=== PATIENT | male | born 1985 | race American Indian/Alaskan Native ===

== ENCOUNTER 2020-07-16 05:36 | Emergency (ER) | payer OTHER, SELFPAY ==
[2020-07-16 05:41] VITALS: BP 124/83; PULSE 118; RESP 18; TEMP 36.4; O2SAT 97; BMI 37.6
--- NOTE | 2020-07-16 06:39 | ED_ITS ---
HPI - Extremity Problem General Chief complaint: Extremity Injury, Upper Stated complaint: THUMB INJURY Time Seen by Provider: 07/16/20 06:39 Source: patient Mode of arrival: ambulatory Limitations: no limitations History of Present Illness MD Complaint: other (L thumb pain) Onset (ago): day(s) (yesterday) Pain Consistency: constant Location: left Quality: aching Radiation: none Relieving factors: nothing Exacerbating factors: range of motion Associated symptoms: denies other symptoms Context: other (states he fell a couple of days ago but didn't notice his thumb hurt til today) Related Data Previous Rx's Medication Instructions Recorded cyclobenzaprine 10 mg PO TID PRN #14 tab 07/16/20 ibuprofen 600 mg PO Q6H PRN #30 tab 07/16/20 Allergies Allergy/AdvReac Type Severity Reaction Status Date / Time morphine [MORPHINE] Allergy Mild BUMPS AND Verified 07/16/20 05:46 ITCHINESS NEAR IV SITE AFTER ADMINISTRATION, (IV) blisters penicillin V Allergy Unknown Unknown Verified 07/16/20 05:46 Penicillins Allergy Unknown UNKNOWN Verified 07/16/20 05:46 Review of Systems Review of Systems: Constitutional : No Fever, No Chills ENT/Mouth : No Ear Pain, No Hoarseness, No sore throat Eyes: No Eye Pain, No Swelling, No Redness, No Foreign Body Cardiovascular : No Chest Pain, No SOB Respiratory : No Cough, No Dyspnea Gastrointestinal : No Nausea, No Vomiting, No Diarrhea, No abdominal Pain Genitourinary : No Dysuria, No Hematuria Musculoskeletal : positive joint pain, No Myalgias, positive Joint Swelling Skin : No Skin lacerations, No rash Neuro : No Weakness, No Numbness, No Loss of Consciousness All other systems reviewed and are negative [facility] Past Medical History Medical History Asthma Bronchitis DVT (deep venous thrombosis) Hypertension Kidney stones Pulmonary emboli Substance abuse Social History Social History (Updated 07/16/20 @ 06:47 by Adrienne Crespo DO) Alcohol intake: never Smoking Status: Never smoker Advance Directives: No Physical Exam Vital Signs: Vital Signs: Vital Signs Temp Pulse Resp BP Pulse Ox 07/16/20 05:41 97.5 F 118 H 18 124/83 97 Body Mass Index 37.6 Appearance: Alert. Oriented X3. No acute distress. was snoring loudly and very sleepy had to be woken up Eyes: Pupils equal, round and reactive to light. ENT: Pharynx normal. Neck: Normal inspection. Neck supple. CVS: Normal heart rate and rhythm. Pulses normal. Respiratory: No respiratory distress. Breath sounds normal. Abdomen: Soft and nontender. Skin: Skin warm and dry. Normal skin color. Normal skin turgor. Extremities: No lower extremity edema. No calf ttp L thumb on thenar eminence swelling and mild ttp, no skin changes, distal NV intact Neuro: Oriented X 3. No motor deficit. No sensory deficit. Course Course Course Narrative: xray correlates with findings on PE will splint and refer to orthopedics Procedures Orthopedic Splinting/Casting Injury #1: Side: left Upper Extremity Injury Location: wrist and hand Upper Extremity Immobilizer: thumb spica Additional Comments: NV intact post splint MDM - Extremity (Nontraumatic) MDM Narrative Medical decision making narrative: isolated L thumb injury after a fall - can move thumb but pain is over his thenar eminence, NV intact, no signs of infectino, xray ordered Discharge Plan Discharge Clinical Impression: Fracture of phalanx of digit of hand Qualifiers: Encounter type: initial encounter Fracture type: closed Qualified Code(s): S62.609A - Fracture of unspecified phalanx of unspecified finger, initial encounter for closed fracture Patient Disposition: Home, Self-Care Instructions: Thumb Fracture (ED) Additional Instructions: wear splint until released Prescriptions: New cyclobenzaprine 10 mg tablet 10 mg PO TID PRN (Reason: muscle spasm) Qty: 14 RF: 0 ibuprofen 600 mg tablet 600 mg PO Q6H PRN (Reason: pain) Qty: 30 RF: 0 Referrals: David Street MD [Physician] - 10 days Stand Alone Forms: Work/School Release
--- NOTE | 2020-07-16 06:40 | XR_ITS ---
EXAMINATION: XR HAND, LEFT CLINICAL INFORMATION: Pain COMPARISON: 01/15/2017 TECHNIQUE: PA, lateral, and oblique views of the left hand. FINDINGS: There is cortical irregularity at the base of the proximal phalanx of the thumb, along the ulnar aspect, suspicious for acute fracture in the proper clinical setting. Articular alignment throughout the hand is maintained. No significant focal soft tissue abnormality is identified. IMPRESSION: Cortical irregularity at the base of the proximal phalanx of the thumb, suspicious for acute fracture.
== END 2020-07-16 07:32 | disposition home or self-care (01) ==
PROVIDERS: Emergency Provider Emergency Medicine; PCP Internal Medicine
DX: S62.502A Fracture of unspecified phalanx of left thumb, initial encounter for closed fracture (principal); W19.XXXA Unspecified fall, initial encounter; I10 Essential (primary) hypertension; Y93.9 Activity, unspecified; Y92.019 Unspecified place in single-family (private) house as the place of occurrence of the external cause; Y99.9 Unspecified external cause status
CPT/HCPCS: 29125; 73130; 99283; 99284

== ENCOUNTER → 2020-07-22 13:43 | Outpatient (BNVA) | payer OTHER, SELFPAY | PROVIDERS: PCP Internal Medicine; Referring Provider Internal Medicine; Visit Provider Physician Assistant | DX: S62.512D Displaced fracture of proximal phalanx of left thumb, subsequent encounter for fracture with routine healing (principal) | CPT/HCPCS: 99212 ==

== ENCOUNTER 2020-08-21 12:09 | Outpatient (REF) | payer OTHER, SELFPAY | END 2020-08-21 12:10 | disposition home or self-care (01) | LOC: HO.LAB 12:09 | PROVIDERS: Visit Provider Internal Medicine | DX: Z20.828 Contact with and (suspected) exposure to other viral communicable diseases (principal) | CPT/HCPCS: C9803; U0003 ==

== ENCOUNTER 2020-09-17 12:36 | Outpatient (REF) | payer OTHER, SELFPAY | END 2020-09-17 12:37 | disposition home or self-care (01) | LOC: HO.LAB 12:36 | PROVIDERS: Visit Provider Internal Medicine | DX: Z20.828 Contact with and (suspected) exposure to other viral communicable diseases (principal) | CPT/HCPCS: C9803; U0003 ==

== ENCOUNTER 2021-01-24 13:40 | Emergency (ER) | payer OTHER, SELFPAY ==
[2021-01-24 14:14] VITALS: BP 135/94; PULSE 85; RESP 18; TEMP 36.4; O2SAT 99; BMI 36.2
--- NOTE | 2021-01-24 14:35 | ED.EYEPROB ---
HPI - Eye Problem General Chief complaint: Eye Problems Stated complaint: red eyes, no pain Time Seen by Provider: 01/24/21 14:19 Source: patient Mode of arrival: ambulatory Limitations: no limitations History of Present Illness HPI Narrative: 35 y/o male presenting with bilateral red eyes for the last 3 days with acute onset of green discharge that started this morning. He states the redness started in the right eye and then quickly spread to the left. Both eyes burn on the inner portion. He denies foreign body sensation. No vision changes. Increased watering throughout the day. 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 No one else with similar symptoms. chief complaint: eye redness Onset (ago): day(s) (3) Onset description: gradual Duration: constant Location: both eyes Eye Symptoms: burning and redness Place: home and work Mechanism: none If Pain, Quality: burning Associated symptoms: none Treatments Prior to Arrival: irrigated eye Related Data Patient tetanus UTD: Yes Previous Rx's Medication Instructions Recorded cyclobenzaprine 10 mg PO TID PRN #14 tab 07/16/20 ibuprofen 600 mg PO Q6H PRN #30 tab 07/16/20 cetirizine [Zyrtec] 10 mg PO DAILY #14 tab 01/24/21 erythromycin 0.5 inch OPHTHALMIC-LEFT TID #3.5 g 01/24/21 erythromycin 0.5 inch OPHTHALMIC-RIGHT TID #3.5 01/24/21 g Allergies Allergy/AdvReac Type Severity Reaction Status Date / Time morphine [MORPHINE] Allergy Mild BUMPS AND Verified 01/24/21 14:16 ITCHINESS NEAR IV SITE AFTER ADMINISTRATION, (IV) blisters penicillin V Allergy Unknown Unknown Verified 01/24/21 14:16 Penicillins Allergy Unknown UNKNOWN Verified 01/24/21 14:16 Review of Systems Review of Systems: Constitutional: No Fever, No Chills ENT/Mouth: No sore throat, No Rhinorrhea, No Swallowing Difficulty Eyes: No Eye Pain, No Swelling, + Redness, +discharge, No vision changes Cardiovascular: No SOB, Respiratory: No Cough Skin: No Skin Lesions, No rash Neuro: No Headache PMFSH Past Medical History Attestation statement: The following information was validated with the patient. Medical History Asthma Bronchitis DVT (deep venous thrombosis) Hypertension Kidney stones Pulmonary emboli Substance abuse Social History Social History Alcohol intake: never Smoking Status: Never smoker Advance Directives: Yes Advance Directives Information Provided: No Advance Directives on File: No Physical Exam Vital Signs: Vital Signs: Last Vital Signs Temp 97.6 F 01/24/21 14:14 Pulse 85 01/24/21 14:14 Resp 18 01/24/21 14:14 BP 135/94 H 01/24/21 14:14 Pulse Ox 99 01/24/21 14:14 Body Mass Index 36.2 Appearance: Alert. Oriented X3. No acute distress. Eyes: bilateral scleral injection and conjunctval injection, equal, round and reactive to light, EOMI. VA noted. ENT: Pharynx normal. Neck: Normal inspection. Neck supple. CVS: Normal heart rate and rhythm. Respiratory: No respiratory distress. Skin: Skin warm and dry. Normal skin color. Normal skin turgor. No rashes. Extremities: No lower extremity edema. Neuro: Oriented X 3. Non-focal Course Course Course Narrative: 35 y/o male presenting with bilateral injection of sclera and conjunctiva w/ green discharge consistent with bacterial conjunctivitis. No FB. No trauma. Will treat with antibiotic ointment and start antihistamine for possible confounding allergy symptoms. Pt agreeable with plan and is stable for discharge. Critical Care Time Critical Care Time Critical Care Time: No Discharge Plan Discharge Clinical Impression: Conjunctivitis Qualifiers: Conjunctivitis type: acute Acute conjunctivitis type: bacterial Laterality: bilateral Qualified Code(s): H10.33 - Unspecified acute conjunctivitis, bilateral Patient Disposition: Home, Self-Care Instructions: Conjunctivitis (ED) Additional Instructions: Use the prescribed antibiotic ointment as directed for at least 1 week. Use one tube per eye. Do not cross contaminate. Use warm compresses to your eyes in the mornings to help with the discharge. Wear protective eyewear at work. Follow up with your doctor in 1 week. If you have worsening symptoms despite treatment, come back to the ER for further evaluation. Prescriptions: New erythromycin 5 mg/gram (0.5 %) ointment 0.5 inch ophthalmic-Left TID Qty: 3.5 RF: 0 erythromycin 5 mg/gram (0.5 %) ointment 0.5 inch ophthalmic-Right TID Qty: 3.5 RF: 0 cetirizine [Zyrtec] 10 mg tablet 10 mg PO DAILY Qty: 14 RF: 0 No Action cyclobenzaprine 10 mg tablet 10 mg PO TID PRN (Reason: muscle spasm) Qty: 14 RF: 0 ibuprofen 600 mg tablet 600 mg PO Q6H PRN (Reason: pain) Qty: 30 RF: 0
== END 2021-01-24 15:00 | disposition home or self-care (01) ==
PROVIDERS: Emergency Provider Emergency Medicine; PCP Internal Medicine
DX: H10.33 Unspecified acute conjunctivitis, bilateral (principal); J45.909 Unspecified asthma, uncomplicated; F19.10 Other psychoactive substance abuse, uncomplicated; Z86.718 Personal history of other venous thrombosis and embolism; Z86.711 Personal history of pulmonary embolism; Z87.442 Personal history of urinary calculi
CPT/HCPCS: 99283

== ENCOUNTER 2021-02-04 18:16 | Emergency (ER) | payer OTHER, SELFPAY ==
[2021-02-04 18:57] VITALS: BP 146/101; PULSE 99; RESP 16; TEMP 36.9; O2SAT 100; BMI 34.8
--- NOTE | 2021-02-04 19:20 | ED_ITS ---
HPI - Dental/Oral General Chief complaint: Dental/Oral Stated complaint: Dental Pain Time Seen by Provider: 02/04/21 19:20 Source: patient Mode of arrival: ambulatory Limitations: no limitations History of Present Illness HPI Narrative: States extensive history of dental problems this scheduled to have 7 tooth extracted his left lower molar which is partially chip is given him more pain. He has an appointment coming up in 2 days for extraction. Denies any jaw swelling, rash, difficulty swallowing or discharge. MD Complaint: tooth pain Location: Tooth # (Number 19 and 18) Onset (ago): day(s) Severity: severe Relieving factors: other (He has tried taking ibuprofen [id number] and helps minimally) Exacerbating factors: chewing Context: history of dental caries Treatment prior to arrival: none Related Data Previous Rx's Medication Instructions Recorded cyclobenzaprine 10 mg PO TID PRN #14 tab 07/16/20 ibuprofen 600 mg PO Q6H PRN #30 tab 07/16/20 cetirizine [Zyrtec] 10 mg PO DAILY #14 tab 01/24/21 erythromycin 0.5 inch OPHTHALMIC-LEFT TID #3.5 g 01/24/21 erythromycin 0.5 inch OPHTHALMIC-RIGHT TID #3.5 01/24/21 g clindamycin HCl 300 mg PO BID 10 Days #20 cap 02/04/21 ibuprofen 800 mg PO Q8H PRN #30 tab 02/04/21 oxycodone 5 mg PO Q8H PRN 3 Days #10 tab 02/04/21 Allergies Allergy/AdvReac Type Severity Reaction Status Date / Time morphine [MORPHINE] Allergy Mild BUMPS AND Verified 01/24/21 14:16 ITCHINESS NEAR IV SITE AFTER ADMINISTRATION, (IV) blisters penicillin V Allergy Unknown Unknown Verified 01/24/21 14:16 Penicillins Allergy Unknown UNKNOWN Verified 01/24/21 14:16 Review of Systems Review of Systems: Constitutional: No Weight loss, No Fever, No Chills, No Night Sweats, No Fatigue, No Malaise ENT/Mouth: No Hearing loss, No Ear Pain, No Nasal Congestion, No Sinus Pain, No Hoarseness, No sore throat, No Rhinorrhea, No Swallowing Difficulty Eyes: No Eye Pain, No Swelling, No Redness, No Foreign Body, No Discharge Cardiovascular: No Chest Pain, No SOB, No Dyspnea on Exertion, No Orthopnea, No Edema, No Palpitations Respiratory: No Cough, No Sputum, No Wheezing, No Smoke Exposure, No Dyspnea Gastrointestinal: Negative Genitourinary: Negative Musculoskeletal: No joint pain, No Myalgias, No Joint Swelling Skin: No Skin Lesions, No rash Neuro: No Weakness, No Numbness, No Paresthesias, No Loss of Consciousness, No Dizziness, No Headache Psych: No Anxiety/Panic, No Depression, No SI/HI/AH/VH, No Social Issues Heme/Lymph: No Bruising, No Bleeding,No Lymphadenopathy Endocrine: No Polyuria, No Polydipsia, No Temperature Intolerance Yes all other systems are reviewed and are negative [facility] Past Medical History Medical History Asthma Bronchitis DVT (deep venous thrombosis) Hypertension Kidney stones Pulmonary emboli Substance abuse Social History Social History Alcohol intake: never Smoking Status: Current every day smoker Use of substances other than those prescribed or required for medical reasons: No Substance Use Type: Marijuana Advance Directives: No Advance Directives Information Provided: No Physical Exam Vital Signs: Vital Signs: Last Vital Signs Temp 98.4 F 02/04/21 18:57 Pulse 99 02/04/21 18:57 Resp 16 02/04/21 18:57 BP 146/101 H 02/04/21 18:57 Pulse Ox 100 02/04/21 18:57 Body Mass Index 34.8 Reviewed Const: General: cooperative HENMT: Head: Yes normal to inspection Ears: hearing grossly normal bilaterally Teeth image: 1. Diffuse extensive decay 18. Partially ship and almost fully eroded. Eyes: General: appearance normal, both eyes and all related structures Neck: Thyroid: Thyroid normal Course Course Course Narrative: Mass pat reviewed no concern pattern. MDM - Dental/Oral Differential Diagnosis Differential diagnosis: Likely dental caries, toothache, dental abscess and fracture of tooth; Unlikely gingival abscess and aphthous ulcer Discharge Plan Discharge Clinical Impression: Toothache Patient Disposition: Home, Self-Care Instructions: Toothache (ED) Additional Instructions: Follow-up with dentist as planned Take medications as prescribed Return if any concerns worsening symptoms Thank you Prescriptions: New ibuprofen 800 mg tablet 800 mg PO Q8H PRN (Reason: pain) Qty: 30 RF: 0 oxycodone 5 mg tablet 5 mg PO Q8H PRN (Reason: pain) 3 Days Qty: 10 RF: 0 clindamycin HCl 300 mg capsule 300 mg PO BID 10 Days Qty: 20 RF: 0 No Action cyclobenzaprine 10 mg tablet 10 mg PO TID PRN (Reason: muscle spasm) Qty: 14 RF: 0 ibuprofen 600 mg tablet 600 mg PO Q6H PRN (Reason: pain) Qty: 30 RF: 0 erythromycin 5 mg/gram (0.5 %) ointment 0.5 inch ophthalmic-Left TID Qty: 3.5 RF: 0 erythromycin 5 mg/gram (0.5 %) ointment 0.5 inch ophthalmic-Right TID Qty: 3.5 RF: 0 cetirizine [Zyrtec] 10 mg tablet 10 mg PO DAILY Qty: 14 RF: 0 Referrals: ED Physician,Generic [Emergency Provider] - 2 days (Your dentist as scheduled)
== END 2021-02-04 19:39 | disposition home or self-care (01) ==
PROVIDERS: Emergency Provider Internal Medicine; PCP Internal Medicine
DX: K08.89 Other specified disorders of teeth and supporting structures (principal); I10 Essential (primary) hypertension; Z86.711 Personal history of pulmonary embolism; F17.200 Nicotine dependence, unspecified, uncomplicated; F12.90 Cannabis use, unspecified, uncomplicated
CPT/HCPCS: 99283; 99284

== ENCOUNTER 2021-05-07 11:46 | Outpatient (REF) | payer OTHER, SELFPAY ==
[2021-05-07 12:19] LABS: COVID-19 Test Negative (Negative)
== END 2021-05-07 11:47 | disposition home or self-care (01) ==
LOC: HO.LAB 11:46
PROVIDERS: PCP Internal Medicine; Visit Provider Internal Medicine
DX: Z20.822 Contact with and (suspected) exposure to COVID-19 (principal)
CPT/HCPCS: 36415; 87635; C9803

== ENCOUNTER 2021-07-02 17:12 | Emergency (ER) | payer OTHER, SELFPAY ==
--- NOTE | ~2021-07-02 | XR_ITS ---
EXAMINATION: XR CHEST CLINICAL INFORMATION: Chest wall pain COMPARISON: Chest CT on 08/08/2018 TECHNIQUE: 2 views of the chest were obtained. FINDINGS: No significant abnormality is noted involving the heart, lungs, mediastinum, bony thorax or soft tissues. XR/XR chest 2V IMPRESSION: Unremarkable examination.
[2021-07-02 18:04] VITALS: BP 140/92; PULSE 93; RESP 18; TEMP 36.6; O2SAT 98; BMI 37.6
--- NOTE | 2021-07-02 18:46 | ECG_ITS ---
Test Reason : WEAK Blood Pressure : / mmHG Vent. Rate : 073 BPM Atrial Rate : 073 BPM P-R Int : 142 ms QRS Dur : 106 ms QT Int : 386 ms P-R-T Axes : 023 013 034 degrees QTc Int : 425 ms Normal sinus rhythm Normal ECG When compared with ECG of 06-JUL-2016 10:45, No significant change was found Referred By: Kenan Flower Electronically Signed By:OLIVER EDMONDSON
--- NOTE | 2021-07-02 18:57 | ED_ITS ---
HPI - General Adult General Chief complaint: General Medical Stated complaint: body weakness Time Seen by Provider: 07/02/21 18:44 Source: patient Limitations: no limitations History of Present Illness HPI narrative: This is a 35-year-old male with a history what he says was a blood clot in his lungs about 7 years ago with associated fluid in his chest. The patient said he was on blood thinners for 3 years but is not on blood thinners anymore. States that since yesterday he has had a feeling of weakness, also chills and sweats, and has had pain in his left posterior lower chest/mid back area. He said he did fall about 3 weeks ago and injured his tailbone area but did not have any pain where he has it now. He denies any fever per se. He has had some cough but he is a smoker. He has not been immunized for COVID. Denies any recent known COVID exposure. Denies any pain or swelling in his legs. He states he has been vomiting since yesterday, has not had a bowel movement. He has been able to hold down some water today. He denies abdominal pain Related Data Previous Rx's Medication Instructions Recorded cyclobenzaprine 10 mg tablet 10 mg PO TID PRN #14 tab 07/16/20 ibuprofen 600 mg tablet 600 mg PO Q6H PRN #30 tab 07/16/20 cetirizine 10 mg tablet (Zyrtec) 10 mg PO DAILY #14 tab 01/24/21 erythromycin 5 mg/gram (0.5 %) eye 0.5 inch OPHTHALMIC-LEFT TID #3.5 g 01/24/21 ointment erythromycin 5 mg/gram (0.5 %) eye 0.5 inch OPHTHALMIC-RIGHT TID #3.5 01/24/21 ointment g clindamycin HCl 300 mg capsule 300 mg PO BID 10 Days #20 cap 02/04/21 ibuprofen 800 mg tablet 800 mg PO Q8H PRN #30 tab 02/04/21 oxycodone 5 mg tablet 5 mg PO Q8H PRN 3 Days #10 tab 02/04/21 Allergies Allergy/AdvReac Type Severity Reaction Status Date / Time morphine [MORPHINE] Allergy Mild BUMPS AND Verified 01/24/21 14:16 ITCHINESS NEAR IV SITE AFTER ADMINISTRATION, (IV) blisters penicillin V Allergy Unknown Unknown Verified 01/24/21 14:16 Penicillins Allergy Unknown UNKNOWN Verified 01/24/21 14:16 Review of Systems Review of Systems: Yes all other systems are reviewed and are negative Constitutional: Constitutional: Reports as per HPI, Reports chills, Reports excessive sweating, Denies fever(s), Denies headache(s) and Reports lethargy Comments: Sweats Eyes: Eyes: Reports as per HPI and Reports no additional eye complaints ENT: Reports system reviewed and no additional complaints, except as documented, Reports as per HPI, Denies headache(s), Denies nasal congestion, Denies nasal discharge and Denies sore throat Cardiovascular: Cardiovascular: Reports as per HPI, Denies chest pain and Denies dyspnea Respiratory: Respiratory: Reports as per HPI, Reports cough and Denies dyspnea Gastrointestinal: Gastrointestinal: Reports as per HPI, Denies abdominal pain, Denies diarrhea and Reports vomiting Genitourinary: Genitourinary: Reports as per HPI, Denies hematuria, Denies dysuria and Denies urinary frequency Musculoskeletal: Musculoskeletal: Reports back pain (Left-sided, CVA area) and Denies numbness Integumentary/Breasts: Skin/Breast: Reports as per HPI and Denies rash Neurologic: Reports as per HPI, Denies headache(s), Denies focal weakness, Denies numbness and Denies Sensory deficit (Neuro) Psychiatric: Psychiatric: Reports no additional psychiatric complaints and Reports as per HPI Endocrine: Endocrine: Reports no additional endocrine complaints, Reports as per HPI and Reports excessive sweating Hematologic/Lymphatic: Hematologic/Lymphatic: Reports no additional hematologic/lymphatic complaints, Reports as per HPI and Reports other (No peripheral edema) [facility] Past Medical History Medical History Asthma Bronchitis DVT (deep venous thrombosis) Hypertension Kidney stones Pulmonary emboli Substance abuse Social History Social History Alcohol intake: never Substance Use Type: Marijuana Advance Directives: No Advance Directives Information Provided: No Physical Exam Vital Signs: Vital Signs: Last Vital Signs Temp 99.7 F 07/02/21 20:29 Pulse 88 07/02/21 20:29 Resp 19 07/02/21 20:29 BP 136/83 07/02/21 20:29 Pulse Ox 98 07/02/21 20:29 Body Mass Index 37.6 Const: Other: Patient not acutely ill appearing, is diaphoretic General: cooperative, no acute distress and alert Nutritional Appearance: body habitus not average (Moderately obese) Orientation/consciousness: patient oriented x3 HENMT: Head: Yes normal to inspection Eyes: General: appearance normal, both eyes and all related structures Eyelids: Yes eyelids normal Conjunctivae: conjunctivae normal Pupils: Equal, round and reactive pupils present Neck: Neck: Yes normal visual inspection and Yes supple Chest: Chest palpation & inspection: normal inspection of the chest Resp: Effort & Inspection: normal respiratory effort Auscultation: clear to auscultation bilaterally Cardio: Rate: regular rate Rhythm: regular rhythm Heart sounds: S1 normal heart sound present, S2 normal heart sound present, no gallops, no murmurs and no rubs GI: Palpation (GI): Soft to palpation, nontender and Other GI palpation findings present (Non-distended) Auscultation: normal bowel sounds Skin: General skin exam: no rashes or lesions noted Neuro: General: patient oriented x3, no focal motor deficits and CN's II-XI intact bilaterally Cranial nerves: Yes Equal, round and reactive pupils present Cognition (Neuro): normal cognition Motor exam (neuro): 5/5 motor strength present throughout Sensory Exam: No Sensory deficit (Neuro) Extrem: General: Yes normal to inspection and Yes no pedal edema Psych: Appearance: grossly normal Affect: normal affect Medical Decision Making MDM Narrative Medical decision making narrative: Patient with malaise, weakness chills, and some focal left back pain. Patient automotive had a recurrence of pulmonary embolism/pleural effusion that he had 7 years ago. Patient was diaphoretic consistent with a viral syndrome. COVID test was positive. Chest x-ray negative, EKG normal. Urinalysis negative for any evidence of infection. White blood cell count and platelets mildly low, likely due to COVID. Pulse oximetry normal. Patient is moderately obese, is a smoker, has some risk for more severe COVID, but at this point has no evidence of acute pulmonary disease, can monitor himself at home Lab Data Result diagrams: 07/02/21 19:19 07/02/21 19:19 Labs: Lab Results 07/02/21 07/02/21 07/02/21 Range/Units 19:19 19:19 19:19 WBC 4.5 L (4.8-10.8) X10*3/uL RBC 5.74 (4.60-5.80) X10*6/uL Hgb 17.6 (14.0-18.0) g/dl Hct 51.9 (42-52) % MCV 90.4 (80-98) fL MCH 30.7 (27.0-33.0) pg MCHC 33.9 (31.0-36.0) g/dl RDW 12.9 (11.0-16.0) % Plt Count 157 L (160-400) X10*3/uL MPV 10.2 (9.4-12.4) fL Immature Gran % (Auto) 0.7 H (0.0-0.4) % Neut % (Auto) 60.9 (45-73) % Lymph % (Auto) 18.9 L (20-40) % [place] % (Auto) 18.9 H (2-11) % Eos % (Auto) 0.2 (0-4) % Baso % (Auto) 0.4 (0-2) % Lymph # (Auto) 0.8 L (1.2-4.9) X10*3/uL [place] # (Auto) 0.8 (0.1-1.2) X10*3/uL Eos # (Auto) 0.0 (0.0-0.4) X10*3/uL Baso # (Auto) 0.0 (0.0-0.2) X10*3/uL Abs Immat Gran (auto) 0.03 (0.00-0.03) X10*3/uL Absolute Neuts (auto) 2.7 (2.0-8.3) X10*3/uL Absolute Nucleated RBC 0.000 (0.0-0.012) X10*3/uL Nucleated RBC % (auto) 0.0 (0.0-0.2) /100WBC D-Dimer 380 NG/ML Sodium 137 (135-145) mmol/L Potassium 4.1 (3.3-5.1) mmol/L Chloride 101 (96-108) mmol/L Carbon Dioxide 25 (22-29) mmol/L Anion Gap 15 (12-20) BUN 12 (9-16) mg/dL Creatinine 1.05 (0.5-1.4) mg/dL Estim Creat Clear Calc 129.5 Estimated GFR > 60 Random Glucose 94 (60-115) mg/dL Calcium 9.3 (8.4-10.2) mg/dL Total Bilirubin 0.3 (0.0-1.0) mg/dL AST 34 (5-37) U/L ALT 38 (0-40) U/L Alkaline Phosphatase 61 (39-117) U/L Total Protein 7.9 (6.5-8.0) g/dL Albumin 4.7 (3.5-5.0) g/dL Urine Color Urine Appearance Urine pH (5.0-8.0) Ur Specific [place] (1.005-1.025) Urine Protein (NEG-TRACE) MG/DL Urine Glucose (UA) (NEG) MG/DL Urine Ketones (NEG) MG/DL Urine Blood (NEG) Urine Nitrite (NEG) Ur Leukocyte Esterase (NEG) Urine RBC (0) /HPF Urine WBC (0-4) /HPF Ur Squamous Epith Cells /LPF Urine Bacteria /LPF Urine Mucus /LPF COVID-19 (AGATHA) (Negative) COVID-19 Clin Com 07/02/21 07/02/21 Range/Units 19:19 19:19 WBC (4.8-10.8) X10*3/uL RBC (4.60-5.80) X10*6/uL Hgb (14.0-18.0) g/dl Hct (42-52) % MCV (80-98) fL MCH (27.0-33.0) pg MCHC (31.0-36.0) g/dl RDW (11.0-16.0) % Plt Count (160-400) X10*3/uL MPV (9.4-12.4) fL Immature Gran % (Auto) (0.0-0.4) % Neut % (Auto) (45-73) % Lymph % (Auto) (20-40) % [place] % (Auto) (2-11) % Eos % (Auto) (0-4) % Baso % (Auto) (0-2) % Lymph # (Auto) (1.2-4.9) X10*3/uL [place] # (Auto) (0.1-1.2) X10*3/uL Eos # (Auto) (0.0-0.4) X10*3/uL Baso # (Auto) (0.0-0.2) X10*3/uL Abs Immat Gran (auto) (0.00-0.03) X10*3/uL Absolute Neuts (auto) (2.0-8.3) X10*3/uL Absolute Nucleated RBC (0.0-0.012) X10*3/uL Nucleated RBC % (auto) (0.0-0.2) /100WBC D-Dimer NG/ML Sodium (135-145) mmol/L Potassium (3.3-5.1) mmol/L Chloride (96-108) mmol/L Carbon Dioxide (22-29) mmol/L Anion Gap (12-20) BUN (9-16) mg/dL Creatinine (0.5-1.4) mg/dL Estim Creat Clear Calc Estimated GFR Random Glucose (60-115) mg/dL Calcium (8.4-10.2) mg/dL Total Bilirubin (0.0-1.0) mg/dL AST (5-37) U/L ALT (0-40) U/L Alkaline Phosphatase (39-117) U/L Total Protein (6.5-8.0) g/dL Albumin (3.5-5.0) g/dL Urine Color YELLOW Urine Appearance CLEAR Urine pH 6.0 (5.0-8.0) Ur Specific [place] >= 1.030 H (1.005-1.025) Urine Protein TRACE (NEG-TRACE) MG/DL Urine Glucose (UA) NEG (NEG) MG/DL Urine Ketones >=80 (NEG) MG/DL Urine Blood 1+ H (NEG) Urine Nitrite NEG (NEG) Ur Leukocyte Esterase NEG (NEG) Urine RBC 1-4 (0) /HPF Urine WBC 0-2 (0-4) /HPF Ur Squamous Epith Cells TRACE /LPF Urine Bacteria NONE /LPF Urine Mucus 1+ /LPF COVID-19 (AGATHA) Positive A (Negative) COVID-19 Clin Com See Note ECG Data Attestation: I personally reviewed and interpreted this ECG as follows: Interpretation: Sinus rhythm with a rate of 73. No ST elevation depression. Normal QRS axis. Normal EKG. Discharge Plan Discharge Clinical Impression: COVID-19 Patient Disposition: Home, Self-Care Instructions: COVID-19 (Coronavirus Disease 2019) (ED) Additional Instructions: Drink plenty of fluids. Use Tylenol and/or ibuprofen for fever and aches. Your pulse oximetry and chest x-ray are normal today. Consider buying a pulse oximeter so you can check your oxygen level daily. Quarantine for 14 days. Return for any new or worsened symptoms such as shortness of breath, severe dizziness, low oxygen levels (below 92%) Prescriptions: No Action cyclobenzaprine 10 mg tablet 10 mg PO TID PRN (Reason: muscle spasm) Qty: 14 RF: 0 ibuprofen 600 mg tablet 600 mg PO Q6H PRN (Reason: pain) Qty: 30 RF: 0 erythromycin 5 mg/gram (0.5 %) ointment 0.5 inch ophthalmic-Left TID Qty: 3.5 RF: 0 erythromycin 5 mg/gram (0.5 %) ointment 0.5 inch ophthalmic-Right TID Qty: 3.5 RF: 0 cetirizine [Zyrtec] 10 mg tablet 10 mg PO DAILY Qty: 14 RF: 0 ibuprofen 800 mg tablet 800 mg PO Q8H PRN (Reason: pain) Qty: 30 RF: 0 oxycodone 5 mg tablet 5 mg PO Q8H PRN (Reason: pain) 3 Days Qty: 10 RF: 0 clindamycin HCl 300 mg capsule 300 mg PO BID 10 Days Qty: 20 RF: 0 Interventions: ED Discharge Assessment Last Done: 07/02/21 20:30 Discharge Date/Time: 07/02/21 20:40
[2021-07-02 19:03] VITALS: BP 157/88; PULSE 86; RESP 16; TEMP 36.8; O2SAT 96
[2021-07-02 19:34] LABS: MANUAL DIFF FLAG NO
[2021-07-02 19:35] LABS: Basophils Percent Auto 0.4 % (0-2); Eosinophils Percent Auto 0.2 % (0-4); Hematocrit 51.9 % (42-52); Hemoglobin 17.6 g/dl (14.0-18.0); Imm Gran Abs Auto 0.03 X10*3/uL (0.00-0.03); Imm Gran Pct Auto 0.7 % (0.0-0.4); Lymphocytes Absolute Auto 0.8 X10*3/uL (1.2-4.9); Lymphocytes Percent Auto 18.9 % (20-40); Mean Corpuscular HGB Conc 33.9 g/dl (31.0-36.0); Mean Corpuscular Hemoglobin 30.7 pg (27.0-33.0); Mean Corpuscular Volume 90.4 fL (80-98); Mean Platelet Volume 10.2 fL (9.4-12.4); Monocytes Absolute Auto 0.8 X10*3/uL (0.1-1.2); Monocytes Percent Auto 18.9 % (2-11); Neutrophils Absolute Auto 2.7 X10*3/uL (2.0-8.3); Neutrophils Percent Auto 60.9 % (45-73); Platelet Count 157 X10*3/uL (160-400); Red Blood Count 5.74 X10*6/uL (4.60-5.80); Red Cell Distribution Width 12.9 % (11.0-16.0); White Blood Count 4.5 X10*3/uL (4.8-10.8)
[2021-07-02 19:37] LABS: Appearance Urine CLEAR; Color Urine YELLOW; Glucose Urine UA NEG (NEG); Leukocyte Esterase Urine NEG (NEG); Nitrite Urine NEG (NEG); Specific Gravity - Urine >= 1.030 (1.005-1.025); UACC Culture Trigger NO; Urine Blood 1+ (NEG); Urine Ketones >=80 MG/DL (NEG); Urine Protein TRACE MG/DL (NEG-TRACE)
[2021-07-02 19:43] LABS: D Dimer 380 NG/ML
[2021-07-02 19:46] LABS: COVID-19 Test Positive (Negative)
[2021-07-02 19:49] LABS: Alanine Aminotransferase 38 U/L (0-40); Albumin Level 4.7 g/dL (3.5-5.0); Alkaline Phosphatase 61 U/L (39-117); Anion Gap 15 (12-20); Aspartate Amino Transferase 34 U/L (5-37); Bilirubin Total 0.3 mg/dL (0.0-1.0); Blood Urea Nitrogen 12 mg/dL (9-16); Calcium 9.3 mg/dL (8.4-10.2); Carbon Dioxide 25 mmol/L (22-29); Chloride 101 mmol/L (96-108); Creatinine Clr Calc Pharmacy 129.5; Estimated Glomerular Filt Rate > 60; Glucose Random 94 mg/dL (60-115); Potassium 4.1 mmol/L (3.3-5.1); Sodium 137 mmol/L (135-145); Total Protein 7.9 g/dL (6.5-8.0)
[2021-07-02 19:51] LABS: Mucus Urine 1+ /LPF; Squamous Epithelial Cell Urine TRACE /LPF; WBC Urine 0-2 /HPF (0-4)
[2021-07-02 20:29] VITALS: BP 136/83; PULSE 88; RESP 19; TEMP 37.6; O2SAT 98
== END 2021-07-02 20:40 | disposition home or self-care (01) ==
PROVIDERS: Emergency Provider Emergency Medicine; PCP Internal Medicine
DX: U07.1 COVID-19 (principal); M79.10 Myalgia, unspecified site; Z79.01 Long term (current) use of anticoagulants; Z79.899 Other long term (current) drug therapy
CPT/HCPCS: 36415; 71046; 80053; 81001; 85025; 85379; 87635; 93005; 99283

== ENCOUNTER 2021-12-07 16:58 | Emergency (ER) | payer OTHER, SELFPAY ==
--- NOTE | ~2021-12-07 | US_ITS ---
EXAMINATION: US VENOUS ULTRASOUND WITH DOPPLER LOWER EXTREMITY, RIGHT CLINICAL INFORMATION: Pain and swelling. History of previous DVT. COMPARISON: Previous exam March 2016 TECHNIQUE: Ultrasound of the deep veins is performed from the hip to the calf with compression sonography and color and pulse Doppler assessment. Spectral analysis with color-flow imaging is performed. FINDINGS: There is normal venous compression and respiratory variation and augmented flow. The visualized common femoral vein, superficial femoral vein, profunda femoral vein, popliteal vein, and the trifurcation region shows no evidence of deep venous thrombosis. There is no significant popliteal fossa cyst. US/US venous duplex LE RT IMPRESSION: No DVT demonstrated in the right lower extremity.
--- NOTE | ~2021-12-07 | XR_ITS ---
EXAMINATION: RIGHT ANKLE, RIGHT FOOT CLINICAL INFORMATION: Right ankle and foot pain and swelling COMPARISON: Right ankle and foot 12/13/2019 TECHNIQUE: 3 views right foot, 2 views right ankle FINDINGS: Compared to the prior exam there is been no interval change once again noted are degenerative changes in the ankle with old healed lateral malleolus fracture and subchondral cyst formation in the lateral talar dome consistent with old healed osteochondral defect. Again, no interval change when compared to the prior study. No acute fracture. The remainder of the foot is unremarkable. XR/XR foot RT 2V IMPRESSION: No acute finding, old healed fibular fracture, stable changes of osteochondral defect lateral talus.
--- NOTE | ~2021-12-07 | XR_ITS ---
EXAMINATION: RIGHT ANKLE, RIGHT FOOT CLINICAL INFORMATION: Right ankle and foot pain and swelling COMPARISON: Right ankle and foot 12/13/2019 TECHNIQUE: 3 views right foot, 2 views right ankle FINDINGS: Compared to the prior exam there is been no interval change once again noted are degenerative changes in the ankle with old healed lateral malleolus fracture and subchondral cyst formation in the lateral talar dome consistent with old healed osteochondral defect. Again, no interval change when compared to the prior study. No acute fracture. The remainder of the foot is unremarkable. XR/XR ankle RT 2V IMPRESSION: No acute finding, old healed fibular fracture, stable changes of osteochondral defect lateral talus.
[2021-12-07 17:04] VITALS: BP 128/88; PULSE 113; RESP 20; TEMP 36; O2SAT 96; BMI 37.3
[2021-12-07 18:34] VITALS: BP 136/88; PULSE 88; RESP 17; TEMP 36.5
--- NOTE | 2021-12-07 19:01 | ED.LOWEXIN ---
HPI - Extremity Injury (Lower) General Chief Complaint: Extremity Injury, Lower Stated Complaint: ankle pain/swollen Time Seen by Provider: 12/07/21 18:35 Source: patient Mode of arrival: ambulatory Limitations: no limitations History of Present Illness HPI Narrative: Patient is a 36-year-old male with a past medical history of right ankle fracture, DVT, PE. Reportedly sustained a right ankle fracture 7 years ago in 2 weeks later developed a DVT to the right leg and PE for which he was on anticoagulants for 1 year. He is presenting today for evaluation of right ankle/ foot swelling and pain. He reports chronic swelling since his fracture 7 years ago. However over the past 3 days he has noticed an increase in the severity of pain and swelling. In addition he is having pain that extends into his calf and is made worse with dorsiflexion of the foot. He denies any headache, dizziness, lightheadedness, chest pain, palpitations, shortness of breath, dyspnea on exertion, numbness or tingling at the extremities. Denies any precipitating injury. Related Data Previous Rx's Medication Instructions Recorded cyclobenzaprine 10 mg tablet 10 mg PO TID PRN #14 tab 07/16/20 ibuprofen 600 mg tablet 600 mg PO Q6H PRN #30 tab 07/16/20 cetirizine 10 mg tablet (Zyrtec) 10 mg PO DAILY #14 tab 01/24/21 erythromycin 5 mg/gram (0.5 %) eye 0.5 inch OPHTHALMIC-LEFT TID #3.5 g 01/24/21 ointment erythromycin 5 mg/gram (0.5 %) eye 0.5 inch OPHTHALMIC-RIGHT TID #3.5 01/24/21 ointment g clindamycin HCl 300 mg capsule 300 mg PO BID 10 Days #20 cap 02/04/21 ibuprofen 800 mg tablet 800 mg PO Q8H PRN #30 tab 02/04/21 oxycodone 5 mg tablet 5 mg PO Q8H PRN 3 Days #10 tab 02/04/21 Allergies Allergy/AdvReac Type Severity Reaction Status Date / Time morphine [MORPHINE] Allergy Mild BUMPS AND Verified 12/07/21 17:07 ITCHINESS NEAR IV SITE AFTER ADMINISTRATION, (IV) blisters penicillin V Allergy Unknown Unknown Verified 12/07/21 17:07 Penicillins Allergy Unknown UNKNOWN Verified 12/07/21 17:07 Review of Systems Review of Systems: Constitutional : No Fever, No Chills ENT/Mouth : No Ear Pain, No Nasal Congestion, No sore throat Eyes: No Eye Pain, No Swelling, No Redness Cardiovascular : No Chest Pain, No SOB Respiratory : No Cough, No Sputum, No Dyspnea Gastrointestinal : No Nausea, No Vomiting, No Diarrhea, No Hematochezia, No Melena Genitourinary : No Dysuria, No Urinary Frequency, No Hematuria Musculoskeletal : No Myalgias Skin : No Skin Lesions, No rash Musculoskeletal: Positive right ankle pain, positive right foot pain and positive right leg pain. Neuro : No Weakness, No Numbness, No Paresthesias, No Dizziness, No Headache Heme/Lymph: No Lymphadenopathy Endocrine : No Polyuria, No Polydipsia ? All other systems reviewed and are negative [facility] Past Medical History Medical History Asthma Bronchitis DVT (deep venous thrombosis) Hypertension Kidney stones Pulmonary emboli Substance abuse Social History Social History Alcohol intake: never Substance Use Type: Marijuana Advance Directives: No Advance Directives Information Provided: No Physical Exam Vital Signs: Vital Signs: Last Vital Signs Temp 97.7 F 12/07/21 18:34 Pulse 88 12/07/21 18:34 Resp 17 12/07/21 18:34 BP 136/88 12/07/21 18:34 Pulse Ox 96 12/07/21 17:04 BMI result Body Mass Index 37.3 Vital signs have been reviewed as normal and appeared to be correct. Blood pressure normal.? Heart rate normal.? Respiration rate normal. Temperature normal.? Oxygen saturation normal. Appearance: Alert.?Oriented to person, place and time. No acute distress.?Normal affect. Eyes: Pupils equal, round and reactive to light.? ENT: Pharynx normal.?? Neck: Normal inspection.? Neck supple.?? CVS: Heart sounds normal. Normal heart rate and rhythm.? Pulses normal.?? Respiratory: No respiratory distress.? Lung sounds clear to auscultation bilaterally?? Abdomen: Soft and non-tender. Normoactive bowel sounds. No pulsatile mass.?? Skin: Skin warm and dry.? Normal skin color.? Normal skin turgor.?? Extremities: Nonpitting edema of the right ankle and right foot with some erythema, palpable 2+ DP/PT pulse. Mild tenderness to the right calf. Neuro: Moves all extremities spontaneously. Sensation intact bilaterally. CN II-XII intact. No focal neuro deficits. Ambulates with steady antalgic gait.. Course Course Course Narrative: Patient is a 36-year-old male being evaluated for acute on chronic right ankle/foot pain. Obtain x-ray to exclude acute fracture dislocation. Given his history of DVT and PE with complaints of calf pain, will obtain ultrasound of the lower extremity to exclude DVT. Patient is well-appearing, nontoxic, no tachycardia, hypoxia, was prox suggest possible pulmonary embolism. I did discuss with patient that should the imaging results be normal he will need to follow up outpatient with his primary care provider as is expressing frustration about chronic pain to his ankle. Reevaluation(s) Reevaluation #1: X-ray of the right foot and ankle reveals no acute findings an old healed fibular fracture and stable changes of osteochondral defect of the lateral talus. Went to bedside to evaluate patient, and patient was not present. Hospital gown was on the chair. Noted by nursing staff to have walked out of the department about 20 minutes ago. Patient left against medical advice. Time: 21:26 MDM - Extremity Injury (Lower) Medical Records Attestation: I reviewed the patient's medical records. Imaging Data xr R foot/ ankle: Radiologist's impression: FINDINGS: Compared to the prior exam there is been no interval change once again noted are degenerative changes in the ankle with old healed lateral malleolus fracture and subchondral cyst formation in the lateral talar dome consistent with old healed osteochondral defect. Again, no interval change when compared to the prior study. No acute fracture. The remainder of the foot is unremarkable.? XR/XR foot RT 2V IMPRESSION: No acute finding, old healed fibular fracture, stable changes of osteochondral defect lateral talus.? Discharge Plan Discharge Clinical Impression: Acute leg pain, Ankle pain, chronic Patient Disposition: Left Against Medical Advice Prescriptions: No Action cyclobenzaprine 10 mg tablet 10 mg PO TID PRN (Reason: muscle spasm) Qty: 14 0RF ibuprofen 600 mg tablet 600 mg PO Q6H PRN (Reason: pain) Qty: 30 0RF erythromycin 5 mg/gram (0.5 %) ointment 0.5 inch ophthalmic-Left TID Qty: 3.5 0RF erythromycin 5 mg/gram (0.5 %) ointment 0.5 inch ophthalmic-Right TID Qty: 3.5 0RF cetirizine [Zyrtec] 10 mg tablet 10 mg PO DAILY Qty: 14 0RF ibuprofen 800 mg tablet 800 mg PO Q8H PRN (Reason: pain) Qty: 30 0RF oxycodone 5 mg tablet 5 mg PO Q8H PRN (Reason: pain) 3 Days Qty: 10 0RF clindamycin HCl 300 mg capsule 300 mg PO BID 10 Days Qty: 20 0RF
== END 2021-12-07 22:15 | disposition left against medical advice (07) ==
PROVIDERS: Emergency Provider Internal Medicine; PCP Internal Medicine
DX: M79.604 Pain in right leg (principal); R60.0 Localized edema; Z79.899 Other long term (current) drug therapy
CPT/HCPCS: 73600; 73620; 93971; 99284

== ENCOUNTER 2022-02-15 15:22 | Emergency (ER) | payer OTHER, SELFPAY ==
--- NOTE | ~2022-02-15 | XR_ITS ---
EXAMINATION: XR TOES, RIGHT CLINICAL INFORMATION: Swelling and bruising of the great toe COMPARISON: None TECHNIQUE: 3 views of the right toes were obtained. FINDINGS: There is a fracture along the dorsal base of the distal phalanx of the great toe with minimal dorsal and medial displacement of the fracture fragment. The remainder of the bones are intact. Joint spaces are preserved. Mild soft tissue swelling over the DIP joint. There is also mild lateral soft tissue swelling. XR/XR toe RT min 2V IMPRESSION: Mildly displaced fracture along the dorsal base of the distal phalanx of the great toe with minimal dorsal and medial displacement of the fracture fragment.
[2022-02-15 15:29] VITALS: BP 168/99; PULSE 97; RESP 18; TEMP 36.8; O2SAT 97; BMI 37.3
== END 2022-02-15 20:36 | disposition left against medical advice (07) ==
PROVIDERS: Emergency Provider Emergency Medicine; PCP Internal Medicine
DX: S99.921A Unspecified injury of right foot, initial encounter (principal); X58.XXXA Exposure to other specified factors, initial encounter; Y93.66 Activity, soccer; Y92.9 Unspecified place or not applicable; Y99.9 Unspecified external cause status
CPT/HCPCS: 73660; 99283

== ENCOUNTER 2022-07-22 18:46 | Emergency (ER) | payer OTHER, SELFPAY ==
[2022-07-22 20:12] VITALS: BP 129/82; PULSE 115; RESP 18; TEMP 36.7; O2SAT 96; BMI 37.3
== END 2022-07-23 01:41 | disposition left against medical advice (07) ==
LOC: HO.ED 07-23 01:35
PROVIDERS: Emergency Provider Emergency Medicine
DX: M54.50 Low back pain, unspecified (principal)
CPT/HCPCS: 99281

== ENCOUNTER 2022-07-24 09:34 | Emergency (ER) | payer OTHER, SELFPAY ==
--- NOTE | ~2022-07-24 | CT_ITS ---
EXAMINATION: CT ABDOMEN AND PELVIS WITH CONTRAST CLINICAL INFORMATION: Question rectal versus pilonidal abscess or cyst. COMPARISON: February 03, 2017 TECHNIQUE: Multidetector volumetric images were obtained from the superior aspect of the liver through the pubic symphysis following administration 85 mL of Omnipaque 350 intravenous contrast. Sagittal and coronal reformatted images were obtained on the technologist's workstation. Oral contrast: No This CT examination was performed using dose optimization techniques as appropriate, variously including the following: *Automated exposure control *Adjustment of mA and/or kV according to patient size (this includes techniques or standardized protocols for targeted exams where dose is matched to indication/reason for exam; i.e. extremities or head) *Use of iterative reconstruction technique DLP: 706 mGy-cm FINDINGS: LUNG BASES: There is some mild atelectatic change seen left lower lobe. No pleural or pericardial effusion. LIVER, GALLBLADDER, AND BILIARY TREE: The liver is normal in size, shape, and attenuation. No focal hepatic lesion or biliary ductal dilatation is present. The gallbladder is unremarkable with no evidence of radiopaque gallstones, gallbladder wall thickening, or obvious pericholecystic inflammatory changes. PANCREAS: Unremarkable. SPLEEN: Unremarkable. ADRENAL GLANDS: Unremarkable. KIDNEYS AND URETERS: The kidneys are normal in size, shape, and attenuation. No hydronephrosis, hydroureter, or calculi seen. No perinephric stranding. BLADDER: Decompressed. GASTROINTESTINAL TRACT: The small and large bowel are unremarkable. The appendix is unremarkable. No pericolonic inflammatory change. No free air or free fluid. ABDOMINAL WALL: No significant hernia is appreciated. Posterior midline superior gluteal fold. There is a 3.4 x 3.0 x 3.6 cm lesion with some fat infiltration around it and with liquid region measuring approximately 2 cm in diameter. There is rim enhancement. This has the appearance of a pilonidal cyst/abscess. LYMPH NODES: No lymphadenopathy appreciated. VASCULAR: Unremarkable. PELVIC VISCERA: Unremarkable. OSSEOUS STRUCTURES: No suspicious destructive bony lesions identified. CT/CT abdomen pelvis w IV con IMPRESSION: Pilonidal cyst/abscess measuring 2.6 cm in maximum dimension. Fleischner guidelines were followed.
[2022-07-24 09:41] VITALS: BP 142/84; PULSE 86; O2SAT 97
[2022-07-24 09:43] VITALS: BP 134/83; PULSE 82; RESP 20; O2SAT 99; BMI 25.8
--- NOTE | 2022-07-24 10:08 | ED_ITS ---
HPI - General Adult General Chief complaint: General Medical Stated complaint: hemorrhoid Time Seen by Provider: 07/24/22 09:39 Source: patient Mode of arrival: ambulatory History of Present Illness HPI narrative: 36-year-old male with a past medical history of asthma, bronchitis, DVT/PE, hypertension, renal stones, substance abuse, presenting to the ED complaining rectal pain since Wednesday. States pain has been increasing, with difficulty sitting or lying on his back. States painful BMs and urination. Denies bleeding at site, known trauma, rectal bleeding, melena, abdominal pain, nausea/vomiting, fever Onset (ago): day(s) Related Data Previous Rx's Medication Instructions Recorded cyclobenzaprine 10 mg tablet 10 mg PO TID PRN muscle spasm #14 07/16/20 tabs ibuprofen 600 mg tablet 600 mg PO Q6H PRN pain #30 tabs 07/16/20 cetirizine 10 mg tablet (Zyrtec) 10 mg PO DAILY #14 tabs 01/24/21 erythromycin 5 mg/gram (0.5 %) eye 0.5 inch ophthalmic-Left TID #3.5 01/24/21 ointment grams erythromycin 5 mg/gram (0.5 %) eye 0.5 inch ophthalmic-Right TID #3.5 01/24/21 ointment grams clindamycin HCl 300 mg capsule 300 mg PO BID 10 days #20 caps 02/04/21 ibuprofen 800 mg tablet 800 mg PO Q8H PRN pain #30 tabs 02/04/21 oxycodone 5 mg tablet 5 mg PO Q8H PRN pain 3 days #10 02/04/21 tabs cephalexin 500 mg capsule 500 mg PO QID 7 days #28 caps 07/24/22 doxycycline hyclate 100 mg tablet 100 mg PO BID 7 days #14 tabs 07/24/22 ketorolac 10 mg tablet 10 mg PO TID PRN pain 5 days #15 07/24/22 tabs naproxen 500 mg tablet 500 mg PO BID PRN pain 10 days #20 07/24/22 tabs Allergies Allergy/AdvReac Type Severity Reaction Status Date / Time morphine [MORPHINE] Allergy Mild BUMPS AND Verified 12/07/21 17:07 ITCHINESS NEAR IV SITE AFTER ADMINISTRATION, (IV) blisters penicillin V Allergy Unknown Unknown Verified 12/07/21 17:07 Penicillins Allergy Unknown UNKNOWN Verified 12/07/21 17:07 Review of Systems Review of Systems: Constitutional: No Fever, No Chills, No Fatigue, No Malaise ENT/Mouth: No Ear Pain, No Nasal Congestion, No Sinus Pain, No Hoarseness, No sore throat, No Swallowing Difficulty Eyes: No Eye Pain, No Swelling, No Redness, No Vision Changes Cardiovascular: No Chest Pain, No SOB, No Edema, No Palpitations Respiratory: No Cough, No Sputum, No Dyspnea Gastrointestinal: No Nausea, No Vomiting, No Diarrhea, No Constipation, No Abd ominal pain, No Hematochezia, No Melena Genitourinary: +rectal pain,No irregular bleeding, No Dysuria, No Urinary Frequency, No Hematuria, No Urinary Incontinence/retention, No Flank Pain, No Urinary Flow Changes, No Hesitancy Musculoskeletal: No joint pain, No Myalgias, No Joint Swelling Skin: No Skin Lesions, No rash Neuro: No Weakness, No Dizziness, No Headache Yes all other systems are reviewed and are negative Constitutional: Constitutional: Reports as per [facility] Past Medical History Attestation statement: The following information was validated with the patient. Medical History Asthma Bronchitis DVT (deep venous thrombosis) Hypertension Kidney stones Pulmonary emboli Substance abuse Social History Social History Alcohol intake: never Substance Use Type: Marijuana Advance Directives: No Advance Directives Information Provided: No Physical Exam ED Vital Signs: Vital Signs - 24 hr 07/24/22 09:43 07/24/22 14:35 Temperature 98.3 F Pulse Rate 82 59 Respiratory Rate 20 18 Blood Pressure 134/83 136/77 Pulse Oximetry 99 99 Oxygen Delivery Method Room Air BMI result Body Mass Index 25.8 Const General: cooperative, healthy appearing and no acute distress Orientation/consciousness: patient oriented x3 Limitations: no limitations HENMT Head: Yes normal to inspection and Yes atraumatic Ears: hearing grossly normal bilaterally General nose exam: Normal external nose present Face and sinus: Yes normal facial exam Eyes General: appearance normal, both eyes and all related structures EOM: EOMs intact bilaterally Neck Neck: Yes normal visual inspection and Yes no meningeal signs Resp Effort & Inspection: normal respiratory effort and no respiratory distress Cardio Rate: regular rate Heart sounds: S1 normal heart sound present and S2 normal heart sound present GI Other: + indurated area noted to left superior buttock with small area of fluctuance. No pointing, no appreciable cellulitis or drainage. Very tender to palpation. No rectal involvement Inspection: Yes normal to inspection Palpation (GI): Soft to palpation, nontender, no guarding and not rigid Rectal Exam - Male: Yes normal sphincter tone, No Laceration(s) present (GI) and No hemorrhoids General: Yes no CVA tenderness Back/Spine/Pelvis Back: no CVA tenderness Skin Rashes: no rashes Wounds: no wounds Neuro General: patient oriented x3, tone normal and no meningeal signs Gait exam (Neuro): Normal gait present Extrem General: Yes normal to inspection Course Course Course Narrative: -no leukocytosis. Labs otherwise unremarkable. UA negative -1450--we have called [facility] [address]x enquiring about CT read, they report radiologist or reading study now -1520--called [place] again. Patient understandably aggravated >1544--patient aggravated, still no CT read, we have reached at [facility] multiple times. Patient would like to be discharged. 1600--CT abdomen pelvis w IV con IMPRESSION: Pilonidal cyst/abscess measuring 2.6 cm in maximum dimension.? ? Fleischner guidelines were followed. >> patient agreeable to needle aspiration. Successfully extracted 8 cc of pus drainage. Area actively draining at this time. Discussed worrisome signs and symptoms, need for continued drainage/warm compresses and close follow-up/re-evaluation in 2 days Procedures Abscess I/D Site: back Local Anesthetic: lidocaine 1% Amount of anesthesia used (mL): 3 Technique: needle aspiration Amount of fluid expressed (mL): 8 Sent for culture/gram staining?: No Irrigation: No Packing used?: none Complications: pain Medical Decision Making MDM Narrative Medical decision making narrative: 36-year-old male with a past medical history of asthma, bronchitis, DVT/PE, hypertension, renal stones, substance abuse, presenting to the ED complaining rectal pain since Wednesday. On exam vital signs stable, NAD, abdomen soft/nontender, noted indurated area with small area of fluctuance to left superior buttock, no appreciable rectal involvement or hemorrhoids. Concern for pilonial cyst vs deeper abscess vs fistula. No appreciable rectal involvement. Low suspicion for intra-abdominal pathology Plan: Labs, lactic/blood cultures, CT Medical Records Medical records reviewed: Yes I reviewed the patient's medical records. Lab Data Lab results reviewed: Yes I reviewed the patient's lab results. Result diagrams: 07/24/22 10:12 07/24/22 10:12 Labs: Lab Results 07/24/22 07/24/22 07/24/22 Range/Units 10:12 10:12 10:12 WBC 10.2 (4.8-10.8) X10*3/uL RBC 5.08 (4.60-5.80) X10*6/uL Hgb 15.7 (14.0-18.0) g/dl Hct 46.3 (42.0-52.0) % MCV 91.1 (80.0-98.0) fL MCH 30.9 (27.0-33.0) pg MCHC 33.9 (31.0-36.0) g/dl RDW 12.5 (11.0-16.0) % Plt Count 218 (160-400) X10*3/uL MPV 9.8 (9.4-12.4) fL Immature Gran % (Auto) 0.4 (0.0-0.4) % Neut % (Auto) 69.4 (45-73) % Lymph % (Auto) 19.3 L (20-40) % [place] % (Auto) 8.8 (2-11) % Eos % (Auto) 1.7 (0-4) % Baso % (Auto) 0.4 (0-2) % Lymph # (Auto) 2.0 (1.2-4.9) X10*3/uL [place] # (Auto) 0.9 (0.1-1.2) X10*3/uL Eos # (Auto) 0.2 (0.0-0.4) X10*3/uL Baso # (Auto) 0.0 (0.0-0.2) X10*3/uL Abs Immat Gran (auto) 0.04 H (0.00-0.03) X10*3/uL Absolute Neuts (auto) 7.1 (2.0-8.3) x10*3/uL Absolute Nucleated RBC 0.000 (0.0-0.012) X10*3/uL Nucleated RBC % (auto) 0.0 (0.0-0.2) /100WBC PT 12.7 (10.0-13.1) SEC INR 1.1 (0.9-1.1) Sodium 140 (135-145) mmol/L Potassium 3.7 (3.3-5.1) mmol/L Chloride 105 (96-108) mmol/L Carbon Dioxide 24 (22-29) mmol/L Anion Gap 15 (12-20) BUN 12 (9-16) mg/dL Creatinine 0.91 (0.5-1.4) mg/dL Estim Creat Clear Calc 114.7 Estimated GFR > 60 Random Glucose 124 H (60-115) mg/dL Lactic Acid (0.5-2.0) mmol/L Calcium 9.1 (8.4-10.2) mg/dL Total Bilirubin 0.9 (0.0-1.0) mg/dL Direct Bilirubin 0.3 (0.0-0.5) mg/dL AST 11 D (5-37) U/L ALT 11 (0-40) U/L Alkaline Phosphatase 55 (39-117) U/L Total Protein 6.8 (6.5-8.0) g/dL Albumin 4.1 (3.5-5.0) g/dL Urine Color Urine Appearance Urine pH (5.0-9.0) Ur Specific [place] (1.005-1.025) Urine Protein (Neg-Trace) mg/dL Urine Glucose (UA) (Negative) mg/dL Urine Ketones (Negative) mg/dL Urine Blood (Negative) Urine Nitrite (Negative) Ur Leukocyte Esterase (Negative) 07/24/22 07/24/22 Range/Units 10:12 14:52 WBC (4.8-10.8) X10*3/uL RBC (4.60-5.80) X10*6/uL Hgb (14.0-18.0) g/dl Hct (42.0-52.0) % MCV (80.0-98.0) fL MCH (27.0-33.0) pg MCHC (31.0-36.0) g/dl RDW (11.0-16.0) % Plt Count (160-400) X10*3/uL MPV (9.4-12.4) fL Immature Gran % (Auto) (0.0-0.4) % Neut % (Auto) (45-73) % Lymph % (Auto) (20-40) % [place] % (Auto) (2-11) % Eos % (Auto) (0-4) % Baso % (Auto) (0-2) % Lymph # (Auto) (1.2-4.9) X10*3/uL [place] # (Auto) (0.1-1.2) X10*3/uL Eos # (Auto) (0.0-0.4) X10*3/uL Baso # (Auto) (0.0-0.2) X10*3/uL Abs Immat Gran (auto) (0.00-0.03) X10*3/uL Absolute Neuts (auto) (2.0-8.3) x10*3/uL Absolute Nucleated RBC (0.0-0.012) X10*3/uL Nucleated RBC % (auto) (0.0-0.2) /100WBC PT (10.0-13.1) SEC INR (0.9-1.1) Sodium (135-145) mmol/L Potassium (3.3-5.1) mmol/L Chloride (96-108) mmol/L Carbon Dioxide (22-29) mmol/L Anion Gap (12-20) BUN (9-16) mg/dL Creatinine (0.5-1.4) mg/dL Estim Creat Clear Calc Estimated GFR Random Glucose (60-115) mg/dL Lactic Acid 0.8 (0.5-2.0) mmol/L Calcium (8.4-10.2) mg/dL Total Bilirubin (0.0-1.0) mg/dL Direct Bilirubin (0.0-0.5) mg/dL AST (5-37) U/L ALT (0-40) U/L Alkaline Phosphatase (39-117) U/L Total Protein (6.5-8.0) g/dL Albumin (3.5-5.0) g/dL Urine Color Yellow Urine Appearance Clear Urine pH 6.5 (5.0-9.0) Ur Specific [place] >= 1.030 H (1.005-1.025) Urine Protein Negative (Neg-Trace) mg/dL Urine Glucose (UA) Negative (Negative) mg/dL Urine Ketones Negative (Negative) mg/dL Urine Blood Negative (Negative) Urine Nitrite Negative (Negative) Ur Leukocyte Esterase Negative (Negative) Discharge Plan Discharge Clinical Impression: Pilonidal abscess Patient Disposition: Home, Self-Care Instructions: Pilonidal Cyst (ED), Abscess (ED), Abscess Follow-up (ED) Additional Instructions: Your blood work was reassuring Your CT scan demonstrates a pilonidal cyst/abscess, this was aspirated in the emergency department, it is normal for to continue draining at home. APPLY WARM COMPRESSES AT HOME. WARM BATHS TO HELP DRAIN AREA. YOU NEED TO FOLLOW-UP IN 2 DAYS FOR RE-EVALUATION Doxycycline and Keflex are antibiotics, please take as prescribed Ketorolac as an anti-inflammatory/pain medication, take with food In addition take Tylenol If area begins to grow, turns to a mike, is draining, you have fever, redness to the area return to the emergency department You should follow-up with a general surgeon Prescriptions: New ketorolac 10 mg tablet 10 mg PO TID PRN (Reason: pain) 5 Days Qty: 15 0RF cephalexin 500 mg capsule 500 mg PO QID 7 Days Qty: 28 0RF doxycycline hyclate 100 mg tablet 100 mg PO BID 7 Days Qty: 14 0RF naproxen 500 mg tablet 500 mg PO BID PRN (Reason: pain) 10 Days Qty: 20 0RF No Action cyclobenzaprine 10 mg tablet 10 mg PO TID PRN (Reason: muscle spasm) Qty: 14 0RF ibuprofen 600 mg tablet 600 mg PO Q6H PRN (Reason: pain) Qty: 30 0RF erythromycin 5 mg/gram (0.5 %) ointment 0.5 inch ophthalmic-Left TID Qty: 3.5 0RF erythromycin 5 mg/gram (0.5 %) ointment 0.5 inch ophthalmic-Right TID Qty: 3.5 0RF cetirizine [Zyrtec] 10 mg tablet 10 mg PO DAILY Qty: 14 0RF ibuprofen 800 mg tablet 800 mg PO Q8H PRN (Reason: pain) Qty: 30 0RF oxycodone 5 mg tablet 5 mg PO Q8H PRN (Reason: pain) 3 Days Qty: 10 0RF clindamycin HCl 300 mg capsule 300 mg PO BID 10 Days Qty: 20 0RF Referrals: [facility] General Surgeons [Provider Group] - 10 days Erickson Srinivasan MD [Primary Care Provider] - 2 days Mohini Hearn PA [Emergency Midlevel Provider] - 2 days (FOR RE-EVALUATION) Stand Alone Forms: Work/School Release
[2022-07-24] MEDS: 0.9 % Sodium Chloride 1,000 ML 999 ML IV (10:17)
[2022-07-24] MEDS: Ketorolac Tromethamine 15 MG/ML VIAL IVPUSH ×2 (10:18→15:12)
[2022-07-24 10:20] LABS: MANUAL DIFF FLAG NO
[2022-07-24 10:22] LABS: Basophils Percent Auto 0.4 % (0-2); Eosinophils Absolute Auto 0.2 X10*3/uL (0.0-0.4); Eosinophils Percent Auto 1.7 % (0-4); Hematocrit 46.3 % (42.0-52.0); Hemoglobin 15.7 g/dl (14.0-18.0); Imm Gran Abs Auto 0.04 X10*3/uL (0.00-0.03); Imm Gran Pct Auto 0.4 % (0.0-0.4); Lymphocytes Percent Auto 19.3 % (20-40); Mean Corpuscular HGB Conc 33.9 g/dl (31.0-36.0); Mean Corpuscular Hemoglobin 30.9 pg (27.0-33.0); Mean Corpuscular Volume 91.1 fL (80.0-98.0); Mean Platelet Volume 9.8 fL (9.4-12.4); Monocytes Absolute Auto 0.9 X10*3/uL (0.1-1.2); Monocytes Percent Auto 8.8 % (2-11); Neutrophils Absolute Auto 7.1 x10*3/uL (2.0-8.3); Neutrophils Percent Auto 69.4 % (45-73); Platelet Count 218 X10*3/uL (160-400); Red Blood Count 5.08 X10*6/uL (4.60-5.80); Red Cell Distribution Width 12.5 % (11.0-16.0); White Blood Count 10.2 X10*3/uL (4.8-10.8)
[2022-07-24 10:46] LABS: INTERNATIONAL NORM RATIO 1.1 (0.9-1.1); Prothrombin Time 12.7 SEC (10.0-13.1)
[2022-07-24 12:07] LABS: Alanine Aminotransferase 11 U/L (0-40); Albumin Level 4.1 g/dL (3.5-5.0); Alkaline Phosphatase 55 U/L (39-117); Anion Gap 15 (12-20); Aspartate Amino Transferase 11 U/L (5-37); Bilirubin Direct 0.3 mg/dL (0.0-0.5); Bilirubin Total 0.9 mg/dL (0.0-1.0); Blood Urea Nitrogen 12 mg/dL (9-16); Calcium 9.1 mg/dL (8.4-10.2); Carbon Dioxide 24 mmol/L (22-29); Chloride 105 mmol/L (96-108); Creatinine Clr Calc Pharmacy 114.7; Estimated Glomerular Filt Rate > 60; Glucose Random 124 mg/dL (60-115); Potassium 3.7 mmol/L (3.3-5.1); Sodium 140 mmol/L (135-145); Total Protein 6.8 g/dL (6.5-8.0)
[2022-07-24] MEDS: iohexoL 350 MG/ML 100 ML INFUS..BTL 85 ML IV (12:17)
[2022-07-24 12:23] LABS: Lactic Acid 0.8 mmol/L (0.5-2.0)
[2022-07-24 14:35] VITALS: BP 136/77; PULSE 59; RESP 18; TEMP 36.8; O2SAT 99
[2022-07-24 15:03] LABS: Appearance Urine Clear; Color Urine Yellow; Glucose Urine UA Negative (Negative); Leukocyte Esterase Urine Negative (Negative); Nitrite Urine Negative (Negative); PH 6.5 (5.0-9.0); Specific Gravity - Urine >= 1.030 (1.005-1.025); Urine Blood Negative (Negative); Urine Ketones Negative (Negative); Urine Protein Negative (Neg-Trace)
[2022-07-24] MEDS: traMADoL HCL 50 MG TABLET PO (15:12)
== END 2022-07-24 16:41 | disposition home or self-care (01) ==
PROVIDERS: Physician Assistant; Emergency Provider Emergency Medicine; PCP Internal Medicine
DX: L05.01 Pilonidal cyst with abscess (principal)
CPT/HCPCS: 10080; 10160; 36415; 74177; 80048; 80076; 81003; 83605; 85025; 85610; 87040; 96361; 96374; 96376; 99283; 99284; J1885; Q9967

== ENCOUNTER 2023-01-03 23:06 | Emergency (ER) | payer OTHER, SELFPAY ==
--- NOTE | ~2023-01-03 | XR_ITS ---
EXAMINATION: XR FOOT, RIGHT CLINICAL INFORMATION: Right foot pain. COMPARISON: Right foot x-ray of 12/07/2021 TECHNIQUE: AP, lateral, and oblique views of the right foot. FINDINGS: There is no evidence of acute fracture or dislocation in the right foot. No focal erosion. No dystrophic soft tissue calcifications. Osteoarthritic changes are noted at the ankle joint. Normal osseous mineralization. XR/XR foot RT min 3V IMPRESSION: No evidence of acute fracture or dislocation. No soft tissue calcifications. Osteoarthritic changes at the ankle joint.
[2023-01-03 23:24] VITALS: BP 145/113; PULSE 105; RESP 18; TEMP 36.7; O2SAT 97; BMI 35.9
--- NOTE | 2023-01-04 03:23 | ED_ITS ---
HPI - Extremity Problem General Chief complaint: Extremity Problem Stated complaint: R foot pain, no injury Time Seen by Provider: 01/04/23 03:04 Source: patient Mode of arrival: ambulatory Limitations: no limitations History of Present Illness HPI Narrative: Patient with chronic right foot pain after surgery 8 year ago patient stand for long hours now complaining of pain right callus patient been to different do ctors for the same Related Data Previous Rx's Medication Instructions Recorded cyclobenzaprine 10 mg tablet 10 mg PO TID PRN muscle spasm #14 07/16/20 tabs ibuprofen 600 mg tablet 600 mg PO Q6H PRN pain #30 tabs 07/16/20 cetirizine 10 mg tablet (Zyrtec) 10 mg PO DAILY #14 tabs 01/24/21 erythromycin 5 mg/gram (0.5 %) eye 0.5 inch ophthalmic-Left TID #3.5 01/24/21 ointment grams erythromycin 5 mg/gram (0.5 %) eye 0.5 inch ophthalmic-Right TID #3.5 01/24/21 ointment grams clindamycin HCl 300 mg capsule 300 mg PO BID 10 days #20 caps 02/04/21 ibuprofen 800 mg tablet 800 mg PO Q8H PRN pain #30 tabs 02/04/21 oxycodone 5 mg tablet 5 mg PO Q8H PRN pain 3 days #10 02/04/21 tabs cephalexin 500 mg capsule 500 mg PO QID 7 days #28 caps 07/24/22 doxycycline hyclate 100 mg tablet 100 mg PO BID 7 days #14 tabs 07/24/22 ketorolac 10 mg tablet 10 mg PO TID PRN pain 5 days #15 07/24/22 tabs naproxen 500 mg tablet 500 mg PO BID PRN pain 10 days #20 07/24/22 tabs Allergies Allergy/AdvReac Type Severity Reaction Status Date / Time morphine [MORPHINE] Allergy Mild BUMPS AND Verified 01/03/23 23:31 ITCHINESS NEAR IV SITE AFTER ADMINISTRATION, (IV) blisters penicillin V Allergy Unknown Unknown Verified 01/03/23 23:31 Penicillins Allergy Unknown UNKNOWN Verified 01/03/23 23:31 Review of Systems Review of Systems: Yes all other systems are reviewed and are negative PMFSH Past Medical History Medical History Asthma Bronchitis DVT (deep venous thrombosis) Hypertension Kidney stones Pulmonary emboli Substance abuse Social History Social History Alcohol intake: never Substance Use Type: Marijuana Advance Directives: No Physical Exam Vital Signs: Vital Signs: Last Vital Signs Temp 98.0 F 01/03/23 23:24 Pulse 105 H 01/03/23 23:24 Resp 18 01/03/23 23:24 BP 145/113 H 01/03/23 23:24 Pulse Ox 97 01/03/23 23:24 O2 Del Method Room Air 01/03/23 23:24 BMI result Body Mass Index 35.9 Extrem: Ankle/foot/toe images: 1. Clear fluid-filled callus no signs of inflammation or infection patient does have a flatfoot Medical Decision Making Medical Decision Making MDM Narrative: Patient with flatfoot with chronic right foot pain x-ray negative discharge patient home advised to not to stand for hours take ibuprofen for pain Discharge Plan Discharge Clinical Impression: Chronic pain in right foot Patient Disposition: Home, Self-Care Instructions: Flatfoot (DC) Additional Instructions: Follow-up with exercise equipment specialist Avoid standing for long hours Prescriptions: No Action cyclobenzaprine 10 mg tablet 10 mg PO TID PRN (Reason: muscle spasm) Qty: 14 0RF ibuprofen 600 mg tablet 600 mg PO Q6H PRN (Reason: pain) Qty: 30 0RF erythromycin 5 mg/gram (0.5 %) ointment 0.5 inch ophthalmic-Left TID Qty: 3.5 0RF erythromycin 5 mg/gram (0.5 %) ointment 0.5 inch ophthalmic-Right TID Qty: 3.5 0RF cetirizine [Zyrtec] 10 mg tablet 10 mg PO DAILY Qty: 14 0RF ibuprofen 800 mg tablet 800 mg PO Q8H PRN (Reason: pain) Qty: 30 0RF oxycodone 5 mg tablet 5 mg PO Q8H PRN (Reason: pain) 3 Days Qty: 10 0RF clindamycin HCl 300 mg capsule 300 mg PO BID 10 Days Qty: 20 0RF ketorolac 10 mg tablet 10 mg PO TID PRN (Reason: pain) 5 Days Qty: 15 0RF cephalexin 500 mg capsule 500 mg PO QID 7 Days Qty: 28 0RF doxycycline hyclate 100 mg tablet 100 mg PO BID 7 Days Qty: 14 0RF naproxen 500 mg tablet 500 mg PO BID PRN (Reason: pain) 10 Days Qty: 20 0RF Referrals: Rikc Tatum DPM [Physician] - 2 days
--- NOTE | 2023-01-04 04:08 | PC.NURSE ---
D/C'd by . I did not witness.
== END 2023-01-04 04:09 | disposition home or self-care (01) ==
PROVIDERS: Emergency Provider Internal Medicine
DX: M79.671 Pain in right foot (principal); Z79.899 Other long term (current) drug therapy
CPT/HCPCS: 73630; 99282; 99283

== ENCOUNTER 2023-04-13 16:55 | Inpatient (IN) | payer OTHER, SELFPAY ==
[2023-04-13] VITALS (18 sets, daily range): BP systolic 84–148; BP diastolic 46–102; PULSE 90–118; RESP 17–33; TEMP 32–38.8; O2SAT 90–100; BMI 22.9; BMI 30.9
--- NOTE | ~2023-04-13 | XR_ITS ---
EXAMINATION: XR CHEST CLINICAL INFORMATION: Intubated COMPARISON: Chest radiograph 04/13/2023 6:[address] chest 04/13/2023 7:52 PM TECHNIQUE: Frontal view of the chest was obtained. FINDINGS: Since the prior study patient has intubated with ET tube present 4.5 cm above the micki. An NG tube is present with its tip below the diaphragm beyond the [id number]-meet. There is worsening of consolidation at the right lung base. Blunting of the left costophrenic angle is again noted no pleural effusion was seen at the time of the prior CT scan. Increased retrocardiac density correlates with infiltrate seen on the CT scan of the left lung base on the study earlier [facility] XR/XR chest 1V IMPRESSION: ET tube 4.5 cm above the micki. NG tube below diaphragm. Worsening of consolidation at the right lung base with continued left basilar consolidation.
--- NOTE | ~2023-04-13 | CT_ITS ---
EXAMINATION: CT CHEST WITHOUT CONTRAST CLINICAL INFORMATION: Hypoxia after chest compressions with question of acute injury COMPARISON: Chest radiograph earlier today, CT abdomen pelvis 07/24/2022, CTA chest 08/08/2018 TECHNIQUE: Multidetector volumetric CT imaging of the chest was done. Axial MIP volume rendering provided. Sagittal and coronal reformatted images were obtained. This CT examination was performed using dose optimization techniques as appropriate, variously including the following: *Automated exposure control *Adjustment of mA and/or kV according to patient size (this includes techniques or standardized protocols for targeted exams where dose is matched to indication/reason for exam; i.e. extremities or head) *Use of iterative reconstruction technique DLP: 654 mGy-cm FINDINGS: LUNGS: Bibasilar consolidation/atelectasis is present, left greater than right. MEDIASTINUM: The mediastinum is unremarkable aside from the presence of an ET tube about 4 cm above the micki. CORONARY ARTERY CALCIFICATION: None visualized on this study. PLEURA: There is no pleural effusion. No pleural mass or thickening. AXILLA: No lymphadenopathy. UPPER ABDOMEN: Unremarkable. OSSEOUS STRUCTURES: Unremarkable. No ribs fractures are seen. No sternal fracture is detected. Some minimal degenerative changes are present in the spine. CT/CT chest wo IV con IMPRESSION: Bibasilar consolidation/atelectasis, left greater than right. Fleischner guidelines were followed.
--- NOTE | ~2023-04-13 | XR_ITS ---
EXAMINATION: XR CHEST CLINICAL INFORMATION: Hypoxia. COMPARISON: 04/13/2023 TECHNIQUE: Frontal view of the chest was obtained. FINDINGS: Low lung volumes. Endotracheal tube tip terminates approximately 5 cm above the micki. Enteric catheter terminates in the stomach. Left neck central venous catheter with tip in the distal SVC. There are small bilateral pleural effusions. Left basilar atelectasis. Cardiac silhouette is accentuated by low lung volumes but otherwise stable. XR/XR chest 1V IMPRESSION: Small bilateral pleural effusions.
--- NOTE | ~2023-04-13 | US_ITS ---
EXAMINATION: US VENOUS ULTRASOUND WITH DOPPLER LOWER EXTREMITY, BILATERAL CLINICAL INFORMATION: Right lower extremity pain COMPARISON: Left leg DVT study 12/07/2021, right leg DVT study 03/30/2016 TECHNIQUE: Ultrasound of the deep veins is performed from the hip to the calf with compression sonography and color and pulse Doppler assessment. Spectral analysis with color-flow imaging is performed. FINDINGS: RIGHT: Thrombus is present in the posterior tibial vein extending into the popliteal vein, femoral vein and distal common femoral vein consistent with acute DVT. The profunda femoris vein is patent. The peroneal vein is not seen. LEFT: Thrombus is present in the peroneal veins as well as the profunda femoris vein and the distal common femoral. The femoral vein and popliteal vein are free of thrombus. US/US venous duplex LE BI IMPRESSION: Moderately extensive DVT both lower extremities.
--- NOTE | ~2023-04-13 | XR_ITS ---
EXAMINATION: XR CHEST CLINICAL INFORMATION: Acute hypoxia COMPARISON: 07/02/2021 TECHNIQUE: Frontal view of the chest was obtained. FINDINGS: No significant abnormality is noted involving the heart, lungs, mediastinum, bony thorax or soft tissues. Again seen is some chronic mild blunting of the left costophrenic angle, unchanged from prior. XR/XR chest 1V IMPRESSION: No acute intrathoracic disease.
--- NOTE | ~2023-04-13 | XR_ITS ---
EXAMINATION: XR CHEST CLINICAL INFORMATION: Central line placement COMPARISON: 04/13/2023 TECHNIQUE: Frontal view of the chest was obtained. FINDINGS: Endotracheal tube tip lies approximately 5 cm above the micki. Enteric tube courses into the stomach. Left IJ central line tip lies in the region of the upper SVC. Lung volumes are symmetric. Streaky left basilar opacity favors atelectasis. Mild residual patchy opacity at the right lung base, decreased from prior. No evidence of pneumothorax or significant pleural effusion. The cardiomediastinal contour is unremarkable. No acute osseous findings are seen. XR/XR chest 1V IMPRESSION: Left IJ central line tip in the region of the upper SVC. Streaky left basilar opacity favoring atelectasis. Mild residual patchy right basilar opacity, decreased from prior.
--- NOTE | ~2023-04-13 | CT_ITS ---
EXAMINATION: CT HEAD WITHOUT CONTRAST CLINICAL INFORMATION: Difficulty hearing and difficulties with vision. COMPARISON: No similar priors. TECHNIQUE: Contiguous axial imaging was performed from the skull base to vertex without intravenous administration of contrast. This CT examination was performed using dose optimization techniques as appropriate, variously including the following: *Automated exposure control *Adjustment of mA and/or kV according to patient size (this includes techniques or standardized protocols for targeted exams where dose is matched to indication/reason for exam; i.e. extremities or head) *Use of iterative reconstruction technique DLP: 649 mGy-cm FINDINGS: There is no evidence of acute intracranial hemorrhage or edematous territorial infarction. There is no abnormal attenuation within the brain parenchyma. Garcia-white matter differentiation is preserved. The ventricles are normal in size and configuration. No evidence for obstructive hydrocephalus. No abnormal mass effect or midline shift. No extra-axial fluid collections. Prominent CSF space abutting the right posterior cerebellar hemisphere. Low lying right cerebellar tonsil. Right posterior soft tissue thickening/hematoma along the scalp vertex. No calvarial fracture. Mucosal thickening of the paranasal sinuses. No air-fluid levels. Opacification of several ethmoid air cells. The mastoids and middle ear cavities are clear. CT/CT head/brain wo IV con IMPRESSION: 1. No evidence of acute intracranial hemorrhage or edematous territorial infarction. 2. Nonspecific prominence of the CSF space adjacent to the right cerebellar hemisphere that could represent a small arachnoid cyst versus subdural hygroma/chronic hematoma. 3. Low lying right cerebellar tonsil that could be seen with Chiari I malformation. Correlation with MRI of brain and cervical spine could be obtained as clinically indicated. 4. Paranasal sinus disease. 5. Hematoma and soft tissue thickening in the scalp at the level of the right posterior vertex.
--- NOTE | 2023-04-13 17:23 | ECG_ITS ---
Test Reason : CP Blood Pressure : / mmHG Vent. Rate : 114 BPM Atrial Rate : 114 BPM P-R Int : 136 ms QRS Dur : 100 ms QT Int : 342 ms P-R-T Axes : 051 038 042 degrees QTc Int : 471 ms Sinus tachycardia Otherwise normal ECG When compared with ECG of 02-JUL-2021 18:59, Vent. rate has increased BY [address] elevation is now Present Inferior leads Referred By: Samir Wheat Electronically Signed By:PRASAD ROBERTSON MD
--- NOTE | 2023-04-13 17:34 | ED.GENADULT ---
HPI - General Adult General Chief complaint: Overdose Stated complaint: od, used fentanyl, slightly combative, per ems Time Seen by Provider: 04/13/23 17:09 Source: patient and EMS Mode of arrival: EMS Limitations: other (Hearing loss) History of Present Illness HPI narrative: 37-year-old male presents with apparent overdose on fentanyl. Patient was at home when he took oral fentanyl. He became unresponsive. Friend/family started CPR after given 4 mg of Narcan. E/police responded given additional 4 mg. Here, patient is complaining of hearing loss, vision loss. Symptoms are severe. There is no clear relieving or exacerbating features. Patient is complaining of severe nausea vomiting. Denies any abdominal pain, chest pain or shortness of breath. Patient's history is limited to mental status related issues as well as hearing and vision loss reported. There are no reports of trauma, falls or injuries. Related Data Home Medications Medication Instructions Recorded Confirmed Unobtainable 04/13/23 04/13/23 Allergies Allergy/AdvReac Type Severity Reaction Status Date / Time morphine [MORPHINE] Allergy Mild BUMPS AND Verified 01/03/23 23:31 ITCHINESS NEAR IV SITE AFTER ADMINISTRATION, (IV) blisters penicillin V Allergy Unknown Unknown Verified 01/03/23 23:31 Penicillins Allergy Unknown UNKNOWN Verified 01/03/23 23:31 Review of Systems Review of Systems: CONSTITUTIONAL: Denies weight loss, fever and chills. HEENT: + changes in vision and hearing. RESPIRATORY: Denies SOB and cough. CV: Denies palpitations no CP. GI: Denies abdominal pain, +nausea, vomiting - diarrhea. : Denies dysuria and urinary frequency. MSK: Denies myalgia and joint pain. SKIN: Denies rash and pruritus. NEUROLOGICAL: Denies headache and syncope. PSYCHIATRIC: Denies recent changes in mood. Denies anxiety and depression. All other ROS are negative unless in HPI PMFSH Past Medical History Medical History Asthma Bronchitis DVT (deep venous thrombosis) Hypertension Kidney stones Pulmonary emboli Substance abuse Social History Social History Alcohol intake: current Alcohol intake frequency: holidays/special occasions only Smoked in Last 30 Days: Yes Use of substances other than those prescribed or required for medical reasons: Yes Substance Use Type: Marijuana Substance Use Type Other:: fentanyl Advance Directives: No Advance Directives Information Provided: No Physical Exam ED Vital Signs: Vital Signs - 24 hr 04/13/23 17:10 04/13/23 18:20 04/13/23 19:36 Temperature 97.4 F Pulse Rate 107 H 114 H 117 H Respiratory Rate 18 18 18 Blood Pressure 123/67 139/100 H 145/68 H Pulse Oximetry 90 L 97 97 Oxygen Delivery Method Nasal Cannula Nasal Cannula Mechanical Ventilation Fraction of Inspired Oxygen 50 04/13/23 20:20 04/13/23 19:29 04/13/23 19:29 Temperature Pulse Rate 116 H 118 H Respiratory Rate 33 H 25 H Blood Pressure 139/100 H 148/65 H Pulse Oximetry 99 99 Oxygen Delivery Method Fraction of Inspired Oxygen 45 04/13/23 19:59 04/13/23 20:01 04/13/23 20:04 Temperature Pulse Rate 107 H 106 H 107 H Respiratory Rate 18 17 18 Blood Pressure 101/56 L 93/56 L 108/51 L Pulse Oximetry 94 94 Oxygen Delivery Method Mechanical Ventilation Mechanical Ventilation Mechanical Ventilation Fraction of Inspired Oxygen 04/13/23 20:07 04/13/23 20:11 04/13/23 20:16 Temperature Pulse Rate 106 H 106 H 106 H Respiratory Rate 18 18 18 Blood Pressure 90/54 L 100/47 L 100/54 L Pulse Oximetry 94 Oxygen Delivery Method Mechanical Ventilation Mechanical Ventilation Mechanical Ventilation Fraction of Inspired Oxygen 04/13/23 20:21 04/13/23 20:26 04/13/23 20:31 Temperature Pulse Rate 104 H 102 H 104 H Respiratory Rate 18 18 18 Blood Pressure 106/49 L 106/46 L 100/50 L Pulse Oximetry 94 94 95 Oxygen Delivery Method Mechanical Ventilation Mechanical Ventilation Mechanical Ventilation Fraction of Inspired Oxygen 04/13/23 20:36 04/13/23 23:23 04/13/23 23:41 Temperature 101.8 F H Pulse Rate 105 H 103 H Respiratory Rate 18 18 Blood Pressure 117/63 138/99 H Pulse Oximetry 92 99 Oxygen Delivery Method Mechanical Ventilation Mechanical Ventilation Fraction of Inspired Oxygen 45 04/13/23 23:55 04/14/23 00:01 Temperature Pulse Rate 90 89 Respiratory Rate Blood Pressure 84/55 L 64/46 L Pulse Oximetry Oxygen Delivery Method Fraction of Inspired Oxygen BMI result Body Mass Index 30.9 GEN: Well developed, + acute distress, alert, oriented HEENT: Normocephalic, atraumatic, normal external ears, nose appears normal, no oropharyngeal edema or exudates Eyes: Normal to appearance Neck: Supple, no lymphadenopathy Respiratory: - Talks in complete sentences, + respiratory distress, clear to auscultation bilaterally Cardiovascular: Tachy, Regular rate and rhythm, no murmurs rubs or gallops Abdomen: Soft, nontender, nondistended, no guarding, no rebound Back: No CVA tenderness Extremities: No clubbing cyanosis or edema Neurologic: No focal neurologic deficits, cranial nerves 2-12 intact, strength is 5/5 bilaterally Skin: No rash Course Reevaluation(s) Reevaluation #1: Patient has had multiple episodes of what appears to be coffee-ground emesis. He has received Protonix 80 mg IV, Zofran. Protonix drips has been ordered. Patient is becoming increasingly agitated. I have ordered Haldol 5 mg IM to assist with his agitation which may also assist with his nausea. Will give a dose of Reglan as well. Patient has a history of PE. He is hypoxic and tachycardic. Patient would benefit for a CT angiogram of the chest. I am also requesting a CT of the head due to complaints of loss of hearing and vision. He has no other focal neurologic deficits. We continue to try to verbally redirect the patient. He continues to increase his agitation level. Time: 18:16 Reevaluation #2: Patient is becoming increasingly agitated. He is having tangential thoughts. He appears to have components of paranoia. He believes the staff is experimenting on him. Patient will very much benefit from Ativan 2 mg IV. His oxygen saturation does appear to be somewhat improving. Patient continues to yell at the top of his long. He is certainly affecting the generalized therapeutic milieu of the emergency department as well as his own care at this time. Time: 18:30 Reevaluation #3: Patient has a significantly elevated lactic acid, [place] [address], although this is likely an acute stress reaction, patient certainly could have aspirated. Will eval CXR. Will give IVF bolus 30 cc/kg bolus. Activated Sepsis Alert Time: 18:40 Additional Reevaluation(s): 1842: Patient cannot have a CT angiogram of the chest due to acute kidney can anticoagulated the patient in any event due to multiple episodes of coffee-ground emesis. Will order a noncontrast CT at this time. 1846: Patient continues to have increased agitation, difficult to redirect, increasing confusion, requiring multiple staff members attention. High of order Zyprexa and attempt to continue to calmed the patient down in order to assist us with further managing his medical care. 1912: Patient has required constant supervision by provider as well as multiple nursing. Patient is clearly not redirectable. Zyprexa, Haldol and Ativan have not improved his situation. Patient will require significant sedation, airway protection, at this time, significant concerns for acute rhabdomyolysis due to significant diaphoresis, constant muscle contracture. 1922: intubated, Fentanyl and propofol ordered. Will also order paralytic. ORdered CPK concern for rhabdo, giving propofol 100 mg and fentanyl 100 mg now 2007: Patient is paralyzed, sedated, hemodynamically stable, doing much better he has returned from CT scan. Repeat x-ray post intubation has been ordered. 2132, spoke with Aline Noyola, not next of kin, mother of their son, son is 12. Next of kin would be sibling or mother She doesn't know how to contact them except possibly social media. 0 hypotensive, needs pressors and central line [id number] pose with patient's mother and was given verbal consent to transfer to another facility. Her name is Yina. He will phone number is [phone] Patient's hypotension persists. Ordering another L of fluid. uptitrating levophed. Discussed with for transfer accepted, then a bed opened up in [facility]. Discussed with Dr. Walden. Medications Administered Generic Name Dose Route Start Last Admin Trade Name Freq PRN Reason Stop Dose Admin Pantoprazole Sodium 80 mg/ 100 mls @ 10 mls/hr 04/13/23 18:00 04/13/23 23:51 Sodium Chloride IV 8 mg/hr .Q10H SRINIVASA 10 mls/hr Administration 8 MG/HR Fentanyl 1,000 mcg in 100 mls @ 0 mls/hr 04/13/23 19:00 04/13/23 19:29 Sublimaze/Ns IVCONT 25 mcg/hr .Q0M SRINIVASA 2.5 mls/hr Administration Protocol Per Protocol Propofol 1,000 mg in 100 mls @ 0 mls/hr 04/13/23 19:00 04/13/23 19:29 Diprivan IVCONT 30 mcg/kg/min .Q0M SRINIVASA 12.67 mls/hr Administration Protocol Per Protocol Norepinephrine Bitartrate 8 mg in 250 mls @ 0 mls/hr 04/13/23 22:15 04/14/23 00:01 Levophed IV 0.07 mcg/kg/min .Q0M SRINIVASA 9.24 mls/hr Titration Protocol Per Protocol Vecuronium Ruth 7.04 mg 04/13/23 19:25 04/13/23 19:34 Vecuronium Ruth 10 Mg Vial 0.1 mg/kg (7.04 mg) 7.04 mg IVPUSH Administration Q2H PRN agitation Discontinued Medications Generic Name Dose Route Start Last Admin Trade Name Freq PRN Reason Stop Dose Admin Etomidate 20 mg 04/13/23 19:02 04/13/23 19:17 Etomidate 20 Mg/10 Ml Vial IVPUSH 04/13/23 19:03 20 mg ONCE ONE Administration Fentanyl 100 mcg 04/13/23 19:27 04/13/23 19:29 Fentanyl Citrate/Pf 100 Mcg/2 Ml Vial IVPUSH 04/13/23 19:28 100 mcg ONCE ONE Administration Protocol Haloperidol Lactate 5 mg 04/13/23 18:13 04/13/23 18:15 Haloperidol Lactate 5 Mg/Ml Vial IM 04/13/23 18:14 5 mg ONCE ONE Administration Sodium Chloride 1,000 mls @ 999 mls/hr 04/13/23 17:30 04/13/23 22:10 Ns IV 04/13/23 18:30 999 mls/hr .Q1H1M SRINIVASA Administration Ceftriaxone Sodium 2 gm/ 50 mls @ 100 mls/hr 04/13/23 18:38 04/13/23 21:00 Sodium Chloride IV 04/13/23 19:07 100 mls/hr ONCE ONE Administration Sodium Chloride 2,112 mls @ 2,112 mls/hr 04/13/23 18:38 04/13/23 21:00 Ns 30 ml/kg infuse over 1 hr (2112 ml) 04/13/23 19:37 2,112 mls/hr IV Administration .Q1H STA Lorazepam 2 mg 04/13/23 18:29 04/13/23 18:33 Lorazepam 2 Mg/Ml Vial IVPUSH 04/13/23 18:30 2 mg ONCE ONE Administration Metoclopramide HCl 10 mg 04/13/23 18:13 04/13/23 18:31 Metoclopramide Hcl 10 Mg/2 Ml Vial IVPUSH 04/13/23 18:14 10 mg ONCE ONE Administration Olanzapine 10 mg 04/13/23 18:45 04/13/23 18:57 Olanzapine 10 Mg Vial IM 04/13/23 18:46 10 mg ONCE ONE Administration Ondansetron HCl 4 mg 04/13/23 17:23 04/13/23 17:48 Ondansetron Hcl 4 Mg/2 Ml Vial IVPUSH 04/13/23 17:24 4 mg ONCE ONE Administration Pantoprazole Sodium 80 mg 04/13/23 17:23 04/13/23 18:00 Pantoprazole Sodium 40 Mg/10 Ml Vial IVPUSH 04/13/23 17:24 80 mg ONCE ONE Administration Propofol 100 mg 04/13/23 19:27 04/13/23 19:29 Propofol 200 Mg/20 Ml Vial IVPUSH 04/13/23 19:28 100 mg ONCE ONE Administration Succinylcholine Chloride 100 mg 04/13/23 18:59 04/13/23 19:18 Succinylcholine Chloride 200 Mg/10 Ml Vial IVPUSH 04/13/23 19:00 100 mg ONCE ONE Administration Procedures Central Line Placement Left IJ: Time Out Performed: Yes Patient Placed on Monitor/Pulse Ox: Yes MD Prep: mask, gown and gloves Central Line Prep: Chlorhexidine scrub Local Anesthetic: lidocaine 1% Amount of anesthesia used (mL): 3 Ultrasound Used for Placement: Yes Central Line Lumen Inserted: triple Post Procedure: sutured in place, good blood return, all ports aspirated, flushed, capped and sterile dressing applied Post Procedure X-Ray: tip of catheter in good position and no pneumothorax seen Patient Tolerated Procedure: well and no complications Complications: none Intubation Time out performed: Yes sedative: Etomidate Mg Given: 20 paralytic: Succinylcholine Mg Given: 100 Laryngoscope: other (Avery scope) ET Tube Size: 7.5 ET Tube Uncuffed: Yes Tube Secured Depth (cm): 22 Tube Secured Location: lips Tube Placement Confirmation: visualized tube passing through cords, equal breath sounds bilaterally, no breath sounds over epigastrium and confirmation by capnometry Patient Tolerated Procedure: well and no complications Intubation Complications: none Medical Decision Making Medical Decision Making [facility] Narrative: 37-year-old male presents with an overdose of fentanyl. Patient received a total of 8 mg Narcan. He is alert, agitated, active nausea vomiting. He is hypoxic and tachycardic. He did have chest compressions. He has had weakness coffee-ground emesis x2 by me. Differential diagnosis: Narcotic withdrawal, narcotic overdose, axis normal dose, peptic ulcer disease, gastritis, coffee-ground emesis, upper GI bleed, agitation, PTSD, depression, anxiety, mood disorder, substance induced mood disorder, personality disorder Plan: CT chest, CT head, chest x-ray, CBC, chemistry, type and screen, PT, PTT, Protonix, antiemetics. Disposition: Patient will likely need to be admitted due to frequent coffee-ground emesis while in the emergency department. Differential Diagnosis Differential Diagnoses: The differential diagnosis associated with the presentation includes (See above) Admission/Observation Consideration of admission/observation: Escalation of care including admission/observation considered Lab Data [facility] Lab Attestation statement: I reviewed the patient's lab results. 04/13/23 17:55 04/13/23 17:55 Labs: Lab Results 04/13/23 04/13/23 04/13/23 Range/Units 17:55 17:55 17:55 WBC 22.1 H (4.8-10.8) X10*3/uL RBC 5.04 (4.60-5.80) X10*6/uL Hgb 15.4 (14.0-18.0) g/dl Hct 50.3 (42.0-52.0) % MCV 99.8 H (80.0-98.0) fL MCH 30.6 (27.0-33.0) pg MCHC 30.6 L (31.0-36.0) g/dl RDW 12.9 (11.0-16.0) % Plt Count 249 (160-400) X10*3/uL MPV 9.8 (9.4-12.4) fL Immature Gran % (Auto) 1.1 H (0.0-0.4) % Neut % (Auto) 87.2 H (45-73) % Lymph % (Auto) 4.1 L (20-40) % [place] % (Auto) 7.3 (2-11) % Eos % (Auto) 0.0 (0-4) % Baso % (Auto) 0.3 (0-2) % Lymph # (Auto) 0.9 L (1.2-4.9) X10*3/uL [place] # (Auto) 1.6 H (0.1-1.2) X10*3/uL Eos # (Auto) 0.0 (0.0-0.4) X10*3/uL Baso # (Auto) 0.1 (0.0-0.2) X10*3/uL Abs Immat Gran (auto) 0.24 H (0.00-0.03) X10*3/uL Absolute Neuts (auto) 19.3 H (2.0-8.3) x10*3/uL Absolute Nucleated RBC 0.000 (0.0-0.012) X10*3/uL Nucleated RBC % (auto) 0.0 (0.0-0.2) /100WBC Smear Tech's Comments VERIFIED PT 12.7 (10.0-13.1) SEC INR 1.1 (0.9-1.1) APTT 32.4 (26.0-36.4) SEC O2 Saturation % ABG pH at Pt Temp (7.35-7.45) ABG pCO2 at Pt Temp (32-45) mmHg ABG pO2 at Pt Temp (83-108) mmHg ABG HCO3 (22-26) mmol/L ABG Base Excess (Actual) mmol/L Sodium 142 (135-145) mmol/L Potassium 5.0 D (3.3-5.1) mmol/L Chloride 98 (96-108) mmol/L Carbon Dioxide 21 L (22-29) mmol/L Anion Gap 28 H (12-20) BUN 28 H (9-16) mg/dL Creatinine 2.36 H (0.5-1.4) mg/dL Estim Creat Clear Calc 42.2 Estimated GFR 31 Random Glucose 91 (60-115) mg/dL Lactic Acid (0.5-2.0) mmol/L Lactic Acid F/U @ 2Hr (0.5-2.0) mmol/L Calcium 9.2 (8.4-10.2) mg/dL Total Bilirubin 0.4 (0.0-1.0) mg/dL AST 214 H (5-37) U/L ALT 273 H (0-40) U/L Alkaline Phosphatase 82 (39-117) U/L Total Creatine Kinase (38-174) U/L Total Protein 7.9 (6.5-8.0) g/dL Albumin 4.4 (3.5-5.0) g/dL Lipase 32 (8-78) U/L Urine Color Urine Appearance Urine pH (5.0-9.0) Ur Specific [place] (1.005-1.025) Urine Protein (Neg-Trace) mg/dL Urine Glucose (UA) (Negative) mg/dL Urine Ketones (Negative) mg/dL Urine Blood (Negative) Urine Nitrite (Negative) Ur Leukocyte Esterase (Negative) Urine RBC (0-2) /HPF Urine WBC (0-5) /HPF Ur Squamous Epith Cells (0-2) /HPF Urine Bacteria (None Seen) Hyaline Casts (0-2) /LPF Urine Opiates Screen (Not Detect) Urine Fentanyl Screen (Not Detect) Ur Barbiturates Screen (Not Detect) Ur Phencyclidine Scrn (Not Detect) Ur Amphetamines Screen (Not Detect) U Benzodiazepines Scrn (Not Detect) Urine Cocaine Screen (Not Detect) U Marijuana (THC) Screen (Not Detect) Ethyl Alcohol < 10 mg/dL Blood Type Antibody Screen 04/13/23 04/13/23 04/13/23 Range/Units 17:55 17:55 20:03 WBC (4.8-10.8) X10*3/uL RBC (4.60-5.80) X10*6/uL Hgb (14.0-18.0) g/dl Hct (42.0-52.0) % MCV (80.0-98.0) fL MCH (27.0-33.0) pg MCHC (31.0-36.0) g/dl RDW (11.0-16.0) % Plt Count (160-400) X10*3/uL MPV (9.4-12.4) fL Immature Gran % (Auto) (0.0-0.4) % Neut % (Auto) (45-73) % Lymph % (Auto) (20-40) % [place] % (Auto) (2-11) % Eos % (Auto) (0-4) % Baso % (Auto) (0-2) % Lymph # (Auto) (1.2-4.9) X10*3/uL [place] # (Auto) (0.1-1.2) X10*3/uL Eos # (Auto) (0.0-0.4) X10*3/uL Baso # (Auto) (0.0-0.2) X10*3/uL Abs Immat Gran (auto) (0.00-0.03) X10*3/uL Absolute Neuts (auto) (2.0-8.3) x10*3/uL Absolute Nucleated RBC (0.0-0.012) X10*3/uL Nucleated RBC % (auto) (0.0-0.2) /100WBC Smear Tech's Comments PT (10.0-13.1) SEC INR (0.9-1.1) APTT (26.0-36.4) SEC O2 Saturation 96.0 % ABG pH at Pt Temp 7.33 L (7.35-7.45) ABG pCO2 at Pt Temp 51 H (32-45) mmHg ABG pO2 at Pt Temp 82 L (83-108) mmHg ABG HCO3 27 H (22-26) mmol/L ABG Base Excess (Actual) 0.9 mmol/L Sodium (135-145) mmol/L Potassium (3.3-5.1) mmol/L Chloride (96-108) mmol/L Carbon Dioxide (22-29) mmol/L Anion Gap (12-20) BUN (9-16) mg/dL Creatinine (0.5-1.4) mg/dL Estim Creat Clear Calc Estimated GFR Random Glucose (60-115) mg/dL Lactic Acid 9.8 H* (0.5-2.0) mmol/L Lactic Acid F/U @ 2Hr (0.5-2.0) mmol/L Calcium (8.4-10.2) mg/dL Total Bilirubin (0.0-1.0) mg/dL AST (5-37) U/L ALT (0-40) U/L Alkaline Phosphatase (39-117) U/L Total Creatine Kinase (38-174) U/L Total Protein (6.5-8.0) g/dL Albumin (3.5-5.0) g/dL Lipase (8-78) U/L Urine Color Urine Appearance Urine pH (5.0-9.0) Ur Specific [place] (1.005-1.025) Urine Protein (Neg-Trace) mg/dL Urine Glucose (UA) (Negative) mg/dL Urine Ketones (Negative) mg/dL Urine Blood (Negative) Urine Nitrite (Negative) Ur Leukocyte Esterase (Negative) Urine RBC (0-2) /HPF Urine WBC (0-5) /HPF Ur Squamous Epith Cells (0-2) /HPF Urine Bacteria (None Seen) Hyaline Casts (0-2) /LPF Urine Opiates Screen (Not Detect) Urine Fentanyl Screen (Not Detect) Ur Barbiturates Screen (Not Detect) Ur Phencyclidine Scrn (Not Detect) Ur Amphetamines Screen (Not Detect) U Benzodiazepines Scrn (Not Detect) Urine Cocaine Screen (Not Detect) U Marijuana (THC) Screen (Not Detect) Ethyl Alcohol mg/dL Blood Type A Positive Antibody Screen NEGATIVE 04/13/23 04/13/23 04/13/23 Range/Units 20:56 20:59 22:19 WBC (4.8-10.8) X10*3/uL RBC (4.60-5.80) X10*6/uL Hgb (14.0-18.0) g/dl Hct (42.0-52.0) % MCV (80.0-98.0) fL MCH (27.0-33.0) pg MCHC (31.0-36.0) g/dl RDW (11.0-16.0) % Plt Count (160-400) X10*3/uL MPV (9.4-12.4) fL Immature Gran % (Auto) (0.0-0.4) % Neut % (Auto) (45-73) % Lymph % (Auto) (20-40) % [place] % (Auto) (2-11) % Eos % (Auto) (0-4) % Baso % (Auto) (0-2) % Lymph # (Auto) (1.2-4.9) X10*3/uL [place] # (Auto) (0.1-1.2) X10*3/uL Eos # (Auto) (0.0-0.4) X10*3/uL Baso # (Auto) (0.0-0.2) X10*3/uL Abs Immat Gran (auto) (0.00-0.03) X10*3/uL Absolute Neuts (auto) (2.0-8.3) x10*3/uL Absolute Nucleated RBC (0.0-0.012) X10*3/uL Nucleated RBC % (auto) (0.0-0.2) /100WBC Smear Tech's Comments PT (10.0-13.1) SEC INR (0.9-1.1) APTT (26.0-36.4) SEC O2 Saturation % ABG pH at Pt Temp (7.35-7.45) ABG pCO2 at Pt Temp (32-45) mmHg ABG pO2 at Pt Temp (83-108) mmHg ABG HCO3 (22-26) mmol/L ABG Base Excess (Actual) mmol/L Sodium (135-145) mmol/L Potassium (3.3-5.1) mmol/L Chloride (96-108) mmol/L Carbon Dioxide (22-29) mmol/L Anion Gap (12-20) BUN (9-16) mg/dL Creatinine (0.5-1.4) mg/dL Estim Creat Clear Calc Estimated GFR Random Glucose (60-115) mg/dL Lactic Acid (0.5-2.0) mmol/L Lactic Acid F/U @ 2Hr 2.4 H* (0.5-2.0) mmol/L Calcium (8.4-10.2) mg/dL Total Bilirubin (0.0-1.0) mg/dL AST (5-37) U/L ALT (0-40) U/L Alkaline Phosphatase (39-117) U/L Total Creatine Kinase 1873 H (38-174) U/L Total Protein (6.5-8.0) g/dL Albumin (3.5-5.0) g/dL Lipase (8-78) U/L Urine Color Yellow Urine Appearance Clear Urine pH 5.5 (5.0-9.0) Ur Specific [place] 1.020 (1.005-1.025) Urine Protein 30 (1+) H (Neg-Trace) mg/dL Urine Glucose (UA) 500 H (Negative) mg/dL Urine Ketones Negative (Negative) mg/dL Urine Blood Negative (Negative) Urine Nitrite Negative (Negative) Ur Leukocyte Esterase Negative (Negative) Urine RBC 0-2 (0-2) /HPF Urine WBC 6-10 H (0-5) /HPF Ur Squamous Epith Cells 0-2 (0-2) /HPF Urine Bacteria None Seen (None Seen) Hyaline Casts 0-2 (0-2) /LPF Urine Opiates Screen (Not Detect) Urine Fentanyl Screen (Not Detect) Ur Barbiturates Screen (Not Detect) Ur Phencyclidine Scrn (Not Detect) Ur Amphetamines Screen (Not Detect) U Benzodiazepines Scrn (Not Detect) Urine Cocaine Screen (Not Detect) U Marijuana (THC) Screen (Not Detect) Ethyl Alcohol mg/dL Blood Type Antibody Screen 04/13/23 Range/Units 22:19 WBC (4.8-10.8) X10*3/uL RBC (4.60-5.80) X10*6/uL Hgb (14.0-18.0) g/dl Hct (42.0-52.0) % MCV (80.0-98.0) fL MCH (27.0-33.0) pg MCHC (31.0-36.0) g/dl RDW (11.0-16.0) % Plt Count (160-400) X10*3/uL MPV (9.4-12.4) fL Immature Gran % (Auto) (0.0-0.4) % Neut % (Auto) (45-73) % Lymph % (Auto) (20-40) % [place] % (Auto) (2-11) % Eos % (Auto) (0-4) % Baso % (Auto) (0-2) % Lymph # (Auto) (1.2-4.9) X10*3/uL [place] # (Auto) (0.1-1.2) X10*3/uL Eos # (Auto) (0.0-0.4) X10*3/uL Baso # (Auto) (0.0-0.2) X10*3/uL Abs Immat Gran (auto) (0.00-0.03) X10*3/uL Absolute Neuts (auto) (2.0-8.3) x10*3/uL Absolute Nucleated RBC (0.0-0.012) X10*3/uL Nucleated RBC % (auto) (0.0-0.2) /100WBC Smear Tech's Comments PT (10.0-13.1) SEC INR (0.9-1.1) APTT (26.0-36.4) SEC O2 Saturation % ABG pH at Pt Temp (7.35-7.45) ABG pCO2 at Pt Temp (32-45) mmHg ABG pO2 at Pt Temp (83-108) mmHg ABG HCO3 (22-26) mmol/L ABG Base Excess (Actual) mmol/L Sodium (135-145) mmol/L Potassium (3.3-5.1) mmol/L Chloride (96-108) mmol/L Carbon Dioxide (22-29) mmol/L Anion Gap (12-20) BUN (9-16) mg/dL Creatinine (0.5-1.4) mg/dL Estim Creat Clear Calc Estimated GFR Random Glucose (60-115) mg/dL Lactic Acid (0.5-2.0) mmol/L Lactic Acid F/U @ 2Hr (0.5-2.0) mmol/L Calcium (8.4-10.2) mg/dL Total Bilirubin (0.0-1.0) mg/dL AST (5-37) U/L ALT (0-40) U/L Alkaline Phosphatase (39-117) U/L Total Creatine Kinase (38-174) U/L Total Protein (6.5-8.0) g/dL Albumin (3.5-5.0) g/dL Lipase (8-78) U/L Urine Color Urine Appearance Urine pH (5.0-9.0) Ur Specific [place] (1.005-1.025) Urine Protein (Neg-Trace) mg/dL Urine Glucose (UA) (Negative) mg/dL Urine Ketones (Negative) mg/dL Urine Blood (Negative) Urine Nitrite (Negative) Ur Leukocyte Esterase (Negative) Urine RBC (0-2) /HPF Urine WBC (0-5) /HPF Ur Squamous Epith Cells (0-2) /HPF Urine Bacteria (None Seen) Hyaline Casts (0-2) /LPF Urine Opiates Screen Not Detected (Not Detect) Urine Fentanyl Screen POSITIVE H (Not Detect) Ur Barbiturates Screen Not Detected (Not Detect) Ur Phencyclidine Scrn Not Detected (Not Detect) Ur Amphetamines Screen Not Detected (Not Detect) U Benzodiazepines Scrn Not Detected (Not Detect) Urine Cocaine Screen POSITIVE H (Not Detect) U Marijuana (THC) Screen POSITIVE H (Not Detect) Ethyl Alcohol mg/dL Blood Type Antibody Screen Independent Interpretation I performed an independent interpretation of an: EKG (sinus tachycardic 114, non specific rate related changes, no STEMI), Plain X-Ray (Possible patchy infiltrates right lung base) and CT Scan Radiology Impression Discussion of test interpretation with radiology: I have reviewed the radiologist's reading. Independent Historian Clinical information obtained from an independent historian. History obtained from or confirmed by: EMS Prescription Management I considered prescription management with: Other (Antiemetics, anxiolytics) Chronic Conditions Patient?s care impacted by: Other (Substance abuse) Social Determinants Patient?s care significantly limited by Social Determinants of Health including: Other Social Determinant of Health (Substance abuse) Critical Care Time Critical Care Time Total Critical Care Time: 220 Attestation: At least 220 minutes of critical care time was provided to the patient in terms of bedside assessment, frequent reassessment, constant bedside visual it is due to excess severe agitation, inability to redirect supple psychoses, substance withdrawal, hypoxia, direction of ancillary staff to provide care, interpretation and medical data, documentation all outside medical procedures. Discharge Plan Discharge Clinical Impression: Drug overdose, Coffee ground emesis, Agitation, Hypoxia, GAYLE (acute kidney injury) Patient Disposition: Still a Patient Prescriptions: No Action Unobtainable
[2023-04-13] MEDS: ondansetron HCL 4 MG/2 ML VIAL IVPUSH (17:48)
[2023-04-13] MEDS: Pantoprazole Sodium 40 MG/10 ML VIAL 80 MG IVPUSH (18:00)
[2023-04-13 18:01] LABS: Basophils Absolute Auto 0.1 X10*3/uL (0.0-0.2); Basophils Percent Auto 0.3 % (0-2); Hematocrit 50.3 % (42.0-52.0); Hemoglobin 15.4 g/dl (14.0-18.0); Imm Gran Abs Auto 0.24 X10*3/uL (0.00-0.03); Imm Gran Pct Auto 1.1 % (0.0-0.4); Lymphocytes Absolute Auto 0.9 X10*3/uL (1.2-4.9); Lymphocytes Percent Auto 4.1 % (20-40); Mean Corpuscular HGB Conc 30.6 g/dl (31.0-36.0); Mean Corpuscular Hemoglobin 30.6 pg (27.0-33.0); Mean Corpuscular Volume 99.8 fL (80.0-98.0); Mean Platelet Volume 9.8 fL (9.4-12.4); Monocytes Absolute Auto 1.6 X10*3/uL (0.1-1.2); Monocytes Percent Auto 7.3 % (2-11); Neutrophils Absolute Auto 19.3 x10*3/uL (2.0-8.3); Neutrophils Percent Auto 87.2 % (45-73); Platelet Count 249 X10*3/uL (160-400); Red Blood Count 5.04 X10*6/uL (4.60-5.80); Red Cell Distribution Width 12.9 % (11.0-16.0); SCAN SMEAR FLAG 1; White Blood Count 22.1 X10*3/uL (4.8-10.8)
--- NOTE | 2023-04-13 18:02 | PC.NURSE ---
md ray aware pt placed on NRB- sat low 90%, skin discoloration with >2 sec cap refill. tachypneic rr 20s-30. pt anxious, tearing up, moving around in bed, reports cannot see well. bp stable. abg attempt to be drawn by rt
[2023-04-13 18:12] LABS: INTERNATIONAL NORM RATIO 1.1 (0.9-1.1); Prothrombin Time 12.7 SEC (10.0-13.1)
[2023-04-13 18:15] LABS: Partial Thromboplastin Time 32.4 SEC (26.0-36.4)
[2023-04-13] MEDS: Haloperidol Lactate 5 MG/ML VIAL IM (18:15)
--- NOTE | 2023-04-13 18:16 | PC.NURSE ---
per ems patient did fentanyl pills and overdosed. Friend started cpr and gave 4mg narcan. Police gave 4mg narcan. changed over into hospital atire. Belongings brought to decon. while changing over patient stating that he was unable to see or hear, that voices sounded muffled. While RN and provider in room patient started to throw up large amount of coffee ground emesis. placed on nasal cannula at 5 liters sating 90%. removing nasal cannula and bedside cardia monitoring. patient had enough episode of projectile vomit with coffee ground emesis. placed back on nasal cannula. Attempting to get out of bed, provider aware. Haldol given per order. Patient restless continuing to pull at lines.
[2023-04-13 18:20] LABS: MANUAL DIFF FLAG SCAN; SLIDE REVIEW VERIFIED
[2023-04-13 18:23] LABS: Alanine Aminotransferase 273 U/L (0-40); Albumin Level 4.4 g/dL (3.5-5.0); Alkaline Phosphatase 82 U/L (39-117); Anion Gap 28 (12-20); Aspartate Amino Transferase 214 U/L (5-37); Bilirubin Total 0.4 mg/dL (0.0-1.0); Blood Urea Nitrogen 28 mg/dL (9-16); Calcium 9.2 mg/dL (8.4-10.2); Carbon Dioxide 21 mmol/L (22-29); Chloride 98 mmol/L (96-108); Creatinine Clr Calc Pharmacy 42.2; Estimated Glomerular Filt Rate 31; Ethanol < 10 mg/dL; Glucose Random 91 mg/dL (60-115); Lipase 32 U/L (8-78); Sodium 142 mmol/L (135-145); Total Protein 7.9 g/dL (6.5-8.0)
[2023-04-13] MEDS: Metoclopramide HCl 10 MG/2 ML VIAL IVPUSH (18:31)
[2023-04-13] MEDS: LORazepam 2 MG/ML VIAL IVPUSH (18:33)
[2023-04-13 18:38] LABS: Lactic Acid 9.8 mmol/L (0.5-2.0)
[2023-04-13] MEDS: OLANZapine 10 MG VIAL IM (18:57)
--- NOTE | 2023-04-13 19:14 | PC.NURSE ---
Patient increasingly agitated, unable to be re-directed, haldol and ativan given with no effect. Diaphoretic and restless. Provider aware and ordered IM zyprexa. Zyprexa given. Respiratory at bedside to assist with intubation. Fentanyl drip running per order, 20 of etomidate given at 7:17pm, 100 succ given at 7:18pm, provider intubated, with respiratory at bedside. 98% on RA.
[2023-04-13] MEDS: Etomidate 20 MG/10 ML VIAL IVPUSH (19:17)
[2023-04-13] MEDS: Succinylcholine Chloride 200 MG/10 ML VIAL 100 MG IVPUSH (19:18)
[2023-04-13] MEDS: propofoL 200 MG/20 ML VIAL 100 MG IVPUSH (19:29)
[2023-04-13] MEDS: propofoL 1,000 MG/100 ML VIAL 12.67 MG IVCONT (19:29)
[2023-04-13] MEDS: fentaNYL citrate/PF 100 MCG/2 ML VIAL IVPUSH (19:29)
[2023-04-13] MEDS: fentaNYL citrate/NS 1,000 MCG/100 ML PLAST..BAG 2.5 MCG IVCONT (19:29)
--- NOTE | 2023-04-13 19:36 | PHA.MEDREC ---
Pharmacy Consult ? Medication Reconciliation Pharmacy has completed the medication reconciliation. Patient intubated, so unable to complete med rec at this time. Called patient's other contact in the system, however no answer and unsure if phone number is still in service. Based off claim history, patient hasn't filled any medication since July 2022.
--- NOTE | 2023-04-13 19:47 | HO.SUDE ---
Pt was being transferred to the ICU prior to the SUDE being completed.
[2023-04-13 19:59] LABS: Reflex Lactate? Lactic Acid Added
[2023-04-13 20:12] LABS: ABG Base Excess 0.9 mmol/L; ABG HCO3 27 mmol/L (22-26); ABG pCO2 51 mmHg (32-45); ABG pH 7.33 (7.35-7.45); ABG pO2 82 mmHg (83-108)
[2023-04-13] MEDS: cefTRIAXone sodium 2 GM in 0.9 % Sodium Chloride 50 ML IV (21:00)
--- NOTE | 2023-04-13 21:07 | MHC.RECOVSUP ---
? Reason for consult:OPI o? Current location:ED10? o? Identified substance use concern:? -? Overdose ? Intervention: o? Community resources provided ? Plan:PT admitted ? Additional information:[facility] wasn't able to meet with this pt as he was irate and had to be subdued. Please follow up with this pt.
[2023-04-13 21:25] LABS: ~Lactic Acid-LAB USE ONLY 2.4 mmol/L (0.5-2.0)
[2023-04-13] MEDS: 0.9 % Sodium Chloride 1,000 ML 999 ML IV (22:10)
[2023-04-13 22:28] LABS: Appearance Urine Clear; Color Urine Yellow; Glucose Urine UA 500 mg/dL (Negative); Leukocyte Esterase Urine Negative (Negative); Nitrite Urine Negative (Negative); PH 5.5 (5.0-9.0); UMIC TRIGGER UACC YES; Urine Blood Negative (Negative); Urine Ketones Negative (Negative); Urine Protein 30 (1+) mg/dL (Neg-Trace)
[2023-04-13 22:32] LABS: Bacteria Urine None Seen (None Seen); Hyaline Casts Urine 0-2 /LPF (0-2); RBC Urine 0-2 /HPF (0-2); Squamous Epithelial Cell Urine 0-2 /HPF (0-2); UACC Culture Trigger YES
[2023-04-13 22:35] LABS: Amphetamine Screen Urine Not Detected (Not Detect); Barbiturates, Urine Not Detected (Not Detect); Benzodiazepines Screen Urine Not Detected (Not Detect); Cannabinoid Screen Urine POSITIVE (Not Detect); Cocaine Screen Urine POSITIVE (Not Detect); Fentanyl, urine POSITIVE (Not Detect); Opiate Screen Urine Not Detected (Not Detect); Phencyclidine Screen Urine Not Detected (Not Detect)
[2023-04-13 23:03] LABS: Reflex Lactate? 2 Y
--- NOTE | 2023-04-13 23:23 | PC.NURSE ---
thus far: md ray notified pt temp 101.8. resp even with ventilator set rate. no sx pain/agitation. more 16fr placed. cory barker placed x3 lumen central line at bedside. iv abx given. fluids have been given as ordered. pt's rn sergey requested protonix gtt from pharmacy- awaiting. pt has x3 piv access. clear yellow urine. urine sample and labs including blood cultures x2 sent.
[2023-04-13] MEDS: Pantoprazole Sodium 80 MG in 0.9 % Sodium Chloride 80 ML 10 MG IV (23:51)
[2023-04-13] MEDS: Norepinephrine Bitartrate/D5W 8 MG/250 ML PLAST..BAG 6.6 MG IV (23:55)
--- NOTE | 2023-04-13 23:56 | PC.NURSE ---
Patient's blood pressure low (84/55), Dr. Wheat notified. Norepinephrine drip initiated, at 0.05mcg/kg/min per protocols. Infusing through central line. Current infusions include: Norepinephrine 0.05 mcg/kg/min Propofol 30 mcg/kg/min Fentanyl 25 mcg/hour Protonix 8 mg/hour Temperature 101.8 F via temperature sensing urinary catheter. [place] Tylenol to be administered. Awaiting ICU bed placement.
[2023-04-14] VITALS (41 sets, daily range): BP systolic 64–136; BP diastolic 46–101; PULSE 83–97; RESP 15–21; TEMP 32–38.7; O2SAT 90–100; BMI 37.1
--- NOTE | 2023-04-14 00:05 | MHC.EDTECH ---
Call out to [email or web address] Spoke to Janak and gave demographics before transferring call to
--- NOTE | 2023-04-14 00:06 | MHC.EDTECH ---
Call out to [facility] @[phone],spoke to Stefano to cancel transfer of patient.
[2023-04-14] MEDS: Lactated Ringers 1,000 ML 999 ML IV (00:11)
[2023-04-14] MEDS: Acetaminophen Supp 650 MG SUPP.RECT PR (00:14)
[2023-04-14] MEDS: propofoL 1,000 MG/100 ML VIAL 16.9 MG IVCONT ×5 (00:25→20:54)
[2023-04-14] MEDS: Clindamycin Phosphate/D5W 600 MG/50 ML PIGGYBACK 100 MG IV (00:38)
[2023-04-14 01:22] LABS: ~Lactic Acid-LAB USE ONLY 2.2 mmol/L (0.5-2.0)
--- NOTE | 2023-04-14 01:46 | P.HPCC_ITS ---
History of Present Illness Date of Service: 04/14/23 Attending physician on admission: Sabas Walden Chief Complaint: Altered mental status, GAYLE, coffee-ground emesis Mr. Mccall? is a 37-year-old male with a past medical history of asthma, bronchitis, DVT, HTN, kidney stones, PE, and substance abuse. ? He was brought in by ambulance after becoming unresponsive at home when he took oral fentanyl.?Family began CPR after giving 4 mg of Narcan.? EMS/police responded an d gave an additional 4 mg of Narcan.? Upon arrival to the ER the patient was complaining of severe hearing and vision loss, nausea and vomiting.? There were no reports of trauma, falls or injuries. On arrival to the emergency room, the patient's blood pressure 123/67, heart rate 107, temp 97.4,? O2 sat 90 on 3 L nasal cannula.?? Laboratory data significant for WBC 22.1? with 87% neutrophils,? CO2 21, BUN 28, creatinine 2.36, lactic acid 9.8, AST 214, ALT 273, total CK 1873.? Urinalysis showed 1+ protein? and was positive for glucose.? Urine drug screen was positive for fentanyl, cocaine, marijuana. Imaging: XR/XR chest 1V - No acute intrathoracic disease. CT/CT chest wo IV con - Bibasilar consolidation/atelectasis, left greater than right. CT/CT head/brain wo IV con -? 1.? No evidence of acute intracranial hemorrhage or edematous territorial infarction. 2.? Nonspecific prominence of the CSF space adjacent to the right cerebellar hemisphere that could represent a small arachnoid cyst versus subdural hygroma/chronic hematoma. 3.? Low lying right cerebellar tonsil that could be seen with Chiari I malformation. Correlation with MRI of brain and cervical spine could be obtained as clinically indicated. 4.? Paranasal sinus disease. 5.? Hematoma and soft tissue thickening in the scalp at the level of the right posterior vertex. ED COURSE: ? The patient had multiple episodes of coffee-ground emesis.? He received Protonix and Zofran ? And was started on Protonix drip.? He became increasingly agitated,? paranoid, confused and was given Ativan,? Zyprexa, and Haldol? with little effect.? He became hypoxic and tachycardic.? He was intubated for airway protection due to the requirement for significant sedation.? He developed a fever? And became hypotensive.? He was given approximately 4100 mL crystalloid per sepsis protocol? He received a dose of ceftriaxone and a dose of clindamycin. The patient was admitted to ICU for management of? altered mental status, opioid overdose, GAYLE, coffee-ground emesis and possible sepsis. Review of Systems Review of Systems: Yes unobtainable due to endotracheal tube PMFSH Past Medical History Medical History Asthma Bronchitis DVT (deep venous thrombosis) Hypertension Kidney stones Pulmonary emboli Substance abuse Social History Social History Alcohol intake: current Alcohol intake frequency: holidays/special occasions only Smoked in Last 30 Days: Yes Use of substances other than those prescribed or required for medical reasons: Yes Substance Use Type: Marijuana Substance Use Type Other:: fentanyl Currently Displaying Signs/Symptoms of Drug Intoxication Withdrawal: No Advance Directives: No Advance Directives Information Provided: No service: No Meds Allergies Allergy/AdvReac Type Severity Reaction Status Date / Time morphine [MORPHINE] Allergy Mild BUMPS AND Verified 01/03/23 23:31 ITCHINESS NEAR IV SITE AFTER ADMINISTRATION, (IV) blisters penicillin V Allergy Unknown Unknown Verified 01/03/23 23:31 Penicillins Allergy Unknown UNKNOWN Verified 01/03/23 23:31 Active Medications: Current Medications Pantoprazole Sodium 80 mg/ (Sodium Chloride) 100 mls @ 10 mls/hr IV .Q10H SRINIVASA Last Admin: 04/13/23 23:51 Dose: 8 mg/hr, 10 mls/hr Fentanyl (Sublimaze/Ns) 1,000 mcg in 100 mls @ 0 mls/hr IVCONT .Q0M SRINIVASA; Protocol Last Admin: 04/13/23 19:29 Dose: 25 mcg/hr, 2.5 mls/hr Propofol (Diprivan) 1,000 mg in 100 mls @ 0 mls/hr IVCONT .Q0M SRINIVASA; Protocol Last Admin: 04/14/23 00:25 Dose: 40 mcg/kg/min, 16.9 mls/hr Norepinephrine Bitartrate (Levophed) 8 mg in 250 mls @ 0 mls/hr IV .Q0M [facility]; Protocol Last Titration: 04/14/23 00:12 Dose: 0.09 mcg/kg/min, 11.88 mls/hr Naloxone HCl (Naloxone Hcl 0.4 Mg/Ml Vial) 0.2 mg IVPUSH Q2M PRN PRN Reason: Excessive sedation or RR < 8 Pharmacy Consult (Consult Rx Perform Med Rec) 1 each MISCELLANE ONCE PRN PRN Reason: Consult order Vecuronium [place] (Vecuronium [place] 10 Mg Vial) 7.04 mg 0.1 mg/kg (7.04 mg) IVPUSH Q2H PRN PRN Reason: agitation Last Admin: 04/13/23 19:34 Dose: 7.04 mg Home Medications Medication Instructions Recorded Confirmed Last Taken Type Unobtainable 04/13/23 04/13/23 Unknown History Physical Exam Vital Signs: Vital Signs: Last Vital Signs Temp 101.7 F H 04/14/23 00:55 Pulse 97 04/14/23 00:55 Resp 18 04/14/23 00:55 BP 127/91 H 04/14/23 00:55 Pulse Ox 100 04/14/23 00:55 O2 Del Method BiPAP 04/14/23 00:55 FiO2 45 04/13/23 23:41 Oxygen Flow Rate 3 04/13/23 17:10 BMI result Body Mass Index 30.9 Const: General: no acute distress HEENT: Head: Yes normocephalic and Yes atraumatic General nose exam: Normal external nose present (Nares patent, septum midline, sinuses nontender bilaterally.) Mouth: Normal oral and palatal mucosa present (No thrush, tongue in midline, mucosa moist.) Throat: Yes other (No erythema, no exudate.) Neck: Neck: Yes supple (no thyromegaly, trachea midline.) Carotids: normal carotid upstroke Resp: Auscultation: clear to auscultation bilaterally (normal work of breathing, no accessory muscle use) Cardio: Jugular venous distension: no JVD Rate: regular rate Rhythm: regular rhythm Heart sounds: no gallops, no murmurs and no rubs Peripheral pulses: Peripheral pulses 2+ throughout GI: Palpation (GI): Soft to palpation (nondistended.) and nontender Extrem: General: Yes capillary refill normal and Yes no clubbing, cyanosis or edema Results Labs 04/13/23 17:55 04/13/23 17:55 Labs: Laboratory Results - last 24 hr 04/13/23 04/13/23 04/13/23 17:55 17:55 17:55 MCV 99.8 H MCH 30.6 MCHC 30.6 L RDW 12.9 Plt Count 249 MPV 9.8 Immature Gran % (Auto) 1.1 H Neut % (Auto) 87.2 H Lymph % (Auto) 4.1 L [place] % (Auto) 7.3 Eos % (Auto) 0.0 Baso % (Auto) 0.3 Lymph # (Auto) 0.9 L [place] # (Auto) 1.6 H Eos # (Auto) 0.0 Baso # (Auto) 0.1 Abs Immat Gran (auto) 0.24 H Absolute Neuts (auto) 19.3 H Absolute Nucleated RBC 0.000 Nucleated RBC % (auto) 0.0 Smear Tech's Comments VERIFIED PT 12.7 INR 1.1 APTT 32.4 O2 Saturation ABG pH at Pt Temp ABG pCO2 at Pt Temp ABG pO2 at Pt Temp ABG HCO3 ABG Base Excess (Actual) Anion Gap 28 H Estim Creat Clear Calc 42.2 Estimated GFR 31 Random Glucose 91 Lactic Acid Lactic Acid F/U @ 2Hr Lactic Acid F/U @ 4Hr Calcium 9.2 Total Bilirubin 0.4 AST 214 H ALT 273 H Alkaline Phosphatase 82 Total Creatine Kinase Total Protein 7.9 Albumin 4.4 Lipase 32 Urine Color Urine Appearance Urine pH Ur Specific [place] Urine Protein Urine Glucose (UA) Urine Ketones Urine Blood Urine Nitrite Ur Leukocyte Esterase Urine RBC Urine WBC Ur Squamous Epith Cells Urine Bacteria Hyaline Casts Urine Opiates Screen Urine Fentanyl Screen Ur Barbiturates Screen Ur Phencyclidine Scrn Ur Amphetamines Screen U Benzodiazepines Scrn Urine Cocaine Screen U Marijuana (THC) Screen Ethyl Alcohol < 10 Blood Type Antibody Screen 04/13/23 04/13/23 04/13/23 17:55 17:55 20:03 MCV MCH MCHC RDW Plt Count MPV Immature Gran % (Auto) Neut % (Auto) Lymph % (Auto) [place] % (Auto) Eos % (Auto) Baso % (Auto) Lymph # (Auto) [place] # (Auto) Eos # (Auto) Baso # (Auto) Abs Immat Gran (auto) Absolute Neuts (auto) Absolute Nucleated RBC Nucleated RBC % (auto) Smear Tech's Comments PT INR APTT O2 Saturation 96.0 ABG pH at Pt Temp 7.33 L ABG pCO2 at Pt Temp 51 H ABG pO2 at Pt Temp 82 L ABG HCO3 27 H ABG Base Excess (Actual) 0.9 Anion Gap Estim Creat Clear Calc Estimated GFR Random Glucose Lactic Acid 9.8 H* Lactic Acid F/U @ 2Hr Lactic Acid F/U @ 4Hr Calcium Total Bilirubin AST ALT Alkaline Phosphatase Total Creatine Kinase Total Protein Albumin Lipase Urine Color Urine Appearance Urine pH Ur Specific [place] Urine Protein Urine Glucose (UA) Urine Ketones Urine Blood Urine Nitrite Ur Leukocyte Esterase Urine RBC Urine WBC Ur Squamous Epith Cells Urine Bacteria Hyaline Casts Urine Opiates Screen Urine Fentanyl Screen Ur Barbiturates Screen Ur Phencyclidine Scrn Ur Amphetamines Screen U Benzodiazepines Scrn Urine Cocaine Screen U Marijuana (THC) Screen Ethyl Alcohol Blood Type A Positive Antibody Screen NEGATIVE 04/13/23 04/13/23 04/13/23 20:56 20:59 22:19 MCV MCH MCHC RDW Plt Count MPV Immature Gran % (Auto) Neut % (Auto) Lymph % (Auto) [place] % (Auto) Eos % (Auto) Baso % (Auto) Lymph # (Auto) [place] # (Auto) Eos # (Auto) Baso # (Auto) Abs Immat Gran (auto) Absolute Neuts (auto) Absolute Nucleated RBC Nucleated RBC % (auto) Smear Tech's Comments PT INR APTT O2 Saturation ABG pH at Pt Temp ABG pCO2 at Pt Temp ABG pO2 at Pt Temp ABG HCO3 ABG Base Excess (Actual) Anion Gap Estim Creat Clear Calc Estimated GFR Random Glucose Lactic Acid Lactic Acid F/U @ 2Hr 2.4 H* Lactic Acid F/U @ 4Hr Calcium Total Bilirubin AST ALT Alkaline Phosphatase Total Creatine Kinase 1873 H Total Protein Albumin Lipase Urine Color Yellow Urine Appearance Clear Urine pH 5.5 Ur Specific [place] 1.020 Urine Protein 30 (1+) H Urine Glucose (UA) 500 H Urine Ketones Negative Urine Blood Negative Urine Nitrite Negative Ur Leukocyte Esterase Negative Urine RBC 0-2 Urine WBC 6-10 H Ur Squamous Epith Cells 0-2 Urine Bacteria None Seen Hyaline Casts 0-2 Urine Opiates Screen Urine Fentanyl Screen Ur Barbiturates Screen Ur Phencyclidine Scrn Ur Amphetamines Screen U Benzodiazepines Scrn Urine Cocaine Screen U Marijuana (THC) Screen Ethyl Alcohol Blood Type Antibody Screen 04/13/23 04/14/23 22:19 01:03 MCV MCH MCHC RDW Plt Count MPV Immature Gran % (Auto) Neut % (Auto) Lymph % (Auto) [place] % (Auto) Eos % (Auto) Baso % (Auto) Lymph # (Auto) [place] # (Auto) Eos # (Auto) Baso # (Auto) Abs Immat Gran (auto) Absolute Neuts (auto) Absolute Nucleated RBC Nucleated RBC % (auto) Smear Tech's Comments PT INR APTT O2 Saturation ABG pH at Pt Temp ABG pCO2 at Pt Temp ABG pO2 at Pt Temp ABG HCO3 ABG Base Excess (Actual) Anion Gap Estim Creat Clear Calc Estimated GFR Random Glucose Lactic Acid Lactic Acid F/U @ 2Hr Lactic Acid F/U @ 4Hr 2.2 H* Calcium Total Bilirubin AST ALT Alkaline Phosphatase Total Creatine Kinase Total Protein Albumin Lipase Urine Color Urine Appearance Urine pH Ur Specific [place] Urine Protein Urine Glucose (UA) Urine Ketones Urine Blood Urine Nitrite Ur Leukocyte Esterase Urine RBC Urine WBC Ur Squamous Epith Cells Urine Bacteria Hyaline Casts Urine Opiates Screen Not Detected Urine Fentanyl Screen POSITIVE H Ur Barbiturates Screen Not Detected Ur Phencyclidine Scrn Not Detected Ur Amphetamines Screen Not Detected U Benzodiazepines Scrn Not Detected Urine Cocaine Screen POSITIVE H U Marijuana (THC) Screen POSITIVE H Ethyl Alcohol Blood Type Antibody Screen Imaging Radiologist's Impressions: Impressions Chest X-Ray 04/13/23 18:35 IMPRESSION: No acute intrathoracic disease. Chest CT 04/13/23 20:07 IMPRESSION: Bibasilar consolidation/atelectasis, left greater than right. Fleischner guidelines were followed. Head CT 04/13/23 20:07 IMPRESSION: 1. No evidence of acute intracranial hemorrhage or edematous territorial infarction. 2. Nonspecific prominence of the CSF space adjacent to the right cerebellar hemisphere that could represent a small arachnoid cyst versus subdural hygroma/chronic hematoma. 3. Low lying right cerebellar tonsil that could be seen with Chiari I malformation. Correlation with MRI of brain and cervical spine could be obtained as clinically indicated. 4. Paranasal sinus disease. 5. Hematoma and soft tissue thickening in the scalp at the level of the right posterior vertex. Chest X-Ray 04/13/23 20:45 IMPRESSION: ET tube 4.5 cm above the micki. NG tube below diaphragm. Worsening of consolidation at the right lung base with continued left basilar consolidation. Chest X-Ray 04/13/23 23:08 IMPRESSION: Left IJ central line tip in the region of the upper SVC. Streaky left basilar opacity favoring atelectasis. Mild residual patchy right basilar opacity, decreased from prior. Assessment and Plan (1) Drug overdose: Status: Acute (2) Coffee ground emesis: Status: Acute (3) Agitation: Status: Acute (4) Hypoxia: Status: Acute (5) GAYLE (acute kidney injury): Status: Acute Plan Assessment: 37-year-old male with a past medical history of asthma, bronchitis, DVT, HTN, kidney stones, PE, and substance abuse admitted to ICU for management of? altered mental status, opioid overdose, GAYLE, coffee-ground emesis and possible sepsis. Plan: Neuro: ? Acute alteration of mental status secondary to substance overdose.? Currently sedated.? Cardiac: ?patient has significant elevated lactic acid, elevated white count?Initially thought to be an acute stress reaction though could be due to consolidation as seen on CT, gayle,? hypotension,? fever and tachycardia. Rhabdo-? patient with elevated CK, no reports of trauma, falls or injuries though he was noted to have significant diaphoresis, constant muscle contracture while in the ER. Received? a total of approx 4 L in the ED.? EKG no significant changes. will? hold fluid hydration for now;? CVP is 15.? Continue to trend CK. Pulmonary: Bibasilar consolidation/atelectasis noted on CT. Empiric antibiotics given in ED.? Renal: GAYLE. Baseline BUN/creat 12/1.05. most likely related to hypoperfusion, nonoliguric.? 4Lgiven in the ER. Continue to check renal induces and urine output. Endo:? No acute issues.? GI: Transaminitis, coffee-ground emesis. OGT to [facility]WS. Cont? Protonix gtt. No CT at this time due to GAYLE. Hold? prophylactic anticoagulation.? Continue to trend LFTs. ID: ? Possible sepsis vs acute stress reaction.? Received ceftriaxone, clindamycin, fluid resuscitation per sepsis protocol in the emergency room. ? Blood cultures pending. Heme/Onc: ?Coffee-ground emesis.? Monitor H&H Psych: Substance abuse disorder. Urine drug screen positive for fentanyl, cocaine,? Marijuana. Prophylaxis:? Protonix Diet: NPO Time Spent With Patient Time: Total time managing care of this patient today ____ minutes.
[2023-04-14] MEDS: propofoL 1,000 MG/100 ML VIAL 21.12 MG IVCONT ×2 (03:16→06:22)
[2023-04-14 04:46] LABS: VBG Base Excess 0.2 mmol/L; VBG HCO3 26 mmol/L (22-26); VBG pCO2 47 mmHg; VBG pH 7.34 (7.32-7.43); VBG pO2 48 mmHg
[2023-04-14 04:58] LABS: Basophils Percent Auto 0.1 % (0-2); Hematocrit 39.9 % (42.0-52.0); Hemoglobin 12.8 g/dl (14.0-18.0); Imm Gran Abs Auto 0.05 X10*3/uL (0.00-0.03); Imm Gran Pct Auto 0.4 % (0.0-0.4); Lymphocytes Absolute Auto 1.8 X10*3/uL (1.2-4.9); Lymphocytes Percent Auto 15.8 % (20-40); MANUAL DIFF FLAG NO; Mean Corpuscular HGB Conc 32.1 g/dl (31.0-36.0); Mean Corpuscular Hemoglobin 30.3 pg (27.0-33.0); Mean Corpuscular Volume 94.5 fL (80.0-98.0); Mean Platelet Volume 10.2 fL (9.4-12.4); Monocytes Absolute Auto 0.8 X10*3/uL (0.1-1.2); Monocytes Percent Auto 6.7 % (2-11); Neutrophils Absolute Auto 8.7 x10*3/uL (2.0-8.3); Platelet Count 165 X10*3/uL (160-400); Red Blood Count 4.22 X10*6/uL (4.60-5.80); Red Cell Distribution Width 12.9 % (11.0-16.0); White Blood Count 11.3 X10*3/uL (4.8-10.8)
[2023-04-14] MEDS: Pantoprazole Sodium 80 MG in 0.9 % Sodium Chloride 80 ML 10 MG IV ×2 (05:08→18:00)
[2023-04-14 05:18] LABS: Alanine Aminotransferase 1379 U/L (0-40); Albumin Level 3.3 g/dL (3.5-5.0); Alkaline Phosphatase 59 U/L (39-117); Anion Gap 17 (12-20); Aspartate Amino Transferase 1938 U/L (5-37); Bilirubin Total 0.4 mg/dL (0.0-1.0); Blood Urea Nitrogen 41 mg/dL (9-16); Carbon Dioxide 24 mmol/L (22-29); Chloride 106 mmol/L (96-108); Creatinine Clr Calc Pharmacy 44.2; Estimated Glomerular Filt Rate 25; Glucose Random 108 mg/dL (60-115); Magnesium 2.1 mg/dL (1.6-2.6); Phosphorus 3.4 mg/dL (2.7-4.5); Potassium 5.4 mmol/L (3.3-5.1); Sodium 142 mmol/L (135-145)
[2023-04-14 07:00] LABS: ABG Refer to POC result
[2023-04-14] MEDS: Midazolam HCl/NS 50 MG/50 ML PLAST..BAG IVCONT (07:35)
[2023-04-14 07:58] LABS: Venous Blood Gas Refer to POC result
[2023-04-14] MEDS: Albuterol/Iprat 2.5/0.5MG 3 ML AMPUL.NEB INHALE ×4 (07:59→19:20)
[2023-04-14] MEDS: Chlorhexidine Gluc Oral Rinse 15 ML MOUTHWASH BUCCAL ×3 (09:36→20:54)
[2023-04-14 12:07] LABS: COVID-19 Test Invalid (Negative); IDNOW Serial# BCCEAD1C
--- NOTE | 2023-04-14 12:31 | PM.CCPN ---
Subjective Subjective Date of Service: 04/14/23 Interval History: 37-year-old came in with cocaine and fentanyl intoxication and apparently displayed a significant delirium and required intubation and is currently on propofol and midazolam drips to maintain sedation but is not requiring any inotrope support and remains in sinus rhythm without acute ST-T changes but bedside echo demonstrating cardiomyopathy with a 35-40% EF and diffuse hypokinesis and evidence of inferior vena caval dilatation and a central venous pressure of approximately 15 so clearly this some cardiac involvement but his chest films do not demonstrate any distinct infiltrate but he does have elevated transaminitis as well as acute renal insufficiency but on the ventilator is oxygen saturations are 90% blood pressure is 120/75 heart rate is 82 in sinus rhythm Critical Care Time (minutes): 45 Physical Exam Vital Signs: Vital Signs: Last Vital Signs Temp 98.9 F 04/14/23 12:00 Pulse 83 04/14/23 12:00 Resp 16 04/14/23 12:00 BP 115/72 04/14/23 12:00 Pulse Ox 90 L 04/14/23 12:00 O2 Del Method Mechanical Ventil ation 04/14/23 12:00 FiO2 45 04/14/23 12:14 Oxygen Flow Rate 3 04/13/23 17:10 BMI result Body Mass Index 37.1 so vital signs are stable bedside echo demonstrating the congestive cardiomyopathy with IVC dilatation and elevated CVP abdomen soft with no organomegaly no peripheral edema no evidence of injection sites that I could see certainly no skin cellulitis Objective Data Labs 04/14/23 04:35 04/14/23 04:35 Labs: Laboratory Results - last 24 hr 04/13/23 04/13/23 04/13/23 17:55 17:55 17:55 WBC 22.1 H RBC 5.04 Hgb 15.4 Hct 50.3 MCV 99.8 H MCH 30.6 MCHC 30.6 L RDW 12.9 Plt Count 249 MPV 9.8 Immature Gran % (Auto) 1.1 H Neut % (Auto) 87.2 H Lymph % (Auto) 4.1 L [place] % (Auto) 7.3 Eos % (Auto) 0.0 Baso % (Auto) 0.3 Lymph # (Auto) 0.9 L [place] # (Auto) 1.6 H Eos # (Auto) 0.0 Baso # (Auto) 0.1 Abs Immat Gran (auto) 0.24 H Absolute Neuts (auto) 19.3 H Absolute Nucleated RBC 0.000 Nucleated RBC % (auto) 0.0 Smear Tech's Comments VERIFIED PT 12.7 INR 1.1 APTT 32.4 O2 Saturation ABG pH at Pt Temp ABG pCO2 at Pt Temp ABG pO2 at Pt Temp ABG HCO3 ABG Base Excess (Actual) VBG pH VBG pCO2 VBG pO2 VBG HCO3 VBG O2 Saturation VBG Base Excess Sodium 142 Potassium 5.0 D Chloride 98 Carbon Dioxide 21 L Anion Gap 28 H BUN 28 H Creatinine 2.36 H Estim Creat Clear Calc 42.2 Estimated GFR 31 Random Glucose 91 Lactic Acid Lactic Acid F/U @ 2Hr Lactic Acid F/U @ 4Hr Calcium 9.2 Phosphorus Magnesium Total Bilirubin 0.4 AST 214 H ALT 273 H Alkaline Phosphatase 82 Total Creatine Kinase Total Protein 7.9 Albumin 4.4 Lipase 32 Urine Color Urine Appearance Urine pH Ur Specific [place] Urine Protein Urine Glucose (UA) Urine Ketones Urine Blood Urine Nitrite Ur Leukocyte Esterase Urine RBC Urine WBC Ur Squamous Epith Cells Urine Bacteria Hyaline Casts Urine Opiates Screen Urine Fentanyl Screen Ur Barbiturates Screen Ur Phencyclidine Scrn Ur Amphetamines Screen U Benzodiazepines Scrn Urine Cocaine Screen U Marijuana (THC) Screen Ethyl Alcohol < 10 COVID-19 (AGATHA) COVID-19 Clin Com Blood Type Antibody Screen 04/13/23 04/13/23 04/13/23 17:55 17:55 20:03 WBC RBC Hgb Hct MCV MCH MCHC RDW Plt Count MPV Immature Gran % (Auto) Neut % (Auto) Lymph % (Auto) [place] % (Auto) Eos % (Auto) Baso % (Auto) Lymph # (Auto) [place] # (Auto) Eos # (Auto) Baso # (Auto) Abs Immat Gran (auto) Absolute Neuts (auto) Absolute Nucleated RBC Nucleated RBC % (auto) Smear Tech's Comments PT INR APTT O2 Saturation 96.0 ABG pH at Pt Temp 7.33 L ABG pCO2 at Pt Temp 51 H ABG pO2 at Pt Temp 82 L ABG HCO3 27 H ABG Base Excess (Actual) 0.9 VBG pH VBG pCO2 VBG pO2 VBG HCO3 VBG O2 Saturation VBG Base Excess Sodium Potassium Chloride Carbon Dioxide Anion Gap BUN Creatinine Estim Creat Clear Calc Estimated GFR Random Glucose Lactic Acid 9.8 H* Lactic Acid F/U @ 2Hr Lactic Acid F/U @ 4Hr Calcium Phosphorus Magnesium Total Bilirubin AST ALT Alkaline Phosphatase Total Creatine Kinase Total Protein Albumin Lipase Urine Color Urine Appearance Urine pH Ur Specific [place] Urine Protein Urine Glucose (UA) Urine Ketones Urine Blood Urine Nitrite Ur Leukocyte Esterase Urine RBC Urine WBC Ur Squamous Epith Cells Urine Bacteria Hyaline Casts Urine Opiates Screen Urine Fentanyl Screen Ur Barbiturates Screen Ur Phencyclidine Scrn Ur Amphetamines Screen U Benzodiazepines Scrn Urine Cocaine Screen U Marijuana (THC) Screen Ethyl Alcohol COVID-19 (AGATHA) COVID-19 June [employer] Com Blood Type A Positive Antibody Screen NEGATIVE 04/13/23 04/13/23 04/13/23 20:56 20:59 22:19 WBC RBC Hgb Hct MCV MCH MCHC RDW Plt Count MPV Immature Gran % (Auto) Neut % (Auto) Lymph % (Auto) [place] % (Auto) Eos % (Auto) Baso % (Auto) Lymph # (Auto) [place] # (Auto) Eos # (Auto) Baso # (Auto) Abs Immat Gran (auto) Absolute Neuts (auto) Absolute Nucleated RBC Nucleated RBC % (auto) Smear Tech's Comments PT INR APTT O2 Saturation ABG pH at Pt Temp ABG pCO2 at Pt Temp ABG pO2 at Pt Temp ABG HCO3 ABG Base Excess (Actual) VBG pH VBG pCO2 VBG pO2 VBG HCO3 VBG O2 Saturation VBG Base Excess Sodium Potassium Chloride Carbon Dioxide Anion Gap BUN Creatinine Estim Creat Clear Calc Estimated GFR Random Glucose Lactic Acid Lactic Acid F/U @ 2Hr 2.4 H* Lactic Acid F/U @ 4Hr Calcium Phosphorus Magnesium Total Bilirubin AST ALT Alkaline Phosphatase Total Creatine Kinase 1873 H Total Protein Albumin Lipase Urine Color Yellow Urine Appearance Clear Urine pH 5.5 Ur Specific [place] 1.020 Urine Protein 30 (1+) H Urine Glucose (UA) 500 H Urine Ketones Negative Urine Blood Negative Urine Nitrite Negative Ur Leukocyte Esterase Negative Urine RBC 0-2 Urine WBC 6-10 H Ur Squamous Epith Cells 0-2 Urine Bacteria None Seen Hyaline Casts 0-2 Urine Opiates Screen Urine Fentanyl Screen Ur Barbiturates Screen Ur Phencyclidine Scrn Ur Amphetamines Screen U Benzodiazepines Scrn Urine Cocaine Screen U Marijuana (THC) Screen Ethyl Alcohol COVID-19 (AGATHA) COVID-19 June [employer] Com Blood Type Antibody Screen 04/13/23 04/14/23 04/14/23 22:19 01:03 04:35 WBC 11.3 H RBC 4.22 L Hgb 12.8 L Hct 39.9 L D MCV 94.5 D MCH 30.3 MCHC 32.1 RDW 12.9 Plt Count 165 D MPV 10.2 Immature Gran % (Auto) 0.4 Neut % (Auto) 77.0 H Lymph % (Auto) 15.8 L [place] % (Auto) 6.7 Eos % (Auto) 0.0 Baso % (Auto) 0.1 Lymph # (Auto) 1.8 [place] # (Auto) 0.8 Eos # (Auto) 0.0 Baso # (Auto) 0.0 Abs Immat Gran (auto) 0.05 H Absolute Neuts (auto) 8.7 H Absolute Nucleated RBC 0.000 Nucleated RBC % (auto) 0.0 Smear Tech's Comments PT INR APTT O2 Saturation ABG pH at Pt Temp ABG pCO2 at Pt Temp ABG pO2 at Pt Temp ABG HCO3 ABG Base Excess (Actual) VBG pH VBG pCO2 VBG pO2 VBG HCO3 VBG O2 Saturation VBG Base Excess Sodium Potassium Chloride Carbon Dioxide Anion Gap BUN Creatinine Estim Creat Clear Calc Estimated GFR Random Glucose Lactic Acid Lactic Acid F/U @ 2Hr Lactic Acid F/U @ 4Hr 2.2 H* Calcium Phosphorus Magnesium Total Bilirubin AST ALT Alkaline Phosphatase Total Creatine Kinase Total Protein Albumin Lipase Urine Color Urine Appearance Urine pH Ur Specific [place] Urine Protein Urine Glucose (UA) Urine Ketones Urine Blood Urine Nitrite Ur Leukocyte Esterase Urine RBC Urine WBC Ur Squamous Epith Cells Urine Bacteria Hyaline Casts Urine Opiates Screen Not Detected Urine Fentanyl Screen POSITIVE H Ur Barbiturates Screen Not Detected Ur Phencyclidine Scrn Not Detected Ur Amphetamines Screen Not Detected U Benzodiazepines Scrn Not Detected Urine Cocaine Screen POSITIVE H U Marijuana (THC) Screen POSITIVE H Ethyl Alcohol COVID-19 (AGATHA) COVID-19 June [employer] Com Blood Type Antibody Screen 04/14/23 04/14/23 04/14/23 04:35 04:37 09:10 WBC RBC Hgb Hct MCV MCH MCHC RDW Plt Count MPV Immature Gran % (Auto) Neut % (Auto) Lymph % (Auto) [place] % (Auto) Eos % (Auto) Baso % (Auto) Lymph # (Auto) [place] # (Auto) Eos # (Auto) Baso # (Auto) Abs Immat Gran (auto) Absolute Neuts (auto) Absolute Nucleated RBC Nucleated RBC % (auto) Smear Tech's Comments PT INR APTT O2 Saturation ABG pH at Pt Temp ABG pCO2 at Pt Temp ABG pO2 at Pt Temp ABG HCO3 ABG Base Excess (Actual) VBG pH 7.34 VBG pCO2 47 VBG pO2 48 VBG HCO3 26 VBG O2 Saturation 76.0 VBG Base Excess 0.2 Sodium 142 Potassium 5.4 H Chloride 106 Carbon Dioxide 24 Anion Gap 17 BUN 41 H Creatinine 2.82 H Estim Creat Clear Calc 44.2 Estimated GFR 25 Random Glucose 108 Lactic Acid Lactic Acid F/U @ 2Hr Lactic Acid F/U @ 4Hr Calcium 8.0 L D Phosphorus 3.4 Magnesium 2.1 Total Bilirubin 0.4 AST 1938 H ALT 1379 H Alkaline Phosphatase 59 Total Creatine Kinase 1865 H Total Protein 6.0 L Albumin 3.3 L Lipase Urine Color Urine Appearance Urine pH Ur Specific [place] Urine Protein Urine Glucose (UA) Urine Ketones Urine Blood Urine Nitrite Ur Leukocyte Esterase Urine RBC Urine WBC Ur Squamous Epith Cells Urine Bacteria Hyaline Casts Urine Opiates Screen Urine Fentanyl Screen Ur Barbiturates Screen Ur Phencyclidine Scrn Ur Amphetamines Screen U Benzodiazepines Scrn Urine Cocaine Screen U Marijuana (THC) Screen Ethyl Alcohol COVID-19 (AGATHA) Invalid COVID-19 Clin Com See Note Blood Type Antibody Screen Progress Note: A&P Assessment and plan (1) COVID-19: Status: Acute (2) Drug overdose: Status: Acute (3) Coffee ground emesis: Status: Acute (4) Delirium: Status: Acute (5) Toxic encephalopathy: Status: Acute (6) Congestive cardiomyopathy: Status: Acute (7) GAYLE (acute kidney injury): Status: Acute (8) Hypoxia: Status: Acute (9) Agitation: Status: Acute Plan the plan is to allow him obviously to withdraw from his chronic habits while maintaining a combination of midazolam and propofol drips Quality Stroke Does the patient have a stroke diagnosis?: No VTE Prior VTE?: No VTE Risk Level:: Medical - moderate - high VTE Device Contraindication: N/A - Device Ordered VTE Drug Contraindication: Treatment Not Indicated
[2023-04-14 12:34] LABS: COVID-19 Test Invalid (Negative); IDNOW Serial# 55D5AD1C
--- NOTE | 2023-04-14 12:38 | MHC.CLN ---
PT IS INTUBATED AND SEDATED TF RUNNING AT [facility] NSG REPORTED TOLERATING TF AT THIS TIME RECOMMEND JEVITY AT MAX GOAL RATE 65ML/HR WITH 30ML PROSOURCE X1 PER DAY AND 240ML FWF Q 6 HRS TO PROVIDE 1714KCALS (2160KCLAS WITH SEDATION; 30KCALS/KG), 84G PROTEIN (1.2G/KG), 2263ML TOTAL WATER FROM FOMRULA AND FLUSHES (31ML/KG) MONITOR TOLERANCE, RESIDUALS AND LYTES
--- NOTE | 2023-04-14 13:09 | MHC.CM.PN ---
Attempted to meet with patient in regards to discharge planning. Patient is currently intubated/vented in ICU. Patient's emergency contact listed is Aline Moyer. I spoke with Aline via telephone at [phone]. Aline is the mother of patient's 12 year old son. Patient's father 1 year ago. Patient's mother lives in [facility]. Patient currently does not have a PCP or HCP. Patient has not received any Covid vaccines. Aline will be in the ICU around 5pm tonight. Aline is going to actively pursue drug treatment for patient. She has requested to speak to Recovery Team for resources. Sae from Recovery Team is aware and will meet with Aline when she is on-site. Continue to monitor for d/c needs.
[2023-04-14] MEDS: vancomycin HCL 1,500 MG in 0.9 % Sodium Chloride 500 ML 333.33 MG IV (17:38)
[2023-04-15] VITALS (31 sets, daily range): BP systolic 93–157; BP diastolic 51–83; PULSE 34–91; RESP 15–21; TEMP 32–38.6; O2SAT 91–99; BMI 38.1
[2023-04-15] MEDS: propofoL 1,000 MG/100 ML VIAL 16.9 MG IVCONT ×4 (01:02→20:24)
[2023-04-15] MEDS: Midazolam HCl/NS 50 MG/50 ML PLAST..BAG IVCONT ×2 (01:14→19:56)
[2023-04-15] MEDS: Pantoprazole Sodium 80 MG in 0.9 % Sodium Chloride 80 ML 10 MG IV ×3 (03:43→21:20)
[2023-04-15 04:27] LABS: VBG Base Excess 4.6 mmol/L; VBG HCO3 29 mmol/L (22-26); VBG pCO2 44 mmHg; VBG pH 7.42 (7.32-7.43); VBG pO2 54 mmHg
[2023-04-15 04:56] LABS: MANUAL DIFF FLAG NO
[2023-04-15 04:57] LABS: Basophils Percent Auto 0.2 % (0-2); Eosinophils Percent Auto 0.4 % (0-4); Hemoglobin 11.2 g/dl (14.0-18.0); Imm Gran Abs Auto 0.05 X10*3/uL (0.00-0.03); Imm Gran Pct Auto 0.5 % (0.0-0.4); Lymphocytes Absolute Auto 1.7 X10*3/uL (1.2-4.9); Lymphocytes Percent Auto 17.2 % (20-40); Mean Corpuscular Hemoglobin 30.6 pg (27.0-33.0); Mean Corpuscular Volume 95.6 fL (80.0-98.0); Mean Platelet Volume 10.6 fL (9.4-12.4); Monocytes Absolute Auto 0.6 X10*3/uL (0.1-1.2); Monocytes Percent Auto 6.2 % (2-11); Neutrophils Absolute Auto 7.6 x10*3/uL (2.0-8.3); Neutrophils Percent Auto 75.5 % (45-73); Platelet Count 115 X10*3/uL (160-400); Red Blood Count 3.66 X10*6/uL (4.60-5.80); Red Cell Distribution Width 13.3 % (11.0-16.0); White Blood Count 10.1 X10*3/uL (4.8-10.8)
[2023-04-15 05:22] LABS: Alanine Aminotransferase 1043 U/L (0-40); Albumin Level 2.9 g/dL (3.5-5.0); Alkaline Phosphatase 46 U/L (39-117); Anion Gap 11 (12-20); Aspartate Amino Transferase 525 U/L (5-37); Bilirubin Total 0.4 mg/dL (0.0-1.0); Blood Urea Nitrogen 33 mg/dL (9-16); Calcium 8.6 mg/dL (8.4-10.2); Carbon Dioxide 25 mmol/L (22-29); Chloride 111 mmol/L (96-108); Creatinine Clr Calc Pharmacy 69.4; Estimated Glomerular Filt Rate 42; Glucose Random 95 mg/dL (60-115); Magnesium 2.4 mg/dL (1.6-2.6); Phosphorus 2.4 mg/dL (2.7-4.5); Potassium 4.1 mmol/L (3.3-5.1); Sodium 143 mmol/L (135-145); Total Protein 5.3 g/dL (6.5-8.0)
[2023-04-15 05:42] LABS: Venous Blood Gas Refer to POC result
[2023-04-15] MEDS: Albuterol/Iprat 2.5/0.5MG 3 ML AMPUL.NEB INHALE ×4 (07:52→20:20)
[2023-04-15] MEDS: Chlorhexidine Gluc Oral Rinse 15 ML MOUTHWASH BUCCAL ×3 (08:17→19:56)
[2023-04-15] MEDS: propofoL 1,000 MG/100 ML VIAL 12.67 MG IVCONT ×2 (08:17→13:35)
[2023-04-15 08:31] LABS: INTERNATIONAL NORM RATIO 1.2 (0.9-1.1); Prothrombin Time 13.3 SEC (10.0-13.1)
[2023-04-15 08:34] LABS: Partial Thromboplastin Time 31.1 SEC (26.0-36.4)
[2023-04-15 08:53] LABS: Procalcitonin 1.38 ng/mL
[2023-04-15 09:02] LABS: Erythrocyte Sedimentation Rate 16 MM/HR (0-15)
--- NOTE | 2023-04-15 13:37 | MHC.CM.PN ---
Pt continues on ventilatory support to allow for withdrawal symptoms to subside. Once extubated, pt can participate in CM assessment for d/c planning needs. CM to follow.
--- NOTE | 2023-04-15 14:10 | PM.CCPN ---
Subjective Subjective Date of Service: 04/15/23 Interval History: A 37-year-old morbidly obese male polysubstance abuser came in with cocaine and fentanyl toxicity the toe clearly encephalopathic required intubation has remained so but the in it may here are his persistent temperatures exceeding 101 degrees and we probably have 1 contaminated blood culture out of 2 with a full set of repeat cultures now pending and it is growing Staph epidermidis so it it is presumptive on my end that this is an infection that requires ongoing treatment we gave him only 1 dose of vancomycin yesterday until we got back to species He came in a now only encephalopathic but he had acute kidney injury clearly an acute lung injury as well but current FiO2 requirement 45% still over 10 L minute ventilatory requirement but he also at evidence of a diffuse cardiomyopathy with an ejection fraction approximating 35% of also in a presumed cardiotoxicity related to the cocaine more presumably He also had some visible physiologic indicators of withdrawal so he remains on midazolam and propofol comfortably sedated at this point uncomplicated with repairing acute kidney insufficiency persistent temperatures but were doing surveillance cultures and I am going to withhold any antibiotic treatment I think at this point assume the temperatures are related to substance abuse Critical Care Time (minutes): 45 Physical Exam Vital Signs: Vital Signs: Last Vital Signs Temp 101.1 F H 04/15/23 13:00 Pulse 89 04/15/23 13:00 Resp 18 04/15/23 13:00 BP 120/82 04/15/23 13:00 Pulse Ox 93 04/15/23 13:00 O2 Del Method Mechanical Ventil ation 04/15/23 13:00 FiO2 45 04/15/23 13:00 Oxygen Flow Rate 3 04/13/23 17:10 BMI result Body Mass Index 38.1 Current pressure 116/78 for a mean of 88 oxygen saturation 93% and he is in sinus rhythm at a rate of 89 Lungs with no adventitious sounds Abdomen is soft with modest residuals of 100 cc of gastric contents and he is tolerating thus far his oral feedings Bedside echo with persistent diffuse hypokinesis consistent with possible myocardial toxicity of his cocaine Skin intact no cellulitic infection sites Objective Data Labs 04/15/23 04:11 04/15/23 04:11 Labs: Laboratory Results - last 24 hr 04/15/23 04/15/23 04/15/23 04:11 04:11 04:18 WBC 10.1 RBC 3.66 L Hgb 11.2 L Hct 35.0 L MCV 95.6 MCH 30.6 MCHC 32.0 RDW 13.3 Plt Count 115 L D MPV 10.6 Immature Gran % (Auto) 0.5 H Neut % (Auto) 75.5 H Lymph % (Auto) 17.2 L [place] % (Auto) 6.2 Eos % (Auto) 0.4 Baso % (Auto) 0.2 Lymph # (Auto) 1.7 [place] # (Auto) 0.6 Eos # (Auto) 0.0 Baso # (Auto) 0.0 Abs Immat Gran (auto) 0.05 H Absolute Neuts (auto) 7.6 Absolute Nucleated RBC 0.000 Nucleated RBC % (auto) 0.0 ESR PT INR APTT VBG pH 7.42 VBG pCO2 44 VBG pO2 54 VBG HCO3 29 H VBG O2 Saturation 85.0 VBG Base Excess 4.6 Sodium 143 Potassium 4.1 D Chloride 111 H Carbon Dioxide 25 Anion Gap 11 L BUN 33 H Creatinine 1.82 H Estim Creat Clear Calc 69.4 Estimated GFR 42 Random Glucose 95 Calcium 8.6 D Phosphorus 2.4 L Magnesium 2.4 Total Bilirubin 0.4 AST 525 H ALT 1043 H Alkaline Phosphatase 46 Total Creatine Kinase 922 H Total Protein 5.3 L Albumin 2.9 L Procalcitonin 04/15/23 04/15/23 04/15/23 07:06 07:20 07:20 WBC RBC Hgb Hct MCV MCH MCHC RDW Plt Count MPV Immature Gran % (Auto) Neut % (Auto) Lymph % (Auto) [place] % (Auto) Eos % (Auto) Baso % (Auto) Lymph # (Auto) [place] # (Auto) Eos # (Auto) Baso # (Auto) Abs Immat Gran (auto) Absolute Neuts (auto) Absolute Nucleated RBC Nucleated RBC % (auto) ESR 16 H PT 13.3 H INR 1.2 H APTT 31.1 VBG pH VBG pCO2 VBG pO2 VBG HCO3 VBG O2 Saturation VBG Base Excess Sodium Potassium Chloride Carbon Dioxide Anion Gap BUN Creatinine Estim Creat Clear Calc Estimated GFR Random Glucose Calcium Phosphorus Magnesium Total Bilirubin AST ALT Alkaline Phosphatase Total Creatine Kinase Total Protein Albumin Procalcitonin 1.38 Microbiology Microbiology Results: Microbiology 04/13/23 23:00 Urine Catheterized - Straight Catheter Urine Culture - Final No growth. 07/11/23 20:56 Blood - Venous Blood Culture - Preliminary Coag negative Staphylococcus 04/13/23 20:56 Blood - Venous Blood Culture - Preliminary No growth after 24 hours. 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
[2023-04-16] VITALS (33 sets, daily range): BP systolic 96–152; BP diastolic 60–108; PULSE 78–102; RESP 11–23; TEMP 34.8–39.3; O2SAT 90–98; BMI 38.7
[2023-04-16] MEDS: propofoL 1,000 MG/100 ML VIAL 16.9 MG IVCONT ×2 (00:15→04:22)
[2023-04-16 04:45] LABS: VBG Base Excess 5.8 mmol/L; VBG HCO3 30 mmol/L (22-26); VBG pCO2 43 mmHg; VBG pH 7.45 (7.32-7.43); VBG pO2 48 mmHg
[2023-04-16 05:30] LABS: Basophils Percent Auto 0.3 % (0-2); Eosinophils Absolute Auto 0.1 X10*3/uL (0.0-0.4); Eosinophils Percent Auto 1.3 % (0-4); Hematocrit 34.7 % (42.0-52.0); Imm Gran Abs Auto 0.07 X10*3/uL (0.00-0.03); Imm Gran Pct Auto 0.7 % (0.0-0.4); Lymphocytes Absolute Auto 1.6 X10*3/uL (1.2-4.9); Lymphocytes Percent Auto 15.7 % (20-40); MANUAL DIFF FLAG SCAN; Mean Corpuscular HGB Conc 31.7 g/dl (31.0-36.0); Mean Corpuscular Hemoglobin 30.8 pg (27.0-33.0); Mean Corpuscular Volume 97.2 fL (80.0-98.0); Mean Platelet Volume 10.5 fL (9.4-12.4); Monocytes Absolute Auto 0.8 X10*3/uL (0.1-1.2); Monocytes Percent Auto 8.1 % (2-11); Neutrophils Absolute Auto 7.6 x10*3/uL (2.0-8.3); Neutrophils Percent Auto 73.9 % (45-73); PLT CLUMP 1; Red Blood Count 3.57 X10*6/uL (4.60-5.80); Red Cell Distribution Width 13.4 % (11.0-16.0); SCAN SMEAR FLAG 1
[2023-04-16 05:42] LABS: White Blood Count 10.2 X10*3/uL (4.8-10.8)
[2023-04-16 06:03] LABS: Alanine Aminotransferase 1006 U/L (0-40); Albumin Level 2.9 g/dL (3.5-5.0); Alkaline Phosphatase 47 U/L (39-117); Aspartate Amino Transferase 325 U/L (5-37); Bilirubin Total 0.7 mg/dL (0.0-1.0); Blood Urea Nitrogen 22 mg/dL (9-16); Calcium 8.2 mg/dL (8.4-10.2); Chloride 109 mmol/L (96-108); Creatinine Clr Calc Pharmacy 100.3; Estimated Glomerular Filt Rate > 60; Glucose Random 113 mg/dL (60-115); Magnesium 2.3 mg/dL (1.6-2.6); Phosphorus 2.4 mg/dL (2.7-4.5); Potassium 3.7 mmol/L (3.3-5.1); Sodium 143 mmol/L (135-145); Total Protein 5.6 g/dL (6.5-8.0)
[2023-04-16 06:20] LABS: SLIDE REVIEW VERIFIED
[2023-04-16 06:33] LABS: Anion Gap 13 (12-20); Carbon Dioxide 25 mmol/L (22-29)
[2023-04-16] MEDS: Albuterol/Iprat 2.5/0.5MG 3 ML AMPUL.NEB INHALE ×4 (07:08→20:20)
[2023-04-16] MEDS: Chlorhexidine Gluc Oral Rinse 15 ML MOUTHWASH BUCCAL ×3 (07:23→21:29)
[2023-04-16] MEDS: Midazolam HCl/NS 50 MG/50 ML PLAST..BAG IVCONT (07:29)
[2023-04-16 07:41] LABS: Venous Blood Gas Refer to POC result
[2023-04-16] MEDS: Lactulose 20 GM/30 ML SOLUTION PO (08:45)
[2023-04-16] MEDS: Linezolid/D5W 600 MG/300 ML PIGGYBACK 300 MG IV ×2 (08:45→21:29)
[2023-04-16] MEDS: Acetaminophen Oral Liquid 650 MG/20.3 ML SOLUTION PO ×4 (08:45→21:29)
[2023-04-16] MEDS: Pantoprazole Sodium 80 MG in 0.9 % Sodium Chloride 80 ML 10 MG IV (08:52)
--- NOTE | 2023-04-16 08:59 | MHC.CLN ---
F/U PT REMAINS INTUBATED AND SEDATED PT RECEIVING JEVITY AT MAX GOAL RATE 65ML/HR WITH 30ML PROSOURCE X1 PER DAY AND 240ML FWF Q 6 HRS PROVIDES 1714KCALS (1937KCALS WITH SEDATION; 27KCALS/KG), 84G PROTEIN (1.1G/KG), 2263ML TOTAL WATER FROM FORMULA AND FLUSHES (31ML/KG) MONITOR TOLERANCE, RESIDUALS AND LYTES
[2023-04-16] MEDS: propofoL 1,000 MG/100 ML VIAL 8.45 MG IVCONT (09:02)
--- NOTE | 2023-04-16 16:24 | P.PNCC_ITS ---
Subjective Subjective Date of Service: 04/16/23 Interval History: 37-year-old polysubstance abuser overdosed on fentanyl and cocaine he was found down requiring of course intubation and brief CPR and they felt some aspiration at that time and has remained on the ventilator FiO2 has been weaned but he is bringing up increasing secretions spiking higher fevers peaking at nearly 103 with very purulent sputum and actually mixed with some hemoptysis with suspect chest x-rays as well and had a sedation holiday which which failed is cognitive function was poor he got highly agitated and were empirically covering the sputum as we await lab results with linezolid meropenem and because he had 1 blood culture positive for Staph epidermidis we covered x1 until we prove that there was no 2nd 3rd or 4th culture bottle that was positive and that the organism was coagulase negative and so only 1 dose of vancomycin had been given Critical Care Time (minutes): 35 Physical Exam Vital Signs: Vital Signs: Last Vital Signs Temp 101.1 F H 04/16/23 16:00 Pulse 91 04/16/23 16:00 Resp 11 L 04/16/23 16:00 BP 125/78 04/16/23 16:00 Pulse Ox 91 L 04/16/23 16:00 O2 Del Method Mechanical Ventil ation 04/16/23 16:00 FiO2 30 04/16/23 16:00 Oxygen Flow Rate 3 04/13/23 17:10 BMI result Body Mass Index 38.7 Still has about an 11 L a minutes ventilatory requirement but FiO2 is now down to 40% Have bedside echo proximally 50% ejection fraction at best may be just a mild reduction of global tiny MARIN consistent with some diminished systolic reserve Abdomen benign no bruits no tenderness no organomegaly Chest with with coarse bibasilar rales Objective Data Labs 04/16/23 04:28 04/16/23 04:28 Labs: Laboratory Results - last 24 hr 04/16/23 04/16/23 04/16/23 04:28 04:28 04:35 WBC 10.2 RBC 3.57 L Hgb 11.0 L Hct 34.7 L MCV 97.2 MCH 30.8 MCHC 31.7 RDW 13.4 Plt Count TNP MPV 10.5 Immature Gran % (Auto) 0.7 H Neut % (Auto) 73.9 H Lymph % (Auto) 15.7 L [place] % (Auto) 8.1 Eos % (Auto) 1.3 Baso % (Auto) 0.3 Lymph # (Auto) 1.6 [place] # (Auto) 0.8 Eos # (Auto) 0.1 Baso # (Auto) 0.0 Abs Immat Gran (auto) 0.07 H Absolute Neuts (auto) 7.6 Absolute Nucleated RBC 0.000 Nucleated RBC % (auto) 0.0 Smear Tech's Comments VERIFIED VBG pH 7.45 H VBG pCO2 43 VBG pO2 48 VBG HCO3 30 H VBG O2 Saturation 81.0 VBG Base Excess 5.8 Sodium 143 Potassium 3.7 Chloride 109 H Carbon Dioxide 25 Anion Gap 13 BUN 22 H Creatinine 1.26 Estim Creat Clear Calc 100.3 Estimated GFR > 60 Random Glucose 113 Calcium 8.2 L Phosphorus 2.4 L Magnesium 2.3 Total Bilirubin 0.7 AST 325 H ALT 1006 H Alkaline Phosphatase 47 Total Protein 5.6 L Albumin 2.9 L Microbiology Microbiology Results: Microbiology 04/13/23 20:56 Blood - Venous Blood Culture - Final Coag negative Staphylococcus 04/15/23 07:18 Blood - Venous Blood Culture - Preliminary No growth after 24 hours. 04/15/23 07:11 Blood - Venous Blood Culture - Preliminary No growth after 24 hours. 04/15/23 15:29 Sputum - Suctioned Gram Stain - Final 04/15/23 15:29 Sputum - Suctioned Sputum Culture - Preliminary Culture in progress. 04/13/23 20:56 Blood - Venous Blood Culture - Preliminary No growth after 48 hours. 04/13/23 23:00 Urine Catheterized - Straight Catheter Urine Culture - Final No growth. Progress Note: A&P Assessment and plan (1) Congestive cardiomyopathy: Status: Acute (2) Toxic encephalopathy: Status: Acute (3) Delirium: Status: Acute (4) COVID-19: Status: Acute (5) Drug overdose: Status: Acute (6) Coffee ground emesis: Status: Acute (7) Agitation: Status: Acute (8) Hypoxia: Status: Acute (9) GAYLE (acute kidney injury): Status: Acute (10) Avulsion fracture of thumb: Status: Acute Plan So the plan is to continue with both linezolid as well as meropenem until we have a more defined species will continue to send of surveillance speech to the laboratory thus far blood cultures have been negative and he still has persistent encephalopathy so we will attempt again in the morning a sedation holiday Quality Stroke Does the patient have a stroke diagnosis?: No VTE Prior VTE?: No VTE Risk Level:: Medical - moderate - high VTE Device Contraindication: N/A - Device Ordered VTE Drug Contraindication: Treatment Not Indicated
[2023-04-16] MEDS: Midazolam HCl/PF 2 MG/2 ML VIAL IVPUSH ×2 (16:30→20:45)
[2023-04-16] MEDS: dexmedeTOMIDidine HCL/NS 400 MCG/100 ML INFUS..BTL 14.85 MCG IVCONT (16:45)
--- NOTE | 2023-04-16 18:43 | PC.NURSE ---
Patient titrated off Versad and Propfol drip. Weaned to PSV 10/5 FiO2 30% tolerating well. Patient became restless, cough and gagging on the ET tube. Precedex started for comfort. Will not extubate today per Dr Walden. Copious amount of vidales sputum. Tube feeds restarted since no extubation. No BM in at least 3 days, Lactulose given. Receving abx. Fever up to 102.6, Tylenol given with good effect. Bed alarm on, safety maintained. See further assessment documentation.
[2023-04-16] MEDS: dexmedeTOMIDidine HCL/NS 400 MCG/100 ML INFUS..BTL 38.61 MCG IVCONT ×2 (20:49→22:43)
[2023-04-16] MEDS: propofoL 1,000 MG/100 ML VIAL 21.38 MG IVCONT ×2 (20:50→22:44)
[2023-04-16] MEDS: bisacodyL 10 MG SUPP.RECT PR (22:43)
[2023-04-17] VITALS (31 sets, daily range): BP systolic 119–151; BP diastolic 78–97; PULSE 77–88; RESP 14–26; TEMP 34.4–39.7; O2SAT 90–97; BMI 38.7
[2023-04-17] MEDS: dexmedeTOMIDidine HCL/NS 400 MCG/100 ML INFUS..BTL 38.61 MCG IVCONT ×11 (00:35→23:34)
[2023-04-17] MEDS: Acetaminophen Oral Liquid 650 MG/20.3 ML SOLUTION PO ×3 (02:45→17:22)
[2023-04-17] MEDS: propofoL 1,000 MG/100 ML VIAL 14.26 MG IVCONT ×2 (03:16→14:41)
[2023-04-17 04:26] LABS: VBG Base Excess 4.8 mmol/L; VBG HCO3 28 mmol/L (22-26); VBG pCO2 40 mmHg; VBG pH 7.46 (7.32-7.43); VBG pO2 48 mmHg
[2023-04-17 04:42] LABS: MANUAL DIFF FLAG NO
[2023-04-17 04:56] LABS: Basophils Percent Auto 0.3 % (0-2); Eosinophils Absolute Auto 0.2 X10*3/uL (0.0-0.4); Eosinophils Percent Auto 1.8 % (0-4); Hematocrit 37.7 % (42.0-52.0); Imm Gran Abs Auto 0.04 X10*3/uL (0.00-0.03); Imm Gran Pct Auto 0.4 % (0.0-0.4); Lymphocytes Absolute Auto 1.8 X10*3/uL (1.2-4.9); Lymphocytes Percent Auto 17.2 % (20-40); Mean Corpuscular HGB Conc 31.8 g/dl (31.0-36.0); Mean Corpuscular Volume 94.3 fL (80.0-98.0); Monocytes Percent Auto 10.1 % (2-11); Neutrophils Absolute Auto 7.2 x10*3/uL (2.0-8.3); Neutrophils Percent Auto 70.2 % (45-73); Red Cell Distribution Width 13.2 % (11.0-16.0); White Blood Count 10.3 X10*3/uL (4.8-10.8)
[2023-04-17 05:08] LABS: Alanine Aminotransferase 705 U/L (0-40); Albumin Level 3.1 g/dL (3.5-5.0); Alkaline Phosphatase 56 U/L (39-117); Anion Gap 13 (12-20); Aspartate Amino Transferase 126 U/L (5-37); Bilirubin Total 0.8 mg/dL (0.0-1.0); Blood Urea Nitrogen 18 mg/dL (9-16); Calcium 8.7 mg/dL (8.4-10.2); Carbon Dioxide 27 mmol/L (22-29); Chloride 109 mmol/L (96-108); Creatinine Clr Calc Pharmacy 120.2; Estimated Glomerular Filt Rate > 60; Glucose Random 124 mg/dL (60-115); Magnesium 2.3 mg/dL (1.6-2.6); Sodium 145 mmol/L (135-145); Total Protein 6.1 g/dL (6.5-8.0)
[2023-04-17 05:15] LABS: Venous Blood Gas Refer to POC result
[2023-04-17 05:22] LABS: Mean Platelet Volume 10.5 fL (9.4-12.4); Platelet Count 84 X10*3/uL (160-400)
[2023-04-17] MEDS: Pantoprazole Sodium 40 MG/10 ML VIAL IVPUSH ×2 (05:57→16:22)
[2023-04-17] MEDS: Albuterol/Iprat 2.5/0.5MG 3 ML AMPUL.NEB INHALE ×4 (07:18→20:38)
[2023-04-17] MEDS: Lactulose 20 GM/30 ML SOLUTION PO (08:26)
[2023-04-17] MEDS: Chlorhexidine Gluc Oral Rinse 15 ML MOUTHWASH BUCCAL ×3 (08:26→19:56)
[2023-04-17] MEDS: Linezolid/D5W 600 MG/300 ML PIGGYBACK 300 MG IV ×2 (08:26→20:01)
[2023-04-17] MEDS: propofoL 1,000 MG/100 ML VIAL 28.51 MG IVCONT (10:08)
--- NOTE | 2023-04-17 15:19 | P.PNCC_ITS ---
Subjective Subjective Date of Service: 04/17/23 Interval History: Same issue we we gave him a sedation holiday and he clearly was encephalopathic very combative confused never regain cognitive function he but he did awaken Nonfocal neurologically The laboratory did return Staph aureus from the sputum and therefore going to stop the meropenem given 1 synergistic dose of vancomycin but all but maintain linezolid as his main treatment Abdomen is benign no tenderness no organomegaly Chest with coarse bibasilar rales no other adventitious sounds A left IV site he definitely has an area of phlebitis there and his left upper extremity so treatment here is just to keep the antibiotics that we do have an just pull out that line which we did Critical Care Time (minutes): 35 Physical Exam Vital Signs: Vital Signs: Last Vital Signs Temp 102.0 F H 04/17/23 15:00 Pulse 80 04/17/23 15:00 Resp 14 04/17/23 15:00 BP 122/83 04/17/23 15:00 Pulse Ox 92 04/17/23 15:00 O2 Del Method Mechanical Ventil ation 04/17/23 15:00 FiO2 30 04/17/23 15:00 Oxygen Flow Rate 3 04/13/23 17:10 BMI result Body Mass Index 38.7 So examination remains unchanged cognitive function still absent definitely encephalopathic left upper extremity area of phlebitis otherwise no changes in exam Objective Data Labs 04/17/23 04:11 04/17/23 04:11 Labs: Laboratory Results - last 24 hr 04/17/23 04/17/23 04/17/23 04:11 04:11 04:14 WBC 10.3 RBC 4.00 L Hgb 12.0 L Hct 37.7 L MCV 94.3 MCH 30.0 MCHC 31.8 RDW 13.2 Plt Count 84 L D MPV 10.5 Immature Gran % (Auto) 0.4 Neut % (Auto) 70.2 Lymph % (Auto) 17.2 L [place] % (Auto) 10.1 Eos % (Auto) 1.8 Baso % (Auto) 0.3 Lymph # (Auto) 1.8 [place] # (Auto) 1.0 Eos # (Auto) 0.2 Baso # (Auto) 0.0 Abs Immat Gran (auto) 0.04 H Absolute Neuts (auto) 7.2 Absolute Nucleated RBC 0.000 Nucleated RBC % (auto) 0.0 VBG pH 7.46 H VBG pCO2 40 VBG pO2 48 VBG HCO3 28 H VBG O2 Saturation 80.0 VBG Base Excess 4.8 Sodium 145 Potassium 4.0 Chloride 109 H Carbon Dioxide 27 Anion Gap 13 BUN 18 H Creatinine 1.06 Estim Creat Clear Calc 120.2 Estimated GFR > 60 Random Glucose 124 H Calcium 8.7 D Phosphorus 3.0 Magnesium 2.3 Total Bilirubin 0.8 AST 126 H ALT 705 H Alkaline Phosphatase 56 Total Protein 6.1 L Albumin 3.1 L Microbiology Microbiology Results: Microbiology 04/15/23 15:29 Sputum - Suctioned Gram Stain - Final 04/15/23 15:29 Sputum - Suctioned Sputum Culture - Preliminary Staphylococcus aureus 04/15/23 07:18 Blood - Venous Blood Culture - Preliminary No growth after 48 hours. 04/15/23 07:11 Blood - Venous Blood Culture - Preliminary No growth after 48 hours. 04/13/23 20:56 Blood - Venous Blood Culture - Final Coag negative Staphylococcus 04/13/23 20:56 Blood - Venous Blood Culture - Preliminary No growth after 48 hours. 04/13/23 23:00 Urine Catheterized - Straight Catheter Urine Culture - Final No growth. Progress Note: A&P Assessment and plan (1) Congestive cardiomyopathy: Status: Acute (2) Toxic encephalopathy: Status: Acute (3) Delirium: Status: Acute (4) COVID-19: Status: Acute (5) Drug overdose: Status: Acute (6) Coffee ground emesis: Status: Acute (7) Agitation: Status: Acute (8) Hypoxia: Status: Acute (9) GAYLE (acute kidney injury): Status: Acute (10) Avulsion fracture of thumb: Status: Acute Plan Plan is antibiotics inclusive of linezolid and 1 synergistic dose of vancomycin today and meropenem can be discontinued and will re-attempt sedation wean again in the morning Quality Stroke Does the patient have a stroke diagnosis?: No VTE Prior VTE?: No VTE Risk Level:: Medical - moderate - high VTE Device Contraindication: N/A - Device Ordered VTE Drug Contraindication: Treatment Not Indicated
[2023-04-17] MEDS: vancomycin HCL 1,500 MG in 0.9 % Sodium Chloride 500 ML 333.33 MG IV (16:23)
[2023-04-17] MEDS: propofoL 1,000 MG/100 ML VIAL 21.38 MG IVCONT (20:30)
[2023-04-17] MEDS: Acetaminophen Supp 650 MG SUPP.RECT PR (22:08)
[2023-04-18] VITALS (31 sets, daily range): BP systolic 109–189; BP diastolic 72–104; PULSE 65–113; RESP 18–32; TEMP 35–39.3; O2SAT 90–97; BMI 38.2
[2023-04-18] MEDS: propofoL 1,000 MG/100 ML VIAL 21.38 MG IVCONT ×2 (00:40→03:42)
[2023-04-18] MEDS: dexmedeTOMIDidine HCL/NS 400 MCG/100 ML INFUS..BTL 38.61 MCG IVCONT ×4 (01:58→08:42)
[2023-04-18 05:11] LABS: VBG Base Excess 2.6 mmol/L; VBG HCO3 27 mmol/L (22-26); VBG pCO2 40 mmHg; VBG pH 7.43 (7.32-7.43); VBG pO2 41 mmHg
[2023-04-18 05:13] LABS: Venous Blood Gas Refer to POC result
[2023-04-18 05:46] LABS: MANUAL DIFF FLAG NO
[2023-04-18 05:48] LABS: Basophils Percent Auto 0.2 % (0-2); Eosinophils Absolute Auto 0.3 X10*3/uL (0.0-0.4); Eosinophils Percent Auto 2.6 % (0-4); Hematocrit 36.3 % (42.0-52.0); Hemoglobin 11.7 g/dl (14.0-18.0); Imm Gran Abs Auto 0.08 X10*3/uL (0.00-0.03); Imm Gran Pct Auto 0.6 % (0.0-0.4); Lymphocytes Absolute Auto 1.6 X10*3/uL (1.2-4.9); Lymphocytes Percent Auto 12.5 % (20-40); Mean Corpuscular HGB Conc 32.2 g/dl (31.0-36.0); Mean Corpuscular Hemoglobin 30.3 pg (27.0-33.0); Monocytes Absolute Auto 1.4 X10*3/uL (0.1-1.2); Monocytes Percent Auto 10.5 % (2-11); Neutrophils Absolute Auto 9.7 x10*3/uL (2.0-8.3); Neutrophils Percent Auto 73.6 % (45-73); Red Blood Count 3.86 X10*6/uL (4.60-5.80); Red Cell Distribution Width 13.1 % (11.0-16.0); White Blood Count 13.2 X10*3/uL (4.8-10.8)
[2023-04-18 05:55] LABS: Platelet Count 77 X10*3/uL (160-400)
[2023-04-18 06:06] LABS: Alanine Aminotransferase 380 U/L (0-40); Albumin Level 2.8 g/dL (3.5-5.0); Alkaline Phosphatase 54 U/L (39-117); Anion Gap 13 (12-20); Aspartate Amino Transferase 51 U/L (5-37); Bilirubin Total 0.9 mg/dL (0.0-1.0); Blood Urea Nitrogen 18 mg/dL (9-16); Calcium 8.7 mg/dL (8.4-10.2); Carbon Dioxide 25 mmol/L (22-29); Chloride 107 mmol/L (96-108); Estimated Glomerular Filt Rate > 60; Glucose Random 119 mg/dL (60-115); Magnesium 2.2 mg/dL (1.6-2.6); Phosphorus 3.7 mg/dL (2.7-4.5); Potassium 4.1 mmol/L (3.3-5.1); Sodium 141 mmol/L (135-145); Total Protein 5.7 g/dL (6.5-8.0)
[2023-04-18] MEDS: Pantoprazole Sodium 40 MG/10 ML VIAL IVPUSH (06:11)
[2023-04-18] MEDS: Albuterol/Iprat 2.5/0.5MG 3 ML AMPUL.NEB INHALE ×4 (07:39→19:28)
[2023-04-18] MEDS: propofoL 1,000 MG/100 ML VIAL 14.26 MG IVCONT (08:08)
[2023-04-18] MEDS: Linezolid/D5W 600 MG/300 ML PIGGYBACK 300 MG IV ×2 (08:08→21:29)
[2023-04-18] MEDS: Chlorhexidine Gluc Oral Rinse 15 ML MOUTHWASH BUCCAL (08:08)
[2023-04-18] MEDS: Lactulose 20 GM/30 ML SOLUTION PO (08:08)
[2023-04-18] MEDS: Midazolam HCl/PF 2 MG/2 ML VIAL IVPUSH ×2 (09:15→20:13)
--- NOTE | 2023-04-18 12:49 | P.PNCC_ITS ---
Subjective Subjective Date of Service: 04/18/23 Interval History: 37-year-old polysubstance abuser was found down with toxicology positive for cocaine and fentanyl brief CPR and intubation ensued with some witnessed aspiration and he was just extubated this morning because he had restored cognitive function for the 1st time still displayed some delirium 24 hours ago he had high spiking temperatures and left shift on his white count with positive procalcitonin and ventrally the very purulence sputum grew methicillin- resistant Staph aureus and repaired his antibiotics down he remains only on linezolid laboratory shows daily improving liver function tests resolved acute kidney insufficiency a but he has thrombocytopenia so it pared down most of his medicines almost all of which could be associated with thrombocytopenia except the linezolid he was down to a 10 L minute ventilation and FiO2 of 40% but had lots of secretions were and he has got a very very good cough he had excellent tidal volume and respiratory rate with a very appropriate ratio good vital capacity reserve and so he was comfortably extubated Critical Care Time (minutes): 35 Physical Exam Vital Signs: Vital Signs: Last Vital Signs Temp 99.3 F 04/18/23 12:00 Pulse 94 04/18/23 12:01 Resp 23 H 04/18/23 12:01 BP 127/101 H 04/18/23 12:00 Pulse Ox 90 L 04/18/23 12:00 O2 Del Method Nasal Cannula 04/18/23 12:00 O2 Flow Rate 8 04/18/23 12:00 FiO2 40 04/18/23 10:00 Oxygen Flow Rate 3 04/13/23 17:10 BMI result Body Mass Index 38.2 he is awake alert following commands seemingly appropriate cognitive function and nonfocal neurologically bedside echo shows a mild diffuse hypokinesis approximating 50% ejection fraction bibasilar infiltrates with bibasilar rales and a consistent with his aspiration pneumonitis abdomen is benign no tenderness no organomegaly skin is intact with no acrocyanosis no areas of wound opening or cellulitis Objective Data Labs 04/18/23 05:01 04/18/23 05:00 Labs: Laboratory Results - last 24 hr 04/18/23 04/18/23 04/18/23 04:59 05:00 05:01 WBC 13.2 H RBC 3.86 L Hgb 11.7 L Hct 36.3 L MCV 94.0 MCH 30.3 MCHC 32.2 RDW 13.1 Plt Count 77 L MPV 11.0 Immature Gran % (Auto) 0.6 H Neut % (Auto) 73.6 H Lymph % (Auto) 12.5 L [place] % (Auto) 10.5 Eos % (Auto) 2.6 Baso % (Auto) 0.2 Lymph # (Auto) 1.6 [place] # (Auto) 1.4 H Eos # (Auto) 0.3 Baso # (Auto) 0.0 Abs Immat Gran (auto) 0.08 H Absolute Neuts (auto) 9.7 H Absolute Nucleated RBC 0.000 Nucleated RBC % (auto) 0.0 VBG pH 7.43 VBG pCO2 40 VBG pO2 41 VBG HCO3 27 H VBG O2 Saturation 68.0 VBG Base Excess 2.6 Sodium 141 Potassium 4.1 Chloride 107 Carbon Dioxide 25 Anion Gap 13 BUN 18 H Creatinine 0.91 Estim Creat Clear Calc 140.0 Estimated GFR > 60 Random Glucose 119 H Calcium 8.7 Phosphorus 3.7 Magnesium 2.2 Total Bilirubin 0.9 AST 51 H ALT 380 H Alkaline Phosphatase 54 Total Protein 5.7 L Albumin 2.8 L Microbiology Microbiology Results: Microbiology 04/15/23 15:29 Sputum - Suctioned Gram Stain - Final 04/15/23 15:29 Sputum - Suctioned Sputum Culture - Final Methicillin Res Staph Aureus 04/15/23 07:18 Blood - Venous Blood Culture - Preliminary No growth after 48 hours. 04/15/23 07:11 Blood - Venous Blood Culture - Preliminary No growth after 48 hours. 04/13/23 20:56 Blood - Venous Blood Culture - Final Coag negative Staphylococcus 04/13/23 20:56 Blood - Venous Blood Culture - Preliminary No growth after 48 hours. 04/13/23 23:00 Urine Catheterized - Straight Catheter Urine Culture - Final No growth. Progress Note: A&P Assessment and plan (1) Congestive cardiomyopathy: Status: Acute (2) Toxic encephalopathy: Status: Acute (3) Delirium: Status: Acute (4) COVID-19: Status: Acute (5) Drug overdose: Status: Acute (6) Coffee ground emesis: Status: Acute (7) Agitation: Status: Acute (8) Hypoxia: Status: Acute (9) GAYLE (acute kidney injury): Status: Acute (10) Avulsion fracture of thumb: Status: Acute Plan meeting all criteria he was successfully extubated doing well without any distress or difficulty will await a swallow exam in the morning Quality Stroke Does the patient have a stroke diagnosis?: No VTE Prior VTE?: No VTE Risk Level:: Medical - moderate - high VTE Device Contraindication: N/A - Device Ordered VTE Drug Contraindication: Treatment Not Indicated
[2023-04-18 15:13] LABS: OBS Int Ctl Valid YES; OBS1 POSITIVE (NEGATIVE)
[2023-04-18] MEDS: dexmedeTOMIDidine HCL/NS 400 MCG/100 ML INFUS..BTL 29.38 MCG IVCONT (21:48)
[2023-04-19] VITALS (22 sets, daily range): BP systolic 105–180; BP diastolic 76–111; PULSE 72–102; RESP 16–24; TEMP 35.6–38.6; O2SAT 92–99; BMI 37.8
[2023-04-19] MEDS: dexmedeTOMIDidine HCL/NS 400 MCG/100 ML INFUS..BTL 44.06 MCG IVCONT ×4 (00:12→06:22)
[2023-04-19] MEDS: Midazolam HCl/PF 2 MG/2 ML VIAL IVPUSH (00:55)
--- NOTE | 2023-04-19 03:06 | HO.SKINPHOTO ---
Location: Left buttocks Category: Deep tissue injury Stage: Length: Width: Depth: cm Location: Gluteal folds Category: Stage: Length: Width: Depth: cm
[2023-04-19 04:52] LABS: VBG Base Excess 1.3 mmol/L; VBG HCO3 23 mmol/L (22-26); VBG pCO2 28 mmHg; VBG pH 7.51 (7.32-7.43); VBG pO2 48 mmHg
[2023-04-19 04:56] LABS: MANUAL DIFF FLAG NO
[2023-04-19 04:58] LABS: Basophils Percent Auto 0.2 % (0-2); Eosinophils Absolute Auto 0.1 X10*3/uL (0.0-0.4); Eosinophils Percent Auto 1.1 % (0-4); Hematocrit 36.4 % (42.0-52.0); Hemoglobin 11.9 g/dl (14.0-18.0); Imm Gran Abs Auto 0.08 X10*3/uL (0.00-0.03); Imm Gran Pct Auto 0.6 % (0.0-0.4); Lymphocytes Absolute Auto 1.3 X10*3/uL (1.2-4.9); Lymphocytes Percent Auto 9.5 % (20-40); Mean Corpuscular HGB Conc 32.7 g/dl (31.0-36.0); Mean Corpuscular Volume 91.7 fL (80.0-98.0); Mean Platelet Volume 10.6 fL (9.4-12.4); Monocytes Absolute Auto 1.3 X10*3/uL (0.1-1.2); Monocytes Percent Auto 9.8 % (2-11); Neutrophils Absolute Auto 10.4 x10*3/uL (2.0-8.3); Neutrophils Percent Auto 78.8 % (45-73); Red Blood Count 3.97 X10*6/uL (4.60-5.80); Red Cell Distribution Width 12.6 % (11.0-16.0); White Blood Count 13.2 X10*3/uL (4.8-10.8)
[2023-04-19 05:02] LABS: Platelet Count 81 X10*3/uL (160-400)
[2023-04-19 05:20] LABS: Alanine Aminotransferase 239 U/L (0-40); Alkaline Phosphatase 55 U/L (39-117); Anion Gap 14 (12-20); Aspartate Amino Transferase 40 U/L (5-37); Blood Urea Nitrogen 20 mg/dL (9-16); Calcium 8.8 mg/dL (8.4-10.2); Carbon Dioxide 22 mmol/L (22-29); Chloride 108 mmol/L (96-108); Creatinine Clr Calc Pharmacy 160.3; Estimated Glomerular Filt Rate > 60; Glucose Random 112 mg/dL (60-115); Magnesium 2.1 mg/dL (1.6-2.6); Phosphorus 2.6 mg/dL (2.7-4.5); Potassium 3.7 mmol/L (3.3-5.1); Sodium 140 mmol/L (135-145); Total Protein 6.2 g/dL (6.5-8.0)
[2023-04-19 05:24] LABS: Venous Blood Gas Refer to POC result
[2023-04-19] MEDS: Albuterol/Iprat 2.5/0.5MG 3 ML AMPUL.NEB INHALE ×4 (07:39→19:21)
[2023-04-19] MEDS: Linezolid/D5W 600 MG/300 ML PIGGYBACK 300 MG IV ×2 (08:01→21:05)
--- NOTE | 2023-04-19 09:46 | MHC.CM.PN ---
Pt has been extubated and is very conversant. States he feels better and is hoping to d/c to home soon. Discussed CARE team visit for possible assistance w/substance usage. Pt somewhat receptive. Reminded pt he needs to choose a PCP w/his payor [place]. D/C : return to home w/outpt services.
--- NOTE | 2023-04-19 10:19 | MHC.CLN ---
RE: CONSULT PT WITH INCREASED NUTRITION RISK R/T PRESSURE INJURY DIET ADVANCED TO REGULAR PT MAY BENEFIT FROM HIGH PROTEIN NUTRITION SUPPLEMENT TO PROMOTE WOUND HEALING RECOMMEND ENSURE MAX BID TO PROVIDE 350KCALS, 60G PROTEIN MONITOR PO INTAKE CLOSELY SEE ALSO FULL CLINICAL NUTRITION ASSESSMENT
[2023-04-19] MEDS: Omeprazole 40 MG CAPSULE.DR PO (10:29)
--- NOTE | 2023-04-19 11:12 | P.PNCC_ITS ---
Subjective Subjective Date of Service: 04/19/23 Interval History: 37-year-old gentleman with underlying history of asthma, DVT/PE in 2021, currently not on anticoagulation, hypertension, renal calculi, and polysubstance abuse admitted on 04/13/2023 with alteration of mental status after fentanyl ingestion with brief CPR by family before ER evaluation and good response to Narcan from EMS. In ER required intubation for airway protection and ventilatory support. Hospital course significant for development of bloody in-line and oral secretion, treated with PPI, newly noted reduced ejection fraction on bedside echocardiogram, with official echo pending, and MRSA pneumonia, now on linez olid. Extubated on 04/18/2023. No events overnight. Passed bedside swallow evaluation. Critical Care Time (minutes): 0 Physical Exam Vital Signs: Vital Signs: Last Vital Signs Temp 101.2 F H 04/19/23 10:00 Pulse 83 04/19/23 10:00 Resp 20 04/19/23 10:00 BP 105/84 04/19/23 10:00 Pulse Ox 95 04/19/23 10:00 O2 Del Method Nasal Cannula 04/19/23 10:00 O2 Flow Rate 2 04/19/23 10:00 FiO2 40 04/18/23 10:00 Oxygen Flow Rate 3 04/13/23 17:10 BMI result Body Mass Index 37.8 Const: General: no acute distress, alert and awake Eyes: Sclerae: sclerae normal EOM: EOMs intact bilaterally Neck: Neck: Yes no lymphadenopathy, Yes trachea midline and Yes supple Resp: Effort & Inspection: normal respiratory effort and no respiratory distress Auscultation: clear to auscultation bilaterally Cardio: Rate: regular rate Rhythm: regular rhythm Heart sounds: no gallops, no murmurs and no rubs GI: Palpation (GI): Soft to palpation and Other GI palpation findings present ( Nontender) Auscultation: normal bowel sounds Extrem: General: Yes no pedal edema, No clubbing and No cyanosis Objective Data Labs 04/19/23 04:44 04/19/23 04:44 Labs: Laboratory Results - last 24 hr 04/18/23 04/19/23 04/19/23 14:09 04:42 04:44 WBC 13.2 H RBC 3.97 L Hgb 11.9 L Hct 36.4 L MCV 91.7 MCH 30.0 MCHC 32.7 RDW 12.6 Plt Count 81 L MPV 10.6 Immature Gran % (Auto) 0.6 H Neut % (Auto) 78.8 H Lymph % (Auto) 9.5 L [place] % (Auto) 9.8 Eos % (Auto) 1.1 Baso % (Auto) 0.2 Lymph # (Auto) 1.3 [place] # (Auto) 1.3 H Eos # (Auto) 0.1 Baso # (Auto) 0.0 Abs Immat Gran (auto) 0.08 H Absolute Neuts (auto) 10.4 H Absolute Nucleated RBC 0.000 Nucleated RBC % (auto) 0.0 VBG pH 7.51 H VBG pCO2 28 VBG pO2 48 VBG HCO3 23 VBG O2 Saturation 80.0 VBG Base Excess 1.3 Sodium Potassium Chloride Carbon Dioxide Anion Gap BUN Creatinine Estim Creat Clear Calc Estimated GFR Random Glucose Calcium Phosphorus Magnesium Total Bilirubin AST ALT Alkaline Phosphatase Total Protein Albumin Stool Occult Blood POSITIVE 04/19/23 04:44 WBC RBC Hgb Hct MCV MCH MCHC RDW Plt Count MPV Immature Gran % (Auto) Neut % (Auto) Lymph % (Auto) [place] % (Auto) Eos % (Auto) Baso % (Auto) Lymph # (Auto) [place] # (Auto) Eos # (Auto) Baso # (Auto) Abs Immat Gran (auto) Absolute Neuts (auto) Absolute Nucleated RBC Nucleated RBC % (auto) VBG pH VBG pCO2 VBG pO2 VBG HCO3 VBG O2 Saturation VBG Base Excess Sodium 140 Potassium 3.7 Chloride 108 Carbon Dioxide 22 Anion Gap 14 BUN 20 H Creatinine 0.79 Estim Creat Clear Calc 160.3 Estimated GFR > 60 Random Glucose 112 Calcium 8.8 Phosphorus 2.6 L Magnesium 2.1 Total Bilirubin 1.0 AST 40 H ALT 239 H Alkaline Phosphatase 55 Total Protein 6.2 L Albumin 3.0 L Stool Occult Blood Microbiology Microbiology Results: Microbiology 04/13/23 20:56 Blood - Venous Blood Culture - Final No growth after 5 days. 04/15/23 15:29 Sputum - Suctioned Gram Stain - Final 04/15/23 15:29 Sputum - Suctioned Sputum Culture - Final Methicillin Res Staph Aureus 04/15/23 07:18 Blood - Venous Blood Culture - Preliminary No growth after 48 hours. 04/15/23 07:11 Blood - Venous Blood Culture - Preliminary No growth after 48 hours. 04/13/23 20:56 Blood - Venous Blood Culture - Final Coag negative Staphylococcus 04/13/23 23:00 Urine Catheterized - Straight Catheter Urine Culture - Final No growth. Progress Note: A&P Assessment and plan (1) MRSA pneumonia: Status: Acute (2) Congestive cardiomyopathy: Status: Acute (3) Toxic encephalopathy: Status: Acute (4) Polysubstance abuse: Status: Acute Plan Assessment: 37-year-old gentleman with out of hospital aspiration after fentanyl ingestion with brief CPR and Narcan by EMS, arrived with a pulse, but required intubation for airway protection, with hospital course significant for MRSA pneumonia and acute hypoxic respiratory failure Plan: Neuro: No acute issues. Cardiac: Newly noted to reduced ejection fraction bedside echo, formal echo is pending. Pulmonary: Acute hypoxic respiratory failure secondary to aspiration with development number [id number] pneumonia requiring intubation, extubated on 04/18/2023. Continue to titrate off supplemental oxygen as tolerated. Renal: No acute issues. Endo: No acute issues. GI: No acute issues. ID: MRSA pneumonia, now on linezolid, will continue for total of 10-14 days of MRSA coverage. Now day 6. Heme/Onc: Thrombocytopenia, likely sepsis related, improving. Psych: No acute issues. Miscellaneous: No acute issues. Prophylaxis: Pneumatic compression Diet: Regular Quality Stroke Does the patient have a stroke diagnosis?: No VTE Prior VTE?: No VTE Risk Level:: Medical - moderate - high VTE Device Contraindication: N/A - Device Ordered VTE Drug Contraindication: Treatment Not Indicated
[2023-04-19] MEDS: Acetaminophen 325 MG TABLET 975 MG PO ×2 (11:45→18:09)
--- NOTE | 2023-04-19 14:44 | HO.WOUND ---
Addendum entered by Ani Edward 04/19/23 15:21: Area on right buttock including blisters measured 3cm x 3.7cm x 0.1cm. Original Note: Wound Care Consult Reason for consult: Blisters intergluteal folds, DTI to sacrum Patient was in bed at the time of consult. Patient has 2 wound areas. Unsure if the blisters were due to fluid overload. Foam border and zinc barrier cream removed from both areas. First area was on his coccyx /intergluteal cleft extending onto the left inner buttock. This area has a DTI with a cluster of 5 blisters . There was a small area on the intergluteal cleft that was actually draining a very small amount of serosanguineous drainage. This area was all red granular tissue. Other blisters were still intact. Whole area including blisters measured 4.5cm x 3.5cm x 0.1cm. No odor, undermining or tunneling. Wound area cleansed with sea clens wound cleanser. Zinc oxide barrier cream applied to to periwound and on top of intact blisters. Alginate ag cut to wound size and placed on wound bed. Skin prepped periwound and foam border applied. Second area was located on his right buttock. Small area of 5 blisters, 2 of which had popped. Moderate amount of serosanguineous drainage. Wound bed appearance was large red granulation tissue. Partial thickness. Wound edges attached. No undermining or tunneling. No odor. 3 blisters still intact. Wound was cleansed with sea clens wound cleanser. Zinc oxide barrier cream applied to intact blisters and periwound. Alginate ag applied to open weeping areas. Covered with a foam border. Recommendation: Patient seems capable of repositioning self in bed but may need to be reminded to reposition more frequently to avoid further breakdown of area. And make sure patient is intaking a good amount of protein to last repairer helper in the recovery of the wounds. For the wounds, cleanse both areas with sea clens wound cleanser or normal saline. Apply zinc oxide barrier cream to periwound and intact blisters. Cut alginate ag to open weeping areas. Cover with foam border. Change daily. If there are any changes or questions regarding the wound, please feel free and reconsult wound care. And if patient is still in need for wound care services upon discharge, an appt can be made outpatient with the wound care clinic.
[2023-04-19] MEDS: amLODIPine Besylate 5 MG TABLET PO (15:05)
[2023-04-19] MEDS: hydrALAZINE HCl 20 MG/ML VIAL 5 MG IVPUSH (15:06)
[2023-04-19] MEDS: Melatonin 3 MG TABLET 6 MG PO (22:34)
[2023-04-19] MEDS: OLANZapine 5 MG TABLET PO (23:42)
[2023-04-20] VITALS (9 sets, daily range): BP systolic 130–179; BP diastolic 82–108; PULSE 89–118; RESP 16–20; TEMP 35.9–36.2; O2SAT 97–99; BMI 36.1
[2023-04-20] MEDS: Omeprazole 40 MG CAPSULE.DR PO (06:23)
--- NOTE | 2023-04-20 07:00 | CA_ITS ---
Transthoracic Echocardiogram Patient (Last, First, Middle): Julius Mccall, Gender: Male Date of : 1985 Age: 37 Procedure Date: 04/20/2023 Procedure Type: Transthoracic Echocardiogram [place] [facility] [place]: 175.26 cm Weight: 115.67 kg BSA: 2.29 m2 Heart Rate: 108 bpm BP: 105 / 84 mmHg Rip Sawyer: SB Referring MD: Yoseph Waters MD Symptoms: CHF Study Quality: Adequate ECG Rhythm: Sinus Conclusions: - Normal left ventricular cavity size. There is mildly increased left ventricular wall thickness. The left ventricular systolic function is hyperdynamic. The visually estimated ejection fraction is >70%. - E/E prime ratio is between 8 and 15 consistent with indeterminate filling pressures. - Normal right ventricular cavity size and systolic function. - The left atrium is normal in size. The right atrium is normal in size. - Elevated velocity across the aortic valve due to hyperdynamic LV function, no obvious LVOT obstruction or evidence of aortic stenosis. - There is mild dilatation of the sinuses of Valsalva measuring 3.80 cm and mild dilatation of the ascending aorta measuring 4.30 cm. Findings Left Ventricle Normal left ventricular cavity size. There is mildly increased left ventricular wall thickness. The left ventricular systolic function is hyperdynamic. The visually estimated ejection fraction is >70%. Diastolic function is indeterminate on the basis of available data. Spectral Doppler is indicative of an impaired relaxation filling pattern. E/E prime ratio is between 8 and 15 consistent with indeterminate filling pressures. Right Ventricle Normal right ventricular cavity size and systolic function. Atria The left atrium is normal in size. The right atrium is normal in size. Aortic Valve The aortic valve structure and function is likely normal. There is mild thickening of the aortic valve. There is no aortic valve regurgitation. Elevated velocity across the aortic valve due to hyperdynamic LV function, no obvious LVOT obstruction or evidence of aortic stenosis. Mitral Valve Normal mitral valve structure and function. There is no mitral valve regurgitation. There is no mitral valve stenosis. Pulmonic Valve The pulmonic valve is likely normal. Tricuspid Valve Normal tricuspid valve structure and function. Tricuspid regurgitation envelope is inadequate for calculation of right ventricular systolic pressure. Indeterminate right atrial pressure. Great Vessels There is mild dilatation of the sinuses of Valsalva measuring 3.80 cm and mild dilatation of the ascending aorta measuring 4.30 cm. The visualized portions of the pulmonary artery and branches are normal. Venous The inferior vena cava was not well visualized. Pericardium/Pleural There is no evidence of pericardial effusion. Prior Study Comparison No prior study available for comparison. Measurements 2D Linear Measurements IVSd: 1.10 0.6-0.9/0.6-1.0 cm LVIDd: 5.80 3.9-5.3/4.2-5.9 cm LVIDd Index: 2.53 2.4-3.2/2.2-3.1 cm/m2 LVIDs: 4.40 2.0-3.6 cm LVPWd: 1.10 0.7-1.1 cm LA Diam: 3.90 2.7-3.8/3.0-4.0 cm LAIDs Index: 1.70 1.5-2.3 cm/m2 LV Mass: 329.56 67-162/88-224 g LV Mass Index: 143.91 43-95/49-115 g/m2 LVOT Diam: 2.30 3.0+(-)1.3 cm 2D Systolic Function EF 4C: 59.10 >55% Mitral Valve MV Pk E: 0.88 MV PK A: 1.15 MV Decel Time: 146.00 E/A: 0.80 E'Lateral: 9.25 E'Medial: 5.66 E/E' Med: 15.60 E/E' Lat: 9.50 PHT: 43.00 MVA PHT: 5.12 Decel [place]: 6.02 Aortic Valve AoV Pk [place]: 3.05 AoV Mn Kiel: 2.32 AoV VTI: 0.46 AoV Pk Grad: 37.00 Aov Mn Grad: 24.00 SYD Cont.VTI: 2.12 LVOT LVOT Pk [place]: 1.49 LVOT Mn Kiel: 1.01 LVOT VTI: 0.24 LVOT Pk Grad: 9.00 LVOT Mn Grad: 5.00 LVOT Diam: 2.30 LVOT Area: 4.15 Diastolic Function MV Pk E: 0.88 MV Pk A: 1.15 E/A: 0.80 E'Medial: 5.66 E/E' Med: 15.60 E' Laterial: 9.25 E/E' Lat: 9.50 Right Ventricle TAPSE (mm): 30.00 TVS' Kiel: 16.00 Great Vessels Aorta Sinus of Valsalva: 3.80 2.0-3.5 cm Ao Asc: 4.30 2.1-3.4 cm Pulmonary Valve PV Pk Kiel: 1.75 Peak PV Grad: 12.00 Updated in Other Vendor System with Status of Final Carlos Bashir MD electronically signed on 04/20/2023 9:18:02 PM with status of Final
[2023-04-20 07:26] LABS: Basophils Percent Auto 0.3 % (0-2); Eosinophils Absolute Auto 0.2 X10*3/uL (0.0-0.4); Eosinophils Percent Auto 1.5 % (0-4); Hematocrit 40.3 % (42.0-52.0); Hemoglobin 13.4 g/dl (14.0-18.0); Imm Gran Abs Auto 0.07 X10*3/uL (0.00-0.03); Imm Gran Pct Auto 0.6 % (0.0-0.4); Lymphocytes Absolute Auto 1.5 X10*3/uL (1.2-4.9); MANUAL DIFF FLAG SCAN; Mean Corpuscular HGB Conc 33.3 g/dl (31.0-36.0); Mean Corpuscular Hemoglobin 30.1 pg (27.0-33.0); Mean Corpuscular Volume 90.6 fL (80.0-98.0); Monocytes Absolute Auto 1.1 X10*3/uL (0.1-1.2); Neutrophils Absolute Auto 8.9 x10*3/uL (2.0-8.3); Neutrophils Percent Auto 75.6 % (45-73); PLT CLUMP 1; Red Blood Count 4.45 X10*6/uL (4.60-5.80); Red Cell Distribution Width 12.5 % (11.0-16.0); SCAN SMEAR FLAG 1
[2023-04-20 07:28] LABS: Albumin Level 3.2 g/dL (3.5-5.0); Anion Gap 16 (12-20); Blood Urea Nitrogen 20 mg/dL (9-16); Calcium 8.6 mg/dL (8.4-10.2); Carbon Dioxide 21 mmol/L (22-29); Chloride 107 mmol/L (96-108); Estimated Glomerular Filt Rate > 60; Glucose Random 107 mg/dL (60-115); Phosphorus 3.1 mg/dL (2.7-4.5); Potassium 3.3 mmol/L (3.3-5.1); Sodium 141 mmol/L (135-145)
[2023-04-20] MEDS: Albuterol/Iprat 2.5/0.5MG 3 ML AMPUL.NEB INHALE ×4 (08:00→19:33)
[2023-04-20 08:22] LABS: Platelet Count 116 X10*3/uL (160-400); White Blood Count 11.8 X10*3/uL (4.8-10.8)
[2023-04-20 08:23] LABS: SLIDE REVIEW VERIFIED
[2023-04-20] MEDS: Linezolid/D5W 600 MG/300 ML PIGGYBACK 300 MG IV (09:06)
[2023-04-20] MEDS: amLODIPine Besylate 5 MG TABLET PO (09:06)
--- NOTE | 2023-04-20 11:55 | P.PNIM_ITS ---
Subjective Subjective Date of Service: 04/20/23 Interval History: head pain Physical Exam Vital Signs: Vital Signs: Last Vital Signs Temp 96.8 F 04/20/23 11:27 Pulse 118 H 04/20/23 11:42 Resp 20 04/20/23 11:42 BP 149/82 H 04/20/23 11:27 Pulse Ox 97 04/20/23 11:27 O2 Del Method Room Air 04/20/23 11:27 O2 Flow Rate 2 04/20/23 04:00 FiO2 40 04/18/23 10:00 Oxygen Flow Rate 3 04/13/23 17:10 BMI result Body Mass Index 36.1 General: AO X 3, no acute distress Resp: CTA bilateral, no accessory muscles used CVS: S1,S2,RRR GI: soft, non tender, non distended Neuro: motor grossly intact, alert Psych: paranoid delusions Objective Data Active Medications Acetaminophen (Acetaminophen 325 Mg Tablet) 975 mg PO Q6H PRN PRN Reason: Fever Last Admin: 04/19/23 18:09 Dose: 975 mg Documented By: AMINTA Albuterol/Ipratropium (Albuterol/Iprat 2.5/0.5mg 3 Ml Ampul.Neb) 3 ml INHALE RQ4H WHILE AWAKE ON LICENSE OF [facility] Last Admin: 04/20/23 11:40 Dose: 3 ml Documented By: CHON Amlodipine Besylate (Amlodipine Besylate 5 Mg Tablet) 5 mg PO DAILY ON LICENSE OF [facility]; Protocol Last Admin: 04/20/23 09:06 Dose: 5 mg Documented By: YOHANA Linezolid (Zyvox/D5w) 600 mg in 300 mls @ 300 mls/hr IV Q12H ON LICENSE OF [facility] Last Infusion: 04/20/23 10:16 Dose: 0 mls/hr Documented By: YOHANA Melatonin (Melatonin 3 Mg Tablet) 6 mg PO BEDTIME PRN PRN Reason: insomnia Last Admin: 04/19/23 22:34 Dose: 6 mg Documented By: SHARON Omeprazole (Omeprazole 40 Mg Capsule.) 40 mg PO DAILY@0630 ON LICENSE OF [facility] Last Admin: 04/20/23 06:23 Dose: 40 mg Documented By: SHARON Labs 04/20/23 06:42 04/20/23 06:42 Labs: Laboratory Results - last 24 hr 04/20/23 04/20/23 06:42 06:42 MCV 90.6 MCH 30.1 MCHC 33.3 RDW 12.5 Plt Count 116 L D MPV Not Reportable Immature Gran % (Auto) 0.6 H Neut % (Auto) 75.6 H Lymph % (Auto) 13.0 L [place] % (Auto) 9.0 Eos % (Auto) 1.5 Baso % (Auto) 0.3 Lymph # (Auto) 1.5 [place] # (Auto) 1.1 Eos # (Auto) 0.2 Baso # (Auto) 0.0 Abs Immat Gran (auto) 0.07 H Absolute Neuts (auto) 8.9 H Absolute Nucleated RBC 0.000 Nucleated RBC % (auto) 0.0 Smear Tech's Comments VERIFIED Anion Gap 16 Estim Creat Clear Calc 166.0 Estimated GFR > 60 Random Glucose 107 Calcium 8.6 Phosphorus 3.1 Magnesium 2.0 Albumin 3.2 L Microbiology Microbiology Results: Microbiology 04/15/23 07:18 Blood Culture - Final Blood - Venous No growth after 5 days. 04/15/23 07:11 Blood Culture - Final Blood - Venous No growth after 5 days. Assessment and Plan (1) Polysubstance abuse: Status: Acute Plan 37M PMH mild intermittent asthma, dvt/pe 2021 not on AC, htn, polysubstance dependence presented with ams after fentanyl overdose, was intubated and in ICU, noted to be septic with mrsa in sputum, extubated 04/18/23. Acute toxic metabolic encephalopathy and acute hypoxic respiratory failure secondary to fentanyl overdose Resolved Sepsis due to MRSA pneumonia Continue Zyvox, follow-up Infectious Disease Noted to have reduced EF on bedside echo Follow-up repeat Hypertension Amlodipine Polysubstance dependence No signs of withdrawal Paranoid delusions ? Acute ICU delirium DVT prophylaxis with Lovenox Full code reason for continued hospitalization:awaiting defervesence Time Spent With Patient Time: Total time managing care of this patient today ____ minutes. Quality Stroke Does the patient have a stroke diagnosis?: No VTE Prior VTE?: No VTE Risk Level:: Medical - moderate - high VTE Device Contraindication: N/A - Device Ordered VTE Drug Contraindication: Treatment Not Indicated
[2023-04-20] MEDS: Enoxaparin Sodium 40 MG/0.4 ML SYRINGE SUBCUT (12:51)
[2023-04-20] MEDS: LORazepam 2 MG/ML VIAL 1 MG IVPUSH (16:02)
[2023-04-20] MEDS: Doxycycline Monohydrate 100 MG CAPSULE PO (17:28)
[2023-04-20] MEDS: OLANZapine 10 MG TABLET PO (20:23)
[2023-04-20] MEDS: Acetaminophen 325 MG TABLET 975 MG PO (22:52)
[2023-04-20] MEDS: Melatonin 3 MG TABLET 6 MG PO (22:52)
[2023-04-21] VITALS (8 sets, daily range): BP systolic 142–178; BP diastolic 75–115; PULSE 90–108; RESP 14–20; TEMP 35.9–36.6; O2SAT 96–98; BMI 35.2; BMI 34.7
[2023-04-21 06:22] LABS: Hematocrit 35.8 % (42.0-52.0); Hemoglobin 11.8 g/dl (14.0-18.0); Mean Corpuscular Hemoglobin 29.8 pg (27.0-33.0); Mean Corpuscular Volume 90.4 fL (80.0-98.0); Mean Platelet Volume 10.4 fL (9.4-12.4); Platelet Count 176 X10*3/uL (160-400); Red Blood Count 3.96 X10*6/uL (4.60-5.80); Red Cell Distribution Width 12.5 % (11.0-16.0); White Blood Count 10.2 X10*3/uL (4.8-10.8)
[2023-04-21 06:31] LABS: Anion Gap 15 (12-20); Blood Urea Nitrogen 19 mg/dL (9-16); Carbon Dioxide 22 mmol/L (22-29); Chloride 106 mmol/L (96-108); Creatinine Clr Calc Pharmacy 159.6; Estimated Glomerular Filt Rate > 60; Glucose Fasting 105 mg/dL (60-99); Potassium 3.2 mmol/L (3.3-5.1); Sodium 140 mmol/L (135-145)
[2023-04-21] MEDS: Doxycycline Monohydrate 100 MG CAPSULE PO ×2 (06:41→17:55)
[2023-04-21] MEDS: Omeprazole 40 MG CAPSULE.DR PO (06:41)
[2023-04-21 06:54] LABS: HBc Num1 0.25 S/CO (0.00-0.79); Hepatitis B Core Antibody Nonreactive (Nonreactive); ~HepC Num1 0.13 S/CO (0.00-0.79); ~Hepatitis C Antibody Nonreactive (Nonreactive)
[2023-04-21 06:58] LABS: HBS Num1 99.24 mIU/mL (0-7.99); HIV AB/AG Nonreactive (Nonreactive); HIV Num 1 0.19 S/CO (0.00-0.99); Hepatitis B Surface Antigen Negative (Negative); ~Hepatitis B Surface Antibody REACTIVE (Nonreactive)
[2023-04-21] MEDS: Potassium Chloride ER 20 MEQ TAB.ER.PRT 40 MEQ PO (08:14)
[2023-04-21] MEDS: amLODIPine Besylate 5 MG TABLET PO (08:14)
--- NOTE | 2023-04-21 08:33 | HO.PM.IMPN ---
Subjective Subjective Date of Service: 04/21/23 Interval History: rle pain Physical Exam Vital Signs: Vital Signs: Last Vital Signs Temp 97.8 F 04/21/23 07:25 Pulse 100 04/21/23 07:25 Resp 19 04/21/23 07:25 BP 153/91 H 04/21/23 07:25 Pulse Ox 97 04/21/23 07:25 O2 Del Method Room Air 04/21/23 07:25 O2 Flow Rate 2 04/20/23 04:00 FiO2 40 04/18/23 10:00 Oxygen Flow Rate 3 04/13/23 17:10 BMI result Body Mass Index 35.2 General: AO X 3, no acute distress Resp: CTA bilateral, no accessory muscles used CVS: S1,S2,RRR GI: soft, non tender, non distended Neuro: motor grossly intact, alert Psych: appropriate affect, appropriate insight Objective Data Active Medications Acetaminophen (Acetaminophen 325 Mg Tablet) 975 mg PO Q6H PRN PRN Reason: Fever Last Admin: 04/20/23 22:52 Dose: 975 mg Documented By: ALEE Amlodipine Besylate (Amlodipine Besylate 5 Mg Tablet) 5 mg PO DAILY [facility]; Protocol Last Admin: 04/21/23 08:14 Dose: 5 mg Documented By: ANJELICA Doxycycline Monohydrate (Doxycycline Monohydrate 100 Mg Capsule) 100 mg PO Q12H [facility] Last Admin: 04/21/23 06:41 Dose: 100 mg Documented By: ALEE Enoxaparin Sodium (Enoxaparin Sodium 40 Mg/0.4 Ml Syringe) 40 mg SUBCUT Q24H [facility] Last Admin: 04/20/23 12:51 Dose: 40 mg Documented By: YOHANA Melatonin (Melatonin 3 Mg Tablet) 6 mg PO BEDTIME PRN PRN Reason: insomnia Last Admin: 04/20/23 22:52 Dose: 6 mg Documented By: ALEE Omeprazole (Omeprazole 40 Mg Capsule.) 40 mg PO DAILY@0630 [facility] Last Admin: 04/21/23 06:41 Dose: 40 mg Documented By: ALEE Labs 04/21/23 06:08 04/21/23 06:08 Labs: Laboratory Results - last 24 hr 04/21/23 04/21/23 04/21/23 06:08 06:08 06:08 MCV 90.4 MCH 29.8 MCHC 33.0 RDW 12.5 Plt Count 176 D MPV 10.4 Absolute Nucleated RBC 0.000 Nucleated RBC % (auto) 0.0 Anion Gap 15 Estim Creat Clear Calc 159.6 Estimated GFR > 60 Fasting Glucose 105 H Calcium 9.0 Hep Bs Antigen Negative Hep Bs Antibody REACTIVE Hep B Core Total Ab Nonreactive Hepatitis C Ab (EIA) Nonreactive HIV 1&2 Ab/P24 Ag 4thGn Nonreactive Microbiology Microbiology Results: Microbiology 04/15/23 07:18 Blood Culture - Final Blood - Venous No growth after 5 days. 04/15/23 07:11 Blood Culture - Final Blood - Venous No growth after 5 days. Assessment and Plan (1) Polysubstance abuse: Status: Acute Plan 37M PMH mild intermittent asthma, dvt/pe 2021 not on AC, htn, polysubstance dependence presented with ams after fentanyl overdose, was intubated and in ICU, noted to be septic with mrsa in sputum, extubated 04/18/23. Acute toxic metabolic encephalopathy and acute hypoxic respiratory failure secondary to fentanyl overdose Resolved rle pain with history of dvt/pe (provoked) check RLE US Sepsis due to MRSA pneumonia ID appreciated, changed to po doxy Noted to have reduced EF on bedside echo repeat echo shows normal EF Hypertension Amlodipine Polysubstance dependence No signs of withdrawal Paranoid delusions ? Acute ICU delirium appears better today DVT prophylaxis with Lovenox Full code reason for continued hospitalization: placement Time Spent With Patient Time: Total time managing care of this patient today ____ minutes. Quality Stroke Does the patient have a stroke diagnosis?: No VTE Prior VTE?: No VTE Risk Level:: Medical - moderate - high VTE Device Contraindication: N/A - Device Ordered VTE Drug Contraindication: Treatment Not Indicated
--- NOTE | 2023-04-21 10:24 | MHC.CM.PN ---
Per ROUNDS discussion, Patient is medically cleared for dc today to STR/SNF.CM has updated the referral to [facility] SNF and await their response on their ability to accept Patient, pending [employer] auth. CM will follow.
--- NOTE | 2023-04-21 11:58 | MHC.CM.PN ---
Broad SNF search has been initiated and has been made aware that there are no SNF bed offers yet. CM will follow.
--- NOTE | 2023-04-21 12:12 | MHC.CLN ---
F/U: PT WITH INCREASED NUTRITION RISK R/T PRESSURE INJURY PO 50% AVG DIET RX: REGULAR-APPROPRIATE PT RECEIVING ENSURE MAX BID TO PROVIDE 350KCALS, 60G PROTEIN MONITOR PO INTAKE CLOSELY
[2023-04-21] MEDS: Enoxaparin Sodium 40 MG/0.4 ML SYRINGE SUBCUT (12:13)
[2023-04-21 14:12] LABS: Hemoglobin 12.8 g/dl (14.0-18.0); Mean Corpuscular HGB Conc 32.8 g/dl (31.0-36.0); Mean Corpuscular Hemoglobin 29.8 pg (27.0-33.0); Mean Corpuscular Volume 90.9 fL (80.0-98.0); Mean Platelet Volume 10.2 fL (9.4-12.4); Platelet Count 202 X10*3/uL (160-400); Red Blood Count 4.29 X10*6/uL (4.60-5.80); Red Cell Distribution Width 12.6 % (11.0-16.0); White Blood Count 11.1 X10*3/uL (4.8-10.8)
[2023-04-21 14:21] LABS: INTERNATIONAL NORM RATIO 1.4 (0.9-1.1); Prothrombin Time 16.1 SEC (10.0-13.1)
[2023-04-21 14:24] LABS: PTT Heparin Drip 35.6 SEC (53-77.9)
--- NOTE | 2023-04-21 14:34 | HO.SUDE ---
Met with pt in 459 to follow up after pt was admitted following accidental overdose on 04/13/23. Pt sitting in bed, awake, alert, easily engages in conversation, tearful. Pt help seeking in regards to substance use. Pt reports alcohol use, 10+ nips daily as well as pressed pills containing fentanyl, $30 daily, [place], both x 1 year. Pt reports alcohol use began increasing 2 years ago after father and has been drinking current amount for about the past year. Pt denies hx overdose. Pt reports he did not receive pressed pills from different source, unsure why overdose occurred as pt had been using this amount for quite some time. Pt denies hx DAISY treatment in the past and is open to medications and inpatient treatment. Discussed medications for AUD and OUD, pt overwhelmed with information and becomes tangential. D/c plan for pt to go to STR, encouraged pt to follow up with [facility] facilities while in STR. In regard to medications, pt provided with written resources to review. Pt provided with t/w contact information if questions arise prior to next check in. Denies other questions or concerns at this time.
[2023-04-21] MEDS: Heparin Sodium,Porcine/1/2NS 25,000 UNIT/250 ML IV.SOLN 14.94 UNIT IVCONT (15:04)
--- NOTE | 2023-04-21 16:06 | W.PM.IDCN ---
History of Present Illness Data of Consult Service Date: 04/21/23 Requesting physician: Barrett Garcia Primary Care Provider: Unknown Physician HPI Reason for consult: MRSA sputum He presents with cough and shortness of breath. He has MRSA sputum. He is not on oxygen. Review of Systems Review of Systems: Yes all other systems are reviewed and are negative [facility] Past Medical History Medical History Asthma Bronchitis DVT (deep venous thrombosis) Hypertension Kidney stones Pulmonary emboli Substance abuse Family History Family history: reviewed and not pertinent Social History Social History Alcohol intake: current Alcohol intake frequency: holidays/special occasions only Smoked in Last 30 Days: Yes Use of substances other than those prescribed or required for medical reasons: Yes Substance Use Type: Marijuana Substance Use Type Other:: fentanyl Currently Displaying Signs/Symptoms of Drug Intoxication Withdrawal: No Advance Directives: No Advance Directives Information Provided: No service: No Meds Allergies Allergy/AdvReac Type Severity Reaction Status Date / Time morphine [MORPHINE] Allergy Mild BUMPS AND Verified 01/03/23 23:31 ITCHINESS NEAR IV SITE AFTER ADMINISTRATION, (IV) blisters penicillin V Allergy Unknown Unknown Verified 01/03/23 23:31 Penicillins Allergy Unknown UNKNOWN Verified 01/03/23 23:31 Active Medications: Current Medications Acetaminophen (Acetaminophen 325 Mg Tablet) 975 mg PO Q6H PRN PRN Reason: Fever Last Admin: 04/20/23 22:52 Dose: 975 mg Amlodipine Besylate (Amlodipine Besylate 5 Mg Tablet) 5 mg PO DAILY [facility]; Protocol Last Admin: 04/21/23 08:14 Dose: 5 mg Doxycycline Monohydrate (Doxycycline Monohydrate 100 Mg Capsule) 100 mg PO Q12H [facility] Last Admin: 04/21/23 06:41 Dose: 100 mg Heparin Sodium (Porcine) (Heparin Sodium,Porcine 5,000 Unit/Ml Vial) 4,300 unit 40 unit/kg (4300 unit) IVPUSH PROTOCOL BOLUS PRN; Protocol PRN Reason: 40 unit/kg - Heparin Protocol Heparin Sodium (Porcine) (Heparin Sodium,Porcine 5,000 Unit/Ml Vial) 8,500 unit 80 unit/kg (8500 unit) IVPUSH PROTOCOL BOLUS PRN; Protocol PRN Reason: 80 unit/kg - Heparin Protocol Heparin Sodium/Sodium Chloride (Heparin Sodium,Porcine/1/2ns) 25,000 unit in 250 mls @ 0 mls/hr IVCONT .Q0M [facility]; Protocol Last Admin: 04/21/23 15:04 Dose: 14 units/kg/hr, 14.94 mls/hr Melatonin (Melatonin 3 Mg Tablet) 6 mg PO BEDTIME PRN PRN Reason: insomnia Last Admin: 04/20/23 22:52 Dose: 6 mg Omeprazole (Omeprazole 40 Mg Capsule.Dr) 40 mg PO DAILY@0630 [facility] Last Admin: 04/21/23 06:41 Dose: 40 mg Home Medications Medication Instructions Recorded Confirmed Last Taken Type Unobtainable 04/13/23 04/13/23 Unknown History Physical Exam Vital Signs: Vital Signs: Last Vital Signs Temp 97.9 F 04/21/23 15:32 Pulse 99 04/21/23 15:32 Resp 14 04/21/23 15:32 BP 158/90 H 04/21/23 15:32 Pulse Ox 98 04/21/23 15:32 O2 Del Method Room Air 04/21/23 15:32 O2 Flow Rate 2 04/20/23 04:00 FiO2 40 04/18/23 10:00 Oxygen Flow Rate 3 04/13/23 17:10 BMI result Body Mass Index 34.7 Const: General: cooperative HEENT: Head: Yes normal to inspection Face and sinus: Yes normal facial exam Mouth: Normal oral and palatal mucosa present Teeth and gingiva: dentition normal Eyes: General: appearance normal, both eyes and all related structures Pupils: Equal, round and reactive pupils present Resp: Effort & Inspection: normal respiratory effort Cardio: Rate: regular rate Rhythm: regular rhythm GI: Palpation (GI): Soft to palpation and nontender : General: Yes no CVA tenderness Back/Spine/Pelvis: Back: no CVA tenderness Skin: General skin exam: no rashes or lesions noted Neuro: General: moves all extremities Cranial nerves: Yes Equal, round and reactive pupils present Extrem: General: Yes normal to inspection Psych: Appearance: grossly normal Results Labs 04/21/23 14:04 04/21/23 06:08 Labs: Short CBC 04/21/23 04/21/23 Range/Units 06:08 14:04 WBC 10.2 11.1 H (4.8-10.8) X10*3/uL Hgb 11.8 L 12.8 L (14.0-18.0) g/dl Hct 35.8 L 39.0 L (42.0-52.0) % Plt Count 176 D 202 (160-400) X10*3/uL BMP 04/21/23 06:08 Sodium 140 Potassium 3.2 L Chloride 106 Carbon Dioxide 22 BUN 19 H Creatinine 0.76 Calcium 9.0 Microbiology Microbiology Results: Microbiology 04/15/23 07:18 Blood - Venous Blood Culture - Final No growth after 5 days. 04/15/23 07:11 Blood - Venous Blood Culture - Final No growth after 5 days. 04/13/23 20:56 Blood - Venous Blood Culture - Final No growth after 5 days. 04/15/23 15:29 Sputum - Suctioned Gram Stain - Final 04/15/23 15:29 Sputum - Suctioned Sputum Culture - Final Methicillin Res Staph Aureus 04/13/23 20:56 Blood - Venous Blood Culture - Final Coag negative Staphylococcus 04/13/23 23:00 Urine Catheterized - Straight Catheter Urine Culture - Final No growth. Assessment and Plan (1) MRSA pneumonia: Status: Acute He has MRSA in sputum and some basilar infiltrate. He has no oxygen requirements. He may have some element of MRSA pneumonia. (2) Toxic encephalopathy: Status: Acute Plan Would give po Doxycycline 100 mg po bid for 14 days. Time Spent With Patient Time: Total time managing care of this patient today ____ minutes.
[2023-04-21] MEDS: Acetaminophen 325 MG TABLET 975 MG PO (17:55)
[2023-04-21] MEDS: Melatonin 3 MG TABLET 6 MG PO (22:04)
[2023-04-21 22:12] LABS: PTT Heparin Drip 45.2 SEC (53-77.9)
[2023-04-21] MEDS: Heparin Sodium,Porcine 5,000 UNIT/ML VIAL 4300 UNIT IVPUSH (23:15)
[2023-04-22] MEDS: Heparin Sodium,Porcine/1/2NS 25,000 UNIT/250 ML IV.SOLN 17.07 UNIT IVCONT ×2 (05:57→15:33)
[2023-04-22 06:59] LABS: Hematocrit 36.9 % (42.0-52.0); Hematocrit 37.1 % (42.0-52.0); Hemoglobin 12.2 g/dl (14.0-18.0); Hemoglobin 12.3 g/dl (14.0-18.0); Mean Corpuscular HGB Conc 33.1 g/dl (31.0-36.0); Mean Corpuscular HGB Conc 33.2 g/dl (31.0-36.0); Mean Corpuscular Hemoglobin 30.4 pg (27.0-33.0); Mean Corpuscular Volume 90.7 fL (80.0-98.0); Mean Corpuscular Volume 91.6 fL (80.0-98.0); Mean Platelet Volume 10.1 fL (9.4-12.4); Mean Platelet Volume 9.8 fL (9.4-12.4); Platelet Count 244 X10*3/uL (160-400); Platelet Count 255 X10*3/uL (160-400); Red Blood Count 4.05 X10*6/uL (4.60-5.80); Red Blood Count 4.07 X10*6/uL (4.60-5.80); Red Cell Distribution Width 12.5 % (11.0-16.0); White Blood Count 10.5 X10*3/uL (4.8-10.8); White Blood Count 10.8 X10*3/uL (4.8-10.8)
[2023-04-22 07:03] LABS: INTERNATIONAL NORM RATIO 1.3 (0.9-1.1); Prothrombin Time 14.9 SEC (10.0-13.1)
[2023-04-22 07:05] LABS: Anion Gap 12 (12-20); Blood Urea Nitrogen 18 mg/dL (9-16); Calcium 8.8 mg/dL (8.4-10.2); Carbon Dioxide 25 mmol/L (22-29); Chloride 108 mmol/L (96-108); Creatinine Clr Calc Pharmacy 162.9; Estimated Glomerular Filt Rate > 60; Glucose Fasting 106 mg/dL (60-99); Potassium 3.5 mmol/L (3.3-5.1); Sodium 141 mmol/L (135-145)
[2023-04-22 07:05] LABS: PTT Heparin Drip 31.3 SEC (53-77.9)
--- NOTE | 2023-04-22 08:07 | PM.CNGS ---
History of Present Illness Consult details Consult date: 04/21/23 Reason for consult: other (DVT) Narrative: Complex 37-year-old gentleman presents for evaluation regarding DVT. He originally presented to the hospital over a week ago where he was found down secondary to polysubstance abuse. He had been treated in the ICU and subsequently transferred to the floor. He interestingly was close to being discharged to rehab and was discovered to have right leg swelling. He underwent venous duplex and was found to have an acute DVT. Upon discussion with him he actually does have a prior history of DVT. About 8 years ago he had a basketball injury and after which he was casted. Subsequent to that he did develop a DVT. He now presents to us for vascular evaluation. Review of Systems Constitutional: Constitutional: Reports as per HPI ENT: Reports system reviewed and no additional complaints, except as documented Cardiovascular: Cardiovascular: Denies chest pain, Denies chest pain at rest and Denies chest pain with activity Respiratory: Respiratory: Denies chest congestion and Denies cough Gastrointestinal: Gastrointestinal: Reports no additional gastrointestinal complaints Musculoskeletal: Musculoskeletal: Denies abnormal gait Integumentary/Breasts: Skin/Breast: Reports pruritus and Denies wounds Neurologic: Reports system reviewed and no additional complaints, except as documented and Denies abnormal gait Psychiatric: Psychiatric: Denies no additional psychiatric complaints [facility] Past Medical History Medical History (Updated 04/22/23 @ 08:08 by Benjy Killian MD) Asthma Bronchitis DVT (deep venous thrombosis) Hypertension Kidney stones Pulmonary emboli Substance abuse Family History Family history: reviewed and not pertinent Social History Social History Alcohol intake: current Alcohol intake frequency: holidays/special occasions only Smoked in Last 30 Days: Yes Use of substances other than those prescribed or required for medical reasons: Yes Substance Use Type: Marijuana Substance Use Type Other:: fentanyl Currently Displaying Signs/Symptoms of Drug Intoxication Withdrawal: No Advance Directives: No Advance Directives Information Provided: No service: No Meds Allergies Allergy/AdvReac Type Severity Reaction Status Date / Time morphine [MORPHINE] Allergy Mild BUMPS AND Verified 01/03/23 23:31 ITCHINESS NEAR IV SITE AFTER ADMINISTRATION, (IV) blisters penicillin V Allergy Unknown Unknown Verified 01/03/23 23:31 Penicillins Allergy Unknown UNKNOWN Verified 01/03/23 23:31 Active Medications: Current Medications Acetaminophen (Acetaminophen 325 Mg Tablet) 975 mg PO Q6H PRN PRN Reason: Fever Last Admin: 04/21/23 17:55 Dose: 975 mg Amlodipine Besylate (Amlodipine Besylate 5 Mg Tablet) 5 mg PO DAILY [facility]; Protocol Last Admin: 04/21/23 08:14 Dose: 5 mg Doxycycline Monohydrate (Doxycycline Monohydrate 100 Mg Capsule) 100 mg PO Q12H [facility] Last Admin: 04/22/23 05:56 Dose: Not Given Heparin Sodium (Porcine) (Heparin Sodium,Porcine 5,000 Unit/Ml Vial) 4,300 unit 40 unit/kg (4300 unit) IVPUSH PROTOCOL BOLUS PRN; Protocol PRN Reason: 40 unit/kg - Heparin Protocol Last Admin: 04/21/23 23:15 Dose: 4,300 unit Heparin Sodium (Porcine) (Heparin Sodium,Porcine 5,000 Unit/Ml Vial) 8,500 unit 80 unit/kg (8500 unit) IVPUSH PROTOCOL BOLUS PRN; Protocol PRN Reason: 80 unit/kg - Heparin Protocol Heparin Sodium/Sodium Chloride (Heparin Sodium,Porcine/1/2ns) 25,000 unit in 250 mls @ 0 mls/hr IVCONT .Q0M [facility]; Protocol Last Admin: 04/22/23 05:57 Dose: 16 units/kg/hr, 17.07 mls/hr Melatonin (Melatonin 3 Mg Tablet) 6 mg PO BEDTIME PRN PRN Reason: insomnia Last Admin: 04/21/23 22:04 Dose: 6 mg Omeprazole (Omeprazole 40 Mg Michael.) 40 mg PO DAILY@0630 [facility] Last Admin: 04/22/23 05:56 Dose: Not Given Home Medications Medication Instructions Recorded Confirmed Last Taken Type Unobtainable 04/13/23 04/13/23 Unknown History Physical Exam Vital Signs: Vital Signs: Last Vital Signs Temp 97.7 F 04/21/23 23:44 Pulse 95 04/21/23 23:44 Resp 15 04/21/23 23:44 BP 142/90 H 04/21/23 23:44 Pulse Ox 98 04/21/23 23:44 O2 Del Method Room Air 04/21/23 23:44 O2 Flow Rate 2 04/20/23 04:00 FiO2 40 04/18/23 10:00 Oxygen Flow Rate 3 04/13/23 17:10 BMI result Body Mass Index 34.7 Const: General: cooperative, healthy appearing and comfortable Orientation/consciousness: oriented to person, oriented to place and oriented to time Neck: Carotids: no bruits Chest: Chest palpation & inspection: normal inspection of the chest and normal palpation of entire chest wall Resp: Effort & Inspection: normal respiratory effort and able to speak in complete sentences Cardio: Rate: regular rate Heart sounds: S1 normal heart sound present and S2 normal heart sound present Peripheral pulses: Peripheral pulses 2+ throughout GI: Inspection: Yes normal to inspection Skin: Other: +2 edema, right>left General skin exam: dry skin Neuro: General: oriented to person, oriented to place and oriented to time Extrem: Right lower extremity: full ROM, normal capillary refill and edema Left lower extremity: full ROM, normal capillary refill and edema Psych: Mental Status: mental status grossly normal Results Labs 04/22/23 06:33 04/22/23 06:33 Labs: Abnormal lab results 04/21/23 04/21/23 04/21/23 Range/Units 14:04 14:04 21:34 WBC 11.1 H (4.8-10.8) X10*3/uL RBC 4.29 L (4.60-5.80) X10*6/uL Hgb 12.8 L (14.0-18.0) g/dl Hct 39.0 L (42.0-52.0) % PT 16.1 H (10.0-13.1) SEC INR 1.4 H (0.9-1.1) aPTT Heparin Protocol 35.6 L 45.2 L D (53-77.9) SEC BUN (9-16) mg/dL Fasting Glucose (60-99) mg/dL 04/22/23 04/22/23 04/22/23 Range/Units 06:33 06:33 06:33 WBC (4.8-10.8) X10*3/uL RBC 4.07 L 4.05 L (4.60-5.80) X10*6/uL Hgb 12.2 L 12.3 L (14.0-18.0) g/dl Hct 36.9 L 37.1 L (42.0-52.0) % PT (10.0-13.1) SEC INR (0.9-1.1) aPTT Heparin Protocol (53-77.9) SEC BUN 18 H (9-16) mg/dL Fasting Glucose 106 H (60-99) mg/dL 04/22/23 04/22/23 Range/Units 06:35 06:36 WBC (4.8-10.8) X10*3/uL RBC (4.60-5.80) X10*6/uL Hgb (14.0-18.0) g/dl Hct (42.0-52.0) % PT 14.9 H (10.0-13.1) SEC INR 1.3 H (0.9-1.1) aPTT Heparin Protocol 31.3 L D (53-77.9) SEC BUN (9-16) mg/dL Fasting Glucose (60-99) mg/dL Short CBC 04/21/23 04/22/23 04/22/23 Range/Units 14:04 06:33 06:33 WBC 11.1 H 10.8 10.5 (4.8-10.8) X10*3/uL Hgb 12.8 L 12.2 L 12.3 L (14.0-18.0) g/dl Hct 39.0 L 36.9 L 37.1 L (42.0-52.0) % Plt Count 202 244 255 (160-400) X10*3/uL BMP 04/22/23 06:33 Sodium 141 Potassium 3.5 Chloride 108 Carbon Dioxide 25 BUN 18 H Creatinine 0.74 Calcium 8.8 Urine 04/13/23 Range/Units 22:19 Urine Color Yellow Urine Appearance Clear Urine pH 5.5 (5.0-9.0) Ur Specific [place] 1.020 (1.005-1.025) Urine Protein 30 (1+) H (Neg-Trace) mg/dL Urine Glucose (UA) 500 H (Negative) mg/dL All other labs normal. Imaging Additional studies: Imaging reviewed of venous ultrasound which was positive for DVT. Written report and images were reviewed. Assessment and Plan (1) DVT (deep venous thrombosis): Status: Acute Plan In short patient has a DVT. He will require mechanical venous thrombectomy, right possible left. Risks benefits complications of the procedure were discussed in detail with the patient. He agreed and consented. We will schedule him for tomorrow. Will maintain on a heparin drip for now. Case was discussed with the hospitalist team along with interventional team. Thank you for allowing us to assist in his care. If there are any questions or concerns please do not hesitate to contact us. Time Spent With Patient Time: Total time managing care of this patient today __60__ minutes.Please note over 60 minutes was required for the care of this patient between chart review, reviewing of images, discussion with the hospitalist team, coordination of interventional services. Procedures Date of Service Date of Service: 04/22/23
--- NOTE | 2023-04-22 10:13 | MHC.CM.PN ---
Per ROUNDS discussion, Patient is not yet medically cleared for dc (new DVT); [facility] is following.
[2023-04-22 10:23] VITALS: BP 157/89; PULSE 88; RESP 16; TEMP 36.5; O2SAT 97
[2023-04-22 10:38] VITALS: BP 153/94; PULSE 95; RESP 16; O2SAT 97
--- NOTE | 2023-04-22 10:52 | W.PM.OPN ---
Operative Note Operative Note Date of Service: 04/22/23 Narrative: Angiogram report from [facility] Preoperative diagnosis: DVT Postoperative diagnosis: Same Procedure: 1. Ultrasound-guided right popliteal vein access 2. Inferior vena cavogram 3. Percutaneous transluminal venous mechanical thrombectomy (70609) 4. Plasty of right superficial femoral and popliteal vein 5. Radiologic supervision and interpretation Surgeon:Benjy Killian M.D., FACS, RPVI Supervisor Riprap Placing:None Anesthesia: Local with moderate conscious sedation. Total intraservice moderate sedation time was 114 minutes. I monitored the patient's level of consciousness and physiologic status continuously throughout the procedure. Specimens:none Drains:none Estimated blood loss: Less than 10 ml Implant: None Indications: 37-year-old gentleman who originally presented to the hospital for polysubstance abuse and overdose was treated in the hospital and ICU for several days. He yesterday close to discharge noted that his right leg was swollen and uncomfortable. He subsequently underwent an ultrasound which was positive for DVT. Due to the clot burden he now presents for mechanical thrombectomy The patient has signed the informed consent after reviewing risks, complications, benefits, and alternatives previously discussed with the patient. The patient was given the opportunity to ask any additional questions or voice any concerns. All questions were answered to the patient's satisfaction. Procedure in detail: Patient was brought to the angiography suite prior to which a time-out was called for patient identification and site verification. Bilateral popliteal fossa were prepped and draped in the standard surgical fashion. Under ultrasound guidance right popliteal vein was punctured with micro puncture needle and wire. Subsequently a precision 4 Iranian sheath was then placed. Glidewire Advantage was advanced to the level the inferior vena cava. We then inserted a 6 Iranian sheath. Through this we performed right lower extremity venogram and we advanced up into the cava and performed a vena cavogram. At this time 8000 units of systemic heparin was administered. After 5 minutes of circulation time we brought in the clot treat for sheath over the wire system. It was noted at the puncture site there was a high-grade stenosis. We had to initially plasty the superficial femoral vein and popliteal vein with an 8 x 60 balloon and subsequently a 10 x 40 balloon. Then placed the clot retriever sheath and exposed the self expanding Nitinol mesh funnel to facilitate clot removal and large-bore side port rapid aspiration. Once this was accomplished we then advanced over the wire clot tree bur catheter within its neck in all coring element and braided collection bag. We brought it up into the vena cava past the right lower extremity occlusion and extracted back. We did 3 passes of this the main angle of the catheter was placed at 12:00 o'clock then 03:00 o'clock and finally 09:00 o'clock. After each subsequent pass the clot was removed and it was flushed clear and brought into the area of concern again. Completion vena cavogram demonstrated an excellent result with excellent flow through these superficial femoral vein and iliac vein. Catheter wire sheath was then removed. Direct pressure was held for 10 minutes. Stitch was placed at the puncture site. Epi fix was used as a sterile dressing. Interpretation of films: 1. Ultrasound demonstrates appropriate right popliteal vein puncture. Image was saved 2. Vena cavogram demonstrates appropriate caliber vena cava with minimal clot 3. Iliac vein along with superficial vein demonstrated significant clot burden throughout. 4. Completion venous runoff study demonstrated resolution of clot with excellent venous flow. Conclusion: 1. Successful right lower extremity percutaneous transluminal venous mechanical thrombectomy 2. Anticoagulation status: Resume anticoagulation of heparin immediately and may resume long-term anticoagulation This note is constructed using voice recognition software. While every effort has been made to ensure accuracy, principal trainer errors may have been included. Thank you for allowing me to participate in the care of your patient. Yours sincerely, Benjy Killian MD, FACS, R.P.V.I.
[2023-04-22 11:00] VITALS: BP 169/89; PULSE 87; RESP 16; TEMP 36.2; O2SAT 99
--- NOTE | 2023-04-22 11:14 | HO.PM.IMPN ---
Subjective Subjective Date of Service: 04/22/23 Interval History: feeling better after clot exctraction Physical Exam Vital Signs: Vital Signs: Last Vital Signs Temp 97.1 F 04/22/23 11:00 Pulse 87 04/22/23 11:00 Resp 16 04/22/23 11:00 BP 169/89 H 04/22/23 11:00 Pulse Ox 99 04/22/23 11:00 O2 Del Method Room Air 04/22/23 11:00 O2 Flow Rate 2 04/20/23 04:00 FiO2 40 04/18/23 10:00 Oxygen Flow Rate 3 04/13/23 17:10 BMI result Body Mass Index 34.7 General: AO X 3, no acute distress Resp: CTA bilateral, no accessory muscles used CVS: S1,S2,RRR GI: soft, non tender, non distended Neuro: motor grossly intact, alert Psych: appropriate affect, appropriate insight Objective Data Active Medications Acetaminophen (Acetaminophen 325 Mg Tablet) 975 mg PO Q6H PRN PRN Reason: Fever Last Admin: 04/21/23 17:55 Dose: 975 mg Documented By: ANJELICA Amlodipine Besylate (Amlodipine Besylate 5 Mg Tablet) 5 mg PO DAILY [facility]; Protocol Last Admin: 04/21/23 08:14 Dose: 5 mg Documented By: ANJELICA Apixaban (Apixaban 5 Mg Tablet) 10 mg PO BID [facility] Stop: 04/29/23 09:01 Doxycycline Monohydrate (Doxycycline Monohydrate 100 Mg Capsule) 100 mg PO Q12H [facility] Last Admin: 04/22/23 05:56 Dose: Not Given Documented By: ALEE Non-Admin Reason: Medication Discontinued Heparin Sodium (Porcine) (Heparin Sodium,Porcine 5,000 Unit/Ml Vial) 4,300 unit 40 unit/kg (4300 unit) IVPUSH PROTOCOL BOLUS PRN; Protocol PRN Reason: 40 unit/kg - Heparin Protocol Last Admin: 04/21/23 23:15 Dose: 4,300 unit Documented By: ALEE Heparin Sodium (Porcine) (Heparin Sodium,Porcine 5,000 Unit/Ml Vial) 8,500 unit 80 unit/kg (8500 unit) IVPUSH PROTOCOL BOLUS PRN; Protocol PRN Reason: 80 unit/kg - Heparin Protocol Heparin Sodium/Sodium Chloride (Heparin Sodium,Porcine/1/2ns) 25,000 unit in 250 mls @ 0 mls/hr IVCONT .Q0M [facility]; Protocol Stop: 04/22/23 21:00 Last Admin: 04/22/23 05:57 Dose: 16 units/kg/hr, 17.07 mls/hr Documented By: ALEE Co-signed By: CAPRICE Melatonin (Melatonin 3 Mg Tablet) 6 mg PO BEDTIME PRN PRN Reason: insomnia Last Admin: 04/21/23 22:04 Dose: 6 mg Documented By: ALEE Omeprazole (Omeprazole 40 Mg Capsule.Dr) 40 mg PO DAILY@0630 [facility] Last Admin: 04/22/23 05:56 Dose: Not Given Documented By: ALEE Non-Admin Reason: NPO Labs 04/22/23 06:33 04/22/23 06:33 Labs: Laboratory Results - last 24 hr 04/21/23 04/21/23 04/21/23 14:04 14:04 21:34 MCV 90.9 MCH 29.8 MCHC 32.8 RDW 12.6 Plt Count 202 MPV 10.2 Absolute Nucleated RBC 0.000 Nucleated RBC % (auto) 0.0 PT 16.1 H INR 1.4 H aPTT Heparin Protocol 35.6 L 45.2 L D Anion Gap Estim Creat Clear Calc Estimated GFR Fasting Glucose Calcium 04/22/23 04/22/23 04/22/23 06:33 06:33 06:33 MCV 90.7 91.6 MCH 30.0 30.4 MCHC 33.1 33.2 RDW 12.5 12.5 Plt Count 244 255 MPV 9.8 10.1 Absolute Nucleated RBC 0.000 0.000 Nucleated RBC % (auto) 0.0 0.0 PT INR aPTT Heparin Protocol Anion Gap 12 Estim Creat Clear Calc 162.9 Estimated GFR > 60 Fasting Glucose 106 H Calcium 8.8 04/22/23 04/22/23 06:35 06:36 MCV MCH MCHC RDW Plt Count MPV Absolute Nucleated RBC Nucleated RBC % (auto) PT 14.9 H INR 1.3 H aPTT Heparin Protocol 31.3 L D Anion Gap Estim Creat Clear Calc Estimated GFR Fasting Glucose Calcium Assessment and Plan (1) Polysubstance abuse: Status: Acute Plan 37M PMH mild intermittent asthma, dvt/pe 2021 not on AC, htn, polysubstance dependence presented with ams after fentanyl overdose, was intubated and in ICU, noted to be septic with mrsa in sputum, extubated 04/18/23. Acute toxic metabolic encephalopathy and acute hypoxic respiratory failure secondary to fentanyl overdose Resolved acute bilateral DVT (recurrent) s/p clot extraction 04/22/23 on iv heparin, transition back to eliquis 10mg bid for 1 week then 5mg bid indefinitely Sepsis due to MRSA pneumonia ID appreciated, changed to po doxy Noted to have reduced EF on bedside echo repeat echo shows normal EF Hypertension Amlodipine Polysubstance dependence No signs of withdrawal Paranoid delusions ? Acute ICU delirium appears better today DVT prophylaxis with Lovenox Full code reason for continued hospitalization: monitor post thrombectomy Time Spent With Patient Time: Total time managing care of this patient today ____ minutes. Quality Stroke Does the patient have a stroke diagnosis?: No VTE Prior VTE?: No VTE Risk Level:: Medical - moderate - high VTE Device Contraindication: N/A - Device Ordered VTE Drug Contraindication: Treatment Not Indicated
[2023-04-22 11:47] VITALS: BP 172/96; PULSE 87; RESP 16; TEMP 36.7; O2SAT 98
[2023-04-22] MEDS: amLODIPine Besylate 5 MG TABLET PO (12:07)
[2023-04-22] MEDS: Acetaminophen 325 MG TABLET 975 MG PO ×2 (13:02→20:59)
[2023-04-22 13:32] LABS: PTT Heparin Drip 53.8 SEC (53-77.9)
--- NOTE | 2023-04-22 14:21 | MHC.RECOVRN ---
This scientific writer met with patient, who was admitted for accidental overdose. Pt was resting quietly, watching t.v. Pt reports reviewed addiction/recovery supports, interested in MOUD. This scientific writer and pt discussed naltexone, vivitrol injection, suboxone, sublocade injection. Pt reports currently no cravings, no withdrawals. Pt is interested in Naltrexone/BOYD INJ however has concerns about issues with pain control related to broken ankly. Pt is also interested in BUP/Sublocade. Pt would like to consider options further. 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 Pt reports goal of abstinence, states ex is supportive of recovery. Pt reports is focused on physical health now, would like to think further about MOUD options. Pt requesting nicotine patch, states smokes 1 pack daily. RN aware.
[2023-04-22 15:46] VITALS: BP 134/77; PULSE 81; RESP 18; TEMP 36; O2SAT 97
--- NOTE | 2023-04-22 17:16 | PC.NURSE ---
Assume the morning shift at 700am pt off unit: surgery. PttHD 31.3 from 6:35am. no changes made as pt was off unit. Per Pacu nurse to nurse report the Heparin drip was pause during the procedure and restarted at 10:25, 16u/kg. PttHD 53.8 at 12:54 after pt returned to unit. No change needed per heparin protocol.
[2023-04-22] MEDS: Doxycycline Monohydrate 100 MG CAPSULE PO (17:46)
[2023-04-22 20:00] VITALS: BP 153/83; PULSE 88; RESP 18; TEMP 36.5; O2SAT 97
[2023-04-22] MEDS: Apixaban 5 MG TABLET 10 MG PO (20:57)
[2023-04-22] MEDS: Melatonin 3 MG TABLET 6 MG PO (21:02)
[2023-04-23] VITALS: BP 150/78; PULSE 89; RESP 18; TEMP 36.6; O2SAT 97
[2023-04-23 03:23] VITALS: BP 127/76; PULSE 78; RESP 17; TEMP 37; O2SAT 98
[2023-04-23] MEDS: Omeprazole 40 MG CAPSULE.DR PO (05:53)
[2023-04-23] MEDS: Doxycycline Monohydrate 100 MG CAPSULE PO ×2 (05:53→17:43)
[2023-04-23 06:00] VITALS: BMI 35.1
[2023-04-23 07:11] LABS: Hematocrit 37.8 % (42.0-52.0); Hemoglobin 12.4 g/dl (14.0-18.0); Mean Corpuscular HGB Conc 32.8 g/dl (31.0-36.0); Mean Corpuscular Hemoglobin 29.7 pg (27.0-33.0); Mean Corpuscular Volume 90.6 fL (80.0-98.0); Mean Platelet Volume 9.8 fL (9.4-12.4); Platelet Count 330 X10*3/uL (160-400); Red Blood Count 4.17 X10*6/uL (4.60-5.80); Red Cell Distribution Width 12.3 % (11.0-16.0); White Blood Count 11.5 X10*3/uL (4.8-10.8)
[2023-04-23 07:28] LABS: Anion Gap 12 (12-20); Blood Urea Nitrogen 17 mg/dL (9-16); Calcium 9.1 mg/dL (8.4-10.2); Carbon Dioxide 24 mmol/L (22-29); Chloride 106 mmol/L (96-108); Creatinine Clr Calc Pharmacy 159.3; Estimated Glomerular Filt Rate > 60; Glucose Fasting 114 mg/dL (60-99); Potassium 3.5 mmol/L (3.3-5.1); Sodium 138 mmol/L (135-145)
[2023-04-23 07:30] VITALS: BP 143/80; PULSE 67; RESP 20; TEMP 36.6; O2SAT 99
--- NOTE | 2023-04-23 08:39 | HO.PM.IMPN ---
Subjective Subjective Date of Service: 04/23/23 Interval History: feeling better after clot exctraction Physical Exam Vital Signs: Vital Signs: Last Vital Signs Temp 97.8 F 04/23/23 07:30 Pulse 67 04/23/23 07:30 Resp 20 04/23/23 07:30 BP 143/80 H 04/23/23 07:30 Pulse Ox 99 04/23/23 07:30 O2 Del Method Room Air 04/23/23 07:30 O2 Flow Rate 2 04/20/23 04:00 FiO2 40 04/18/23 10:00 Oxygen Flow Rate 3 04/13/23 17:10 BMI result Body Mass Index 35.1 General: AO X 3, no acute distress Resp: CTA bilateral, no accessory muscles used CVS: S1,S2,RRR GI: soft, non tender, non distended Neuro: motor grossly intact, alert Psych: appropriate affect, appropriate insight Objective Data Active Medications Acetaminophen (Acetaminophen 325 Mg Tablet) 975 mg PO Q6H PRN PRN Reason: Fever Last Admin: 04/22/23 20:59 Dose: 975 mg Documented By: CAPRICE Amlodipine Besylate (Amlodipine Besylate 5 Mg Tablet) 5 mg PO DAILY [facility]; Protocol Last Admin: 04/22/23 12:07 Dose: 5 mg Documented By: ANJELICA Apixaban (Apixaban 5 Mg Tablet) 10 mg PO BID [facility] Stop: 04/29/23 09:01 Last Admin: 04/22/23 20:57 Dose: 10 mg Documented By: CAPRICE Doxycycline Monohydrate (Doxycycline Monohydrate 100 Mg Capsule) 100 mg PO Q12H [facility] Last Admin: 04/23/23 05:53 Dose: 100 mg Documented By: CAPRICE Melatonin (Melatonin 3 Mg Tablet) 6 mg PO BEDTIME PRN PRN Reason: insomnia Last Admin: 04/22/23 21:02 Dose: 6 mg Documented By: CAPRICE Omeprazole (Omeprazole 40 Mg Capsule.) 40 mg PO DAILY@0630 [facility] Last Admin: 04/23/23 05:53 Dose: 40 mg Documented By: CAPRICE Labs 04/23/23 06:28 04/23/23 06:28 Labs: Laboratory Results - last 24 hr 04/22/23 04/22/23 04/23/23 12:54 19:19 06:28 MCV 90.6 MCH 29.7 MCHC 32.8 RDW 12.3 Plt Count 330 D MPV 9.8 Absolute Nucleated RBC 0.000 Nucleated RBC % (auto) 0.0 aPTT Heparin Protocol 53.8 D 48.0 L Anion Gap Estim Creat Clear Calc Estimated GFR Fasting Glucose Calcium 04/23/23 06:28 MCV MCH MCHC RDW Plt Count MPV Absolute Nucleated RBC Nucleated RBC % (auto) aPTT Heparin Protocol Anion Gap 12 Estim Creat Clear Calc 159.3 Estimated GFR > 60 Fasting Glucose 114 H Calcium 9.1 Assessment and Plan (1) Polysubstance abuse: Status: Acute Plan 37M PMH mild intermittent asthma, dvt/pe 2021 not on AC, htn, polysubstance dependence presented with ams after fentanyl overdose, was intubated and in ICU, noted to be septic with mrsa in sputum, extubated 04/18/23. Acute toxic metabolic encephalopathy and acute hypoxic respiratory failure secondary to fentanyl overdose Resolved acute bilateral DVT (recurrent) s/p clot extraction 04/22/23 eliquis 10mg bid for 1 week then 5mg bid indefinitely Sepsis due to MRSA pneumonia ID appreciated, changed to po doxy Noted to have reduced EF on bedside echo repeat echo shows normal EF Hypertension Amlodipine Polysubstance dependence No signs of withdrawal Paranoid delusions ? Acute ICU delirium appears to have resolved Full code reason for continued hospitalization: safe dispo Time Spent With Patient Time: Total time managing care of this patient today ____ minutes. Quality Stroke Does the patient have a stroke diagnosis?: No VTE Prior VTE?: No VTE Risk Level:: Medical - moderate - high VTE Device Contraindication: N/A - Device Ordered VTE Drug Contraindication: Treatment Not Indicated
[2023-04-23] MEDS: Apixaban 5 MG TABLET 10 MG PO (09:03)
[2023-04-23] MEDS: amLODIPine Besylate 5 MG TABLET PO (09:04)
[2023-04-23 09:20] VITALS: BP 143/80; PULSE 67; O2SAT 99
--- NOTE | 2023-04-23 09:33 | HO.VASCPN ---
Subjective Subjective Date of Service: 04/23/23 Patient reports: no new complaints and feels better Interval history: Patient postprocedure day 1 status post mechanical venous thrombectomy. Reports he is doing relatively well. He reported instantaneous relief after the procedure. Noted swelling and discomfort has significantly decreased. He now presents for postprocedure follow-up. Physical Exam Vital Signs: Vital Signs: Last Vital Signs Temp 97.8 F 04/23/23 07:30 Pulse 67 04/23/23 09:20 Resp 20 04/23/23 07:30 BP 143/80 H 04/23/23 09:20 Pulse Ox 99 04/23/23 09:20 O2 Del Method Room Air 04/23/23 07:30 O2 Flow Rate 2 04/20/23 04:00 FiO2 40 04/18/23 10:00 Oxygen Flow Rate 3 04/13/23 17:10 BMI result Body Mass Index 35.1 Const: General: cooperative, healthy appearing and no acute distress Orientation/consciousness: oriented to person, oriented to place and oriented to time HEENT: Head: Yes normal to inspection Neck: Carotids: no bruits Chest: Chest palpation & inspection: normal inspection of the chest Resp: Effort & Inspection: normal respiratory effort and able to speak in complete sentences Auscultation: clear to auscultation bilaterally Cardio: Rate: regular rate Heart sounds: S1 normal heart sound present and S2 normal heart sound present GI: Inspection: Yes normal to inspection Skin: Other: Popliteal fossa minimal hematoma General skin exam: no rashes or lesions noted Wounds: no wounds Neuro: General: oriented to person, oriented to place, oriented to time and CN's II-XI intact bilaterally Extrem: General: Yes normal to inspection, Yes full ROM and Yes no clubbing, cyanosis or edema Psych: Appearance: grossly normal and well kempt Speech and movement: Normal speech and movement present Affect: normal affect Progress Note: A&P Assessment and plan (1) DVT (deep venous thrombosis): Status: Acute Assessment and Plan: In short patient has done extremely well status post right lower extremity mechanical venous thrombectomy. Can resume anticoagulation and may be better served by being on a DOAC. We did discuss routine risk factor modification and the importance of ambulation. He can see me as an outpatient in approximately 2 weeks time. Thank you for allowing us to assist in his care. Time Spent With Patient Time: Total time managing care of this patient today ____ minutes. Procedures Date of Service Date of Service: 04/23/23 Quality Stroke Does the patient have a stroke diagnosis?: No VTE Prior VTE?: No VTE Risk Level:: Medical - moderate - high VTE Device Contraindication: N/A - Device Ordered VTE Drug Contraindication: Treatment Not Indicated
--- NOTE | 2023-04-23 09:52 | PC.NURSE ---
Pt getting up on its own despite safety measures in place, now refusing all safety measure (in room camera, bed alarm) despite education given in regards fall risk. Will continue to educate and monitor.
--- NOTE | 2023-04-23 11:35 | MHC.CM.PN ---
Patient is medically cleared for dc today, to SNF/STR; Patient is accepted at [facility], once we have Jericho bennett. CM will follow.
[2023-04-23 11:48] VITALS: BP 123/66; PULSE 84; RESP 20; TEMP 36.4; O2SAT 98
--- NOTE | 2023-04-23 12:00 | MHC.CLN ---
F/U: PT WITH INCREASED NUTRITION RISK R/T PRESSURE INJURY PO 50-100% DIET RX: REGULAR-APPROPRIATE WILL RE-START ENSURE MAX BID TO PROVIDE 350KCALS, 60G PROTEIN MONITOR PO INTAKE CLOSELY
[2023-04-23] MEDS: Acetaminophen 325 MG TABLET 975 MG PO (12:41)
--- NOTE | 2023-04-23 12:49 | PM.DS ---
DS: Providers Provider Date of Service: 04/23/23 Date of admission: 04/14/23 01:01 Primary care physician: Unknown Physician Consults: 04/19/23 02:54 Consult to Wound Care Routine Consulting Provider: Jeanine Christy Reason for consultation: Buttocks wounds Has provider been notified: Yes 04/20/23 07:57 Consult to Infectious Diseases Routine Consulting Provider: [facility] Infectious Disease Reason for consultation: persistentn fevers, ?MRSA pna 04/21/23 13:18 Consult to Vascular Surgery Routine Consulting Provider: [facility] Vascular Services Reason for consultation: bilateral dvt DS: Diagnosis Discharge Diagnosis (1) DVT (deep venous thrombosis): Status: Acute DS: Summary Hospital Course Hospital Course: from initial hpi: Chief Complaint: Altered mental status, GAYLE, coffee-ground emesis Mr. Mccall is a 37-year-old male with a past medical history of asthma, bronchitis, DVT, HTN, kidney stones, PE, and substance abuse. He was brought in by ambulance after becoming unresponsive at home when he took oral fentanyl. Family began CPR after giving 4 mg of Narcan. EMS/police responded and gave an additional 4 mg of Narcan. Upon arrival to the ER the patient was complaining of severe hearing and vision loss, nausea and vomiting. There were no reports of trauma, falls or injuries. On arrival to the emergency room, the patient's blood pressure 123/67, heart rate 107, temp 97.4, O2 sat 90 on 3 L nasal cannula. Laboratory data significant for WBC 22.1 with 87% neutrophils, CO2 21, BUN 28, creatinine 2.36, lactic acid 9.8, AST 214, ALT 273, total CK 1873. Urinalysis showed 1+ protein and was positive for glucose. Urine drug screen was positive for fentanyl, cocaine, marijuana. Imaging: XR/XR chest 1V - No acute intrathoracic disease. CT/CT chest wo IV con - Bibasilar consolidation/atelectasis, left greater than right. CT/CT head/brain wo IV con - 1. No evidence of acute intracranial hemorrhage or edematous territorial infarction. 2. Nonspecific prominence of the CSF space adjacent to the right cerebellar hemisphere that could represent a small arachnoid cyst versus subdural hygroma/chronic hematoma. 3. Low lying right cerebellar tonsil that could be seen with Chiari I malformation. Correlation with MRI of brain and cervical spine could be obtained as clinically indicated. 4. Paranasal sinus disease. 5. Hematoma and soft tissue thickening in the scalp at the level of the right posterior vertex. ED COURSE: The patient had multiple episodes of coffee-ground emesis. He received Protonix and Zofran And was started on Protonix drip. He became increasingly agitated, paranoid, confused and was given Ativan, Zyprexa, and Haldol with little effect. He became hypoxic and tachycardic. He was intubated for airway protection due to the requirement for significant sedation. He developed a fever And became hypotensive. He was given approximately 4100 mL crystalloid per sepsis protocol He received a dose of ceftriaxone and a dose of clindamycin. The patient was admitted to ICU for management of altered mental status, opioid overdose, GAYLE, coffee-ground emesis and possible sepsis. hospital course: Patient was admitted for acute toxic metabolic encephalopathy and acute hypoxic respiratory failure secondary to fentanyl overdose requiring intubation in the ICU. Course complicated by sepsis due to MRSA pneumonia. Was initially treated with linezolid, was seen by infectious disease recommended completing course with doxycycline. Initially patient noted to have reduced EF likely due to sepsis, on repeat echo later in admission EF had recovered. Patient was eventually extubated. Course complicated by acute ICU delirium with paranoid delusions which resolved by time of discharge. For hypertension was started on amlodipine. Course than complicated by acute bilateral DVT, recurrent, underwent clot extraction on April 22, was started on Eliquis 10 mg b.i.d., to continue until April 29 and then decrease to 5 mg b.i.d. indefinitely. Patient will be discharged home. Time Spent with Patient Time attestation: Total time managing care of this patient today ____ minutes. Discharge coordination time: Greater than 30 minutes Quality: Safe Use of Opioids Does Pt have an Active Cancer Diagnosis on the Problem List?: No Quality: Stroke Does the patient have a stroke diagnosis?: No Physical Exam Vital Signs: Vital Signs: Last Vital Signs Temp 97.5 F 04/23/23 11:48 Pulse 84 04/23/23 11:48 Resp 20 04/23/23 11:48 BP 123/66 04/23/23 11:48 Pulse Ox 98 04/23/23 11:48 O2 Del Method Room Air 04/23/23 11:48 O2 Flow Rate 2 04/20/23 04:00 FiO2 40 04/18/23 10:00 Oxygen Flow Rate 3 04/13/23 17:10 BMI result Body Mass Index 35.1 Const: General: cooperative, healthy appearing and no acute distress Orientation/consciousness: oriented to person, oriented to place and oriented to time HEENT: Head: Yes normal to inspection Neck: Carotids: no bruits Chest: Chest palpation & inspection: normal inspection of the chest Resp: Effort & Inspection: normal respiratory effort and able to speak in complete sentences Auscultation: clear to auscultation bilaterally Cardio: Rate: regular rate Heart sounds: S1 normal heart sound present and S2 normal heart sound present GI: Inspection: Yes normal to inspection Skin: Other: Popliteal fossa minimal hematoma General skin exam: no rashes or lesions noted Wounds: no wounds Neuro: General: oriented to person, oriented to place, oriented to time and CN's II-XI intact bilaterally Extrem: General: Yes normal to inspection, Yes full ROM and Yes no clubbing, cyanosis or edema Psych: Appearance: grossly normal and well kempt Speech and movement: Normal speech and movement present Affect: normal affect DS: Data Data Completed and Pending Labs on day of discharge: Laboratory Results - last 24 hr 04/22/23 04/22/23 04/23/23 12:54 19:19 06:28 WBC 11.5 H RBC 4.17 L Hgb 12.4 L Hct 37.8 L MCV 90.6 MCH 29.7 MCHC 32.8 RDW 12.3 Plt Count 330 D MPV 9.8 Absolute Nucleated RBC 0.000 Nucleated RBC % (auto) 0.0 aPTT Heparin Protocol 53.8 D 48.0 L Sodium Potassium Chloride Carbon Dioxide Anion Gap BUN Creatinine Estim Creat Clear Calc Estimated GFR Fasting Glucose Calcium 04/23/23 06:28 WBC RBC Hgb Hct MCV MCH MCHC RDW Plt Count MPV Absolute Nucleated RBC Nucleated RBC % (auto) aPTT Heparin Protocol Sodium 138 Potassium 3.5 Chloride 106 Carbon Dioxide 24 Anion Gap 12 BUN 17 H Creatinine 0.76 Estim Creat Clear Calc 159.3 Estimated GFR > 60 Fasting Glucose 114 H Calcium 9.1 Discharge Plan Discharge Anticipated Discharge Date/Time: 04/23/23 12:47 Patient Disposition: Home, Self-Care Discharge Diagnosis: overdose mrsa pna, dvt Referrals: [facility] [Outside] - 1 Week Physician,Unknown J [Primary Care Provider] - 1 Week Discharge Medications: New doxycycline monohydrate 100 mg Capsule 100 mg PO Q12H 5 Days Qty: 10 0RF Eliquis DVT-PE Treat 30D Start 5 mg (74 tabs) tablets,dose pack 5 mg PO BID Qty: 74 0RF Rx Instructions: 10mg bid until april 29 then 5mg bid amlodipine 5 mg tablet 5 mg PO DAILY Qty: 30 0RF omeprazole 40 mg capsule,delayed release(DR/EC) 40 mg PO DAILY Qty: 30 0RF Discharge Orders: Discharge Order (Routine); Ordered 04/23/23 Ordered By: Barrett Garcia Diet: Advance to usual diet Activity on Discharge: As tolerated Stand Alone Forms: Patient Portal Discharge page Care Plan Goals: recovery Health Concerns: mrsa pneumonia, dvt Plan of Treatment: eliquis 10mg bid until april 29 then 5mg bid indefinitely, doxy for 5 more days Assessment: see above Patient Instructions: MRSA (Methicillin-Resistant Staphylococcus Aureus) (DC), Deep Vein Thrombosis (DC) Discharge Date/Time: 04/23/23 17:48
[2023-04-23] MEDS: Nicotine 21 MG PATCH.TD24 TRANSDERMA (12:56)
[2023-04-23 15:44] VITALS: BP 115/85; PULSE 101; RESP 18; TEMP 36.6; O2SAT 98
--- NOTE | 2023-04-23 16:04 | MHC.CM.PN ---
CM met with Patient at bedside. Patient is anxiously waiting to dc to [facility], once insurance auth is obtained; CM explained that it can be a lengthy process. Patient is aware to ask for W/E CM in the morning to see if auth is obtained later today.
--- NOTE | 2023-04-26 09:52 | MHC.CM.PN ---
CM received a call from Patient today, stating that he did not wait for insurance auth, as was discussed; he decided to go home last Wednesday, after this CM had left for the day. Patient stated that he now wants to go to [facility]; CM encouraged Patient to come to the ED.
== END 2023-04-23 17:48 | disposition home or self-care (01) | DRG 792 ==
LOC: HO.ED 18:19 → HO.EDOVER 04-14 01:13 → HO.ICU 04-14 01:23 → HO.IMC 04-19 13:11
PROVIDERS: Internal Medicine Cardiovascular Disease; Internal Medicine Pulmonary Disease; Surgery Vascular Surgery; Admitting Provider Nurse Practitioner Family; Emergency Provider Emergency Medicine; Visit Provider Internal Medicine
PROC: 04CM3ZZ Extirpation of Matter from Right Popliteal Artery, Percutaneous Approach (ICD-10-PCS; principal; 2023-04-22 08:00)
DX: T40.411A Poisoning by fentanyl or fentanyl analogs, accidental (unintentional), initial encounter (principal); A41.02 Sepsis due to Methicillin resistant Staphylococcus aureus; J96.01 Acute respiratory failure with hypoxia; J69.0 Pneumonitis due to inhalation of food and vomit; G92.8 Other toxic encephalopathy; J15.212 Pneumonia due to Methicillin resistant Staphylococcus aureus; I82.431 Acute embolism and thrombosis of right popliteal vein; K92.0 Hematemesis; F05 Delirium due to known physiological condition; I82.441 Acute embolism and thrombosis of right tibial vein; I82.452 Acute embolism and thrombosis of left peroneal vein; I10 Essential (primary) hypertension; F19.20 Other psychoactive substance dependence, uncomplicated; I42.0 Dilated cardiomyopathy; M62.82 Rhabdomyolysis; J45.909 Unspecified asthma, uncomplicated; Z20.822 Contact with and (suspected) exposure to COVID-19; Z86.711 Personal history of pulmonary embolism; Z86.718 Personal history of other venous thrombosis and embolism
CPT/HCPCS: 36415; 37187; 70450; 71045; 71250; 76937; 80048; 80053; 80307; 81001; 82040; 82272; 82550; 82803; 83605; 83690; 83735; 84100; 84145; 85025; 85027; 85610; 85652; 85730; 86704; 86706; 86803; 86850; 86900; 86901; 87040; 87070; 87077; 87086; 87147; 87186; 87205; 87340; 87389; 87635; 93005; 93306; 93970; 94002; 94003; 97110; 97116; 97162; 99152; 99153; 99285; C1725; C1757; C1758; C1769; C1887; J0330; J0696; J1643; J1650; J2020; J2060; J2185; J2250; J2251; J2405; J2765; J3010; J3371; Q9957

== ENCOUNTER → 2023-04-13 17:23 | Outpatient (BNV) | payer OTHER, SELFPAY | PROVIDERS: Admitting Provider Nurse Practitioner Family; Emergency Provider Emergency Medicine; Visit Provider Internal Medicine Cardiovascular Disease | DX: R07.9 Chest pain, unspecified (principal) | CPT/HCPCS: 93010 ==

== ENCOUNTER 2023-04-14 01:01 | Outpatient (BNV) | payer OTHER, SELFPAY | END 2023-04-20 07:00 | PROVIDERS: Admitting Provider Nurse Practitioner Family; Emergency Provider Emergency Medicine; Visit Provider Internal Medicine Cardiovascular Disease | DX: I42.0 Dilated cardiomyopathy (principal) | CPT/HCPCS: 93306 ==

== ENCOUNTER → 2023-04-14 01:01 | Outpatient (BNV) | payer OTHER, SELFPAY | PROVIDERS: Admitting Provider Nurse Practitioner Family; Emergency Provider Emergency Medicine; Visit Provider Internal Medicine Pulmonary Disease | DX: J15.212 Pneumonia due to Methicillin resistant Staphylococcus aureus (principal); I42.0 Dilated cardiomyopathy; G92.9 Unspecified toxic encephalopathy; F19.10 Other psychoactive substance abuse, uncomplicated | CPT/HCPCS: 99232 ==

== ENCOUNTER → 2023-04-14 01:01 | Outpatient (BNV) | payer OTHER, SELFPAY | PROVIDERS: Admitting Provider Nurse Practitioner Family; Emergency Provider Emergency Medicine; Visit Provider Surgery Vascular Surgery | DX: I82.401 Acute embolism and thrombosis of unspecified deep veins of right lower extremity (principal) | CPT/HCPCS: 37187; 37224; 76937; 99152; 99223; 99232 ==

== ENCOUNTER → 2023-04-14 01:01 | Outpatient (BNV) | payer OTHER, SELFPAY | PROVIDERS: Admitting Provider Nurse Practitioner Family; Emergency Provider Emergency Medicine; Visit Provider Internal Medicine | DX: F19.10 Other psychoactive substance abuse, uncomplicated (principal) | CPT/HCPCS: 99232; 99233; 99239 ==

== ENCOUNTER → 2023-04-14 01:01 | Outpatient (BNV) | payer OTHER, SELFPAY | PROVIDERS: Admitting Provider Nurse Practitioner Family; Emergency Provider Emergency Medicine; Visit Provider Internal Medicine | DX: J15.212 Pneumonia due to Methicillin resistant Staphylococcus aureus (principal); G92.9 Unspecified toxic encephalopathy | CPT/HCPCS: 99222 ==

== ENCOUNTER → 2023-04-14 01:01 | Outpatient (BNV) | payer OTHER, SELFPAY | PROVIDERS: Admitting Provider Nurse Practitioner Family; Emergency Provider Emergency Medicine; Visit Provider Internal Medicine Cardiovascular Disease | DX: U07.1 COVID-19 (principal); T50.901A Poisoning by unspecified drugs, medicaments and biological substances, accidental (unintentional), initial encounter; K92.0 Hematemesis; R41.0 Disorientation, unspecified; G92.9 Unspecified toxic encephalopathy; I42.0 Dilated cardiomyopathy; N17.9 Acute kidney failure, unspecified; R09.02 Hypoxemia; R45.1 Restlessness and agitation | CPT/HCPCS: 99291 ==

== ENCOUNTER 2023-04-29 13:34 | Outpatient (REF) | payer OTHER, SELFPAY ==
[2023-04-29 16:20] LABS: Alanine Aminotransferase 45 U/L (0-40); Albumin Level 3.7 g/dL (3.5-5.0); Alkaline Phosphatase 66 U/L (39-117); Aspartate Amino Transferase 17 U/L (5-37); Bilirubin Direct 0.1 mg/dL (0.0-0.5); Bilirubin Total 0.3 mg/dL (0.0-1.0); Total Protein 7.6 g/dL (6.5-8.0)
[2023-04-29 21:03] LABS: Fentanyl, urine Not Detected (Not Detect)
[2023-05-03 08:54] LABS: Codeine, Ur NEGATIVE; Hydrocodone, Ur NEGATIVE; Oxycodone, Ur NEGATIVE
[2023-05-03 08:55] LABS: Hydromorphone, Ur NEGATIVE; Morphine, Ur NEGATIVE
[2023-05-03 08:56] LABS: Norhydrocodone, Ur NEGATIVE; Noroxycodone, Ur NEGATIVE; Oxymorphone, Ur NEGATIVE
[2023-05-03 08:57] LABS: Buprenorphine 39 (H)
== END 2023-04-29 13:35 | disposition home or self-care (01) ==
LOC: HO.LAB 13:34
PROVIDERS: Visit Provider Nurse Practitioner Psychiatric/Mental Health
DX: F11.20 Opioid dependence, uncomplicated (principal); Z51.81 Encounter for therapeutic drug level monitoring; Z79.899 Other long term (current) drug therapy
CPT/HCPCS: 36415; 80076; 80305; 80307; 80348; 80362; 80364; 80365; 99202

== ENCOUNTER 2023-04-29 13:34 | Outpatient (AMB) | payer OTHER, SELFPAY ==
--- NOTE | 2023-04-29 13:39 | A.OFFVIS_ITS ---
Intake Vital Signs 04/29/23 13:48 BP 126/82 Blood Pressure Location Lt radial Position Sitting Pulse 101 H Pulse Source Pulse Oximeter Pulse Oximetry (%) 99 Oxygen Delivery Method Room Air Intake Visit Reasons: MAT Intake Intake Note: the patient presents for a mat intake Home Sales Consultant Required: No Allergies morphine [MORPHINE] Allergy (Mild, Verified 05/04/23 11:34) BUMPS AND ITCHINESS NEAR IV SITE AFTER ADMINISTRATION, (IV) blisters penicillin V Allergy (Unknown, Verified 05/04/23 11:34) Unknown Penicillins Allergy (Unknown, Verified 05/04/23 11:34) UNKNOWN Do you need a note to return to daycare/school/sports/work: No MAT Intake Nursing Intake Reason for visit: Pt presents as MAT Intake, interested in opiate mark . Pt referred from [facility], admitted for accidental overdose. 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 [employer] What is your current relationship status?: Girlfriend Current PCP: New PCP appt Fall 2022 Referral Source: [facility] Substance Abuse History Substance Abuse History (includes route, frequency and quantity): Oxycodone product (Pt reports 2-3 years prior, started using illicit pressed pills, 10 pills daily at times) Age of first use: 2-3 years ago, when father Social History Children: 12 year old son Do you have a support system?: Girlfriend, Son's mother, Grandmother Current mode of transportation?: None, remined of [facility] transportation services Where are you currently residing?: [place] Drug Use Have you ever shared needles?: No Have you ever belonged to a needle exchange program?: No Do you buy needles at a pharmacy?: No Have you ever overdosed?: Yes Number of lifetime overdoses: 1 Have you ever been hospitalized for an overdose?: Yes Was Naloxone administered?: Yes Details: Hx one OD, presented here at [facility], admitted for OD Recovery History Have you had any periods of recovery?: Yes What is your longest time in recovery?: 04/13/23- present When was the last time you were in recovery?: Currently Have you ever had inpatient treatment for your substance abuse disorder?: No Have you been in an inpatient detoxification program?: No Have you been in an inpatient Rehab/[facility] house?: No Have you been in an outpatient Methadone Maintenance program?: No Have you been in an outpatient Suboxone Maintenance program?: No Have you been in an AA/NA support program?: No Have you had a Recovery Support Filtrose Crusher?: No Have you had Peer Support?: No Details: Pt reports first time accessing recovery treatment Behavioral Health History Do you have a current provider? If so, who?: Pt is currently working with [facility] diagnosis: None History of other addictive behavior: None History of inpatient psychiatric hospitalization? If so, how many? Most Recent? Where?: None History of self harming thoughts?: No History of homicidal or suicidal intentions?: No Medical Conditions Endocarditis?: No Skin Infection: No Seizure related to withdrawal or overdose: No Head or brain injury: No Hepatitis A (if yes, have you been treated?): No Hepatitis B (if yes, have you been treated?): No Hepatitis C (if yes, have you been treated?): No HIV (if yes, have you been treated?): No TB (if yes, have you been treated?): No Other: Yes Do you have any chronic pain conditions?: Broke right ankle 10 yrs ago, chronic ankle pain Details: Current Medications: Omeprazole 40mg Elquiw 5mg PO BID Amlodipine 5mg PO HPI MAT Intake HPI Details Patient presents for intake and evaluation Recently medically admitted for overdose requiring intubation Patient reports no history of treatment, unsure or of medication options. Reviewed different options and agreeable to starting Suboxone. Patient expressing significant guilt related to his son finding him unresponsive. Medical in hospital notes reviewed. Currently engaged with therapist at [facility] who he reports is helping him with housing Substance use history reviewed RN. note. [facility] Medical History Asthma Bronchitis DVT (deep venous thrombosis) Hypertension Kidney stones Pulmonary emboli Substance abuse Social History Alcohol intake: current Alcohol intake frequency: holidays/special occasions only Substance Use Type: Marijuana service: No Review of Systems Const Reports as per HPI and Reports no additional complaints Physical Exam Vital Signs: Last Vital Signs Pulse 101 H 04/29/23 13:48 BP 126/82 04/29/23 13:48 Pulse Ox 99 04/29/23 13:48 Oxygen Delivery Method Room Air 04/29/23 13:48 Const General: cooperative and anxious Orientation/consciousness: patient oriented x3 Neuro General: patient oriented x3 Psych Appearance: well kempt Mental Status: mental status grossly normal Speech and movement: Clear speech present Affect: Anxious affect present Attitude: cooperative Thought process: Normal thought process present Thought content: Normal thought content present Insight: Fair insight present (Psych) Results AMB 14 Panel Urine Drug Screen Urine Marijuana (THC) Positive Last Edit by Kelsey Berg RN on 04/29/23 15:0 4 Urine Cocaine Negative Last Edit by Kelsey Berg RN on 04/29/23 15:04 Urine Morphine Negative Last Edit by Kelsey Berg RN on 04/29/23 15:04 Urine Methamphetamine Negative Last Edit by Kelsey Berg RN on 04/29/23 15:0 4 Urine Amphetamine Negative Last Edit by Kelsey Berg RN on 04/29/23 15:04 Urine Benzodiazepine Negative Last Edit by Kelsey Berg RN on 04/29/23 15:04 Urine Barbiturates Negative Last Edit by Kelsey Berg RN on 04/29/23 15:04 Urine Methadone Positive Last Edit by Kelsey Berg RN on 04/29/23 15:04 Urine Buprenorphine Positive Last Edit by Kelsey Berg RN on 04/29/23 15:04 Urine Tricyclic Antidepressant Negative Last Edit by Kelsey Berg RN on 04/29/23 15:04 Urine MDMA Negative Last Edit by Kelsey Berg RN on 04/29/23 15:04 Urine Oxycodone Negative Last Edit by Kelsey Berg RN on 04/29/23 15:04 Urine Phencyclidine Negative Last Edit by Kelsey Berg RN on 04/29/23 15:04 Urine Propoxyphene Negative Last Edit by Kelsey Berg RN on 04/29/23 15:04 Results Reviewed Results Reviewed: Laboratory Last Values POC Urine Buprenorphine Positive 04/29/23 15:02 POC Urine Morphine Negative 04/29/23 15:02 POC Urine Oxycodone Negative 04/29/23 15:02 POC Urine Methadone Positive 04/29/23 15:02 POC Urine Propoxyphene Negative 04/29/23 15:02 POC Urine Barbiturates Negative 04/29/23 15:02 POC U Tricyclic Antidpr Negative 04/29/23 15:02 POC Urine PCP Negative 04/29/23 15:02 POC Ur Amphetamines Negative 04/29/23 15:02 POC Ur Methamphetamine Negative 04/29/23 15:02 POC Urine MDMA Negative 04/29/23 15:02 POC Ur Benzodiazepine Negative 04/29/23 15:02 POC Urine Cocaine Negative 04/29/23 15:02 POC Ur Marijuana (THC) Positive 04/29/23 15:02 Assessment & Plan Assessment & Plan (1) Opioid use disorder: Code(s): F11.90 - Opioid use, unspecified, uncomplicated Plan: * Suboxone 4 mg b.i.d. ordered * Urine drug screen reviewed with patient, patient denies any methadone use. Reviewed risk of precipitated withdrawal with taking Suboxone after methadone. Patient continues to deny any methadone use. * Follow-up 1 week * Labs ordered Orders: Orders Liver Panel 04/29/23 F11.90 - Opioid use, unspecified, uncomplicated Buprenorphine 04/29/23 F11.90 - Opioid use, unspecified, uncomplicated Fentanyl, urine 04/29/23 F11.90 - Opioid use, unspecified, uncomplicated Opiates GCMS Expanded, Ur 04/29/23 F11.90 - Opioid use, unspecified, uncomplicated AMB 14 Panel Urine Drug Screen 04/29/23 Z51.81 - Encounter for therapeutic drug level monitoring Medications: New buprenorphine-naloxone 4-1 mg (Suboxone) 1 film sublingual BID 14 ea 0RF naloxone 4 mg/actuation (Narcan) spray 1 dose into ONE nostril; alternate nostrils w each dose until help arrives 4 mg intranasal Q2M PRN 2 ea 0RF opioid overdose Coding Level of Care Code New Pt Level 4 (96809) Diagnoses Opioid use disorder F11.90
[2023-04-29 13:48] VITALS: BP 126/82; PULSE 101; O2SAT 99
== END 2023-04-29 14:39 | disposition home or self-care (01) ==
LOC: HO.HCC 13:34
PROVIDERS: Visit Provider Nurse Practitioner Psychiatric/Mental Health
DX: F11.90 Opioid use, unspecified, uncomplicated (principal)
CPT/HCPCS: 99204

== ENCOUNTER 2023-05-04 11:26 | Outpatient (AMB) | payer OTHER, SELFPAY ==
--- NOTE | 2023-05-04 11:26 | MHC.OFFVIS ---
Intake Vital Signs 05/04/23 11:31 Height 5 ft 10 in Weight 235 lb BMI 33.7 Intake Visit Reasons: 2 week post op Thrombectomy Intake Note: Right LE thrombectomy 04/22/23, pt states that bilateral LE pain and swelling. Pt states that legs are tinglings and numb, pt states that he goes for walks and does PT at home. States Left LE gets numb when elevated Accompanied by: Self / Same As Patient Allergies morphine [MORPHINE] Allergy (Mild, Verified 05/04/23 11:34) BUMPS AND ITCHINESS NEAR IV SITE AFTER ADMINISTRATION, (IV) blisters penicillin V Allergy (Unknown, Verified 05/04/23 11:34) Unknown Penicillins Allergy (Unknown, Verified 05/04/23 11:34) UNKNOWN HPI 2 week post op Thrombectomy HPI Details Very complex 37-year-old gentleman presents for follow-up regarding mechanical venous thrombectomy for DVT. He was treated in the hospital for polysubstance abuse and overdose in was in the ICU several days. Close stood being discharged she was discovered to have this DVT. Was successfully treated with right lower extremity percutaneous transluminal venous mechanical thrombectomy. He has been maintained on Eliquis since that time. [facility] Medical History Asthma Bronchitis DVT (deep venous thrombosis) Hypertension Kidney stones Pulmonary emboli Substance abuse Social History Alcohol intake: current Alcohol intake frequency: holidays/special occasions only Substance Use Type: Marijuana service: No Review of Systems Const Reports as per HPI ENT Reports no additional complaints Card Denies chest pain, Denies chest pain at rest and Denies chest pain with activity Resp Denies chest congestion and Denies cough GI Reports no additional complaints Musc Details: pain over varicosities, aching of lower extremities, swelling, cramping, heaviness and tiredness, itching Denies abnormal gait Skin/Breast Reports pruritus and Denies wounds Neuro Reports no additional complaints and Denies abnormal gait Psych Denies no additional complaints Physical Exam Vital Signs: BMI result Body Mass Index 33.7 Const General: cooperative, healthy appearing and comfortable Orientation/consciousness: oriented to person, oriented to place and oriented to time Neck Carotids: no bruits Chest Chest palpation & inspection: normal inspection of the chest and normal palpation of entire chest wall Resp Effort & Inspection: normal respiratory effort and able to speak in complete sentences Cardio Rate: regular rate Heart sounds: S1 normal heart sound present and S2 normal heart sound present Peripheral pulses: Peripheral pulses 2+ throughout GI Inspection: Yes normal to inspection Skin Other: +2 edema General skin exam: dry skin Neuro General: oriented to person, oriented to place and oriented to time Extrem Right lower extremity: full ROM, normal capillary refill and edema Left lower extremity: full ROM, normal capillary refill and edema Psych Mental Status: mental status grossly normal Assessment & Plan Assessment & Plan (1) DVT (deep venous thrombosis): Code(s): I82.409 - Acute embolism and thrombosis of unspecified deep veins of unspecified lower extremity Plan: In short patient is stable from a DVT perspective. Would continue anticoagulation indefinitely. We did discuss routine conservative measures including compression elevation and exercise. The patient is awaiting follow-up and evaluation with primary care. He will follow up with us on an as-needed basis. Thank you for allowing us to assist in his care Coding Level of Care Code Est Pt Level 4 (50775) Diagnoses DVT (deep venous thrombosis) I82.409
[2023-05-04 11:31] VITALS: BMI 33.7
== END 2023-05-04 11:52 | disposition home or self-care (01) ==
PROVIDERS: Visit Provider Surgery Vascular Surgery
DX: I82.401 Acute embolism and thrombosis of unspecified deep veins of right lower extremity (principal)
CPT/HCPCS: 99214

== ENCOUNTER → 2023-05-04 11:30 | Outpatient (BNVA) | payer OTHER, SELFPAY | PROVIDERS: Visit Provider Surgery Vascular Surgery | DX: I82.409 Acute embolism and thrombosis of unspecified deep veins of unspecified lower extremity (principal) | CPT/HCPCS: 99212 ==

== ENCOUNTER 2023-05-05 13:33 | Outpatient (AMB) | payer OTHER, SELFPAY ==
--- NOTE | 2023-05-05 13:39 | A.OFFVIS_ITS ---
Intake Vital Signs 05/05/23 13:43 BP 132/78 Blood Pressure Location Lt radial Position Sitting Pulse 84 Pulse Source Pulse Oximeter Pulse Oximetry (%) 98 Oxygen Delivery Method Room Air Intake Visit Reasons: MAT Visit Intake Note: The patient presents for a mat visit Cell Cleaner Required: No Allergies morphine [MORPHINE] Allergy (Mild, Verified 05/05/23 13:44) BUMPS AND ITCHINESS NEAR IV SITE AFTER ADMINISTRATION, (IV) blisters penicillin V Allergy (Unknown, Verified 05/05/23 13:44) Unknown Penicillins Allergy (Unknown, Verified 05/05/23 13:44) UNKNOWN Do you need a note to return to daycare/school/sports/work: No HPI MAT Visit HPI Details Patient presents for DAISY treatment follow up Tolerating Suboxone dose--did not take dose today. Concerend about becoming addicted to something else . Acknowledged concerns and provided education regarding benefits to taking medication as prescribed, including addressing withdrawal sx and cravings. Patient verbalized understanding. Sleeping well --reporting some anxiety usually before falling asleep. Concerned about his leg and edema and if he will be able to return to work soon. [facility] Medical History Asthma Bronchitis DVT (deep venous thrombosis) Hypertension Kidney stones Pulmonary emboli Substance abuse Social History Alcohol intake: current Alcohol intake frequency: holidays/special occasions only Substance Use Type: Marijuana service: No Review of Systems Const Reports as per HPI and Reports no additional complaints Physical Exam Vital Signs: Last Vital Signs Pulse 84 05/05/23 13:43 BP 132/78 05/05/23 13:43 Pulse Ox 98 05/05/23 13:43 Oxygen Delivery Method Room Air 05/05/23 13:43 Const General: cooperative and anxious Orientation/consciousness: patient oriented x3 Neuro General: patient oriented x3 Psych Appearance: well kempt Mental Status: mental status grossly normal Speech and movement: Clear speech present Affect: Anxious affect present Attitude: cooperative Thought process: Normal thought process present Thought content: Normal thought content present Insight: Fair insight present (Psych) Assessment & Plan Assessment & Plan (1) Opioid use disorder: Code(s): F11.90 - Opioid use, unspecified, uncomplicated Plan: * continue suboxone at 4mg BID * Hydroxyzine 50mg PRN for anxiety and sleep * follow up one week * lab results reviewed via phone with RN Medications: New hydroxyzine HCl 50 mg PO BID PRN 14 tabs 0RF anxiety Refilled buprenorphine-naloxone 4-1 mg (Suboxone) 1 film sublingual BID 14 ea 0RF Discontinued doxycycline monohydrate Discontinued Reason: Patient Completed Course 100 mg PO Q12H 5 days 10 caps 0RF Coding Level of Care Code Est Pt Level 3 (86794) Diagnoses Opioid use disorder F11.90
[2023-05-05 13:43] VITALS: BP 132/78; PULSE 84; O2SAT 98
== END 2023-05-05 14:06 | disposition home or self-care (01) ==
LOC: HO.HCC 13:33
PROVIDERS: Visit Provider Nurse Practitioner Psychiatric/Mental Health
DX: F11.90 Opioid use, unspecified, uncomplicated (principal)
CPT/HCPCS: 99213

== ENCOUNTER → 2023-05-05 13:33 | Outpatient (BNVA) | payer OTHER, SELFPAY | PROVIDERS: Visit Provider Nurse Practitioner Psychiatric/Mental Health | DX: F11.20 Opioid dependence, uncomplicated (principal) | CPT/HCPCS: 99212 ==

== ENCOUNTER 2023-05-11 09:30 | Outpatient (AMB) | payer OTHER, SELFPAY ==
--- NOTE | 2023-05-11 09:40 | MHC.OFFVIS ---
Intake Vital Signs 05/11/23 09:46 BP 118/72 Blood Pressure Location Lt radial Position Sitting Pulse 90 Pulse Source Pulse Oximeter Pulse Oximetry (%) 97 Oxygen Delivery Method Room Air Intake Visit Reasons: MAT Visit Intake Note: the patient presents for a mat visit Brick Dropper Required: No Allergies morphine [MORPHINE] Allergy (Mild, Verified 05/11/23 09:46) BUMPS AND ITCHINESS NEAR IV SITE AFTER ADMINISTRATION, (IV) blisters penicillin V Allergy (Unknown, Verified 05/11/23 09:46) Unknown Penicillins Allergy (Unknown, Verified 05/11/23 09:46) UNKNOWN Do you need a note to return to daycare/school/sports/work: No HPI MAT Visit HPI Details Patient presents for DAISY treatment follow up Doing well with recovery--no opioid use Feels that hydroxyzine has been helpful--only taking at bedtime because it makes him drowsy excited for his son to come home from vacation today engaged in treatment [facility] Medical History Asthma Bronchitis DVT (deep venous thrombosis) Hypertension Kidney stones Pulmonary emboli Substance abuse Social History Alcohol intake: current Alcohol intake frequency: holidays/special occasions only Substance Use Type: Marijuana service: No Review of Systems Const Reports as per HPI and Reports no additional complaints Physical Exam Vital Signs: Last Vital Signs Pulse 90 05/11/23 09:46 BP 118/72 05/11/23 09:46 Pulse Ox 97 05/11/23 09:46 Oxygen Delivery Method Room Air 05/11/23 09:46 Const General: cooperative and anxious Orientation/consciousness: patient oriented x3 Neuro General: patient oriented x3 Psych Appearance: well kempt Mental Status: mental status grossly normal Speech and movement: Clear speech present Affect: Anxious affect present Attitude: cooperative Thought process: Normal thought process present Thought content: Normal thought content present Insight: Fair insight present (Psych) Assessment & Plan Assessment & Plan (1) Opioid use disorder: Code(s): F11.90 - Opioid use, unspecified, uncomplicated Plan: continue suboxone at 4mg BID follow up one week Medications: Refilled buprenorphine-naloxone 4-1 mg (Suboxone) 1 film sublingual BID 14 ea 0RF Coding Level of Care Code Est Pt Level 3 (16351) Diagnoses Opioid use disorder F11.90
[2023-05-11 09:46] VITALS: BP 118/72; PULSE 90; O2SAT 97
== END 2023-05-11 10:11 | disposition home or self-care (01) ==
LOC: HO.HCC 09:30
PROVIDERS: Visit Provider Nurse Practitioner Psychiatric/Mental Health
DX: F11.90 Opioid use, unspecified, uncomplicated (principal)
CPT/HCPCS: 99213

== ENCOUNTER → 2023-05-11 09:30 | Outpatient (BNVA) | payer OTHER, SELFPAY | PROVIDERS: Visit Provider Nurse Practitioner Psychiatric/Mental Health | DX: F11.20 Opioid dependence, uncomplicated (principal) | CPT/HCPCS: 99212 ==

== ENCOUNTER 2023-05-18 08:51 | Outpatient (AMB) | payer OTHER, SELFPAY ==
--- NOTE | 2023-05-18 08:52 | MHC.OFFVIS ---
Intake Vital Signs 05/18/23 08:55 BP 128/74 Blood Pressure Location Lt radial Position Sitting Pulse 78 Pulse Source Pulse Oximeter Pulse Oximetry (%) 97 Oxygen Delivery Method Room Air Intake Visit Reasons: MAT Visit Intake Note: the patient presents for a mat visit Foreign Language Instructor Required: No Allergies morphine [MORPHINE] Allergy (Mild, Verified 05/18/23 08:56) BUMPS AND ITCHINESS NEAR IV SITE AFTER ADMINISTRATION, (IV) blisters penicillin V Allergy (Unknown, Verified 05/18/23 08:56) Unknown Penicillins Allergy (Unknown, Verified 05/18/23 08:56) UNKNOWN Do you need a note to return to daycare/school/sports/work: No HPI MAT Visit HPI Details Patient presents for OUD treatment follow up Sleeping better with Hydroxyzine Anxiety okay during the day Would like to increase suboxone dose--does not feel it is lasting the whole day Discussed developing recovery supports--[facility] Awaiting primary care appt. Concerned about bald spot on his head that was not previously there. Unclear if he sustained any type of injury at time of overdose [facility] Medical History Asthma Bronchitis DVT (deep venous thrombosis) Hypertension Kidney stones Pulmonary emboli Substance abuse Social History Alcohol intake: current Alcohol intake frequency: holidays/special occasions only Substance Use Type: Marijuana service: No Review of Systems Const Reports as per HPI and Reports no additional complaints Physical Exam Vital Signs: Last Vital Signs Pulse 78 05/18/23 08:55 BP 128/74 05/18/23 08:55 Pulse Ox 97 05/18/23 08:55 Oxygen Delivery Method Room Air 05/18/23 08:55 Const General: cooperative and anxious Orientation/consciousness: patient oriented x3 Neuro General: patient oriented x3 Psych Appearance: well kempt Mental Status: mental status grossly normal Speech and movement: Clear speech present Affect: Anxious affect present Attitude: cooperative Thought process: Normal thought process present Thought content: Normal thought content present Insight: Fair insight present (Psych) Assessment & Plan Assessment & Plan (1) Opioid use disorder: Code(s): F11.90 - Opioid use, unspecified, uncomplicated Plan: Increase suboxone dose to 12mg QD follow up one week Medications: New buprenorphine-naloxone 12-3 mg (Suboxone) 1 film buccal Q24H 7 ea 0RF Changed From hydroxyzine HCl 50 mg PO BID PRN 14 tabs 0RF anxiety To hydroxyzine HCl 50 mg PO BEDTIME PRN 30 tabs 1RF anxiety Discontinued buprenorphine-naloxone 4-1 mg (Suboxone) Discontinued Reason: Doctor's Order 1 film sublingual BID 14 ea 0RF Coding Level of Care Code Est Pt Level 4 (38742) Diagnoses Opioid use disorder F11.90
[2023-05-18 08:55] VITALS: BP 128/74; PULSE 78; O2SAT 97
== END 2023-05-18 09:23 | disposition home or self-care (01) ==
LOC: HO.HCC 08:51
PROVIDERS: Visit Provider Nurse Practitioner Psychiatric/Mental Health
DX: F11.90 Opioid use, unspecified, uncomplicated (principal)
CPT/HCPCS: 99214

== ENCOUNTER → 2023-05-18 08:51 | Outpatient (BNVA) | payer OTHER, SELFPAY | PROVIDERS: Visit Provider Nurse Practitioner Psychiatric/Mental Health | DX: F11.20 Opioid dependence, uncomplicated (principal) | CPT/HCPCS: 99212 ==

== ENCOUNTER 2023-05-25 09:31 | Outpatient (AMB) | payer OTHER, SELFPAY ==
--- NOTE | 2023-05-25 09:34 | A.OFFVIS_ITS ---
Intake Intake Visit Reasons: MAT Visit Intake Note: the patient is here for a mat visit Auditing Coder Required: No Allergies morphine [MORPHINE] Allergy (Mild, Verified 05/25/23 09:39) BUMPS AND ITCHINESS NEAR IV SITE AFTER ADMINISTRATION, (IV) blisters penicillin V Allergy (Unknown, Verified 05/25/23 09:39) Unknown Penicillins Allergy (Unknown, Verified 05/25/23 09:39) UNKNOWN Do you need a note to return to daycare/school/sports/work: No HPI MAT Visit HPI Details Patient presents for OUD treatment follow up Would like to increase Subooxone dose --to 8mg BID Increasing stress at home Still engaged in therapy. Concerned about getting in to see primary care as he will be running out of his Eliquis soon. 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 [facility] Medical History Asthma Bronchitis DVT (deep venous thrombosis) Hypertension Kidney stones Pulmonary emboli Substance abuse Social History Alcohol intake: current Alcohol intake frequency: holidays/special occasions only Substance Use Type: Marijuana service: No Review of Systems Const Reports as per HPI and Reports no additional complaints Physical Exam Const General: cooperative and anxious Orientation/consciousness: patient oriented x3 Neuro General: patient oriented x3 Psych Appearance: well kempt Mental Status: mental status grossly normal Speech and movement: Clear speech present Affect: Anxious affect present Attitude: cooperative Thought process: Normal thought process present Thought content: Normal thought content present Insight: Fair insight present (Psych) Assessment & Plan Assessment & Plan (1) Opioid use disorder: Code(s): F11.90 - Opioid use, unspecified, uncomplicated Plan: * Increase suboxone dose to 8 mg b.i.d. * follow up 2 week * Encouraged call office before next appointment if needed Medications: New buprenorphine-naloxone 8-2 mg (Suboxone) 1 film sublingual BID 29 ea 0RF Discontinued buprenorphine-naloxone 12-3 mg (Suboxone) Discontinued Reason: Doctor's Order 1 film buccal Q24H 7 ea 0RF Coding Level of Care Code Est Pt Level 3 (88425) Diagnoses Opioid use disorder F11.90
== END 2023-05-25 09:56 | disposition home or self-care (01) ==
LOC: HO.HCC 09:31
PROVIDERS: PCP Internal Medicine; Visit Provider Nurse Practitioner Psychiatric/Mental Health
DX: F11.90 Opioid use, unspecified, uncomplicated (principal)
CPT/HCPCS: 99213

== ENCOUNTER → 2023-05-25 09:31 | Outpatient (BNVA) | payer OTHER, SELFPAY | PROVIDERS: PCP Internal Medicine; Visit Provider Nurse Practitioner Psychiatric/Mental Health | DX: F11.20 Opioid dependence, uncomplicated (principal) | CPT/HCPCS: 99212 ==

== ENCOUNTER 2023-05-27 11:13 | Outpatient (AMB) | payer OTHER, SELFPAY ==
--- NOTE | 2023-05-27 13:15 | MHC.OFFWIV ---
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 Patient Tobacco Use Status: Current everyday Tobacco user Allergies morphine [MORPHINE] Allergy (Mild, Verified 05/27/23 13:16) BUMPS AND ITCHINESS NEAR IV SITE AFTER ADMINISTRATION, (IV) blisters penicillin V Allergy (Unknown, Verified 05/27/23 13:16) Unknown Penicillins Allergy (Unknown, Verified 05/27/23 13:16) UNKNOWN Do you need a note to return to daycare/school/sports/work: No HPI HPI Comments History of Present Illness Details 1328 37-year-old male history of DVT/PE, bronchitis, asthma, hypertension, kidney stones, substance abuse presents for medication refill on amlodipine 5 mg p.o. daily, Eliquis 5 mg p.o. b.i.d. and his omeprazole 40 mg p.o. daily, patient reports he is unable to get into his PCP until June 29. He reports he is ran out of his medications and needs a refill. Has been on anti coags for while in takes 5 mg p.o. b.i.d.. No medical complaints at this time. Physical exam benign Plan at this time medication refill. I did do a chart review in it does appear as though patient is on Eliquis 5 mg p.o. b.i.d., omeprazole 40 mg p.o. daily and amlodipine 5 mg p.o. daily. [facility] Medical History Asthma Bronchitis DVT (deep venous thrombosis) Hypertension Kidney stones Pulmonary emboli Substance abuse Social History Alcohol intake: current Alcohol intake frequency: holidays/special occasions only Patient Tobacco Use Status: Current everyday Tobacco user Substance Use Type: Marijuana service: No Review of Systems Const Details: Constitutional : No Weight loss, No Fever, No Chills, No Fatigue, No Malaise ENT/Mouth : No sore throat, No Rhinorrhea Eyes: No Eye Pain, No Swelling, No Redness Cardiovascular : No Chest Pain, No SOB, No Dyspnea on Exertion, No Orthopnea, No Edema, No Palpitations Respiratory : No Cough, No Sputum, No Wheezing Gastrointestinal : No Nausea, No Vomiting, No Diarrhea, No Constipation, No abdominal Pain, No Hematochezia, No Melena Genitourinary : No Dysuria, No Urinary Frequency, No Hematuria, Musculoskeletal : No joint pain, No Myalgias, No Joint Swelling Skin : No Skin Lesions, No rash Neuro : No Weakness, No Numbness, No Dizziness, No Headache Psych : No Anxiety/Panic, No Depression All other systems reviewed and are negative All systems reviewed & are unremarkable except as noted in HPI and below Physical Exam Vital Signs: Last Vital Signs Temp 97.7 F 05/27/23 13:16 Pulse 70 05/27/23 13:16 BP 116/80 05/27/23 13:16 Pulse Ox 97 05/27/23 13:16 Oxygen Delivery Method Room Air 05/27/23 13:16 vss Appearance: Alert.? Oriented X3.? No acute distress.? Head: Normocephalic, atraumatic, no step-offs or deformities Eyes: Pupils equal, round and reactive to light.? CVS: Normal heart rate and rhythm.? Pulses normal.? Respiratory: No respiratory distress.? Breath sounds normal.? Skin: Skin warm and dry.? Normal skin color.? Normal skin turgor.? Extremities: No lower extremity edema.? No calf ttp. 5/5 strength to bilateral upper and lower extremities Neuro: Oriented X 3.? No motor deficit.? No sensory deficit. CN 2-12 intact Assessment & Plan Assessment & Plan (1) Medication refill: Code(s): Z76.0 - Encounter for issue of repeat prescription Plan Take your medications as prescribed. If you were prescribed antibiotics today, it is important that you take your medication to their entirety, do not skip any doses, do not finish them early. Follow-up with your primary care provider this week. Return to the emergency department with new or worsening symptoms. Such as fevers, chills, chest pain, shortness of breath, nausea, vomiting, dizziness, headache, vision changes, lethargy In case of emergency call 911 Medications: New apixaban (Eliquis) 5 mg PO BID 60 tabs 0RF 30 days Refilled amlodipine 5 mg PO DAILY 30 tabs 0RF omeprazole 40 mg PO DAILY 30 caps 0RF Coding Level of Care Code Est Pt Level 3 (15155) Diagnoses Medication refill Z76.0
[2023-05-27 13:16] VITALS: BP 116/80; PULSE 70; TEMP 36.5; O2SAT 97
== END 2023-05-27 14:06 | disposition home or self-care (01) ==
PROVIDERS: PCP Nurse Practitioner Family; Visit Provider Physician Assistant
DX: Z76.0 Encounter for issue of repeat prescription (principal)
CPT/HCPCS: 99213

== ENCOUNTER 2023-06-08 09:31 | Outpatient (AMB) | payer OTHER, SELFPAY ==
--- NOTE | 2023-06-08 09:40 | A.OFFVIS_ITS ---
Intake Vital Signs 06/08/23 09:44 BP 126/72 Blood Pressure Location Lt radial Position Sitting Pulse 84 Pulse Source Pulse Oximeter Pulse Oximetry (%) 99 Oxygen Delivery Method Room Air Intake Visit Reasons: MAT Visit Intake Note: the patient presents for a mat visit Robotic Technician Required: No Allergies morphine [MORPHINE] Allergy (Mild, Verified 06/08/23 09:45) BUMPS AND ITCHINESS NEAR IV SITE AFTER ADMINISTRATION, (IV) blisters penicillin V Allergy (Unknown, Verified 06/08/23 09:45) Unknown Penicillins Allergy (Unknown, Verified 06/08/23 09:45) UNKNOWN Do you need a note to return to daycare/school/sports/work: No HPI MAT Visit HPI Details Patient presents for OUD treatment follow up Currently prescribed suboxone 8mg BID Able to be seen in urgent care and got refills on medications Doing well with recovery, almost 2 months since last use. Continues to have follow up with [facility]. PCP appt 06/29 [facility] Medical History Asthma Bronchitis DVT (deep venous thrombosis) Hypertension Kidney stones Pulmonary emboli Substance abuse Social History Alcohol intake: current Alcohol intake frequency: holidays/special occasions only Patient Tobacco Use Status: Current everyday Tobacco user Substance Use Type: Marijuana service: No Review of Systems Const Reports as per HPI and Reports no additional complaints Physical Exam Vital Signs: Last Vital Signs Pulse 84 06/08/23 09:44 BP 126/72 06/08/23 09:44 Pulse Ox 99 06/08/23 09:44 Oxygen Delivery Method Room Air 06/08/23 09:44 Const General: cooperative and anxious Orientation/consciousness: patient oriented x3 Neuro General: patient oriented x3 Psych Appearance: well kempt Mental Status: mental status grossly normal Speech and movement: Clear speech present Affect: Anxious affect present Attitude: cooperative Thought process: Normal thought process present Thought content: Normal thought content present Insight: Fair insight present (Psych) Assessment & Plan Assessment & Plan (1) Opioid use disorder: Code(s): F11.90 - Opioid use, unspecified, uncomplicated Plan: * continue suboxone at current dose * follow up 2 week * Encouraged call office before next appointment if needed Medications: Refilled buprenorphine-naloxone 8-2 mg (Suboxone) 1 film sublingual BID 29 ea 0RF Coding Level of Care Code Est Pt Level 3 (69073) Diagnoses Opioid use disorder F11.90
[2023-06-08 09:44] VITALS: BP 126/72; PULSE 84; O2SAT 99
== END 2023-06-08 09:58 | disposition home or self-care (01) ==
LOC: HO.HCC 09:31
PROVIDERS: PCP Nurse Practitioner Family; Visit Provider Nurse Practitioner Psychiatric/Mental Health
DX: F11.90 Opioid use, unspecified, uncomplicated (principal)
CPT/HCPCS: 99213

== ENCOUNTER → 2023-06-08 09:31 | Outpatient (BNVA) | payer OTHER, SELFPAY | PROVIDERS: PCP Nurse Practitioner Family; Visit Provider Nurse Practitioner Psychiatric/Mental Health | DX: F11.20 Opioid dependence, uncomplicated (principal) | CPT/HCPCS: 99212 ==

== ENCOUNTER 2023-06-21 09:31 | Outpatient (AMB) | payer OTHER, SELFPAY ==
[2023-06-21 09:49] VITALS: BP 128/66; PULSE 96; O2SAT 98
--- NOTE | 2023-06-21 09:49 | A.OFFVIS_ITS ---
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: No Allergies morphine [MORPHINE] Allergy (Mild, Verified 06/21/23 09:50) BUMPS AND ITCHINESS NEAR IV SITE AFTER ADMINISTRATION, (IV) blisters penicillin V Allergy (Unknown, Verified 06/21/23 09:50) Unknown Penicillins Allergy (Unknown, Verified 06/21/23 09:50) UNKNOWN Do you need a note to return to daycare/school/sports/work: No HPI MAT Visit HPI Details Patient presents for follow up Currently prescribed Suboxone 8mg BID--requesting to increase to 8mg TID Reports recurrence over the weekend with cocaine-quite tearful when discussing this Will be having a CSP worker starting with him next week Working [employer] Medical History Asthma Bronchitis DVT (deep venous thrombosis) Hypertension Kidney stones Pulmonary emboli Substance abuse Social History Alcohol intake: current Alcohol intake frequency: holidays/special occasions only Patient Tobacco Use Status: Current everyday Tobacco user Substance Use Type: Marijuana service: No Review of Systems Const Reports as per HPI and Reports no additional complaints Physical Exam Vital Signs: Last Vital Signs Pulse 96 06/21/23 09:49 BP 128/66 06/21/23 09:49 Pulse Ox 98 06/21/23 09:49 Oxygen Delivery Method Room Air 06/21/23 09:49 Const General: cooperative and anxious Orientation/consciousness: patient oriented x3 Neuro General: patient oriented x3 Psych Appearance: well kempt Mental Status: mental status grossly normal Speech and movement: Clear speech present Affect: Anxious affect present Attitude: cooperative Thought process: Normal thought process present Thought content: Normal thought content present Insight: Fair insight present (Psych) Results AMB 14 Panel Urine Drug Screen Urine Marijuana (THC) Positive Last Edit by Yina Luong CMA on 06/21/23 10:11 Urine Cocaine Positive Last Edit by Yina Luong CMA on 06/21/23 10:11 Urine Morphine Negative Last Edit by Yina Luong CMA on 06/21/23 10:11 Urine Methamphetamine Negative Last Edit by Yina Luong CMA on 06/21/23 10:11 Urine Amphetamine Negative Last Edit by Yina Luong CMA on 06/21/23 10:1 1 Urine Benzodiazepine Negative Last Edit by Yina Luong CMA on 06/21/23 10:11 Urine Barbiturates Negative Last Edit by Yina Luong CMA on 06/21/23 10: 11 Urine Methadone Negative Last Edit by Yina Luong CMA on 06/21/23 10:11 Urine Buprenorphine Positive Last Edit by Yina Luong CMA on 06/21/23 10 :11 Urine Tricyclic Antidepressant Negative Last Edit by Yina Luong CMA on 06/21/23 10:11 Urine MDMA Negative Last Edit by Yina Luong CMA on 06/21/23 10:11 Urine Oxycodone Negative Last Edit by Yina Luong CMA on 06/21/23 10:11 Urine Phencyclidine Negative Last Edit by Yina Luong CMA on 06/21/23 10 :11 Urine Propoxyphene Negative Last Edit by Yina Luong CMA on 06/21/23 10: 11 Results Reviewed Results Reviewed: Laboratory Last Values POC Urine Buprenorphine Positive 06/21/23 10:10 POC Urine Morphine Negative 06/21/23 10:10 POC Urine Oxycodone Negative 06/21/23 10:10 POC Urine Methadone Negative 06/21/23 10:10 POC Urine Propoxyphene Negative 06/21/23 10:10 POC Urine Barbiturates Negative 06/21/23 10:10 POC U Tricyclic Antidpr Negative 06/21/23 10:10 POC Urine PCP Negative 06/21/23 10:10 POC Ur Amphetamines Negative 06/21/23 10:10 POC Ur Methamphetamine Negative 06/21/23 10:10 POC Urine MDMA Negative 06/21/23 10:10 POC Ur Benzodiazepine Negative 06/21/23 10:10 POC Urine Cocaine Positive 06/21/23 10:10 POC Ur Marijuana (THC) Positive 06/21/23 10:10 Assessment & Plan Assessment & Plan (1) Opioid use disorder: Code(s): F11.90 - Opioid use, unspecified, uncomplicated Plan: * suboxone dose increased to TID * follow up one week * risk reduction discussion Orders: Orders AMB 14 Panel Urine Drug Screen 06/21/23 Z51.81 - Encounter for therapeutic drug level monitoring Medications: Changed From buprenorphine-naloxone 8-2 mg (Suboxone) 1 film sublingual BID 10 ea 0RF To buprenorphine-naloxone 8-2 mg (Suboxone) 1 film sublingual TID 22 ea 0RF Coding Level of Care Code Est Pt Level 4 (57058) Diagnoses Opioid use disorder F11.90
== END 2023-06-21 10:15 | disposition home or self-care (01) ==
LOC: HO.HCC 09:31
PROVIDERS: PCP Nurse Practitioner Family; Visit Provider Nurse Practitioner Psychiatric/Mental Health
DX: F11.90 Opioid use, unspecified, uncomplicated (principal)
CPT/HCPCS: 99214

== ENCOUNTER → 2023-06-21 09:31 | Outpatient (BNVA) | payer OTHER, SELFPAY | PROVIDERS: PCP Nurse Practitioner Family; Visit Provider Nurse Practitioner Psychiatric/Mental Health | DX: F11.20 Opioid dependence, uncomplicated (principal) | CPT/HCPCS: 80305; 99212 ==

== ENCOUNTER 2023-06-28 09:29 | Outpatient (AMB) | payer OTHER, SELFPAY ==
--- NOTE | 2023-06-28 09:46 | MHC.OFFVIS ---
Intake Vital Signs 06/28/23 10:07 BP 140/100 H Blood Pressure Location Lt brachial Position Sitting Pulse 80 Pulse Oximetry (%) 95 Comment Denies CP, MARCUM, change in vision, SOB, did not take BP med Intake Visit Reasons: mat visit Allergies morphine [MORPHINE] Allergy (Mild, Verified 06/21/23 09:50) BUMPS AND ITCHINESS NEAR IV SITE AFTER ADMINISTRATION, (IV) blisters penicillin V Allergy (Unknown, Verified 06/21/23 09:50) Unknown Penicillins Allergy (Unknown, Verified 06/21/23 09:50) UNKNOWN HPI mat visit HPI Details Pt presents for OUD treatment follow up Currently being prescribed Suboxone 8mg TID (dose increased at last visit) Denies any side effects related to medication, feels much calmer, much better with dose increase Spent time with his son over the wkend PCP appt 06/29 [facility] Medical History Asthma Bronchitis DVT (deep venous thrombosis) Hypertension Kidney stones Pulmonary emboli Substance abuse Social History Alcohol intake: current Alcohol intake frequency: holidays/special occasions only Patient Tobacco Use Status: Current everyday Tobacco user Substance Use Type: Marijuana service: No Review of Systems Const Reports as per HPI and Reports no additional complaints Physical Exam Vital Signs: Last Vital Signs Pulse 80 06/28/23 10:07 BP 140/100 H 06/28/23 10:07 Pulse Ox 95 06/28/23 10:07 Const General: cooperative and anxious Orientation/consciousness: patient oriented x3 Neuro General: patient oriented x3 Psych Appearance: well kempt Mental Status: mental status grossly normal Speech and movement: Clear speech present Affect: Anxious affect present Attitude: cooperative Thought process: Normal thought process present Thought content: Normal thought content present Insight: Fair insight present (Psych) Assessment & Plan Assessment & Plan (1) Opioid use disorder: Code(s): F11.90 - Opioid use, unspecified, uncomplicated Plan: continue suboxone at current dose follow up one week risk reduction discussion Medications: Refilled buprenorphine-naloxone 8-2 mg (Suboxone) 1 film sublingual TID 22 ea 0RF Coding Level of Care Code Est Pt Level 3 (15028) Diagnoses Opioid use disorder F11.90
[2023-06-28 10:07] VITALS: BP 140/100; PULSE 80; O2SAT 95
== END 2023-06-28 09:48 | disposition home or self-care (01) ==
LOC: HO.HCC 09:29
PROVIDERS: PCP Nurse Practitioner Family; Visit Provider Nurse Practitioner Psychiatric/Mental Health
DX: F11.90 Opioid use, unspecified, uncomplicated (principal)
CPT/HCPCS: 99213

== ENCOUNTER → 2023-06-28 09:29 | Outpatient (BNVA) | payer OTHER, SELFPAY | PROVIDERS: PCP Nurse Practitioner Family; Visit Provider Nurse Practitioner Psychiatric/Mental Health | DX: F11.20 Opioid dependence, uncomplicated (principal) | CPT/HCPCS: 99212 ==

== ENCOUNTER 2023-06-29 11:25 | Outpatient (AMB) | payer OTHER, SELFPAY ==
[2023-06-29 11:28] VITALS: BP 140/90; PULSE 74; O2SAT 96; BMI 36.3
--- NOTE | 2023-06-29 11:28 | A.OFFPC_ITS ---
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 Required: No Allergies morphine [MORPHINE] Allergy (Mild, Verified 06/29/23 11:31) BUMPS AND ITCHINESS NEAR IV SITE AFTER ADMINISTRATION, (IV) blisters penicillin V Allergy (Unknown, Verified 06/29/23 11:31) Unknown Penicillins Allergy (Unknown, Verified 06/29/23 11:31) UNKNOWN Medication List - Last Reconciled 06/29/23 by MARICEL Black amlodipine 5 mg PO DAILY apixaban (Eliquis) 5 mg PO BID 30 days buprenorphine-naloxone 8-2 mg (Suboxone) 1 film sublingual TID hydroxyzine HCl 50 mg PO BEDTIME PRN naloxone 4 mg/actuation (Narcan) 4 mg intranasal Q2M PRN omeprazole 40 mg PO DAILY Tobacco use date assessed: 06/29/23 Dental Screening Dental Screen Date: 06/29/23 Did you have a dental visit in the last 12 months?: No Did you have a dental problem in the last 6 months where you did not have access to dental care?: No Was dental information given to patient?: Patient has dentist HPI HPI Comments History of Present Illness Details 37-year-old male new patient presents to [facility] to establish [facility]. Past medical history significant for opiate use disorder, DVT, congestive cardiomyopathy, MRSA pneumonia and GAYLE. Review of the notes patient was admitted to [facility] in April 2023 hospital course noted below. hospital course: Patient was admitted for acute toxic metabolic encephalopathy and acute hypoxic respiratory failure secondary to fentanyl overdose requiring intubation in the ICU. Course complicated by sepsis due to MRSA pneumonia. Was initially treated with linezolid, was seen by infectious disease recommended completing course with doxycycline. Initially patient noted to have reduced EF likely due to sepsis, on repeat echo later in admission EF had recovered. Patient was eventually extubated. Course complicated by acute ICU delirium with paranoid delusions which resolved by time of discharge. For hypertension was started on amlodipine. Course than complicated by acute bilateral DVT, recurrent, underwent clot extraction on April 22, was started on Eliquis 10 mg b.i.d., to continue until April 29 and then decrease to 5 mg b.i.d. indefinitely. Patient will be discharged home. Patient currently following with comprehensive care clinic on Suboxone. Patient requesting referral for eye exam, referral entered. Patient requesting to see rn radiation oncology as he has a right foot lump which he states he initially thought was a callus however it appears to be filled with fluid. On examination patient appears to have a right foot ganglion cyst, referral entered to podiatry. Patient states not currently established with range rider, upon review of the notes patient was previously seen by Dr. Houston for history of pulmonary embolism in 2017. New referral entered to reestablish care with range rider. [facility] Medical History (Updated 06/29/23 @ 12:05 by MARICEL Black) Kidney stones Pulmonary emboli Substance abuse Hypertension Bronchitis DVT (deep venous thrombosis) Asthma Surgical History (Updated 06/29/23 @ 11:51 by MARICEL Black) H/O colonoscopy Family History (Updated 06/29/23 @ 11:53 by MARICEL Black) Father COVID Myocardial infarction Mother Myocardial infarction Sister Stroke Sister Brain aneurysm Social History (Updated 06/29/23 @ 11:54 by MARICEL Black) Housing: Apartment Alcohol intake: never Patient Tobacco Use Status: Current everyday Tobacco user Cigarette Packs Per Day: 0.5 Substance Use Type: Marijuana service: No Current occupational status: unemployed Cognitive needs: No Hearing needs: No Vision needs: No Questionnaire PHQ-9 Over the last 2 weeks, how often have you been bothered by any of the following problems? 1. Little interest or pleasure in doing things: not at all 2. Feeling down, depressed, or hopeless: not at all 3. Trouble falling or staying asleep, or sleeping too much: not at all 4. Feeling tired or having little energy: not at all 5. Poor appetite or overeating: not at all 6. Feeling bad about yourself - or that you are a failure or have let yourself or your family down: not at all 7. Trouble concentrating on things, such as reading the newspaper or watching television: not at all 8. Moving or speaking so slowly that other people could have noticed. Or the opposite - being so fidgety or restless that you have been moving around a lot more than usual: not at all 9. Thoughts that you would be better off or of hurting yourself in some way: not at all Total score: 0 Depression Screening Interpretation: Negative Source: Developed by Drs. Haim Coello, Arminda Hagan, Pradeep Griffin and colleagues, with an educational yesica from [employer]. Thrive Questionnaire Date Thrive assessed: 04/14/23 I am a: Patient What is your living situation today?: I have a steady place to live Within the past 12 months, did the food you bought not last and you didn't have the money to get more?: Never true Within the past 12 months, did you worry whether your food would run out before you got money to buy more?: Never true Do you have trouble paying for medicines?: No Do you have trouble getting transportation to medical appointments?: No Do you have trouble paying your heating and electricity bill?: No Do you have trouble taking care of your child, family member or friend?: No Do you have trouble with day-to-day activities such as bathing, preparing meals, shopping, managing finances, etc.?: No Are you currently unemployed and looking for a job?: No Are you interested in more education?: No AUDIT C Alcohol Use Questionnaire (AUDIT-C) 1. How often do you have a drink containing alcohol?: Never 2. How many drinks containing alcohol do you have on a typical day when you are drinking?: 1 or 2 3. How often do you have six or more drinks on one occasion?: Never Total Score: 0 ANDREW-7 AMB Questionnaire ANDREW-7 Date ANDREW - 7 assessed: 06/29/23 Feeling nervous, anxious, or on edge: 1 = Several days Not being able to stop or control worryin = Not at all Worrying too much about different things: 0 = Not at all Trouble relaxin = Not at all Being so restless that it is hard to sit still: 0 = Not at all Becoming easily annoyed or irritable: 0 = Not at all Feeling afraid as if something awful might happen: 0 = Not at all Total ANDREW-7 score (0-4 normal; 5-9 mild; 10-14 moderate; 15-21 severe): 1 Source: Developed by Drs. Haim Coello, Arminda Hagan, Pradeep Griffin and colleagues, with an educational yesica from [employer]. Review of Systems Const Denies chills, Denies fatigue, Denies fever(s) and Denies poor appetite Eyes Denies no additional complaints ENT Reports Normal hearing present Card Denies chest pain, Denies syncope, Denies rapid heart rate and Denies dyspnea Resp Denies cough and Denies dyspnea GI Denies change in stool character, Denies constipation, Denies diarrhea, Denies nausea and Denies vomiting Denies dysuria, Denies urinary frequency and Denies urinary urgency Neuro Reports Normal hearing present, Denies confusion and Denies syncope Psych Denies confusion Endo Denies fatigue Physical exam (Primary Care) Vital Signs: Last Vital Signs Pulse 74 06/29/23 11:28 BP 140/90 H 06/29/23 11:28 Pulse Ox 96 06/29/23 11:28 Oxygen Delivery Method Room Air 06/29/23 11:28 BMI result Body Mass Index 36.3 Tobacco/Smoking Status: Tobacco use Status Tobacco use date assessed 06/29/23 06/29/23 11:35 Patient Tobacco Use Status Current everyday Tobacco 06/29/23 11:54 PHQ-9: PHQ-9 Score PHQ-9: Total score 0 06/29/23 11:41 Depression Screening Interpretation: Negative Thrive Assessment: Date of Thrive Assessment Date Thrive assessed 04/14/23 06/29/23 11:35 Const General: No confusion Orientation/consciousness: No confusion HENNH Head: Yes normocephalic and Yes atraumatic Eyes Conjunctivae: conjunctivae normal Chest Chest palpation & inspection: normal inspection of the chest Resp Effort & Inspection: normal respiratory effort Auscultation: clear to auscultation bilaterally, no crackles, no rhonchi and no wheezes Cardio Rate: regular rate Rhythm: regular rhythm Heart sounds: S1 normal heart sound present and S2 normal heart sound present GI Inspection: Yes normal to inspection Neuro General: No confusion Cranial nerves: Yes Normal hearing present Extrem General: No edema Assessment and Plan Assessment & Plan (1) GAYLE (acute kidney injury): Code(s): N17.9 - Acute kidney failure, unspecified Plan: Follow-up CMP ordered. (2) DVT (deep venous thrombosis): Code(s): I82.409 - Acute embolism and thrombosis of unspecified deep veins of unspecified lower extremity Plan: Continue on Eliquis 5 mg b.i.d.. Referral entered to reestablish care with Hematology. (3) Ganglion cyst of right foot: Code(s): M67.471 - Ganglion, right ankle and foot Plan: Referral entered to podiatry. (4) Hypertension: Code(s): I10 - Essential (primary) hypertension Plan: Continue on amlodipine 5 mg daily. Blood pressure elevated today at 140/90, blood pressure goal less than 140/90. Patient advised to follow low-salt diet exercise if blood pressure remains elevated discussed increasing amlodipine to 10 mg daily if warranted. Plan Follow-up in 3 months for physical exam. Orders: Orders Complete Blood Count Auto Diff 06/29/23 Z13.0 - Encounter for screening for diseases of the blood and blood-forming organs and certain disorders involving the immune mechanism TSH reflex Free T4 06/29/23 Z13.29 - Encounter for screening for other suspected endocrine disorder Comprehensive [place]. Panel Fast 06/29/23 N17.9 - Acute kidney failure, unspecified Lipid Panel 06/29/23 Z13.220 - Encounter for screening for lipoid disorders Referrals Hematology & Oncology Referral I82.409 - Acute embolism and thrombosis of unspecified deep veins of unspecified lower extremity Ophthalmology Referral Z01.00 - Encounter for examination of eyes and vision without abnormal findings Podiatry Referral M67.471 - Ganglion, right ankle and foot Medications: Changed From apixaban (Eliquis) 5 mg PO BID 30 days 60 tabs 0RF To apixaban (Eliquis) 5 mg PO BID 90 days 180 tabs 1RF Coding Level of Care Code New Pt Level 4 (83226) Diagnoses GAYLE (acute kidney injury) N17.9 DVT (deep venous thrombosis) I82.409 Ganglion cyst of right foot M67.471 Hypertension I10
== END 2023-06-29 12:02 | disposition home or self-care (01) ==
PROVIDERS: PCP Nurse Practitioner Family; Visit Provider Nurse Practitioner Family
DX: N17.9 Acute kidney failure, unspecified (principal); I82.409 Acute embolism and thrombosis of unspecified deep veins of unspecified lower extremity; M67.471 Ganglion, right ankle and foot; I10 Essential (primary) hypertension
CPT/HCPCS: 99204

== ENCOUNTER 2023-07-05 09:37 | Outpatient (AMB) | payer OTHER, SELFPAY ==
--- NOTE | 2023-07-05 09:38 | A.OFFVIS_ITS ---
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 Feeling positive. PFSH Medical History (Updated 07/01/23 @ 11:14 by MARICEL Torres) Kidney stones Pulmonary emboli Substance abuse Hypertension Bronchitis DVT (deep venous thrombosis) Asthma Surgical History (Updated 06/29/23 @ 11:51 by MARICEL Black) H/O colonoscopy Family History (Updated 06/29/23 @ 11:53 by MARICEL Black) Father COVID Myocardial infarction Mother Myocardial infarction Sister Stroke Sister Brain aneurysm Social History (Updated 06/29/23 @ 11:54 by MARICEL Black) Housing: Apartment Alcohol intake: never Patient Tobacco Use Status: Current everyday Tobacco user Cigarette Packs Per Day: 0.5 Substance Use Type: Marijuana service: No Current occupational status: unemployed Cognitive needs: No Hearing needs: No Vision needs: No Review of Systems Const Reports as per HPI and Reports no additional complaints Physical Exam Vital Signs: Last Vital Signs Pulse 82 07/05/23 09:41 BP 128/76 07/05/23 09:41 Pulse Ox 99 07/05/23 09:41 Oxygen Delivery Method Room Air 07/05/23 09:41 Const General: cooperative and anxious Orientation/consciousness: patient oriented x3 Neuro General: patient oriented x3 Psych Appearance: well kempt Mental Status: mental status grossly normal Speech and movement: Clear speech present Affect: Anxious affect present Attitude: cooperative Thought process: Normal thought process present Thought content: Normal thought content present Insight: Fair insight present (Psych) Assessment & Plan Assessment & Plan (1) Opioid use disorder: Code(s): F11.90 - Opioid use, unspecified, uncomplicated Plan: * continue suboxone at current dose * follow up 2 weeks * risk reduction discussion Medications: Refilled buprenorphine-naloxone 8-2 mg (Suboxone) 1 film sublingual TID 42 ea 0RF Coding Level of Care Code Est Pt Level 3 (38817) Diagnoses Opioid use disorder F11.90
[2023-07-05 09:41] VITALS: BP 128/76; PULSE 82; O2SAT 99
== END 2023-07-05 09:54 | disposition home or self-care (01) ==
LOC: HO.HCC 09:37
PROVIDERS: PCP Nurse Practitioner Family; Visit Provider Nurse Practitioner Psychiatric/Mental Health
DX: F11.90 Opioid use, unspecified, uncomplicated (principal)
CPT/HCPCS: 99213

== ENCOUNTER → 2023-07-05 09:37 | Outpatient (BNVA) | payer OTHER, SELFPAY | PROVIDERS: PCP Nurse Practitioner Family; Visit Provider Nurse Practitioner Psychiatric/Mental Health | DX: F11.20 Opioid dependence, uncomplicated (principal); F12.20 Cannabis dependence, uncomplicated; Z72.0 Tobacco use; Z51.81 Encounter for therapeutic drug level monitoring; Z79.899 Other long term (current) drug therapy | CPT/HCPCS: 99212 ==

== ENCOUNTER 2023-08-10 09:00 | Outpatient (AMB) | payer OTHER, SELFPAY ==
--- NOTE | 2023-08-10 09:16 | A.OFFVIS_ITS ---
Intake Vital Signs 08/10/23 09:41 BP 140/87 H Blood Pressure Location Lt brachial Position Sitting Pulse 86 Pulse Source Pulse Oximeter Pulse Oximetry (%) 98 Oxygen Delivery Method Room Air Intake Visit Reasons: MAT Visit Allergies morphine [MORPHINE] Allergy (Mild, Verified 07/05/23 09:42) BUMPS AND ITCHINESS NEAR IV SITE AFTER ADMINISTRATION, (IV) blisters penicillin V Allergy (Unknown, Verified 07/05/23 09:42) Unknown Penicillins Allergy (Unknown, Verified 07/05/23 09:42) UNKNOWN HPI MAT Visit HPI Details Patient presents for follow up Has missed 2 appts due to being ill and moving Living with grandmother at this time, relationship stressors Reports one night of alcohol and cocaine PFSH Medical History (Updated 07/01/23 @ 11:14 by MARICEL Torres) Kidney stones Pulmonary emboli Substance abuse Hypertension Bronchitis DVT (deep venous thrombosis) Asthma Surgical History (Updated 06/29/23 @ 11:51 by MARICEL Black) H/O colonoscopy Family History (Updated 06/29/23 @ 11:53 by MARICEL Black) Father COVID Myocardial infarction Mother Myocardial infarction Sister Stroke Sister Brain aneurysm Social History (Updated 06/29/23 @ 11:54 by MARICEL Black) Housing: Apartment Alcohol intake: never Patient Tobacco Use Status: Current everyday Tobacco user Cigarette Packs Per Day: 0.5 Substance Use Type: Marijuana service: No Current occupational status: unemployed Cognitive needs: No Hearing needs: No Vision needs: No Review of Systems Const Reports as per HPI and Reports no additional complaints Physical Exam Vital Signs: Last Vital Signs Pulse 86 08/10/23 09:41 BP 140/87 H 08/10/23 09:41 Pulse Ox 98 08/10/23 09:41 Oxygen Delivery Method Room Air 08/10/23 09:41 Const General: cooperative and anxious Orientation/consciousness: patient oriented x3 Neuro General: patient oriented x3 Psych Appearance: well kempt Mental Status: mental status grossly normal Speech and movement: Clear speech present Affect: Anxious affect present Attitude: cooperative Thought process: Normal thought process present Thought content: Normal thought content present Insight: Fair insight present (Psych) Assessment & Plan Assessment & Plan (1) Opioid use disorder: Code(s): F11.90 - Opioid use, unspecified, uncomplicated Plan: * continue suboxone at current dose * follow up 2 weeks * risk reduction discussion Medications: Refilled buprenorphine-naloxone 8-2 mg (Suboxone) 1 film sublingual TID 42 ea 0RF Coding Level of Care Code Est Pt Level 3 (55758) Diagnoses Opioid use disorder F11.90
[2023-08-10 09:41] VITALS: BP 140/87; PULSE 86; O2SAT 98
== END 2023-08-10 09:35 | disposition home or self-care (01) ==
PROVIDERS: PCP Nurse Practitioner Family; Visit Provider Nurse Practitioner Psychiatric/Mental Health
DX: F11.90 Opioid use, unspecified, uncomplicated (principal)
CPT/HCPCS: 99213

== ENCOUNTER → 2023-08-10 09:00 | Outpatient (BNVA) | payer OTHER, SELFPAY | PROVIDERS: PCP Nurse Practitioner Family; Visit Provider Nurse Practitioner Psychiatric/Mental Health | DX: F11.20 Opioid dependence, uncomplicated (principal) | CPT/HCPCS: 99212 ==

== ENCOUNTER 2023-08-24 09:01 | Outpatient (REF) | payer OTHER, SELFPAY ==
[2023-08-24 09:53] LABS: MANUAL DIFF FLAG NO
[2023-08-24 10:39] LABS: Basophils Absolute Auto 0.1 X10*3/uL (0.0-0.2); Basophils Percent Auto 0.5 % (0-2); Eosinophils Absolute Auto 0.2 X10*3/uL (0.0-0.4); Eosinophils Percent Auto 1.5 % (0-4); Hemoglobin 15.2 g/dl (14.0-18.0); Imm Gran Abs Auto 0.04 X10*3/uL (0.00-0.03); Imm Gran Pct Auto 0.4 % (0.0-0.4); Lymphocytes Absolute Auto 3.1 X10*3/uL (1.2-4.9); Lymphocytes Percent Auto 29.1 % (20-40); Mean Corpuscular HGB Conc 33.8 g/dl (31.0-36.0); Mean Corpuscular Hemoglobin 29.1 pg (27.0-33.0); Mean Platelet Volume 9.5 fL (9.4-12.4); Monocytes Percent Auto 9.8 % (2-11); Neutrophils Absolute Auto 6.2 x10*3/uL (2.0-8.3); Neutrophils Percent Auto 58.7 % (45-73); Platelet Count 248 X10*3/uL (160-400); Red Blood Count 5.23 X10*6/uL (4.60-5.80); Red Cell Distribution Width 12.8 % (11.0-16.0); White Blood Count 10.6 X10*3/uL (4.8-10.8)
[2023-08-24 11:20] LABS: Alanine Aminotransferase 16 U/L (0-40); Albumin Level 4.5 g/dL (3.5-5.0); Alkaline Phosphatase 63 U/L (39-117); Anion Gap 11 (12-20); Aspartate Amino Transferase 16 U/L (5-37); Bilirubin Total 0.6 mg/dL (0.0-1.0); Blood Urea Nitrogen 16 mg/dL (9-16); Calcium 9.3 mg/dL (8.4-10.2); Carbon Dioxide 27 mmol/L (22-29); Chloride 103 mmol/L (96-108); Cholesterol 235 mg/dL (<200); Estimated Glomerular Filt Rate > 60; Glucose Fasting 98 mg/dL (60-99); HDL Cholesterol 47 mg/dL (>40); LDL Cholesterol Calculated 167 mg/dL (<100); Potassium 3.8 mmol/L (3.3-5.1); Sodium 137 mmol/L (135-145); Total Protein 7.8 g/dL (6.5-8.0); Triglycerides 106 mg/dL (<150)
[2023-08-24 11:25] LABS: TSH reflex Free T4 3.19 uIU/mL (0.32-4.0)
== END 2023-08-24 09:02 | disposition home or self-care (01) ==
LOC: HO.LAB 09:01
PROVIDERS: PCP Nurse Practitioner Family; Visit Provider Nurse Practitioner Family
DX: N17.9 Acute kidney failure, unspecified (principal); F11.20 Opioid dependence, uncomplicated; Z13.29 Encounter for screening for other suspected endocrine disorder; Z13.220 Encounter for screening for lipoid disorders; Z13.0 Encounter for screening for diseases of the blood and blood-forming organs and certain disorders involving the immune mechanism
CPT/HCPCS: 36415; 80053; 80061; 84443; 85025; 99212

== ENCOUNTER 2023-08-24 09:01 | Outpatient (AMB) | payer OTHER, SELFPAY ==
--- NOTE | 2023-08-24 09:12 | MHC.OFFVIS ---
Intake Vital Signs 08/24/23 09:13 BP 110/70 Blood Pressure Location Lt radial Position Sitting Pulse 96 Pulse Source Pulse Oximeter Pulse Oximetry (%) 98 Oxygen Delivery Method Room Air Intake Visit Reasons: MAT Visit Intake Note: the patient presents for a mat visit Wharf Hand Required: No Allergies morphine [MORPHINE] Allergy (Mild, Verified 08/24/23 09:13) BUMPS AND ITCHINESS NEAR IV SITE AFTER ADMINISTRATION, (IV) blisters penicillin V Allergy (Unknown, Verified 08/24/23 09:13) Unknown Penicillins Allergy (Unknown, Verified 08/24/23 09:13) UNKNOWN Do you need a note to return to daycare/school/sports/work: No HPI MAT Visit HPI Details Patient presents for OUD treatment follow up Currently prescribed Suboxone 8mg TID--feels stable on this dose Still residing with his grandmother--thankful for her support. Identifies most recent relationship as a significant trigger and risk for recurrence. Continues to report bilateral leg pain that is impacting his mood as he can't be as active and work as much due to leg pain and discomfort. Encouraged patient to schedule appt with vascular provider to discuss this. [facility] Medical History (Updated 08/25/23 @ 12:21 by Tamanna Vargas CNP) Polysubstance abuse MRSA pneumonia Toxic encephalopathy Delirium GAYLE (acute kidney injury) Hypoxia Agitation Coffee ground emesis Drug overdose COVID-19 Kidney stones Pulmonary emboli Substance abuse Hypertension Bronchitis DVT (deep venous thrombosis) Asthma Surgical History (Updated 06/29/23 @ 11:51 by MARICEL Black) H/O colonoscopy Family History (Updated 06/29/23 @ 11:53 by MARICEL Black) Father COVID Myocardial infarction Mother Myocardial infarction Sister Stroke Sister Brain aneurysm (Updated 06/29/23 @ 11:54 by MARICEL Black) Housing: Apartment Alcohol intake: never Patient Tobacco Use Status: Current everyday Tobacco user Cigarette Packs Per Day: 0.5 Substance Use Type: Marijuana service: No Current occupational status: unemployed Cognitive needs: No Hearing needs: No Vision needs: No Review of Systems Const Reports as per HPI and Reports no additional complaints Physical Exam Vital Signs: Last Vital Signs Pulse 96 08/24/23 09:13 BP 110/70 08/24/23 09:13 Pulse Ox 98 08/24/23 09:13 Oxygen Delivery Method Room Air 08/24/23 09:13 Const General: cooperative and anxious Orientation/consciousness: patient oriented x3 Neuro General: patient oriented x3 Psych Appearance: well kempt Mental Status: mental status grossly normal Speech and movement: Clear speech present Affect: Anxious affect present Attitude: cooperative Thought process: Normal thought process present Thought content: Normal thought content present Insight: Fair insight present (Psych) Assessment & Plan Assessment & Plan (1) Opioid use disorder: Code(s): F11.90 - Opioid use, unspecified, uncomplicated Plan: continue suboxone at current dose 4 week rx provided as patient will be traveling to [place] for 3 weeks relapse prevention discussion Medications: Refilled buprenorphine-naloxone 8-2 mg (Suboxone) 1 film sublingual TID 90 ea 0RF Coding Level of Care Code Est Pt Level 3 (74843) Diagnoses Opioid use disorder F11.90
[2023-08-24 09:13] VITALS: BP 110/70; PULSE 96; O2SAT 98
== END 2023-08-24 10:20 | disposition home or self-care (01) ==
PROVIDERS: PCP Nurse Practitioner Family; Visit Provider Nurse Practitioner Psychiatric/Mental Health
DX: F11.90 Opioid use, unspecified, uncomplicated (principal)
CPT/HCPCS: 99213

== ENCOUNTER 2023-09-20 13:11 | Emergency (ER) | payer OTHER, SELFPAY ==
--- NOTE | ~2023-09-20 | US_ITS ---
EXAMINATION: US VENOUS ULTRASOUND WITH DOPPLER LOWER EXTREMITY, BILATERAL CLINICAL INFORMATION: History of DVT and mechanical thrombectomy COMPARISON: 04/21/2023 lower extremity DVT study TECHNIQUE: Ultrasound of the deep veins is performed from the hip to the calf with compression sonography and color and pulse Doppler assessment. Spectral analysis with color-flow imaging is performed. FINDINGS: RIGHT: Decrease in clot burden with respect to the prior with persistent thrombus in the right mid femoral vein where it is occlusive to distal femoral vein where it is nonocclusive, with some adherent chronic appearing nonocclusive thrombus in the popliteal vein. The common femoral vein and veins of the calf are now patent. There is no significant popliteal fossa cyst. LEFT: There is normal venous compression and respiratory variation and augmented flow. The visualized common femoral vein, superficial femoral vein, profunda femoral vein, popliteal vein, and the trifurcation region shows no evidence of deep venous thrombosis. There is no significant popliteal fossa cyst. US/US venous duplex LE BI IMPRESSION: 1. Decrease in clot burden with respect to the prior with persistent thrombus in the right mid femoral vein where it is occlusive to distal femoral vein where it is nonocclusive, unclear to what extent this may be new or residual from prior with some more chronic appearing nonocclusive thrombus in the popliteal vein. The common femoral vein and veins of the right calf are now patent. 2. No DVT demonstrated in the left lower extremity. The findings and recommendations were discussed with SJ Abdi by telephone at 09/20/2023 5:32 PM and it was ascertained that the content and urgency of the report was understood at the time of direct communication.
[2023-09-20 14:56] VITALS: BP 173/132; PULSE 98; RESP 16; TEMP 36.1; O2SAT 98; BMI 38.9
--- NOTE | 2023-09-20 14:57 | ED_ITS ---
HPI - General Adult General Chief complaint: General Medical Stated complaint: both calfs swelling hx of dvts Related Data Previous Rx's Medication Instructions Recorded naloxone 4 mg/actuation nasal 4 mg intranasal Q2M PRN opioid 04/29/23 spray (Narcan) overdose #2 ea apixaban 5 mg tablet (Eliquis) 5 mg PO BID 90 days #180 tabs 06/29/23 doxycycline hyclate 100 mg tablet 100 mg PO BID #14 tabs 07/01/23 hydroxyzine HCl 50 mg tablet 50 mg PO BEDTIME PRN anxiety #30 08/02/23 tabs amlodipine 5 mg tablet 5 mg PO DAILY #90 tabs 09/21/23 buprenorphine 8 mg-naloxone 2 mg 1 film sublingual TID #90 ea 09/21/23 sublingual film (Suboxone) omeprazole 40 mg capsule,delayed 40 mg PO DAILY #90 caps 09/21/23 release Allergies Allergy/AdvReac Type Severity Reaction Status Date / Time morphine [MORPHINE] Allergy Mild BUMPS AND Verified 08/24/23 09:13 ITCHINESS NEAR IV SITE AFTER ADMINISTRATION, (IV) blisters penicillin V Allergy Unknown Unknown Verified 08/24/23 09:13 Penicillins Allergy Unknown UNKNOWN Verified 08/24/23 09:13 [facility] Past Medical History Medical History (Updated 10/14/23 @ 00:01 by Rigoberto Skelton) Polysubstance abuse MRSA pneumonia Toxic encephalopathy Delirium GAYLE (acute kidney injury) Hypoxia Agitation Coffee ground emesis Drug overdose COVID-19 Kidney stones Pulmonary emboli Substance abuse Hypertension Bronchitis DVT (deep venous thrombosis) Asthma Surgical History (Updated 06/29/23 @ 11:51 by MARICEL Black) H/O colonoscopy Family History Family History (Updated 06/29/23 @ 11:53 by MARICEL Black) Father COVID Myocardial infarction Mother Myocardial infarction Sister Stroke Sister Brain aneurysm Social History Social History (Updated 06/29/23 @ 11:54 by MARICEL Black) Housing: Apartment Alcohol intake: never Comment: Pt refused bed and company w. ambulation Patient Tobacco Use Status: Current everyday Tobacco user Cigarette Packs Per Day: 0.5 Substance Use Type: Marijuana service: No Current occupational status: unemployed Cognitive needs: No Hearing needs: No Vision needs: No Physical Exam ED Vital Signs: Vital Signs - 24 hr 09/20/23 14:56 Temperature 97 F Pulse Rate 98 Respiratory Rate 16 Blood Pressure 173/132 H Pulse Oximetry 98 Oxygen Delivery Method Room Air BMI result Body Mass Index 38.9 Course Course Course Narrative: This is an RME: Additional HPI, ROS, PE not included below will be deferred to primary provider. This is a [id number], DVT/PE on eliquis, bronchitis, asthma, hypertension, kidney stones, substance abuse, presenting to the ER with a complaint of BL calf swelling x several months & right sided dental pain. On eliquis, no missed doses. TTP over bilateral calfs. no cp/sob Plan: Labs, US BL legs 09/20/2023 - 05:34PM - received phone call in regards to ultrasound studies, positive DVT on the right mid to distal femoral artery with residual thrombus. Informed triage nurse to move pt back to be further evaluated. Medical Decision Making Lab Data 09/20/23 16:21 09/20/23 16:21 Labs: Lab Results 09/20/23 Range/Units 16:21 WBC 7.6 (4.8-10.8) X10*3/uL RBC 4.99 (4.60-5.80) X10*6/uL Hgb 14.4 (14.0-18.0) g/dl Hct 43.0 (42.0-52.0) % MCV 86.2 (80.0-98.0) fL MCH 28.9 (27.0-33.0) pg MCHC 33.5 (31.0-36.0) g/dl RDW 13.2 (11.0-16.0) % Plt Count 208 (160-400) X10*3/uL MPV 9.6 (9.4-12.4) fL Immature Gran % (Auto) 0.3 (0.0-0.4) % Neut % (Auto) 55.2 (45-73) % Lymph % (Auto) 33.7 (20-40) % Lander % (Auto) 8.0 (2-11) % Eos % (Auto) 2.4 (0-4) % Baso % (Auto) 0.4 (0-2) % Lymph # (Auto) 2.6 (1.2-4.9) X10*3/uL Lander # (Auto) 0.6 (0.1-1.2) X10*3/uL Eos # (Auto) 0.2 (0.0-0.4) X10*3/uL Baso # (Auto) 0.0 (0.0-0.2) X10*3/uL Abs Immat Gran (auto) 0.02 (0.00-0.03) X10*3/uL Absolute Neuts (auto) 4.2 (2.0-8.3) x10*3/uL Absolute Nucleated RBC 0.000 (0.0-0.012) X10*3/uL Nucleated RBC % (auto) 0.0 (0.0-0.2) /100WBC PT 11.9 (11.1-13.3) SEC INR 1.0 (0.9-1.1) APTT 34.9 (26.0-36.4) SEC Sodium 140 (135-145) mmol/L Potassium 3.7 (3.3-5.1) mmol/L Chloride 105 (96-108) mmol/L Carbon Dioxide 28 (22-29) mmol/L Anion Gap 11 L (12-20) BUN 15 (9-16) mg/dL Creatinine 0.93 (0.5-1.4) mg/dL Estim Creat Clear Calc 141.6 Estimated GFR > 60 Random Glucose 93 (60-115) mg/dL Calcium 8.8 (8.4-10.2) mg/dL Total Bilirubin 0.4 (0.0-1.0) mg/dL Direct Bilirubin 0.1 (0.0-0.5) mg/dL AST 17 (5-37) U/L ALT 15 (0-40) U/L Alkaline Phosphatase 55 (39-117) U/L B-Natriuretic Peptide 22 (<100) pg/mL Total Protein 7.1 (6.5-8.0) g/dL Albumin 4.1 (3.5-5.0) g/dL Discharge Plan Discharge Clinical Impression: Leg pain Patient Disposition: Left W/O Completing Treatment Prescriptions: No Action doxycycline hyclate 100 mg tablet 100 mg PO BID Qty: 14 0RF hydroxyzine HCl 50 mg tablet 50 mg PO BEDTIME PRN (Reason: anxiety) Qty: 30 1RF amlodipine 5 mg tablet 5 mg PO DAILY Qty: 90 0RF omeprazole 40 mg capsule,delayed release(DR/EC) 40 mg PO DAILY Qty: 90 0RF Eliquis 5 mg tablet 5 mg PO BID 90 Days Qty: 180 1RF naloxone [Narcan] 4 mg/actuation spray,non-aerosol 4 mg intranasal Q2M PRN (Reason: opioid overdose) Qty: 2 0RF Rx Instructions: spray 1 dose into ONE nostril; alternate nostrils w each dose until help arrives buprenorphine-naloxone [Suboxone] 8-2 mg film 1 film sublingual TID Qty: 90 0RF Discharge Date/Time: 09/20/23 18:02
[2023-09-20 16:26] LABS: MANUAL DIFF FLAG NO
[2023-09-20 16:33] LABS: Prothrombin Time 11.9 SEC (11.1-13.3)
[2023-09-20 16:36] LABS: Partial Thromboplastin Time 34.9 SEC (26.0-36.4)
[2023-09-20 16:38] LABS: Basophils Percent Auto 0.4 % (0-2); Eosinophils Absolute Auto 0.2 X10*3/uL (0.0-0.4); Eosinophils Percent Auto 2.4 % (0-4); Hemoglobin 14.4 g/dl (14.0-18.0); Imm Gran Abs Auto 0.02 X10*3/uL (0.00-0.03); Imm Gran Pct Auto 0.3 % (0.0-0.4); Lymphocytes Absolute Auto 2.6 X10*3/uL (1.2-4.9); Lymphocytes Percent Auto 33.7 % (20-40); Mean Corpuscular HGB Conc 33.5 g/dl (31.0-36.0); Mean Corpuscular Hemoglobin 28.9 pg (27.0-33.0); Mean Corpuscular Volume 86.2 fL (80.0-98.0); Mean Platelet Volume 9.6 fL (9.4-12.4); Monocytes Absolute Auto 0.6 X10*3/uL (0.1-1.2); Neutrophils Absolute Auto 4.2 x10*3/uL (2.0-8.3); Neutrophils Percent Auto 55.2 % (45-73); Platelet Count 208 X10*3/uL (160-400); Red Blood Count 4.99 X10*6/uL (4.60-5.80); Red Cell Distribution Width 13.2 % (11.0-16.0); White Blood Count 7.6 X10*3/uL (4.8-10.8)
[2023-09-20 16:41] LABS: Alanine Aminotransferase 15 U/L (0-40); Albumin Level 4.1 g/dL (3.5-5.0); Alkaline Phosphatase 55 U/L (39-117); Anion Gap 11 (12-20); Aspartate Amino Transferase 17 U/L (5-37); Bilirubin Direct 0.1 mg/dL (0.0-0.5); Bilirubin Total 0.4 mg/dL (0.0-1.0); Blood Urea Nitrogen 15 mg/dL (9-16); Calcium 8.8 mg/dL (8.4-10.2); Carbon Dioxide 28 mmol/L (22-29); Chloride 105 mmol/L (96-108); Creatinine Clr Calc Pharmacy 141.6; Estimated Glomerular Filt Rate > 60; Glucose Random 93 mg/dL (60-115); Potassium 3.7 mmol/L (3.3-5.1); Sodium 140 mmol/L (135-145); Total Protein 7.1 g/dL (6.5-8.0)
[2023-09-20 16:46] LABS: B Type Natriuretic Peptide 22 pg/mL (<100)
== END 2023-09-20 18:02 | disposition left against medical advice (07) ==
PROVIDERS: Physician Assistant Medical; Emergency Provider Emergency Medicine; PCP Nurse Practitioner Family
DX: R60.0 Localized edema (principal); R06.02 Shortness of breath; Z79.899 Other long term (current) drug therapy; Z79.01 Long term (current) use of anticoagulants; Z86.718 Personal history of other venous thrombosis and embolism
CPT/HCPCS: 36415; 80048; 80076; 83880; 85025; 85610; 85730; 93970; 99281; 99283; 99284

== ENCOUNTER 2023-09-21 09:13 | Outpatient (AMB) | payer OTHER, SELFPAY ==
--- NOTE | 2023-09-21 09:18 | A.OFFVIS_ITS ---
Intake Vital Signs 09/21/23 09:25 BP 170/104 H Blood Pressure Location Lt brachial Position Sitting Pulse 88 Pulse Source Pulse Oximeter Pulse Oximetry (%) 96 Intake Visit Reasons: mat visit Allergies morphine [MORPHINE] Allergy (Mild, Verified 08/24/23 09:13) BUMPS AND ITCHINESS NEAR IV SITE AFTER ADMINISTRATION, (IV) blisters penicillin V Allergy (Unknown, Verified 08/24/23 09:13) Unknown Penicillins Allergy (Unknown, Verified 08/24/23 09:13) UNKNOWN HPI mat visit HPI Details Patient presents for follow up Currently prescribed Suboxone 8mg TID Recently returned from visiting his mother in [place] Will be going back up following PCP appt at the end of the month. Doing well with recovery. Ran out of BP medication 4 days ago PFSH Medical History (Updated 08/25/23 @ 12:21 by Tamanna Vargas CNP) Polysubstance abuse MRSA pneumonia Toxic encephalopathy Delirium GAYLE (acute kidney injury) Hypoxia Agitation Coffee ground emesis Drug overdose COVID-19 Kidney stones Pulmonary emboli Substance abuse Hypertension Bronchitis DVT (deep venous thrombosis) Asthma Surgical History (Updated 06/29/23 @ 11:51 by MARICEL Black) H/O colonoscopy Family History (Updated 06/29/23 @ 11:53 by MARICEL Black) Father COVID Myocardial infarction Mother Myocardial infarction Sister Stroke Sister Brain aneurysm Social History (Updated 06/29/23 @ 11:54 by MARICEL Black) Housing: Apartment Alcohol intake: never Comment: Pt refused bed and company w. ambulation Patient Tobacco Use Status: Current everyday Tobacco user Cigarette Packs Per Day: 0.5 Substance Use Type: Marijuana service: No Current occupational status: unemployed Cognitive needs: No Hearing needs: No Vision needs: No Review of Systems Const Reports as per HPI Physical Exam Vital Signs: Last Vital Signs Pulse 88 09/21/23 09:25 BP 170/104 H 09/21/23 09:25 Pulse Ox 96 09/21/23 09:25 Const General: cooperative and anxious Orientation/consciousness: patient oriented x3 Neuro General: patient oriented x3 Psych Appearance: well kempt Mental Status: mental status grossly normal Speech and movement: Clear speech present Affect: Anxious affect present Attitude: cooperative Thought process: Normal thought process present Thought content: Normal thought content present Insight: Fair insight present (Psych) Assessment & Plan Assessment & Plan (1) Opioid use disorder: Code(s): F11.90 - Opioid use, unspecified, uncomplicated Plan: * continue suboxone at current dose * follow up 8 weeks * BP meds refilled--PCP appt 09/30 Medications: Refilled amlodipine 5 mg PO DAILY 30 tabs 0RF buprenorphine-naloxone 8-2 mg (Suboxone) 1 film sublingual TID 90 ea 0RF omeprazole 40 mg PO DAILY 30 caps 0RF Coding Level of Care Code Est Pt Level 3 (46573) Diagnoses Opioid use disorder F11.90
[2023-09-21 09:25] VITALS: BP 170/104; PULSE 88; O2SAT 96
== END 2023-09-21 10:08 | disposition home or self-care (01) ==
PROVIDERS: PCP Nurse Practitioner Family; Visit Provider Nurse Practitioner Psychiatric/Mental Health
DX: F11.90 Opioid use, unspecified, uncomplicated (principal)
CPT/HCPCS: 99213

== ENCOUNTER → 2023-09-21 09:13 | Outpatient (BNVA) | payer OTHER, SELFPAY | PROVIDERS: PCP Nurse Practitioner Family; Visit Provider Nurse Practitioner Psychiatric/Mental Health | DX: F11.20 Opioid dependence, uncomplicated (principal) | CPT/HCPCS: 99212 ==

== ENCOUNTER 2023-11-16 12:52 | Outpatient (AMB) | payer OTHER, SELFPAY ==
--- NOTE | 2023-11-16 12:55 | A.OFFVISCC_ITS ---
Intake Vital Signs 11/16/23 12:57 BP 130/70 Blood Pressure Location Rt brachial Position Sitting Pulse 71 Pulse Source Pulse Oximeter Pulse Oximetry (%) 98 Oxygen Delivery Method Room Air Intake Visit Reasons: MAT Visit Allergies morphine [MORPHINE] Allergy (Mild, Verified 11/18/23 16:08) BUMPS AND ITCHINESS NEAR IV SITE AFTER ADMINISTRATION, (IV) blisters penicillin V Allergy (Unknown, Verified 11/18/23 16:08) Unknown Penicillins Allergy (Unknown, Verified 11/18/23 16:08) UNKNOWN HPI MAT Visit HPI Details Patient presents for OUD treatment follow up Last appt in September Was unable to see PCP as provider left practice Very focused on his legs (ongoing issue for him) Denies any issues related to recovery, does report cocaine use x3 since last visit. [facility] Medical History Polysubstance abuse MRSA pneumonia Toxic encephalopathy Delirium GAYLE (acute kidney injury) Hypoxia Agitation Coffee ground emesis Drug overdose COVID-19 Kidney stones Pulmonary emboli Substance abuse Hypertension Bronchitis DVT (deep venous thrombosis) Asthma Surgical History H/O colonoscopy Family History (Updated 06/29/23 @ 11:53 by MARICEL Black) Father COVID Myocardial infarction Mother Myocardial infarction Sister Stroke Sister Brain aneurysm Social History Housing: Apartment Alcohol intake: never Comment: Pt refused bed and company w. ambulation Patient Tobacco Use Status: Current everyday Tobacco user Cigarette Packs Per Day: 0.5 Substance Use Type: Marijuana Advance Directives: No Advance Directives Information Provided: No service: No Current occupational status: unemployed Cognitive needs: No Hearing needs: No Vision needs: No Review of Systems Const Reports as per HPI and Reports no additional complaints Physical Exam Vital Signs: Last Vital Signs Pulse 71 11/16/23 12:57 BP 130/70 11/16/23 12:57 Pulse Ox 98 11/16/23 12:57 Oxygen Delivery Method Room Air 11/16/23 12:57 Const General: cooperative and anxious Orientation/consciousness: patient oriented x3 Neuro General: patient oriented x3 Psych Appearance: well kempt Mental Status: mental status grossly normal Speech and movement: Clear speech present Affect: Anxious affect present Attitude: cooperative Thought process: Normal thought process present Thought content: Normal thought content present Insight: Fair insight present (Psych) Assessment & Plan Assessment & Plan (1) Opioid use disorder: Code(s): F11.90 - Opioid use, unspecified, uncomplicated Plan: * continue suboxone at current dose * follow up 4 weeks Medications: Refilled buprenorphine-naloxone 8-2 mg (Suboxone) 1 film sublingual TID 90 ea 0RF Coding Level of Care Code Est Pt Level 3 (67228) Diagnoses Opioid use disorder F11.90
[2023-11-16 12:57] VITALS: BP 130/70; PULSE 71; O2SAT 98
== END 2023-11-16 13:28 | disposition home or self-care (01) ==
PROVIDERS: PCP Nurse Practitioner Family; Visit Provider Nurse Practitioner Psychiatric/Mental Health
DX: F11.90 Opioid use, unspecified, uncomplicated (principal)
CPT/HCPCS: 99213

== ENCOUNTER → 2023-11-16 12:52 | Outpatient (BNVA) | payer OTHER, SELFPAY | PROVIDERS: PCP Nurse Practitioner Family; Visit Provider Nurse Practitioner Psychiatric/Mental Health | DX: F11.20 Opioid dependence, uncomplicated (principal) | CPT/HCPCS: 99212 ==

== ENCOUNTER 2023-11-18 14:54 | Emergency (ER) | payer OTHER, SELFPAY ==
--- NOTE | ~2023-11-18 | US_ITS ---
EXAMINATION: US VENOUS ULTRASOUND WITH DOPPLER LOWER EXTREMITY, BILATERAL CLINICAL INFORMATION: Swelling and pain. History of deep vein thrombosis. COMPARISON: 04/21/2023 and 09/20/2023 TECHNIQUE: Ultrasound of the deep veins is performed from the hip to the calf with compression sonography and color and pulse Doppler assessment. Spectral analysis with color-flow imaging is performed. FINDINGS: RIGHT: Common femoral vein is compressible and exhibits a normal phasic waveform; this suggests that the iliac veins are widely patent above. Within the proximal thigh, the visualized profunda femoris vein is patent and the examined greater saphenous vein and saphenofemoral junction are normal. There is chronic occlusive thrombus in the lumen of the femoral vein of the proximal and mid thigh. This thrombosed vein has a somewhat contracted appearance. The pulsed color Doppler images suggest presence of minimal flow in the femoral vein of the lower thigh. Also, minimal flow is detected within the chronically thrombosed popliteal vein. The posterior tibial vein is normal. The peroneal vein is not adequately visualized for diagnostic assessment. There is edema of the subcutaneous tissues of the leg. No evidence of Neal's cyst. LEFT: Common femoral vein is compressible and exhibits a normal phasic waveform. Within the proximal thigh, the visualized profunda femoris vein is patent and the examined greater saphenous vein and saphenofemoral junction are normal. The superficial femoral vein is patent and compressible in the proximal, mid and distal thigh. The popliteal vein is normal to the level of the trifurcation and the visualized calf veins are compressible. No evidence of Neal's cyst. US/US venous duplex LE IMPRESSION: * No significant change in current imaging abnormalities compared to 09/20/2023. There is extensive, chronic, predominantly occlusive thrombosis of the right femoral and popliteal veins. * No evidence of deep vein thrombosis in the left lower extremity.
[2023-11-18 16:04] VITALS: BP 126/101; PULSE 99; RESP 20; TEMP 36.8; O2SAT 96; BMI 38.7
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
[2023-11-18 17:27] LABS: MANUAL DIFF FLAG NO
--- NOTE | 2023-11-18 17:27 | MHC.EDTECH ---
Patient blood drawn and sent to lab .
[2023-11-18 17:29] LABS: Basophils Absolute Auto 0.1 X10*3/uL (0.0-0.2); Basophils Percent Auto 0.6 % (0-2); Eosinophils Absolute Auto 0.2 X10*3/uL (0.0-0.4); Hematocrit 47.2 % (42.0-52.0); Hemoglobin 15.7 g/dl (14.0-18.0); Imm Gran Abs Auto 0.03 X10*3/uL (0.00-0.03); Imm Gran Pct Auto 0.3 % (0.0-0.4); Lymphocytes Absolute Auto 2.8 X10*3/uL (1.2-4.9); Lymphocytes Percent Auto 27.7 % (20-40); Mean Corpuscular HGB Conc 33.3 g/dl (31.0-36.0); Mean Corpuscular Hemoglobin 29.2 pg (27.0-33.0); Mean Corpuscular Volume 87.7 fL (80.0-98.0); Mean Platelet Volume 9.6 fL (9.4-12.4); Monocytes Absolute Auto 0.9 X10*3/uL (0.1-1.2); Monocytes Percent Auto 8.7 % (2-11); Neutrophils Absolute Auto 6.2 x10*3/uL (2.0-8.3); Neutrophils Percent Auto 60.7 % (45-73); Platelet Count 202 X10*3/uL (160-400); Red Blood Count 5.38 X10*6/uL (4.60-5.80); Red Cell Distribution Width 13.2 % (11.0-16.0); White Blood Count 10.2 X10*3/uL (4.8-10.8)
[2023-11-18 17:36] LABS: INTERNATIONAL NORM RATIO 0.9 (0.9-1.1); Prothrombin Time 11.3 SEC (11.1-13.3)
[2023-11-18 17:46] LABS: Alanine Aminotransferase 22 U/L (0-40); Albumin Level 4.5 g/dL (3.5-5.0); Alkaline Phosphatase 70 U/L (39-117); Anion Gap 13 (12-20); Aspartate Amino Transferase 45 U/L (5-37); Bilirubin Total 0.7 mg/dL (0.0-1.0); Blood Urea Nitrogen 19 mg/dL (9-16); Calcium 9.6 mg/dL (8.4-10.2); Carbon Dioxide 27 mmol/L (22-29); Chloride 103 mmol/L (96-108); Creatinine Clr Calc Pharmacy 113.3; Estimated Glomerular Filt Rate > 60; Glucose Random 97 mg/dL (60-115); Potassium 4.1 mmol/L (3.3-5.1); Sodium 139 mmol/L (135-145); Total Protein 7.9 g/dL (6.5-8.0)
[2023-11-18 23:37] VITALS: BP 125/90; PULSE 92; RESP 16; TEMP 36.6; O2SAT 97
--- NOTE | 2023-11-19 00:14 | PC.NURSE ---
Pt refused meds and walked out without d/c paperwork. Provider Cherie notified.
== END 2023-11-19 00:16 | disposition home or self-care (01) ==
PROVIDERS: Registered Nurse Emergency; Emergency Provider Emergency Medicine
DX: I82.501 Chronic embolism and thrombosis of unspecified deep veins of right lower extremity (principal); F41.9 Anxiety disorder, unspecified; M79.605 Pain in left leg; M79.604 Pain in right leg; R60.0 Localized edema; I10 Essential (primary) hypertension; F17.210 Nicotine dependence, cigarettes, uncomplicated; Z76.0 Encounter for issue of repeat prescription; Z79.01 Long term (current) use of anticoagulants
CPT/HCPCS: 36415; 80053; 85025; 85610; 93970; 99283; 99284

== ENCOUNTER 2023-12-14 09:33 | Outpatient (AMB) | payer OTHER, SELFPAY ==
[2023-12-14 10:05] VITALS: BP 124/82; PULSE 100; O2SAT 96
--- NOTE | 2023-12-14 10:05 | MHC.AM.SUB ---
Intake Vital Signs 12/14/23 10:05 BP 124/82 Blood Pressure Location Lt radial Position Sitting Pulse 100 Pulse Source Pulse Oximeter Pulse Oximetry (%) 96 Oxygen Delivery Method Room Air Intake Visit Reasons: mat visit Intake Note: the patient presents for a mat visit Research Program Internship Required: No Allergies morphine [MORPHINE] Allergy (Mild, Verified 11/18/23 16:08) BUMPS AND ITCHINESS NEAR IV SITE AFTER ADMINISTRATION, (IV) blisters penicillin V Allergy (Unknown, Verified 11/18/23 16:08) Unknown Penicillins Allergy (Unknown, Verified 11/18/23 16:08) UNKNOWN Do you need a note to return to daycare/school/sports/work: No HPI mat visit HPI Details Patient presents for follow up Currently prescribed Suboxone 8mg TID No longer with his partner Staying with his grandmother Will be starting work in [employer] next week. Reports he ran out of his suboxone --unclear why as he received 30 day rx. UDS - buprenorphine Inquired about withdrawal sx, cravings, etc due to not having buprenorphine for several days Patient denies any sx at all, and appears in no distress This ticket writer inquired if patient felt his dose should be adjusted, patient does not wish to at this time, stating he feels he needs them 3x/day. However, patient then stated that he plans to come off of suboxone by the end of the summer. Encouraged patient to work with t/w when he decides to taper., Patient agreeable. [facility] Medical History Polysubstance abuse MRSA pneumonia Toxic encephalopathy Delirium GAYLE (acute kidney injury) Hypoxia Agitation Coffee ground emesis Drug overdose COVID-19 Kidney stones Pulmonary emboli Substance abuse Hypertension Bronchitis DVT (deep venous thrombosis) Asthma Surgical History H/O colonoscopy Family History (Updated 06/29/23 @ 11:53 by MARICEL Black) Father COVID Myocardial infarction Mother Myocardial infarction Sister Stroke Sister Brain aneurysm Social History Housing: Apartment Alcohol intake: never Comment: Pt refused bed and company w. ambulation Patient Tobacco Use Status: Current everyday Tobacco user Cigarette Packs Per Day: 0.5 Substance Use Type: Marijuana service: No Current occupational status: unemployed Cognitive needs: No Hearing needs: No Vision needs: No Review of Systems Const Reports as per HPI and Reports no additional complaints Physical Exam Vital Signs: Last Vital Signs Pulse 100 12/14/23 10:05 BP 124/82 12/14/23 10:05 Pulse Ox 96 12/14/23 10:05 Oxygen Delivery Method Room Air 12/14/23 10:05 Const General: cooperative, healthy appearing and no acute distress Results AMB 14 Panel Urine Drug Screen Urine Marijuana (THC) Positive Last Edit by Yina Luong CMA on 12/14/23 10:07 Urine Cocaine Positive Last Edit by Yina Luong CMA on 12/14/23 10:07 Urine Morphine Negative Last Edit by Yina Luong CMA on 12/14/23 10:07 Urine Methamphetamine Negative Last Edit by Yina Luong CMA on 12/14/23 10:07 Urine Amphetamine Negative Last Edit by Yina Luong CMA on 12/14/23 10:07 Urine Benzodiazepine Negative Last Edit by Yina Luong CMA on 12/14/23 10:07 Urine Barbiturates Negative Last Edit by Yina Luong CMA on 12/14/23 10:07 Urine Methadone Negative Last Edit by Yina Luong CMA on 12/14/23 10:07 Urine Buprenorphine Negative Last Edit by Yina Luong CMA on 12/14/23 10:07 Urine Tricyclic Antidepressant Negative Last Edit by Yina Luong CMA on 12/14/23 10:07 Urine MDMA Negative Last Edit by Yina Luong CMA on 12/14/23 10:07 Urine Oxycodone Negative Last Edit by Yina Luong CMA on 12/14/23 10:07 Urine Phencyclidine Negative Last Edit by Yina Loung CMA on 12/14/23 10:07 Urine Propoxyphene Negative Last Edit by Yina Luong CMA on 12/14/23 10:07 Results Reviewed Results Reviewed: Laboratory Last Values POC Urine Buprenorphine Negative 12/14/23 10:06 POC Urine Morphine Negative 12/14/23 10:06 POC Urine Oxycodone Negative 12/14/23 10:06 POC Urine Methadone Negative 12/14/23 10:06 POC Urine Propoxyphene Negative 12/14/23 10:06 POC Urine Barbiturates Negative 12/14/23 10:06 POC U Tricyclic Antidpr Negative 12/14/23 10:06 POC Urine PCP Negative 12/14/23 10:06 POC Ur Amphetamines Negative 12/14/23 10:06 POC Ur Methamphetamine Negative 12/14/23 10:06 POC Urine MDMA Negative 12/14/23 10:06 POC Ur Benzodiazepine Negative 12/14/23 10:06 POC Urine Cocaine Positive 12/14/23 10:06 POC Ur Marijuana (THC) Positive 12/14/23 10:06 Assessment & Plan Assessment & Plan (1) Opioid use disorder: Code(s): F11.90 - Opioid use, unspecified, uncomplicated Plan: continue suboxone at current dose 1 week with one refill rx follow up 2 weeks Orders: Orders AMB 14 Panel Urine Drug Screen Today Z51.81 - Encounter for therapeutic drug level monitoring Buprenorphine Today F11.90 - Opioid use, unspecified, uncomplicated Medications: Refilled buprenorphine-naloxone 8-2 mg (Suboxone) 1 film sublingual TID 21 ea 1RF Coding Level of Care Code Est Pt Level 4 (87328) Diagnoses Opioid use disorder F11.90
== END 2023-12-14 10:17 | disposition home or self-care (01) ==
PROVIDERS: PCP Nurse Practitioner Family; Visit Provider Nurse Practitioner Psychiatric/Mental Health
DX: Z51.81 Encounter for therapeutic drug level monitoring (principal); F11.90 Opioid use, unspecified, uncomplicated
CPT/HCPCS: 99214

== ENCOUNTER 2023-12-14 09:33 | Outpatient (REF) | payer OTHER, SELFPAY ==
[2023-12-20 08:57] LABS: Buprenorphine NEGATIVE
[2023-12-20 08:58] LABS: Naloxone NEGATIVE; Norbuprenorphine NEGATIVE
== END 2023-12-14 09:34 | disposition home or self-care (01) ==
LOC: HO.LAB 09:33
PROVIDERS: PCP Nurse Practitioner Family; Visit Provider Nurse Practitioner Psychiatric/Mental Health
DX: F11.20 Opioid dependence, uncomplicated (principal); Z51.81 Encounter for therapeutic drug level monitoring; Z79.899 Other long term (current) drug therapy
CPT/HCPCS: 80305; 80348; 80362; 99212

== ENCOUNTER 2023-12-29 13:33 | Outpatient (AMB) | payer MEDICAID, SELFPAY ==
[2023-12-29 13:45] VITALS: BP 130/90; PULSE 107; RESP 18; O2SAT 93
--- NOTE | 2023-12-29 13:45 | MHC.AM.SUB ---
Intake Vital Signs 12/29/23 13:45 BP 130/90 H Blood Pressure Location Lt brachial Position Sitting Respiration 18 Pulse 107 H Pulse Source Pulse Oximeter Pulse Oximetry (%) 93 Intake Visit Reasons: mat visit Allergies morphine [MORPHINE] Allergy (Mild, Verified 11/18/23 16:08) BUMPS AND ITCHINESS NEAR IV SITE AFTER ADMINISTRATION, (IV) blisters penicillin V Allergy (Unknown, Verified 11/18/23 16:08) Unknown Penicillins Allergy (Unknown, Verified 11/18/23 16:08) UNKNOWN HPI mat visit HPI Details Patient presents for follow up. Currently prescribed suboxone 8mg TID Discussed absence of suboxone in last UDS --reports he had been taking more than prescribed due to leg pain and had been without for several days. Patient continues to focus on his leg and and discomfort and edema. This writer technical publications again clarified that these issues are not acute--he reports they have been ongoing for about 12 years since he fractured his ankle. Provided supportive listening, reminded him of urgent care if necessary and upcoming PCP appt Discussed MCGUIRE buprenorphine given recent increased doses of suboxone--patietn requesting time to consider this and do his research. [facility] Medical History Polysubstance abuse MRSA pneumonia Toxic encephalopathy Delirium GAYLE (acute kidney injury) Hypoxia Agitation Coffee ground emesis Drug overdose COVID-19 Kidney stones Pulmonary emboli Substance abuse Hypertension Bronchitis DVT (deep venous thrombosis) Asthma Surgical History H/O colonoscopy Family History (Updated 06/29/23 @ 11:53 by MARICEL Black) Father COVID Myocardial infarction Mother Myocardial infarction Sister Stroke Sister Brain aneurysm Social History Housing: Apartment Alcohol intake: never Comment: Pt refused bed and company w. ambulation Patient Tobacco Use Status: Current everyday Tobacco user Cigarette Packs Per Day: 0.5 Substance Use Type: Marijuana service: No Current occupational status: unemployed Cognitive needs: No Hearing needs: No Vision needs: No Review of Systems Const Reports as per HPI Physical Exam Vital Signs: Last Vital Signs Pulse 107 H 12/29/23 13:45 Resp 18 12/29/23 13:45 BP 130/90 H 12/29/23 13:45 Pulse Ox 93 12/29/23 13:45 Const General: cooperative and no acute distress Nutritional Appearance: overweight Orientation/consciousness: patient oriented x3 Neuro General: patient oriented x3 Extrem Right lower extremity: edema Details: 2+ Left lower extremity: edema Details: pitting and 2+ Assessment & Plan Assessment & Plan (1) Opioid use disorder: Code(s): F11.90 - Opioid use, unspecified, uncomplicated Plan: continue suboxone at current dose follow up 3 weeks Medications: Refilled buprenorphine-naloxone 8-2 mg (Suboxone) 1 film sublingual TID 21 ea 2RF Coding Level of Care Code Est Pt Level 3 (41744) Diagnoses Opioid use disorder F11.90
== END 2023-12-29 14:12 | disposition home or self-care (01) ==
PROVIDERS: PCP Nurse Practitioner Family; Visit Provider Nurse Practitioner Psychiatric/Mental Health
DX: F11.90 Opioid use, unspecified, uncomplicated (principal)
CPT/HCPCS: 99213

== ENCOUNTER → 2023-12-29 13:33 | Outpatient (BNVA) | payer OTHER, SELFPAY | PROVIDERS: PCP Nurse Practitioner Family; Visit Provider Nurse Practitioner Psychiatric/Mental Health | DX: F11.20 Opioid dependence, uncomplicated (principal) | CPT/HCPCS: 99212 ==

== ENCOUNTER 2024-05-04 14:23 | Outpatient (REF) | payer MEDICAID, SELFPAY ==
[2024-05-04 16:00] LABS: MANUAL DIFF FLAG NO
[2024-05-04 16:06] LABS: Basophils Absolute Auto 0.1 X10*3/uL (0.0-0.2); Basophils Percent Auto 0.7 % (0-2); Eosinophils Absolute Auto 0.1 X10*3/uL (0.0-0.4); Hematocrit 44.6 % (42.0-52.0); Hemoglobin 14.8 g/dl (14.0-18.0); Imm Gran Abs Auto 0.04 X10*3/uL (0.00-0.03); Imm Gran Pct Auto 0.4 % (0.0-0.4); Lymphocytes Percent Auto 32.2 % (20-40); Mean Corpuscular HGB Conc 33.2 g/dl (31.0-36.0); Mean Corpuscular Hemoglobin 28.4 pg (27.0-33.0); Mean Corpuscular Volume 85.4 fL (80.0-98.0); Mean Platelet Volume 10.3 fL (9.4-12.4); Monocytes Absolute Auto 0.7 X10*3/uL (0.1-1.2); Neutrophils Absolute Auto 5.3 x10*3/uL (2.0-8.3); Neutrophils Percent Auto 57.7 % (45-73); Platelet Count 220 X10*3/uL (160-400); Red Blood Count 5.22 X10*6/uL (4.60-5.80); Red Cell Distribution Width 13.3 % (11.0-16.0); White Blood Count 9.2 X10*3/uL (4.8-10.8)
[2024-05-04 16:18] LABS: Alanine Aminotransferase 15 U/L (0-40); Albumin Level 4.6 g/dL (3.5-5.0); Alkaline Phosphatase 69 U/L (39-117); Anion Gap 14 (12-20); Aspartate Amino Transferase 22 U/L (5-37); Bilirubin Direct 0.1 mg/dL (0.0-0.5); Bilirubin Total 0.4 mg/dL (0.0-1.0); Blood Urea Nitrogen 26 mg/dL (9-16); Calcium 10.1 mg/dL (8.4-10.2); Carbon Dioxide 22 mmol/L (22-29); Chloride 104 mmol/L (96-108); Estimated Glomerular Filt Rate > 60; Glucose Random 113 mg/dL (60-115); Potassium 4.4 mmol/L (3.3-5.1); Sodium 136 mmol/L (135-145)
[2024-05-04 16:36] LABS: TSH reflex Free T4 2.41 uIU/mL (0.32-4.0)
[2024-05-04 16:41] LABS: Vitamin B12 393 pg/mL (200-900)
[2024-05-05 03:48] LABS: Syphilis Screen Nonreactive (Nonreactive)
[2024-05-05 04:19] LABS: HBS Num1 81.43 mIU/mL (0-7.99); HBc Num1 0.19 S/CO (0.00-0.79); HBsAGNum1 0.26 S/CO (0.00-0.99); HIV AB/AG Nonreactive (Nonreactive); HIV Num 1 0.07 S/CO (0.00-0.99); Hepatitis B Core Antibody Nonreactive (Nonreactive); Hepatitis B Surface Antigen Negative (Negative); ~HepC Num1 0.15 S/CO (0.00-0.79); ~Hepatitis B Surface Antibody REACTIVE (Nonreactive); ~Hepatitis C Antibody Nonreactive (Nonreactive)
[2024-05-05 04:24] LABS: Hepatitis A Antibody IgG Nonreactive (Nonreactive); ~Hepatitis A Antibody IgG 0.69 S/CO (0.00-0.99)
[2024-05-07 09:49] LABS: TS Negative Control Passed; TS Panel A 0; TS Panel B 0; TS Positive Control Passed; TSpotTB Negative (Negative)
== END 2024-05-04 14:24 | disposition home or self-care (01) ==
LOC: HO.HHCL 14:23
PROVIDERS: Family Medicine; Visit Provider Emergency Medicine
DX: I10 Essential (primary) hypertension (principal); F11.20 Opioid dependence, uncomplicated
CPT/HCPCS: 36415; 80048; 80076; 82607; 84443; 85025; 86481; 86704; 86706; 86708; 86780; 86803; 87340; 87389

== ENCOUNTER 2024-05-22 10:33 | Outpatient (AMB) | payer MEDICAID, SELFPAY ==
[2024-05-22 10:34] VITALS: BP 131/88; PULSE 77; BMI 42.3
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
== END 2024-05-22 10:51 | disposition home or self-care (01) ==
PROVIDERS: PCP Nurse Practitioner Family; Visit Provider Surgery
DX: M67.471 Ganglion, right ankle and foot (principal)
CPT/HCPCS: 99204

== ENCOUNTER → 2024-05-22 10:33 | Outpatient (BNVA) | payer MEDICAID, SELFPAY | PROVIDERS: PCP Nurse Practitioner Family; Visit Provider Surgery | DX: M67.471 Ganglion, right ankle and foot (principal); Z79.01 Long term (current) use of anticoagulants | CPT/HCPCS: 99202 ==

== ENCOUNTER → 2024-06-13 11:00 | Outpatient (BNV) | payer MEDICAID, SELFPAY | PROVIDERS: PCP Student in an Organized Health Care Education/Training Program; Visit Provider Internal Medicine | DX: Z86.718 Personal history of other venous thrombosis and embolism (principal); Z86.711 Personal history of pulmonary embolism | CPT/HCPCS: 99204 ==

== ENCOUNTER 2024-08-23 14:32 | Outpatient (REF) | payer MEDICAID, SELFPAY ==
--- NOTE | ~2024-08-23 | XR_ITS ---
EXAMINATION: XR ANKLE, RIGHT CLINICAL INFORMATION: Fracture. Persistent right ankle pain. COMPARISON: Right foot radiographs dated 01/03/2023. TECHNIQUE: AP, lateral, and mortise views of the right ankle. FINDINGS: No acute fracture or dislocation. The ankle mortise is maintained. Osteochondral lesion at the medial talar dome measuring up to 1.5 cm in ML dimension with an associated cortical defect and underlying subchondral cystic change with a depth of approximately 1.7 cm. Small tibiotalar marginal osteophytes. Dorsal calcaneal spur. XR/XR ankle RT min 3V IMPRESSION: 1. Osteochondral lesion at the medial talar dome measuring up to 1.5 cm with underlying subchondral cystic change. 2. Mild tibiotalar osteoarthritis. Electronically signed by: Aly Camara MD 08/23/2024 04:04 PM HORACIO HENDERSON
== END 2024-08-23 14:33 | disposition home or self-care (01) ==
LOC: HO.HHCX 14:32
PROVIDERS: Visit Provider Nurse Practitioner Family
DX: Z87.81 Personal history of (healed) traumatic fracture (principal)
CPT/HCPCS: 73610

== ENCOUNTER 2024-08-23 14:49 | Outpatient (REF) | payer MEDICAID, SELFPAY ==
[2024-08-23 17:00] LABS: Alanine Aminotransferase 17 U/L (0-40); Albumin Level 4.2 g/dL (3.5-5.0); Alkaline Phosphatase 79 U/L (39-117); Anion Gap 14 (12-20); Aspartate Amino Transferase 19 U/L (5-37); Bilirubin Total 0.2 mg/dL (0.0-1.0); Blood Urea Nitrogen 28 mg/dL (9-16); Calcium 9.6 mg/dL (8.4-10.2); Carbon Dioxide 24 mmol/L (22-29); Chloride 108 mmol/L (96-108); Estimated Glomerular Filt Rate 47; Glucose Random 104 mg/dL (60-115); Potassium 4.7 mmol/L (3.3-5.1); Sodium 141 mmol/L (135-145); Total Protein 7.4 g/dL (6.5-8.0)
[2024-08-24 04:43] LABS: HBS Num1 82.19 mIU/mL (0-7.99); HBsAGNum1 0.39 S/CO (0.00-0.99); HIV AB/AG Nonreactive (Nonreactive); HIV Num 1 0.07 S/CO (0.00-0.99); Hepatitis B Surface Antigen Negative (Negative); ~HepC Num1 0.13 S/CO (0.00-0.79); ~Hepatitis B Surface Antibody REACTIVE (Nonreactive); ~Hepatitis C Antibody Nonreactive (Nonreactive)
== END 2024-08-23 14:50 | disposition home or self-care (01) ==
LOC: HO.HHCL 14:49
PROVIDERS: Visit Provider Nurse Practitioner Family
DX: Z00.00 Encounter for general adult medical examination without abnormal findings (principal); Z11.4 Encounter for screening for human immunodeficiency virus [HIV]
CPT/HCPCS: 36415; 80053; 86706; 86803; 87340; 87389

== ENCOUNTER 2024-08-30 15:32 | Outpatient (REF) | payer MEDICAID, SELFPAY ==
[2024-08-30 16:19] LABS: MANUAL DIFF FLAG NO
[2024-08-30 16:22] LABS: Basophils Percent Auto 0.4 % (0-2); Eosinophils Percent Auto 0.4 % (0-4); Hematocrit 45.1 % (42.0-52.0); Hemoglobin 15.2 g/dl (14.0-18.0); Imm Gran Abs Auto 0.04 X10*3/uL (0.00-0.03); Imm Gran Pct Auto 0.4 % (0.0-0.4); Lymphocytes Absolute Auto 1.9 X10*3/uL (1.2-4.9); Lymphocytes Percent Auto 18.4 % (20-40); Mean Corpuscular HGB Conc 33.7 g/dl (31.0-36.0); Mean Corpuscular Hemoglobin 29.6 pg (27.0-33.0); Mean Corpuscular Volume 87.7 fL (80.0-98.0); Mean Platelet Volume 10.3 fL (9.4-12.4); Monocytes Absolute Auto 0.7 X10*3/uL (0.1-1.2); Monocytes Percent Auto 6.3 % (2-11); Neutrophils Absolute Auto 7.7 x10*3/uL (2.0-8.3); Neutrophils Percent Auto 74.1 % (45-73); Platelet Count 237 X10*3/uL (160-400); Red Blood Count 5.14 X10*6/uL (4.60-5.80); Red Cell Distribution Width 13.2 % (11.0-16.0); White Blood Count 10.4 X10*3/uL (4.8-10.8)
[2024-08-30 16:34] LABS: INTERNATIONAL NORM RATIO 0.9 (0.9-1.1)
[2024-08-30 16:52] LABS: Anion Gap 16 (12-20); Blood Urea Nitrogen 22 mg/dL (9-16); Calcium 9.6 mg/dL (8.4-10.2); Carbon Dioxide 24 mmol/L (22-29); Chloride 106 mmol/L (96-108); Estimated Glomerular Filt Rate 47; Glucose Random 120 mg/dL (60-115); Potassium 4.4 mmol/L (3.3-5.1); Sodium 142 mmol/L (135-145)
[2024-08-31 08:18] LABS: HBc Num1 0.06 S/CO (0.00-0.79); HBsAGNum1 0.45 S/CO (0.00-0.99); HIV AB/AG Nonreactive (Nonreactive); HIV Num 1 0.05 S/CO (0.00-0.99); Hepatitis B Core Antibody Nonreactive (Nonreactive); Hepatitis B Surface Antigen Negative (Negative); ~HepC Num1 0.14 S/CO (0.00-0.79); ~Hepatitis B Surface Antibody REACTIVE (Nonreactive); ~Hepatitis C Antibody Nonreactive (Nonreactive)
== END 2024-08-30 15:33 | disposition home or self-care (01) ==
LOC: HO.HHCL 15:32
PROVIDERS: Nurse Practitioner; Visit Provider Nurse Practitioner Family
DX: Z01.818 Encounter for other preprocedural examination (principal); Z11.4 Encounter for screening for human immunodeficiency virus [HIV]; R79.89 Other specified abnormal findings of blood chemistry
CPT/HCPCS: 36415; 80048; 85025; 85610; 85730; 86704; 86706; 86803; 87340; 87389

== ENCOUNTER → 2024-09-07 08:15 | Day surgery (SDC) | payer MEDICAID, SELFPAY ==
--- NOTE | 2024-09-05 15:20 | P.CONAN_ITS ---
HPI - Anesthesia Eval Consult details Narrative: Cx'd DOS d/t +Utox 38yo M for Wide Lateral Excision Lateral Foot Mass Eliquis for Bilateral PE/right lower extremity DVT in 04/22/2015. Bilateral DVT in 04/22/2023 Polysubstance abuse. Suboxone daily, but +cocaine 2023 PMFSH Active Problems Active Problems: All Active Problems Abscess (Acute) Ganglion cyst of right foot (Acute) Hypertension (Acute) Opioid use disorder (Acute) DVT (deep venous thrombosis) (Chronic) Congestive cardiomyopathy (Acute) Avulsion fracture of thumb (Acute) Past Medical History Medical History Polysubstance abuse MRSA pneumonia Toxic encephalopathy Delirium GAYLE (acute kidney injury) Hypoxia Agitation Coffee ground emesis Drug overdose COVID-19 Kidney stones Pulmonary emboli Substance abuse Hypertension Bronchitis DVT (deep venous thrombosis) Asthma Family History Family History Father COVID Myocardial infarction Mother Myocardial infarction Sister Stroke Sister Brain aneurysm Surgical History Surgical History H/O colonoscopy Social History Social History Household Members: Significant Other Housing: Apartment Are you a primary childcare center administrator to a significant other at home: No Do you presently have visiting nurse or other home services: No Alcohol intake: never Comment: Pt refused bed and company w. ambulation Patient Tobacco Use Status: Current everyday Tobacco user Tobacco use type: Cigarette Cigarette Packs Per Day: 0.5 Cigarettes Per Day: 10 Substance Use Type: Marijuana Advance Directives: No Advance Directives Information Provided: No service: No Current occupational status: unemployed Gender identity: Male Cognitive needs: No Hearing needs: No Vision needs: No Meds Allergies Allergy/AdvReac Type Severity Reaction Status Date / Time morphine [MORPHINE] Allergy Mild BUMPS AND Verified 09/12/24 16:14 ITCHINESS NEAR IV SITE AFTER ADMINISTRATION, (IV) blisters penicillin V Allergy Unknown Unknown Verified 09/12/24 16:14 Penicillins Allergy Unknown UNKNOWN Verified 09/07/24 08:48 Exam Pertinent Lab Results Pertinent Lab Results: Laboratory Tests 08/30/24 15:35 WBC 10.4 Hgb 15.2 Hct 45.1 Plt Count 237 Sodium 142 Potassium 4.4 Chloride 106 Carbon Dioxide 24 BUN 22 H Creatinine 1.65 H Narrative Narrative: ECHO 2022 Conclusions: - Normal left ventricular cavity size. There is mildly increased left ventricular wall thickness. The left ventricular systolic function is hyperdynamic. The visually estimated ejection fraction is >70%. - E/E prime ratio is between 8 and 15 consistent with indeterminate filling pressures. - Normal right ventricular cavity size and systolic function. - The left atrium is normal in size. The right atrium is normal in size. - Elevated velocity across the aortic valve due to hyperdynamic LV function, no obvious LVOT obstruction or evidence of aortic stenosis. - There is mild dilatation of the sinuses of Valsalva measuring 3.80 cm and mild dilatation of the ascending aorta measuring 4.30 cm. Assessment and Plan Assessment Anesthesia Assessment: Chart Reviewed
[2024-09-05 16:52] VITALS: BMI 42.3
--- NOTE | 2024-09-06 10:16 | MHC.SHP ---
Pre-Procedural Eval Section A - 24 Hr Update-Section A only Date of Service: 09/07/24 The patient is an INPATIENT: No Changes since office visit: No Cold of Flu in the past 2 weeks, No New Medical Problems, No Changes in Medication and No Patient answered all questions Section B - Complete if H&P > 30 days Chief Complaint: Ganglion, right ankle and foot Allergies: Allergies Allergy/AdvReac Type Severity Reaction Status Date / Time morphine [MORPHINE] Allergy Mild BUMPS AND Verified 05/22/24 10:39 ITCHINESS NEAR IV SITE AFTER ADMINISTRATION, (IV) blisters penicillin V Allergy Unknown Unknown Verified 05/22/24 10:39 Penicillins Allergy Unknown UNKNOWN Verified 05/22/24 10:39 Review of Systems Sugical H&P ROS: Negative: Constitution, Cardiovascular, Respiratory, Neurological, Psychiatric, Hem-Onc, Allergic/Immunologic, Gastrointestinal, Genitourinary, Musculoskeletal, Integumentary, Endocrine and Eyes/Ears/Nose/Throat Exam Surgical H&P Exam: Normal: HEENT, Normal: Heart, Normal: Lungs, Normal: Extremities, Normal: Abdomen, Normal: Skin and Normal: Neurological Plan I have reviewed the history and physical and performed a pertinent physical examination on my patient. No changes have occurred unless specified. Time Spent With Patient Time: Total time managing care of this patient today ____ minutes.
[2024-09-07 09:00] VITALS: BMI 43.0
[2024-09-07 09:08] LABS: Amphetamine Screen Urine Not Detected (Not Detect); Barbiturates, Urine Not Detected (Not Detect); Benzodiazepines Screen Urine Not Detected (Not Detect); Buprenorphine Scr Positive (Not Detect); Cannabinoid Screen Urine POSITIVE (Not Detect); Cocaine Screen Urine POSITIVE (Not Detect); Fentanyl, urine Not Detected (Not Detect); Methadone Screen, Urine Not Detected (Not Detect); Opiate Screen Urine Not Detected (Not Detect); Oxycodone Screen Urine Not Detected (Not Detect); Phencyclidine Screen Urine Not Detected (Not Detect)
[2024-09-07 09:16] VITALS: BP 110/75; PULSE 97; RESP 16; TEMP 36.4; O2SAT 97
== END ==
LOC: HO.SSS 08:17
PROVIDERS: Nurse Practitioner; PCP Student in an Organized Health Care Education/Training Program; Visit Provider Surgery
DX: M67.471 Ganglion, right ankle and foot (principal); Z53.8 Procedure and treatment not carried out for other reasons; R82.5 Elevated urine levels of drugs, medicaments and biological substances
CPT/HCPCS: 80307

== ENCOUNTER 2024-09-12 15:13 | Emergency (ER) | payer MEDICAID, SELFPAY ==
--- NOTE | ~2024-09-12 | XR_ITS ---
EXAMINATION: XR ELBOW, LEFT CLINICAL INFORMATION: pain, swelling COMPARISON: None available. TECHNIQUE: AP, lateral, and oblique views of the left elbow. FINDINGS: There is moderate soft tissue swelling over the olecranon which could reflect a bursitis. There is no underlying bony destruction. No fracture, dislocation or destructive process. XR/XR elbow LT min 3V IMPRESSION: Query bursitis. Electronically signed by: Rashard Cruz MD 09/12/2024 05:28 PM HORACIO HENDERSON
[2024-09-12 16:13] VITALS: BP 161/88; PULSE 78; RESP 20; TEMP 35.9; O2SAT 99; BMI 43.0
--- NOTE | 2024-09-12 18:51 | ED_ITS ---
HPI - Extremity Problem General Chief complaint: Extremity Problem Stated complaint: left elbow swollen/fluid Time Seen by Provider: 09/12/24 18:37 Source: patient Mode of arrival: ambulatory Limitations: no limitations History of Present Illness ED Provider: DR. Isabel HPI Narrative: 38-year-old male came in for evaluation of left elbow swelling and pain since yesterday, patient is a right-hand dominant, no trauma or injury to the left elbow, no falls, patient is on Eliquis for history of DVT. Related Data Previous Rx's ?Medication ?Instructions ?Recorded naloxone 4 mg/actuation nasal 4 mg intranasal Q2M PRN opioid 04/29/23 spray (Narcan) overdose #2 ea doxycycline hyclate 100 mg tablet 100 mg PO BID #14 tabs 07/01/23 buprenorphine 8 mg-naloxone 2 mg 1 film sublingual TID #21 ea 12/29/23 sublingual film (Suboxone) amlodipine 5 mg tablet 5 mg PO DAILY #90 tabs 01/07/24 apixaban 5 mg tablet (Eliquis) 5 mg PO BID #60 tabs 01/07/24 hydroxyzine HCl 50 mg tablet 50 mg PO BEDTIME PRN anxiety #30 01/07/24 tabs omeprazole 40 mg capsule,delayed 40 mg PO DAILY #90 caps 01/07/24 release Allergies Allergy/AdvReac Type Severity Reaction Status Date / Time morphine [MORPHINE] Allergy Mild BUMPS AND Verified 09/12/24 16:14 ITCHINESS NEAR IV SITE AFTER ADMINISTRATION, (IV) blisters penicillin V Allergy Unknown Unknown Verified 09/12/24 16:14 Penicillins Allergy Unknown UNKNOWN Verified 09/07/24 08:48 Review of Systems Review of Systems: All other systems are reviewed and are negative Constitutional: Reports as per HPI and Reports no additional constitutional complaints Eyes: Reports as per HPI and Reports no additional eye complaints Reports system reviewed and no additional complaints, except as documented Cardiovascular: Reports as per HPI and Reports no additional cardiovascular complaints Respiratory: Reports as per HPI and Reports no additional respiratory complaints Gastrointestinal: Reports as per HPI and Reports no additional gastrointestinal complaints Genitourinary: Reports no additional female genitourinary complaints Musculoskeletal: Reports no additional musculoskeletal complaints Skin/Breast: Reports system reviewed and no additional complaints, except as docu Psychiatric: Reports no additional psychiatric complaints Endocrine: Reports no additional endocrine complaints Hematologic/Lymphatic: Reports no additional hematologic/lymphatic complaints Allergic/Immunologic: Reports no additional allergic/immunologic complaints Reports system reviewed and no additional complaints, except as documented and Reports Abnormal speech present [facility] Past Medical History Medical History Polysubstance abuse MRSA pneumonia Toxic encephalopathy Delirium GAYLE (acute kidney injury) Hypoxia Agitation Coffee ground emesis Drug overdose COVID-19 Kidney stones Pulmonary emboli Substance abuse Hypertension Bronchitis DVT (deep venous thrombosis) Asthma Surgical History H/O colonoscopy Family History Family History Father COVID Myocardial infarction Mother Myocardial infarction Sister Stroke Sister Brain aneurysm Social History Social History Household Members: Significant Other Housing: Apartment Are you a primary health care assistant to a significant other at home: No Do you presently have visiting nurse or other home services: No Alcohol intake: never Comment: Pt refused bed and company w. ambulation Patient Tobacco Use Status: Current everyday Tobacco user Tobacco use type: Cigarette Cigarette Packs Per Day: 0.5 Cigarettes Per Day: 10 Substance Use Type: Marijuana Advance Directives: No Advance Directives Information Provided: No service: No Current occupational status: unemployed Gender identity: Male Cognitive needs: No Hearing needs: No Vision needs: No Physical Exam Vital Signs: Vital Signs: Last Vital Signs Temp 96.6 F L 09/12/24 16:13 Pulse 78 09/12/24 16:13 Resp 20 09/12/24 16:13 BP 161/88 H 09/12/24 16:13 Pulse Ox 99 09/12/24 16:13 O2 Del Method Room Air 09/12/24 16:13 BMI result Body Mass Index 43.0 Vital signs have been reviewed and appear to be correct. Blood pressure elevated. Heart rate normal. Respiratory rate normal. Temperature normal. Oxygen saturation normal. Appearance: Alert. Oriented X3. No acute distress. Head: Normal external exam. Normocephalic. Atraumatic. No Wu signs noted. No raccoon eyes noted Eyes: PERRLA. EOMI. Conjunctiva and sclera normal. Eyelids normal. ENT: TM's Normal. Pharynx normal. Uvula midline. Moist mucous membranes. No trismus noted. No drooling noted. No muffled voice noted. Neck: Normal inspection. Neck supple. FROM. No adenopathy. Thyroid Normal. No meningeal signs. No neck mass noted. CVS: Normal heart rate and rhythm. Heart sound normal. No murmurs noted. Pulses normal throughout. Respiratory: No respiratory distress. Painless inspiration. Breath sounds normal. No wheezes/rales/rhonchi noted. Chest nontender. No accessory muscle usage noted or decreased air movement noted. Abdomen: Soft and nontender. Bowel sounds normal in all 4 quadrants. No distention noted. No organomegaly noted. No visible injury noted. Back: No CVA tenderness. Full range of motion noted. Skin: Skin warm and dry. Normal skin color. Normal skin turgor. No rashes/lesions/lacerations noted. Extremities: Left elbow, left elbow effusion, no deformity, slight touch to tenderness, full range of motion of the left elbow, neurovascular exam is intact in the left upper extremity. No redness, no hotness, no discharge. Neuro: Oriented X 3. Cranial nerve exam: II-XII are grossly intact No motor deficit. No sensory deficit. Reflexes normal. Course Reevaluation(s) Reevaluation #1: Left elbow bursitis. Time: 18:54 Medical Decision Making Differential Diagnosis Differential Diagnoses: The differential diagnosis associated with the pr esentation includes (Left elbow bursitis, left elbow fracture, left elbow dislocation, left elbow arthritis, left elbow bleeding, neurovascular compromise to the left upper extremity) Admission/Observation Consideration of admission/observation: Escalation of care including admission/observation considered Lab Data MDM Lab Attestation statement: I reviewed the patient's lab results. Independent Interpretation I performed an independent interpretation of an: Plain X-Ray (Left elbow: Query bursitis.) Radiology Impression Discussion of test interpretation with radiology: I have reviewed the radiologi st's reading. Discharge Plan Discharge Clinical Impression: Bursitis of left elbow Patient Disposition: Home, Self-Care Instructions: Elbow Bursitis (ED) Prescriptions: No Action doxycycline hyclate 100 mg tablet 100 mg PO BID Qty: 14 0RF hydroxyzine HCl 50 mg tablet 50 mg PO BEDTIME PRN (Reason: anxiety) Qty: 30 1RF Eliquis 5 mg tablet 5 mg PO BID Qty: 60 0RF amlodipine 5 mg tablet 5 mg PO DAILY Qty: 90 0RF omeprazole 40 mg capsule,delayed release(DR/EC) 40 mg PO DAILY Qty: 90 0RF naloxone [Narcan] 4 mg/actuation spray,non-aerosol 4 mg intranasal Q2M PRN (Reason: opioid overdose) Qty: 2 0RF Rx Instructions: spray 1 dose into ONE nostril; alternate nostrils w each dose until help arrives buprenorphine-naloxone [Suboxone] 8-2 mg film 1 film sublingual TID Qty: 21 2RF Referrals: Tamanna Walsh MD [Primary Care Provider] - Print Language: Wolof
--- NOTE | 2024-09-12 19:02 | PC.NURSE ---
pt left without discharge instructions or discharge assessment
== END 2024-09-12 19:02 | disposition home or self-care (01) ==
PROVIDERS: Emergency Provider Emergency Medicine; PCP Student in an Organized Health Care Education/Training Program
DX: M70.32 Other bursitis of elbow, left elbow (principal); M25.522 Pain in left elbow; Z86.718 Personal history of other venous thrombosis and embolism; Z79.01 Long term (current) use of anticoagulants
CPT/HCPCS: 73080; 99281; 99283

== ENCOUNTER → 2024-09-21 09:23 | Day surgery (SDC) | payer MEDICAID, SELFPAY ==
[2024-09-19 07:30] VITALS: BMI 41.2
--- NOTE | 2024-09-20 08:26 | MHC.SHP ---
Pre-Procedural Eval Section A - 24 Hr Update-Section A only Date of Service: 09/21/24 The patient is an INPATIENT: No Changes since office visit: No Cold of Flu in the past 2 weeks, No New Medical Problems, No Changes in Medication and No Patient answered all questions Section B - Complete if H&P > 30 days Chief Complaint: Ganglion, right ankle and foot Allergies: Allergies Allergy/AdvReac Type Severity Reaction Status Date / Time morphine [MORPHINE] Allergy Mild BUMPS AND Verified 09/12/24 16:14 ITCHINESS NEAR IV SITE AFTER ADMINISTRATION, (IV) blisters penicillin V Allergy Unknown Unknown Verified 09/12/24 16:14 Penicillins Allergy Unknown UNKNOWN Verified 09/07/24 08:48 Review of Systems Sugical H&P ROS: Negative: Constitution, Cardiovascular, Respiratory, Neurological, Psychiatric, Hem-Onc, Allergic/Immunologic, Gastrointestinal, Genitourinary, Musculoskeletal, Integumentary, Endocrine and Eyes/Ears/Nose/Throat Exam Surgical H&P Exam: Normal: HEENT, Normal: Heart, Normal: Lungs, Normal: Extremities, Normal: Abdomen, Normal: Skin and Normal: Neurological Plan I have reviewed the history and physical and performed a pertinent physical examination on my patient. No changes have occurred unless specified. Time Spent With Patient Time: Total time managing care of this patient today ____ minutes.
--- NOTE | 2024-09-20 10:50 | P.CONAN_ITS ---
HPI - Anesthesia Eval Consult details Narrative: 38yo M for Right Wide Local Excision Lateral Foot Mass Cx'd 09/2024 for +Cocaine Eliquis for Bilateral PE/right lower extremity DVT in 04/22/2015. Bilateral DVT in 04/22/2023 Polysubstance abuse. Suboxone daily 8mg TID PMFSH Active Problems Active Problems: All Active Problems (Updated 09/13/24 @ 00:01 by Background Daemon) Abscess (Acute) Ganglion cyst of right foot (Acute) Hypertension (Acute) Opioid use disorder (Acute) DVT (deep venous thrombosis) (Chronic) Congestive cardiomyopathy (Acute) Avulsion fracture of thumb (Acute) Past Medical History Medical History Polysubstance abuse MRSA pneumonia Toxic encephalopathy Delirium GAYEL (acute kidney injury) Hypoxia Agitation Coffee ground emesis Drug overdose COVID-19 Kidney stones Pulmonary emboli Substance abuse Hypertension Bronchitis DVT (deep venous thrombosis) Asthma Family History Family History Father COVID Myocardial infarction Mother Myocardial infarction Sister Stroke Sister Brain aneurysm Surgical History Surgical History H/O colonoscopy Social History Social History Household Members: Significant Other Housing: Apartment Are you a primary animal care taker to a significant other at home: No Do you presently have visiting nurse or other home services: No Alcohol intake: never Comment: Pt refused bed and company w. ambulation Patient Tobacco Use Status: Current everyday Tobacco user Tobacco use type: Cigarette Cigarette Packs Per Day: 0.5 Cigarettes Per Day: 10 Substance Use Type: Marijuana service: No Current occupational status: unemployed Gender identity: Male Cognitive needs: No Hearing needs: No Vision needs: No Meds Allergies Allergy/AdvReac Type Severity Reaction Status Date / Time morphine [MORPHINE] Allergy Mild BUMPS AND Verified 09/12/24 16:14 ITCHINESS NEAR IV SITE AFTER ADMINISTRATION, (IV) blisters penicillin V Allergy Unknown Unknown Verified 09/12/24 16:14 Penicillins Allergy Unknown UNKNOWN Verified 09/07/24 08:48 Exam Height,Weight and Vital Signs: Height 5 ft 10 in Weight 130.181 kg Pertinent Lab Results Pertinent Lab Results: Laboratory Tests 08/30/24 15:35 WBC 10.4 Hgb 15.2 Hct 45.1 Plt Count 237 Sodium 142 Potassium 4.4 Chloride 106 Carbon Dioxide 24 BUN 22 H Creatinine 1.65 H Narrative Narrative: ECHO 2022 Conclusions: - Normal left ventricular cavity size. There is mildly increased left ventricular wall thickness. The left ventricular systolic function is hyperdynamic. The visually estimated ejection fraction is >70%. - E/E prime ratio is between 8 and 15 consistent with indeterminate filling pressures. - Normal right ventricular cavity size and systolic function. - The left atrium is normal in size. The right atrium is normal in size. - Elevated velocity across the aortic valve due to hyperdynamic LV function, no obvious LVOT obstruction or evidence of aortic stenosis. - There is mild dilatation of the sinuses of Valsalva measuring 3.80 cm and mild dilatation of the ascending aorta measuring 4.30 cm. Assessment and Plan Assessment Anesthesia Assessment: Chart Reviewed
--- NOTE | 2024-09-21 09:02 | MHC.SHP ---
Pre-Procedural Eval Section A - 24 Hr Update-Section A only Date of Service: 09/22/24 The patient is an INPATIENT: No Changes since office visit: No Cold of Flu in the past 2 weeks, No New Medical Problems, No Changes in Medication and No Patient answered all questions Section B - Complete if H&P > 30 days Chief Complaint: Ganglion, right ankle and foot Allergies: Allergies Allergy/AdvReac Type Severity Reaction Status Date / Time morphine [MORPHINE] Allergy Mild BUMPS AND Verified 09/12/24 16:14 ITCHINESS NEAR IV SITE AFTER ADMINISTRATION, (IV) blisters penicillin V Allergy Unknown Unknown Verified 09/12/24 16:14 Penicillins Allergy Unknown UNKNOWN Verified 09/07/24 08:48 Review of Systems Sugical H&P ROS: Negative: Constitution, Cardiovascular, Respiratory, Neurological, Psychiatric, Hem-Onc, Allergic/Immunologic, Gastrointestinal, Genitourinary, Musculoskeletal, Integumentary, Endocrine and Eyes/Ears/Nose/Throat Exam Surgical H&P Exam: Normal: HEENT, Normal: Heart, Normal: Lungs, Normal: Extremities, Normal: Abdomen, Normal: Skin and Normal: Neurological Plan I have reviewed the history and physical and performed a pertinent physical examination on my patient. No changes have occurred unless specified. Time Spent With Patient Time: Total time managing care of this patient today ____ minutes.
[2024-09-21 10:03] LABS: Amphetamine Screen Urine Not Detected (Not Detect); Barbiturates, Urine Not Detected (Not Detect); Benzodiazepines Screen Urine Not Detected (Not Detect); Buprenorphine Scr Positive (Not Detect); Cannabinoid Screen Urine POSITIVE (Not Detect); Cocaine Screen Urine POSITIVE (Not Detect); Fentanyl, urine Not Detected (Not Detect); Methadone Screen, Urine Not Detected (Not Detect); Opiate Screen Urine Not Detected (Not Detect); Oxycodone Screen Urine Not Detected (Not Detect); Phencyclidine Screen Urine Not Detected (Not Detect)
--- NOTE | 2024-09-21 10:11 | PC.NURSE ---
positive utox dr cooley made aware
--- NOTE | 2024-09-21 10:33 | PC.NURSE ---
PT CANCELLED POSITIVE UTOX PT ANGRY YELLING TRIED TO EXPLAINED RISKS PT STATED FUCK IT' AND PUNCH WALL SECURITY CALLED
== END ==
LOC: HO.SSS 09:24
PROVIDERS: Nurse Practitioner; PCP Student in an Organized Health Care Education/Training Program; Visit Provider Surgery
DX: M67.471 Ganglion, right ankle and foot (principal); Z53.8 Procedure and treatment not carried out for other reasons; R82.5 Elevated urine levels of drugs, medicaments and biological substances
CPT/HCPCS: 80307; J0736

== ENCOUNTER 2025-01-26 12:58 | Outpatient (REF) | payer MEDICAID, SELFPAY ==
[2025-01-26 13:49] LABS: Creatinine Urine 314.64 mg/dL; Microalbum/Creatinine Ratio Ur 24.1 ug/mg cr (<30)
== END 2025-01-26 12:59 | disposition home or self-care (01) ==
LOC: HO.HHCLNP 12:58
PROVIDERS: Visit Provider Nurse Practitioner Family
DX: N18.30 Chronic kidney disease, stage 3 unspecified (principal)
CPT/HCPCS: 82043; 82570

== ENCOUNTER 2025-03-01 17:36 | Outpatient (REF) | payer MEDICAID, SELFPAY | END 2025-03-01 17:37 | disposition home or self-care (01) | LOC: HO.HHCLNP 17:36 | PROVIDERS: Visit Provider Family Medicine | DX: F11.20 Opioid dependence, uncomplicated (principal) | CPT/HCPCS: 36415; 80307 ==

== ENCOUNTER 2025-07-17 22:15 | Emergency (ER) | payer MEDICAID, SELFPAY ==
--- NOTE | ~2025-07-17 | XR_ITS ---
CLINICAL HISTORY: sob pain 2 view chest x-ray Comparison: CR/AZ/SR - XR CHEST 2 VIEWS - 04/16/23 08:01 EDT Findings: The lungs are clear. Normal size heart. No acute fracture. IMPRESSION: 1. No acute findings. This document has been electronically signed by: Marcial Rivera MD, PHD on 07/17/2025 23:33:04
[2025-07-17 22:19] VITALS: BP 147/87; PULSE 91; RESP 18; TEMP 36.6; O2SAT 98; BMI 39.9
--- NOTE | 2025-07-17 22:25 | ECG_ITS ---
Test Reason : SOB Blood Pressure : */* mmHG Vent. Rate : 86 BPM Atrial Rate : 86 BPM P-R Int : 150 ms QRS Dur : 94 ms QT Int : 366 ms P-R-T Axes : 50 41 42 degrees QTcB Int : 437 ms Normal sinus rhythm with sinus arrhythmia Normal ECG When compared with ECG of 13-Apr-2023 17:26, ST no longer elevated in Inferior leads Referred By: Generic ED Physician Electronically Signed By: Carlos Bashir
[2025-07-17 22:44] LABS: Imm Gran Abs Auto 0.02 X10*3/uL (0.00-0.03); Imm Gran Pct Auto 0.2 % (0.0-0.4); MANUAL DIFF FLAG SCAN; Mean Corpuscular Hemoglobin 28.3 pg (27.0-33.0); Mean Corpuscular Volume 85.4 fL (80.0-98.0); NRBC Abs Auto 0.000 X10*3/uL (0.0-0.012); NRBC Pct Auto 0.0 /100WBC (0.0-0.2); PLT CLUMP 1; SCAN SMEAR FLAG 1
[2025-07-17 22:46] LABS: Hematocrit 49.1 % (42.0-52.0); Hemoglobin 16.3 g/dl (14.0-18.0); Lymphocytes Absolute Auto 3.0 X10*3/uL (1.2-4.9); Mean Corpuscular HGB Conc 33.2 g/dl (31.0-36.0); Red Blood Count 5.75 X10*6/uL (4.60-5.80)
[2025-07-17 22:50] LABS: Platelet Count 227 X10*3/uL (160-400); White Blood Count 8.6 X10*3/uL (4.8-10.8)
[2025-07-17 22:58] LABS: Alanine Aminotransferase 9 U/L (0-40); Albumin Level 4.6 g/dL (3.5-5.0); Alkaline Phosphatase 60 U/L (39-117); Anion Gap 16 (12-20); Aspartate Amino Transferase 16 U/L (5-37); Blood Urea Nitrogen 16 mg/dL (9-16); Calcium 9.4 mg/dL (8.4-10.2); Carbon Dioxide 21 mmol/L (22-29); Chloride 108 mmol/L (96-108); Creatinine Clr Calc Pharmacy 89.0; Estimated Glomerular Filt Rate 53; Magnesium 2.1 mg/dL (1.6-2.6); Potassium 4.5 mmol/L (3.3-5.1); Sodium 140 mmol/L (135-145); Total Protein 7.9 g/dL (6.5-8.0)
[2025-07-17 23:02] LABS: D Dimer High Sensitivity < 150 NG/ML
[2025-07-17 23:06] LABS: Troponin-I High Sensitivity 4.9 ng/L (<3.5-35.0)
--- OUTSIDE RECORDS SUMMARY | 2025-07-18 02:54 | XMS_ITS | Encounter Summary ---
Author Organization [facility] Address [address] [place] [address] [address] [place] [address] Care Team Providers Care Client Services Vice President Name Role Phone Carmen Crow CASTER OPERATOR Primary Care Provider Chris Denney RN Unavailable [phone] Leny Kaufman Unavailable Encounter Details Date Type Department Care Team (Late st Contact Info) Description 05/25/2024 Orders Only [facility] [address] [place] [address] [phone] Belle Martins MD [address] [place] [address] [phone] Social History Tobacco Use Types Packs/Day Years Used Date Smoking Tobacco: Every Day Cigarettes Depression Answer Date Recorded Patient Health Questionnaire-9 Score 3 01/11/2024 Patient Health Questionnaire-9 Score 3 01/11/2024 Last PHQ-9: Questionnaire Data Not on file 0 01/11/2024 Depression Answer Date Recorded Patient Health Questionnaire-2 Score 0 01/11/2024 Sex and Gender Information Value Date Recorded Sex Assigned at Male 12/27/2023 9:57 AM EDT Legal Sex Male 3:01 PM EDT Gender Identity Male 12/27/2023 9:57 AM EDT Sexual Orientation Straight 12/27/2023 9: 57 AM EDT documented as of this encounter Plan of Treatment Upcoming Encounters Date Type Department Care Team (Late st Contact Info) Description 07/25/2025 9:45 AM EDT Office Visit [facility] [address] [place] [address] [phone] Belle Martins MD [address], [place] [phone] 07/25/2025 10:30 AM EDT Office Visit [facility] [address] [place], [place] [phone] Carmen Crow FNP [address] [place] [address] documented as of this encounter Visit Diagnoses Not on filedocumented in this encounter Additional Health Concerns Assessment Noted Time PHQ-9 Depression Total Score: 3 01/11/20 24 4:20 PM EDT documented as of this encounter Care Teams Client Services Vice President Relationship Specialty Start Date End Date Carmen Crow FNP [address] [place] [address] PCP - General Family Medicine 08/23/24 Chris Denney, RN [address] [place] [phone] Registered Nurse Family Medicine 03/29/25 05/08/25 Leny Kaufman 03/29/25 05/08/25 documented as of this encounter
--- OUTSIDE RECORDS SUMMARY | 2025-07-18 02:55 | XMS_ITS | Encounter Summary ---
Author Organization [employer] Address [address] [facility] [address] [place] [address] Care Team Providers Care On Air Director Name Role Phone Carmen Crow [employer] Primary Care Provider [phone] Chris Denney RN Unavailable [phone] Leny Kaufman Unavailable Reason for Visit * Reason Comments Med Refill Encounter Details Date Type Department Care Team ([facility] st Contact Info) Description 10/25/2024 Refill [facility] [address] [place] [address] Dennis Sims MD [address] [place] [address] Social History Tobacco Use Types Packs/Day Years Used Date Smoking Tobacco: Every Day Cigarettes Alcohol Use Standard Drinks/Week Comments Not Currently 0 (1 standard drink = 0.6 oz pur e alcohol) Depression Answer Date Recorded Patient Health Questionnaire-9 Score 24 07/12/2024 Patient Health Questionnaire-9 Score 24 07/12/2024 Last PHQ-9: Questionnaire Data Not on file 1 Housing Stability Answer Date Recorded What is your housing situation today? I have beau narvaez 08/23/[address] you li ve. Do you have problems with any of the following? None of the above 08/23/2024 Food Insecurity Answer Date Recorded Within the past 12 months, y ou worried that your food would run out before you got money to buy more: Never True 08/23/2024 Within the past 12 months,th e food you bought just didn't last and you didn't have enough money to get more: Never True Transportation Answer Date Recorded In the past 12 months, has l ack of transportation kept you from medical appts, meetings, work or from getting things needed for daily living? No 08/23/2024 Utilities Answer Date Recorded In the past 12 months, has t he electric, gas, oil or water company threatened to shut off services in your home? No 08/23/2024 Depression Answer Date Recorded Patient Health Questionnaire-2 Score 6 07/12/2024 Internet Access Answer Date Recorded Internet Access Q1 Yes 08/23/2024 Internet Access Q2 Not on file 08/23/2024 Sex and Gender Information Value Date Recorded Sex Assigned at Male 12/27/2023 9:57 AM EDT Legal Sex Male 3:01 PM EDT Gender Identity Male 12/27/2023 9:57 AM EDT Sexual Orientation Straight 12/27/2023 9: 57 AM EDT documented as of this encounter Plan of Treatment Upcoming Encounters Date Type Department Care Team (Late st Contact Info) Description 07/25/2025 9:45 AM EDT Office Visit [facility] [address] [place] [id number] Belle Martins MD [address] [place] [phone] 07/25/2025 10:30 AM EDT Office Visit [facility] [address] [place] [phone] Carmen Crow FNP [address] [place] [phone] documented as of this encounter Visit Diagnoses Not on filedocumented in this encounter Additional Health Concerns Assessment Noted Time PHQ-9 Depression Total Score: 24 024 11:41 AM EDT documented as of this encounter Care Teams On Air Director Relationship Specialty Start Date End Date Carmen Crow FNP [address] [place] [phone] PCP - General Family Medicine 08/23/24 Chris Denney, LEATHA [address] [place] [phone] Registered Nurse Family Medicine 03/29/25 05/08/25 Leny Kaufman 03/29/25 05/08/25 documented as of this encounter
--- OUTSIDE RECORDS SUMMARY | 2025-07-18 02:55 | XMS_ITS | Clinical Summary ---
Author Organization [employer] Address [address] [facility] [address] [place] [address] Care Team Providers Care Equipment Sales Specialist Name Role Phone Carmen Crow [facility] Primary Care Provider [phone] Allergies Active Allergy Reactions Criticality Noted Date Comments Morphine 01/11/2024 Local arm reaction. Penicillins 01/11/2024 Does not know type of reaction Medications * This document contains information received from the source organization and may not represent a complete record from that organization. nicotine polacrilex (Nicorelief) 2 MG gumIndications: Tobacco use disorder Chew 1 or 2 pieces every 1-2 hours instead of a cigarette. 60 each Active nicotine (Nicoderm CQ) 21 MG/24HR patchIndication s:Tobacco use disorder Place 1 patch on the skin 1 (one) time each day at the same time. Alternate right and left upper outer arm. 42 patch Active famotidine (Pepcid) 20 MG tablet Take 1 tablet (20 mg) by mouth 2 times daily. 60 tablet 2 Active Narcan 4 MG/0.1ML nasal spray FOR SUSPECTED OPIOID OVERDOSE. SPRAY 0.1mL IN ONE NOSTRIL. REPEAT IN ALTERNATE NOSTRIL 2-3 MINUTES IF NEEDED. SEEK MEDICAL ATTENTION IMMEDIATELY EVEN IF PATIENT RESPONDS. Active omeprazole (PriLOSEC) [address] capsule Take 1 capsule by mouth Once per day. Active lisinopril 40 MG tablet Take 1 tablet (40 mg) by mouth Once per day. 90 tablet 3 025 2025 Active senna-docusate sodium (Senokot-S) 8.6-50 MG tabletIndicatio ns:Constipation , unspecified constipation type Take 1 tablet by mouth Once per day. 30 tablet 11 025 2025 Active tamsulosin (Flomax) 0.4 MG 24 hr capsuleIndicati ons:Difficulty urinating TAKE 1 CAPSULE BY MOUTH EVERY DAY 90 capsule 1 Active docusate sodium (Colace) 100 MG capsuleIndicati ons:Constipatio n, unspecified constipation type TAKE 1 TO 2 CAPSULES BY MOUTH AT BEDTIME NEEDED FOR CONSTIPATION 180 capsule 1 Active Eliquis 5 MG tablet TAKE 1 TABLET BY MOUTH TWICE DAILY 60 tablet 2 Active cetirizine (ZyrTEC) 10 MG tablet Take 1 tablet (10 mg) by mouth Once per day. 90 tablet 3 025 2025 Active fluticasone (Flonase) 50 MCG/ACT nasal spray Administer 1-2 sprays into each nostril Once per day. Shake gently. Before first use, prime pump. After use, clean tip and replace cap. 16 g 2 025 2025 Active hydrOXYzine HCl (Atarax) 50 MG tablet TAKE 1 TABLET BY MOUTH EVERY TWELVE HOURS NEEDED FOR ANXIETY 30 tablet 1 Active Buprenorphine HCl-Naloxone HCl (Suboxone) 8-2 MG SL filmIndications :Uncomplicated opioid dependence (CMS/HCC) ([facility]) Place 1 Film under the tongue 3 times daily for 14 days. 42 Film 025 2024 Active hydrOXYzine HCl (Atarax) 50 MG tablet TAKE 1 TABLET BY MOUTH EVERY TWELVE HOURS NEEDED FOR ANXIETY 30 tablet 1 025 2024 Discontinued Buprenorphine HCl-Naloxone HCl (Suboxone) 8-2 MG SL filmIndications :Uncomplicated opioid dependence (CMS/HCC) (HCC) Place 1 Film under the tongue 3 times daily for 14 days. 42 Film 025 2024 Discontinued(R eorder (will not trigger notification to Pharmacy)) Buprenorphine HCl-Naloxone HCl (Suboxone) 8-2 MG SL filmIndications :Uncomplicated opioid dependence (CMS/HCC) (HCC) Place 1 Film under the tongue 3 times daily for 14 days. 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, unspecified whether recurrent ([facility]) 05/30/2025 Assessment & Plan (05/30/2025 4:27 PM EDT): - previously met with integrated behavioral health service - patient has been taking non-prescribed quetiapine - encouraged to schedule appointment with PCP; patient states he will do so when he is ready Constipation 01/18/2025 Stage 3 chronic kidney disease ([facility]) 025 Abnormal penile discharge 01/18/2025 Difficulty urinating 01/18/2025 Exercise counseling 08/31/2024 Assessment & Plan (08/31/2024 10:56 AM EST): Exercise at least 45 minutes a day Patient advised swimming maybe more comfortable way to exercise due to weight bearing pain right ankle Elevated serum creatinine 08/31/2024 Dietary counseling 08/31/2024 Assessment & Plan (08/31/2024 10:53 AM EST): Obese BMI Readings from Last 1 Encounters: 08/30/24 41.18 kg/m Plan Eat 3 meals a day, especially breakfast Eat healthy and focus on healthyfood choices daily fruits, vegetables, grains, low fat milk, low carbohydrate and fat Maintain healthy weight. Eat with family Health care maintenance 08/31/2024 History of fracture of right ankle 08/31/2024 Assessment & Plan (08/31/2024 11:00 AM EST): Right ankle mildly swollen & deformed, tender, and non-erythematous. Patient reported sustaining injury to the ankle via trauma about 10 years ago, continues to have pain 5-6/10 which is aggravated with weight-bearing. Reports pain has prevented him from working. Plan Xray of the right ankle Referral to orthopedic surgeon Blurry vision 08/31/2024 Assessment & Plan (08/31/2024 11:20 AM EST): Complaints of blurry vision Plan Referral to [facility] vision Encounter for adult wellness visit 08/31/2024 Assessment & Plan (08/31/2024 11:42 AM EST): Alert and oriented, obese, good historian. Communicates effectively, shows some guilt about use of drugs and inability to provide for children. ROS and physical assessment remarkable for Anxiety, blurry vision and right ankle pain. Referrals and orders written for new lab studies as appropriate Cocaine use 05/04/2024 Assessment & Plan (10/18/2024 11:19 AM EST): - discussed about harm reduction - continue checking with fentanyl test strip - patient is planning to go to detox so that he can have a surgery Assessment & Plan (06/21/2024 12:30 PM EDT): - discussed about harm reduction - continue checking test strip Hypertension 05/04/2024 Depression 05/04/2024 Bilateral lower extremity edema 05/04/2024 H/O deep venous thrombosis 05/04/2024 Pulmonary embolism 05/04/2024 Chronic pain of right ankle 05/04/2024 GERD (gastroesophageal reflux disease) Opioid dependence 01/06/2024 Assessment & Plan (06/27/2025 3:52 PM EDT): - stage of change: early maintenance from OUD, still using cocaine - Utox review: usually pos bup, tami, and thc. Consistent with his story. - Overdose risk: high; history of overdose; mixed use (tami); and unstable mental health - Continue current recovery support - Continue current recovery effort - Reviewed harm reduction and overdose prevention Assessment & Plan (05/30/2025 5:15 PM EDT): - stage of change: early maintenance from OUD, still using cocaine - Utox review: usually pos bup, tami, and thc. 1st neg bup on 03/14/25. Consistent with his story. - Overdose risk: high; history of overdose; mixed use (tami); and unstable mental health - Continue current recovery support - Continue current recovery effort - Reviewed harm reduction and overdose prevention Assessment & Plan (04/11/2025 5:26 AM EDT): - stage of change: early maintenance from OUD, still using cocaine - Utox review: usually pos bup, tami, and thc. 1st neg bup on 03/14/25. Consistent with his story. - Overdose risk: high; history of overdose; mixed use (tami); and unstable mental health - Continue current recovery support - Continue current recovery effort - Reviewed harm reduction and overdose prevention Assessment & Plan (03/27/2025 9:13 AM EDT): - stage of change: early maintenance from OUD, still using cocaine - Utox review: usually pos bup, tami, and thc. 1st neg bup on 03/14/25. Consistent with his story. - Overdose risk: high; history of overdose; mixed use (tami); and unstable mental health - Continue current recovery support - Continue current recovery effort - Reviewed harm reduction and overdose prevention Assessment & Plan (03/14/2025 3:31 PM EDT): - stage of change: early maintenance from OUD, still using cocaine - Utox review: usually pos bup, tami, and thc. 1st neg bup on 03/14/25. Consistent with his story. - Overdose risk: high; history of overdose; mixed use (tami); and unstable mental health - Continue current recovery support - Continue current recovery effort - Reviewed harm reduction and overdose prevention Assessment & Plan (11/08/2024 9:59 AM EST): - stage of change: early maintenance from OUD, still using cocaine - Utox review: Last pos tami 10/18/24, neg opi since induction, one neg bup on 02/24/24 - Overdose risk: average to high; history of overdose; mixed use (tami) - Continue current recovery support - Continue current recovery effort - Reviewed harm reduction and overdose prevention Assessment & Plan (10/18/2024 11:19 AM EST): - stage of change: early maintenance from OUD, still using cocaine - Utox review: Last pos tami 10/18/24, neg opi since induction, one neg bup on 02/24/24 - Overdose risk: average to high; history of overdose; mixed use (tami) - Continue current recovery support - Continue current recovery effort - Reviewed harm reduction and overdose prevention Assessment & Plan (09/20/2024 6:08 AM EST): - stage of change: early maintenance from OUD, still using cocaine - Utox review: Last pos tami 09/13/24, neg opi since induction, one neg bup on 02/24/24 - Overdose risk: average to high; history of overdose; mixed use (tami) - Continue current recovery support - Continue current recovery effort - Reviewed harm reduction and overdose prevention Assessment & Plan (07/11/2024 10:45 PM EDT): - stage of change: early maintenance from OUD, still using cocaine - Utox review: Last pos tami 07/05/24, neg opi since induction, one neg bup on 02/24/24 - Overdose risk: average to high; history of overdose; mixed use (tami) - Continue current recovery support - Continue current recovery effort - Reviewed harm reduction and overdose prevention Assessment & Plan (06/21/2024 5:44 AM EDT): - stage of change: early maintenance from OUD, still using cocaine - Utox review: Last pos tami 03/29/24, neg opi since induction, one neg bup on 02/24/24 - Overdose risk: average to high; history of overdose; mixed use (tami) - Continue current recovery support - Continue current recovery effort - Reviewed harm reduction and overdose prevention Assessment & Plan (04/12/2024 9:31 AM EDT): - stage of change: early maintenance from OUD, still using cocaine - Utox review: Last pos tami 03/29/24, neg opi since induction, one neg bup on 02/24/24 - Overdose risk: average to high; history of overdose; mixed use (tami) - Continue current recovery support - Continue current recovery effort - Reviewed harm reduction and overdose prevention ANDREW (generalized anxiety disorder) 01/06/2024 Assessment & Plan (06/21/2024 12:31 PM EDT): - Refill hydroxyzine Mild stimulant use disorder (CMS/HCC) 01/06/2024 Resolved Problems Problem Noted Date Diagnosed Date Resolved Date Renal insufficiency 04/11/2025 04/11/20 25 Assessment & Plan (04/11/2025 5:04 PM EDT): Likely chronic kidney disease, possible obstructive uropathy Asymptomatic Upcoming appointment with a new PCP Anxiety 08/31/2024 01/12/2025 Assessment & Plan (08/31/2024 11:19 AM EST): Reports feeling unhappy because of his pain and inability to work. Reports recent incarceration r/t non payment of child support suggested if he could get clearance for inability to work at this visit. Denies suicidal ideation. Patient in OBAT reports inattendance and non beneficiary. Discussed with patient the need for support in his attempt to stop drug use. Agreed to the plan to speak with therapist Plan Referral to therapist Encounters Date Type Department Care Team Description 07/12/2025 3:30 PM EDT Telemedicine [facility] [address] [place] [phone] Jesse Gould RN Opioid type dependence, continuous ([facility]) ([facility]) 07/12/2025 Travel 07/04/2025 Refill [facility] [address] [place] [phone] Jesse Gould RN Uncomplicated opioid dependence ([facility]) (HCC) 06/27/2025 10:45 AM EDT Office Visit [facility] [address] [place] [phone] Belle Martins MD Uncomplicated opioid dependence ([facility]) (Primary Dx) 06/27/2025 Travel 06/23/2025 Refill [facility] [address] [place] [phone] Carmen Crow FNP 06/20/2025 Refill [facility] [address] [place] [phone] Jesse Gould RN Uncomplicated opioid dependence ([facility]/HCC) 06/15/2025 1:30 PM EDT Clinical Support [facility] [address] [place] [phone] Jesse Gould RN Uncomplicated opioid dependence (CMS/HCC) 06/15/2025 Travel 06/06/2025 Refill [facility] [address] [place] [phone] Jesse Gould RN Uncomplicated opioid dependence (CMS/HCC) 05/31/[address] [phone] Jesse Gould RN PT-1 05/31/2025 Patient Outreach [address] [phone] Carmen Crow FNP Care Coordination ([facility] outreach for SDOH PT-1 and food needs-LVM ) 05/30/2025 11:30 AM EDT Office Visit [address] [phone] Belle Martins MD Uncomplicated opioid dependence (CMS/HCC) (Primary Dx); Dietary counseling; Exercise counseling; Class 3 severe obesity due to excess calories with serious comorbidity and body mass index (BMI) of 40.0 to 44.9 in adult; Current severe episode of major depressive disorder without psychotic features, unspecified whether recurrent (CMS/HCC); H/O deep venous thrombosis; Stage 3 chronic kidney disease, unspecified whether stage 3a or 3b CKD (CMS/HCC); Hypertension, unspecified type 05/30/2025 Travel 05/23/2025 Refill [facility] [address] [place] [phone] Jesse Gould RN Uncomplicated opioid dependence (CMS/HCC) 05/14/2025 2:30 PM EDT Clinical Support [address] [address] Jesse Gould RN Uncomplicated opioid dependence (CMS/HCC) 05/14/2025 Travel 05/14/[address] [phone] Jesse Gould RN OBAT Communication 05/08/2025 Patient Outreach [address] [phone] Carmen Crow FNP Care Coordination ([facility] Leny Kaufman telephone call outreach /) 05/03/2025 Refill [facility] [address] [place] [phone] Ariadne Whitt RN Uncomplicated opioid dependence ([facility]) 05/01/2025 Patient Outreach [address] [address] Carmen Crow FNP 05/01/2025 Patient Outreach [address] [address] Carmen Crow FNP Care Coordination ([facility] telephone call outreach) 04/27/2025 Telephone [facility] [address] [place] [phone] Jesse Gould RN 04/24/2025 Patient Outreach [address] [address] Carmen Crow FNP Care Coordination ([facility] telephone call outreach ) 04/18/2025 Refill [facility] [address] [place] [phone] Jesse Gould RN Uncomplicated opioid dependence ([facility]) 04/17/2025 Patient Outreach [address] [address] Carmen Crow FNP Care Coordination ([facility] telephone call outreach/) from Last 3 Months Immunizations Immunization Administration Dates Next Due Hep A, Adult 02/14/2025,06/28/2024 12/26/2024 Td (adult), 5 Lf tetanus tox oid, preservative free, adsorbed 01/16/2017,07/30/2016 Social History Tobacco Use Types Packs/Day Years Used Date Smoking Tobacco: Every Day Cigarettes Passive Smoke Exposure: Current Tobacco Cessation:Ready to Q uit: Not Asked; Counseling Given: Not Answered Alcohol Use Standard Drinks/Week Comments Not Currently 0 (1 standard drink = 0.6 oz pur e alcohol) Depression Answer Date Recorded Patient Health Questionnaire-9 Score 15 01/12/2025 Patient Health Questionnaire-9 Score 15 01/12/2025 Last PHQ-9: Questionnaire Data Not on file 0 01/12/2025 Housing Stability Answer Date Recorded What is [...] Answer Date Recorded Patient Health Questionnaire-2 Score 5 01/12/2025 Internet Access Answer Date Recorded Internet Access Q1 Yes 08/23/2024 Internet Access Q2 Not on file 08/23/2024 Sex and Gender Information Value Date Recorded Sex Assigned at Male 12/27/2023 9:57 AM EDT Legal Sex Male 3:01 PM EDT Gender Identity Male 12/27/2023 9:57 AM EDT Sexual Orientation Straight 12/27/2023 9: 57 AM EDT Last Filed Vital Signs Vital Sign Reading Time Taken Comments Blood Pressure 132/93 01/12/2025 1:23 PM EDT Pulse 91 01/12/2025 1:23 PM EDT Temperature 36.6 C (97.8 F) 01/12/2025 1:23 PM EDT Respiratory Rate 12 01/12/2025 1:23 PM EDT Oxygen Saturation 98% 08/30/2024 2:21 PM EST Inhaled Oxygen Concentration - - Weight 137 kg (301 lb 8 oz) 01/12/2025 1:23 PM E DT Height 177.8 cm (5' 10 ) 01/12/2025 1:23 PM EDT Body Mass Index 43.26 01/12/2025 1:23 PM EDT Plan of Treatment Upcoming Encounters Date Type Department Care Team (Late st Contact Info) Description 07/25/2025 9:45 AM EDT Office Visit [facility] [address] [place] [address] Belle Martins MD [address] [place] [phone] 07/25/2025 10:30 AM EDT Office Visit [facility] [address] [place], [place] [phone] Carmen Crow FNP [address] [place], [place] [phone] Health Maintenance Due Date Last Done Comments Dental Oral Exam 1984 Dental Prophylaxis 1984 Dental X-Ray: Bitewings 1984 Lipid Panel 1984 Family Planning (PISQ) 1999 HPV Vaccines (1 - Male 3-dos e series) 1999 Pneumococcal Vaccine: Pediatrics (0 to 5 Years) and At-Risk Patients (6 to 49) Years (1 of 2 - PCV) 2003 DTaP/Tdap/Td Vaccines (1 - Tdap) 01/17/2017 01/16/2017, 07/30/2016 COVID-19 Vaccine ( - 2023-2 5 season) 2025 Influenza Vaccine (#1) 2025 Depression Monitoring 07/14/2025 01/12/2025 , 01/12/2025 Alcohol/Substance Use Screening 08/23/2025 08/23/2024 Diabetes: Hemoglobin A1C 08/23/2025 08/23/2024 SDOH Screening 08/23/2025 08/23/2024 Disability Screening 01/12/2026 01/12/2025 Tobacco Screening 06/27/2026 06/27/2025 Dental X-Ray: Full Mouth 06/15/2027 06/14/2024 Zoster Vaccines (1 of 2) 2034 RSV Patients and Patients Aged 60 years or older (1 - 1-dose 75+ series) 2059 HIV Screening Completed 08/30/2024, 08/23/2024, 05/04/2024 Hepatitis C Screening Completed 08/30/2024 , 08/23/2024, 05/04/2024 Hepatitis A Vaccines Aged Out 02/14/2025, 06/28/2024 No longer eligible based on patient's age to complete this topic HIB Vaccines Aged Out No longer eligi ble based on patient's age to complete this topic Hepatitis B Vaccines Discontinued IPV Vaccines Aged Out No longer eligi ble based on patient's age to complete this topic Meningococcal B Vaccine Aged Out No l onger eligible based on patient's age to complete this topic Meningococcal Vaccine Aged Out No bk rosalina eligible based on patient's age to complete this topic RSV under 20 months Aged Out No longe r eligible based on patient's age to complete this topic Rotavirus Vaccines Aged Out No longer eligible based on patient's age to complete this topic Goals Goal Patient Goal Type Associated Problems Recent Progress Patient-Stated? Author Increase coping skills to promote long-term recovery and improve ability to perform daily activities General On track( 025 3:43 PM EDT) No Jesse Gould, RN Keep your medical appointments Lifestyle No change(2024 3:43 PM EDT) No Jesse Gould, RN Note: He came on time for OBAT. Missed appointment with PCP. Scheduled 07/25/25 OBAT and PCP on same day to assist with adherence Procedures Procedure Name Priority Date/Time Associated Diagnosis Comments POCT HEATHER-14 URINE DRUG SCREEN Routine 06/27/2025 3:19 PM EDT Uncomplicated opioid dependence (CMS/HCC) POCT HEATHER-14 URINE DRUG SCREEN Routine 05/30/2025 3:42 PM EDT Uncomplicated opioid dependence (CMS/HCC) HEPATITIS C AB W/REFL TO HCV RNA, QN, PCR Routine 08/30/2024 3:35 PM EST HIV 1/2 ANTIGEN/ANTIBODY, FOURTH GENERATION W/RFL Routine 08/30/2024 3:35 PM EST POCT GLYCATED HEMOGLOBIN, TOTAL Routine 08/23/2024 1:33 PM EST Health care maintenance PANORAMIC RADIOGRAPHIC IMAGE Routine 06/14/2024 1:00 PM EDT Rampant dental caries Dental abscess from Last 3 Months or Most Recently Relevant to Health Maintenance Results * (ABNORMAL) POCT HEATHER-14 Urine Drug Screen (06/27/2025 3:19 PM EDT) Only the most recent of2 resultswithin the time period is included. Pathologist [facility] THC Positive(A) Negative Cocaine Screen, Urine Positive(A) Negative Opiate Screen, Urine Negative Negative Methamphetamine Screen Urine Negative Negative Amphetamine Screen, Urine Negative Negative Benzodiazepines Screen, Urine Negative Negative Barbiturate Screen, Urine Negative Negative Methadone Screen, Urine Negative Negative Buprenophine Screen, Urine Positive(A) Negative TCA, Urine Negative Negative MDMA Urine Negative Negative ng/mL Oxycodone Screen, Urine Negative Negative Phencyclidine (PCP), Urine Negative Negative Propoxyphene, Urine Negative Negative Fentanyl, Urine Negative Negative Urine Urine specimen obtained by clean catch procedure / Unknown 06/27/2025 3:19 PM EDT Belle Martins MD POINT OF CARE TEST ENTER/EDIT OR DERABLES Final Result * Hepatitis C Antibody with Reflex to HCV, RNA, Quantitative, Real-Time PCR (08/30/2024 3:35 PM EST) [facility] Hepatitis C Antibody Nonreactive Nonreactive [facility] Comment:Antibodies to HCV no t detected; does not exclude early acuteHCV infection. 08/30/2024 3:35 PM EST 08/30/2024 4:15 PM EST us Carmen Crow [employer] LAB BLOOD ORDERABLES Final Res ult [facility] [address] [place] [address] [phone] * HIV-1/2 Antigen and Antibodies, Fourth Generation, with Reflexes (08/30/2024 3:35 PM EST) [facility] HIV AB/AG Nonreactive Nonreactive [facility] Comment:HIV-1 p24 Ag and/or HIV-1/HIV-2 Ab not detected.A test result that is nonreactive does not exclude thepossibility of exposure to or infection with HIV-1 and/orHIV-2. Nonreactive results in this assay for individualswith prior exposure to HIV-1 and/or HIV-2 may be due toantigen and antibody levels that are below the limit ofdetection of this assay.The [employer] HIV Ag/Ab Combo assay result andsupplemental assay results should be interpreted inconjunction with the patient's clinical presentation,history and other laboratory results. If the results areinconsistent with clinical evidence, additional testing issuggested to confirm the result. 08/30/2024 3:35 PM EST 08/30/2024 4:15 PM EST Carmen Green [employer]PARTMENT LAB BLOOD ORDERABLES Final Res ult [facility] [address] [place] [phone] * (ABNORMAL) POCT A1C (08/23/2024 1:33 PM EST) Hemoglobin A1C 6.3(A) 4.0 - 6.0 % QC Media Lot # [id number] Lot# Expiration Date [id number] Blood 08/23/2024 1:33 PM EST [employer] [facility] POINT OF CARE TEST ENTER/EDIT ORDERABLES Final Result from Last 3 Months or Most Recently Relevant to Health Maintenance Insurance [facility] AD[facility] Care Teams Equipment Sales Specialist Relationship Specialty Start Date End Date Carmen Crow FNP [address] [place] [phone] PCP - General Family Medicine 08/23/24
--- NOTE | 2025-07-18 03:59 | ED_ITS ---
HPI - General Adult General Chief complaint: Extremity Problem Stated complaint: L shoulder and back pain Time Seen by Provider: 07/18/25 03:10 Source: patient, RN notes reviewed and old records reviewed Mode of arrival: ambulatory Limitations: no limitations History of Present Illness ED Provider: Bryce HPI narrative: 39-year-old male past medical history significant for DVT on Eliquis, hypertension, opiate use disorder, obesity presents for evaluation of back pain. Patient reports that he woke up with back pain 5 days ago on Wednesday. Denies any heavy lifting, strenuous activity or falls. His pain is worse if he turns to the right. His pain does not seem to radiate very much. He has no chest pain, no shortness of breath pain He does have pain in his left upper back while taking a deep breath No fevers, chills He reports he has a chronic smoker's cough but denies any new or change in his cough Related Data Previous Rx's ?Medication ?Instructions ?Recorded naloxone 4 mg/actuation nasal 4 mg intranasal Q2M PRN opioid 04/29/23 spray (Narcan) overdose #2 ea doxycycline hyclate 100 mg tablet 100 mg PO BID #14 ta bs 07/01/23 buprenorphine 8 mg-naloxone 2 mg 1 film sublingual TID #21 ea 12/29/23 sublingual film (Suboxone) amlodipine 5 mg tablet 5 mg PO DAILY #90 tabs 01/06 apixaban 5 mg tablet (Eliquis) 5 mg PO BID #60 tabs hydroxyzine HCl 50 mg tablet 50 mg PO BEDTIME PRN anxi ety #30 01/07/24 tabs omeprazole 40 mg capsule,delayed 40 mg PO DAILY #90 ca ps 01/07/24 release tramadol 50 mg tablet 50 mg PO Q8H PRN pain #12 ta bs 07/18/25 Allergies Allergy/AdvReac Type Severity Reaction Status Date / Time morphine (MORPHINE) Allergy Mild BUMPS AND Verified 07/17/25 22:21 ITCHINESS NEAR IV SITE AFTER ADMINISTRATION, (IV) blisters penicillin V Allergy Unknown Unknown Verified 07/17/25 22:21 Penicillins Allergy Unknown UNKNOWN Verified 07/17/25 22:21 Review of Systems 2 Constitutional: Constitutional: Denies body ache(s), Denies chills, Denies fever(s) and Denies headache(s) Eyes: Eyes: Denies blurry vision ENT: Denies vertigo, Denies dizziness and Denies headache(s) Cardiovascular: Cardiovascular: Denies chest pain, Denies dyspnea and Denies dyspnea on exertion Respiratory: Respiratory: Denies chest congestion, Reports cough (Chronic), Denies dyspnea and Denies dyspnea on exertion Gastrointestinal: Gastrointestinal: Denies abdominal pain Musculoskeletal: Musculoskeletal: Reports back pain Integumentary/Breasts: Skin/Breast: Denies rash Neurologic: Denies vertigo, Denies dizziness and Denies headache(s) Psychiatric: Psychiatric: Denies anxiety [facility] Past Medical History Medical History Polysubstance abuse MRSA pneumonia Toxic encephalopathy Delirium GAYLE (acute kidney injury) Hypoxia Agitation Coffee ground emesis Drug overdose COVID-19 Kidney stones Pulmonary emboli Substance abuse Hypertension Bronchitis DVT (deep venous thrombosis) Asthma Surgical History H/O colonoscopy Family History Family History Father COVID Myocardial infarction Mother Myocardial infarction Sister Stroke Sister Brain aneurysm Social History Social History Household Members: Significant Other Housing: Apartment Are you a primary rn complex care to a significant other at home: No Do you presently have visiting nurse or other home services: No Alcohol intake: never Comment: Pt refused bed and company w. ambulation Patient Tobacco Use Status: Current everyday Tobacco user Tobacco use type: Cigarette Cigarette Packs Per Day: 0.5 Cigarettes Per Day: 10 Substance Use Type: Marijuana Advance Directives: No Advance Directives Information Provided: Yes Do you have a plan to hurt others: No Plan service: No Current occupational status: unemployed Gender identity: Male Cognitive needs: No Hearing needs: No Vision needs: No Physical Exam ED Vital Signs: Vital Signs - 24 hr 07/17/25 22:19 07/18/25 05:28 Temperature 97.9 F Pulse Rate 91 Respiratory Rate 18 17 Blood Pressure 147/87 H Pulse Oximetry 98 Oxygen Delivery Method Room Air BMI result Body Mass Index 39.9 Back/Spine/Pelvis Other: Tenderness to the left upper back/trapezius muscle group. No spinal tenderness. No deformity. Full range of motion of the left shoulder Medications Administered Discontinued Medications Generic Name Dose Route Start Last Admin Trade Name Swapnil PRN Reason Stop Dose Admin Tramadol HCl 50 mg 07/18/25 03:37 07/18/25 04:01 Tramadol Hcl 50 Mg Tablet PO 07/18/25 03:38 50 mg ONCE ONE Administration Medical Decision Making Medical Decision Making [facility] Narrative: 39-year-old male presents for evaluation of left upper back pain. His pain is very reproducible on exam, his worse with turning, worse with palpation. He denies any specific injury. He denies any chest pain, shortness of breath, cough. He is anticoagulated on Eliquis and reports being compliant with the. You did have a D-dimer was ordered in his negative. I have a low suspicion for acute PE. His pain is not pleuritic but rather more consistent with musculoskeletal origin. He did have a chest x-ray ordered did not show any evidence of acute CHF or pneumonia. The patient's labs show no concerning abnormalities. He does have a history of opiate abuse in his also on Eliquis and therefore can not use NSAIDs. He reports that he is okay with tramadol he has had this in the past without your labs Differential Diagnosis Differential Diagnoses: The differential diagnosis associated with the presentation includes Muscle strain Spasmodic torticollis Pneumothorax Bronchitis Rotator cuff injury Lab Data [facility] Lab Attestation statement: I reviewed the patient's lab results. No leukocytosis or anemia. Normal platelet count. No significant electrolyte abnormalities warranting dimension. 07/17/25 22:37 07/17/25 22:37 Labs: Lab Results 07/17/25 07/17/25 Range/Units 22:37 22:38 WBC 8.6 (4.8-10.8) X10*3/uL RBC 5.75 (4.60-5.80) X10*6/uL Hgb 16.3 (14.0-18.0) g/dl Hct 49.1 (42.0-52.0) % MCV 85.4 (80.0-98.0) fL MCH 28.3 (27.0-33.0) pg MCHC 33.2 (31.0-36.0) g/dl RDW 13.5 (11.0-16.0) % Plt Count 227 (160-400) X10*3/uL MPV 10.5 (9.4-12.4) fL Immature Gran % (Auto) 0.2 (0.0-0.4) % Neut % (Auto) 55.0 (45-73) % Lymph % (Auto) 34.9 (20-40) % Mccormick % (Auto) 7.9 (2-11) % Eos % (Auto) 1.5 (0-4) % Baso % (Auto) 0.5 (0-2) % Lymph # (Auto) 3.0 (1.2-4.9) X10*3/uL Mccormick # (Auto) 0.7 (0.1-1.2) X10*3/uL Eos # (Auto) 0.1 (0.0-0.4) X10*3/uL Baso # (Auto) 0.0 (0.0-0.2) X10*3/uL Abs Immat Gran (auto) 0.02 (0.00-0.03) X10*3/uL Absolute Neuts (auto) 4.7 (2.0-8.3) x10*3/uL Absolute Nucleated RBC 0.000 (0.0-0.012) X10*3/uL Nucleated RBC % (auto) 0.0 (0.0-0.2) /100WBC Smear Tech's Comments VERIFIED D-Dimer High Sensitivty < 150 NG/ML Sodium 140 (135-145) mmol/L Potassium 4.5 (3.3-5.1) mmol/L Chloride 108 (96-108) mmol/L Carbon Dioxide 21 L (22-29) mmol/L Anion Gap 16 (12-20) BUN 16 (9-16) mg/dL Creatinine 1.47 H (0.5-1.4) mg/dL Estim Creat Clear Calc 89.0 Estimated GFR 53 Random Glucose 108 (60-115) mg/dL Calcium 9.4 (8.4-10.2) mg/dL Magnesium 2.1 (1.6-2.6) mg/dL Total Bilirubin 0.4 (0.0-1.0) mg/dL AST 16 (5-37) U/L ALT 9 (0-40) U/L Alkaline Phosphatase 60 (39-117) U/L Troponin I High Sens 4.9 (<3.5-35.0) ng/L Total Protein 7.9 (6.5-8.0) g/dL Albumin 4.6 (3.5-5.0) g/dL Radiology Impression Discussion of test interpretation with radiology: I have reviewed the radiologist's reading. Radiologist Impression: Findings: The lungs are clear. Normal size heart. No acute fracture. IMPRESSION: 1. No acute findings. This document has been electronically signed by: Marcial Rivera MD, PHD on 07/17/2025 23:33:04 Discharge Plan Discharge Clinical Impression: Upper back pain on left side Patient Disposition: Home, Self-Care Instructions: Back Pain (ED) Additional Instructions: Your upper back/shoulder pain is most consistent with muscle spasm. Because you are on Eliquis you can not take NSAIDs pain You may use acetaminophen and tramadol for pain Follow up with your primary doctor, return for new or worsening symptoms Prescriptions: New tramadol 50 mg tablet 50 mg PO Q8H PRN (Reason: pain) Qty: 12 0RF No Action doxycycline hyclate 100 mg tablet 100 mg PO BID Qty: 14 0RF hydroxyzine HCl 50 mg tablet 50 mg PO BEDTIME PRN (Reason: anxiety) Qty: 30 1RF Eliquis 5 mg tablet 5 mg PO BID Qty: 60 0RF amlodipine 5 mg tablet 5 mg PO DAILY Qty: 90 0RF omeprazole 40 mg capsule,delayed release(DR/EC) 40 mg PO DAILY Qty: 90 0RF naloxone [Narcan] 4 mg/actuation spray,non-aerosol 4 mg intranasal Q2M PRN (Reason: opioid overdose) Qty: 2 0RF Rx Instructions: spray 1 dose into ONE nostril; alternate nostrils w each dose until help arrives buprenorphine-naloxone [Suboxone] 8-2 mg film 1 film sublingual TID Qty: 21 2RF Print Language: Belarusian
[2025-07-18 05:28] VITALS: RESP 17
[2025-07-18 06:38] VITALS: BP 00/00; PULSE 80; RESP 17; TEMP -17.7; TEMP 0; O2SAT 0
== END 2025-07-18 06:39 | disposition home or self-care (01) ==
PROVIDERS: Emergency Provider Emergency Medicine
DX: M54.6 Pain in thoracic spine (principal); M25.512 Pain in left shoulder; R06.02 Shortness of breath; I10 Essential (primary) hypertension; J45.909 Unspecified asthma, uncomplicated; F17.200 Nicotine dependence, unspecified, uncomplicated; Z71.6 Tobacco abuse counseling
CPT/HCPCS: 36415; 71046; 80053; 83735; 84484; 85025; 85379; 93005; 99283

== ENCOUNTER → 2025-07-17 22:25 | Outpatient (BNV) | payer MEDICAID, SELFPAY | PROVIDERS: Emergency Provider Emergency Medicine; Visit Provider Internal Medicine Cardiovascular Disease | DX: R06.02 Shortness of breath (principal) | CPT/HCPCS: 93010 ==

== ENCOUNTER → 2025-07-17 22:35 | Outpatient (BNV) | payer MEDICAID, SELFPAY | PROVIDERS: Visit Provider General Practice | DX: R06.02 Shortness of breath (principal); R07.9 Chest pain, unspecified | CPT/HCPCS: 71046 ==

== ENCOUNTER 2025-08-29 11:20 | Outpatient (REF) | payer MEDICAID, SELFPAY | END 2025-08-29 11:21 | disposition home or self-care (01) | LOC: HO.HHCLNP 11:20 | PROVIDERS: Visit Provider Family Medicine | DX: F11.20 Opioid dependence, uncomplicated (principal) | CPT/HCPCS: 36415; 80307 ==